=== PATIENT | female | born 1940 | race Caucasian/White ===

== ENCOUNTER 2016-11-08 11:21 | Observation (INO) | payer MEDICARE, BC ==
[2016-11-08] MEDS ORDERED: ONDANSETRON 4 MG/2 ML VIAL IVP STA (11:54)
[2016-11-08] MEDS ORDERED: ASPIRIN 81 MG CHEW PO STA (11:54)
[2016-11-08] MEDS ORDERED: NITROGLYCERIN SL TABS 0.4 MG TAB SUBLINGUAL STA (11:54)
[2016-11-08] MEDS ORDERED: SODIUM CHLORIDE 0.9% 1,000 ML IV STA (11:54)
--- NOTE | 2016-11-08 12:35 | XR ---
EXAMINATION TYPE: XR chest 2V DATE OF EXAM: 11/08/2016 12:31 PM COMPARISON: Prior chest x-ray April 27, 2015. HISTORY: History of atrial fibrillation with chest pain TECHNIQUE: Frontal and lateral views of the chest are obtained. FINDINGS: There is no focal air space opacity, pleural effusion, or pneumothorax seen. The cardiac silhouette size is limits of normal with atherosclerotic thoracic aorta. The osseous structures are intact. IMPRESSION: No acute cardiopulmonary process. No significant change from prior.
[2016-11-08 12:40] LABS: Aty Lym Flag Slight; CHCM 33.2; HCT 38.9 % (34.0-46.0); HDW 2.46; HGB 13.4 gm/dL (11.4-16.0); MCH 30.2 pg (25.0-35.0); MCHC 34.4 g/dL (31.0-37.0); MCV 87.8 fL (80.0-100.0); RBC 4.44 m/uL (3.80-5.40); WBC 5.3 k/uL (3.8-10.6); WBC (Perox) 5.32
[2016-11-08 12:48] LABS: INR 1.2 (<1.1); Partial Thromboplastin Time 30.1 sec (22.0-30.0); Prothrombin Time 11.5 sec (9.0-12.0)
[2016-11-08 12:51] LABS: ALT 30 U/L (9-52); AST 24 U/L (14-36); Alkaline Phosphatase 75 U/L (38-126); Amylase 36 U/L (30-110); Anion Gap 11 mmol/L; Blood Urea Nitrogen 10 mg/dL (7-17); Carbon Dioxide 24 mmol/L (22-30); Chloride 102 mmol/L (98-107); Glucose 201 mg/dL (74-99); Magnesium 1.8 mg/dL (1.6-2.3); Non-African American GFR(MDRD) >60 (>60 ml/min/1.73 sqM); Potassium 3.7 mmol/L (3.5-5.1); Sodium 137 mmol/L (137-145); Total Bilirubin 1.6 mg/dL (0.2-1.3); Total Protein 6.8 g/dL (6.3-8.2)
[2016-11-08 12:58] LABS: Creatine Kinase 55 U/L (30-135)
[2016-11-08 13:11] LABS: Creatine Kinase MB 0.3 ng/mL (0.0-2.4); Troponin I <0.012 ng/mL (0.000-0.034)
[2016-11-08 13:17] LABS: Add Differential Manual Differential
[2016-11-08 13:22] LABS: Nucleated Red Blood Cells 0 /100 WBC (0-0)
[2016-11-08 13:23] LABS: Manual Review Performed; Metamyelocytes % 0.5 %; Total Cells Counted 200
[2016-11-08 13:24] LABS: Large Platelets Present
--- NOTE | 2016-11-08 14:42 | ED ---
Chest Pain HPI - General Chief Complaint: Chest Pain Stated Complaint: chest pain Time Seen by Provider: 11/08/16 11:32 Source: patient Mode of arrival: ambulatory Limitations: no limitations - History of Present Illness Initial Comments: Arms the chest pain today, that to his back or jaw lasted for about a about 40 minutes and she had a similar episode for the last 3 days but this is the longest time it ever lasted is she is also complaining about the shortness of breath but it is no pleuritic chest pain at all right ear pain has resolved totally she denies any headaches no neck stiffness no chest pain or shortness of breath no abdominal pain no frequency urgency dysuria no sinus symptoms of TIA or CVA - Related Data Home Medications Medication Instructions Recorded Confirmed ALPRAZolam [Xanax] 0.25 mg PO TID PRN 04/26/15 11/08/16 Aspirin 81 mg PO DAILY 04/26/15 11/08/16 Atorvastatin [Lipitor] 10 mg PO HS 04/26/15 11/08/16 Citalopram Hydrobromide 40 mg PO HS 04/26/15 11/08/16 [Citalopram HBr] Irbesartan/Hydrochlorothiazide 1 tab PO DAILY 04/26/15 11/08/16 [Irbesartan-Hctz 300-12.5 mg Tb] Levothyroxine Sodium [Levoxyl] 125 mcg PO DAILY 04/26/15 11/08/16 metFORMIN HCL [Glucophage] 500 mg PO HS 04/26/15 11/08/16 Rivaroxaban [Xarelto] 20 mg PO W/SUPPER 11/08/16 11/08/16 Previous Rx's Medication Instructions Recorded Nitroglycerin Sl Tabs [Nitrostat] 0.4 mg SUBLINGUAL Q5M PRN #25 tab 11/30/14 Atenolol [Tenormin] 12.5 mg PO HS #0 05/01/15 Allergies Allergy/AdvReac Type Severity Reaction Status Date / Time codeine Allergy Severe Unknown Verified 11/08/16 13:08 Review of Systems ROS Statement: Those systems with pertinent positive or pertinent negative responses have been documented in the HPI. ROS Other: All systems not noted in ROS Statement are negative. EKG Findings - EKG Comments: EKG Findings:: EKG is a sinus rhythm with a first-degree AV block ventricular rate is 68 MT interval is 224 QRS duration is 88 QT/QTc is 620 01/06/1950 and we have this EKG does not reveal any ST elevation or ST depression Past Medical History Past Medical History: Atrial Fibrillation, Diabetes Mellitus, GERD/Reflux, Hyperlipidemia, Hypertension, Osteoarthritis (OA), Pneumonia, Thyroid Disorder Additional Past Medical History / Comment(s): DDD, SPINAL STENOSIS HIATAL HERNIA , DIVERTICULITS, "diseased" HEART VALVES X2 History of Any Multi-Drug Resistant Organisms: MRSA Date of last positivie culture/infection: 04/30/2015 MDRO Source:: back Past Surgical History: Appendectomy, Cholecystectomy, Heart Catheterization, Hysterectomy Additional Past Surgical History / Comment(s): bladder suspension, PT STATED LT BREAST HAS VASCULAR LOOP, EPIDURAL INJECTIONS/BACK, COLONOSCOPY-POLYPECTOMY( BENIGN) Past Anesthesia/Blood Transfusion Reactions: Previous Problems w/ Anesthesia, Motion Sickness Additional Past Anesthesia/Blood Transfusion Reaction / Comment(s): HARD TIME WAKING UP AFTER AA. Past Psychological History: Anxiety, Depression Additional Psychological History / Comment(s): PT LOST HER DECEMBER 2014 HAS HAD SOME DEPRESSION SINCE BUT NOT SUICIDAL.PTS DAUGHTER,SON KAIT AND SON LIVE WITH PT. PT RECENTLY BOUGHT A LITTLE PUPPY.PT GETS UP AND AMBULATES ON HER OWN.APPETITE OFF AND ON. Is noted new animal in the home which is a puppy. Is doing modestly well since she became a . Was a tobacco smoker stopping 29 years ago. Has been somewhat inconsistent with medical care since the of her . Smoking Status: Former smoker Past Alcohol Use History: None Reported Past Drug Use History: None Reported - Past Family History Father Family Medical History: Renal Disease Additional Family Medical History / Comment(s): HEART PROBLEMS Mother Family Medical History: Cancer General Exam - General Exam Comments Initial Comments: General: The patient is awake and alert, in no distress, and does not appear acutely ill. Skin: Skin is warm and dry and no rashes or lesions are noted. Eye: Pupils are equal, round and reactive to light, extra-ocular movements are intact; there is normal conjunctiva bilaterally. Ears, nose, mouth and throat: There are moist mucous membranes and no oral lesions. Neck: The neck is supple, there is no tenderness or JVD. Cardiovascular: There is a regular rate and rhythm. No murmur, rub or gallop is appreciated. Respiratory: To auscultation bilateral, family is consistent with a COPD Gastrointestinal: Soft, non-distended, non-tender abdomen without masses or organomegaly noted. There is no rebound or guarding present. Bowel sounds are unremarkable. Back: There is no tenderness to palpation in the midline. There is no obvious deformity. Musculoskeletal: Normal ROM, no tenderness, There is no pedal edema. There is no calf tenderness or swelling. No cords were appreciated. Neurological: CN II-XII intact, Cranial nerves III through XII are intact. There are no obvious motor or sensory deficits. Coordination appears grossly intact. Speech is normal. Psychiatric: Cooperative, appropriate mood & affect, normal judgment. Limitations: no limitations Course Vital Signs 11/08/16 11/08/16 11/08/16 11:25 11:43 11:45 Temperature 99.1 F 98.0 F Pulse Rate 73 68 68 Respiratory 18 16 16 Rate Blood Pressure 179/81 149/70 149/70 O2 Sat by Pulse 97 97 97 Oximetry 11/08/16 11/08/16 11/08/16 12:15 13:33 14:22 Temperature 98.2 F Pulse Rate 64 66 70 Respiratory 16 18 18 Rate Blood Pressure 155/72 125/58 138/65 O2 Sat by Pulse 96 97 96 Oximetry Disposition Clinical Impression: Chest pain Disposition: ADMITTED IP TO THIS HOSP Condition: Fair Referrals: Napoleon Arellano MD [Primary Care Provider] - 1-2 days
[2016-11-08] MEDS ORDERED: NITROGLYCERIN SL TABS 0.4 MG TAB SUBLINGUAL PRN ×2 (14:57→15:00)
[2016-11-08] MEDS ORDERED: ALPRAZolam 0.25 MG TAB PO PRN (15:00)
[2016-11-08 16:53] VITALS: RESP 16
[2016-11-08 16:58] LABS: Glucose,Whole Blood 151 mg/dL (75-99)
[2016-11-08] MEDS ORDERED: RIVAROXABAN 10 MG TAB PO SCH (17:30)
[2016-11-08 18:46] LABS: Creatine Kinase 42 U/L (30-135)
[2016-11-08 18:59] LABS: Creatine Kinase MB 0.2 ng/mL (0.0-2.4); Troponin I <0.012 ng/mL (0.000-0.034)
[2016-11-08 20:43] LABS: Glucose,Whole Blood 133 mg/dL (75-99)
--- NOTE | 2016-11-08 20:57 | HP ---
DATE OF ADMISSION: Patient is a 76-year-old female who came in with complaints of pain in the neck area radiating to the jaw. Patient has history of atrial fibrillation. Patient had a recent stress test in the month of July. Patient also had a Holter monitor ( ). Patient denied any palpitation. Patient denied any shortness of breath. Patient denied any light-headedness. Patient denied any diaphoresis. Her chest pain is about 5/10 in severity, pressure-like sensation, not related to food, non-pleuritic in nature. Denied any cough or runny nose. Patient denied any weakness anywhere in the body. Patient is being admitted to rule out ( ) syndromes. Patient follows with Dr. Das as an outpatient for her coronary ( ). Patient is on rivaroxaban for the atrial fibrillation. Patient denied any palpitation-like symptoms. Denied any shortness of breath or orthopnea or PND. ROS: All other systems were reviewed and were negative. Home medications include 1. ( ) 2. Aspirin. 3. Citalopram. 4. Irbesartan hydrochlorothiazide. 5. Levothyroxine. 6. Metformin. 7. Rivaroxaban. 8. Nitroglycerin. 9. Atenolol. ALLERGIES: CODEINE. Past medical history is significant for: 1. Atrial fibrillation. 2. Diabetes mellitus. 3. Gastroesophageal reflux disease. 4. Hyperlipidemia. 5. Hypertension. 6. Osteoarthritis. 7. Hypothyroidism. 8. MRSA in the past. 9. Appendectomy. 10. Cholecystectomy. 11. Cardiac catheterization. 12. Hysterectomy. SOCIAL HISTORY: Former smoker. Denied any alcohol abuse or any drug abuse. FAMILY HISTORY: Father had heart problems. Mother had cancer. PHYSICAL EXAMINATION: VITAL SIGNS: Temperature 99.1, pulse of 68, respiratory rate of 16. Blood pressure is 149/70. GENERAL: The patient is alert and oriented x3, not in any acute distress. Well developed, well nourished. HEENT: Pupils are round and equally reacting to light. EOMI. No scleral icterus. No conjunctival pallor. Normocephalic, atraumatic. No pharyngeal erythema. No thyromegaly. CARDIOVASCULAR: S1 and S2 present. No murmurs, rubs, or gallops. PULMONARY: Chest is clear to auscultation, no wheezing or crackles. ABDOMEN: Soft, nontender, nondistended, normoactive bowel sounds. No palpable organomegaly. MUSCULOSKELETAL: No joint swelling or deformity. EXTREMITIES: No cyanosis, clubbing, or pedal edema. NEUROLOGICAL: Gross neurological examination did not reveal any focal deficits. SKIN: No rashes. LABORATORY DATA: CBC, CMP were reviewed. No significant abnormality was appreciated. ASSESSMENT AND PLAN: 1. Chest pain. Rule out acute coronary syndrome and unstable angina. Patient had a recent stress test. May not need a repeat stress test. Cardiology will evaluate the patient. After that, patient probably can be discharged with followup with Dr. Das as an outpatient. 2. History of atrial fibrillation, presently rate-controlled. Patient is on Xarelto, which will be continued. 3. Type 2 diabetes mellitus, on metformin, which can be continued as well. 4. Gastroesophageal reflux disease. 5. Hypertension. 6. Osteoarthritis. 7. Hyperlipidemia. For above-mentioned chronic medical problems, I will go ahead and continue with home medications. Will monitor patient overnight. Patient will be evaluated by Cardiology. After that, patient may be discharged, most probably tomorrow morning, to follow up with Dr. Das as an outpatient. I will leave evaluation of echocardiogram to Cardiology. JOSTIN
[2016-11-08] MEDS ORDERED: ATORVASTATIN 10 MG TAB PO SCH (21:00)
[2016-11-08] MEDS: PREGABALIN 100 MG CAP PO SCH (21:00)
[2016-11-08] MEDS ORDERED: ATORVASTATIN 40 MG TAB PO SCH (21:00)
[2016-11-08] MEDS ORDERED: ATENOLOL 12.5 MG TAB PO SCH (21:00)
[2016-11-08] MEDS ORDERED: metFORMIN 500 MG TAB PO SCH (21:00)
[2016-11-08] MEDS ORDERED: CITALOPRAM HYDROBROMIDE 20 MG TAB PO SCH (21:00)
[2016-11-08] MEDS: ACETAMINOPHEN TAB 325 MG TAB PO PRN (23:30)
[2016-11-09 00:39] LABS: Creatine Kinase 44 U/L (30-135)
[2016-11-09 00:52] LABS: Creatine Kinase MB 0.3 ng/mL (0.0-2.4); Troponin I <0.012 ng/mL (0.000-0.034)
[2016-11-09 02:53] LABS: Cholesterol 130 mg/dL (<200); HDL Cholesterol 52 mg/dL (40-60); Triglycerides 213 mg/dL (<150)
[2016-11-09] MEDS: LEVOTHYROXINE 125 MCG TAB PO SCH ×2 (04:57→05:36)
[2016-11-09 06:42] LABS: Glucose,Whole Blood 129 mg/dL (75-99)
[2016-11-09] MEDS ORDERED: LOSARTAN 50 MG TAB PO SCH (09:00)
[2016-11-09] MEDS ORDERED: HYDROCHLOROTHIAZIDE 12.5 MG CAP PO SCH (09:00)
[2016-11-09] MEDS ORDERED: ASPIRIN 325 MG TAB PO SCH (09:00)
[2016-11-09] MEDS: ACETAMINOPHEN TAB 325 MG TAB PO PRN (09:37)
[2016-11-09] MEDS: PREGABALIN 100 MG CAP PO SCH (09:41)
[2016-11-09 11:19] LABS: Hemoglobin A1C 6.8 % (4.2-6.1)
--- NOTE | 2016-11-09 11:20 | CONS ---
DATE OF CONSULTATION: This is a 76-year-old lady with a known history of hypertension, hypercholesterolemia, type 2 diabetes mellitus, and paroxysmal atrial fibrillation. She recently had a stress test performed in the office because of episodes of chest tightness and pressure and the stress test will be reviewed but presumably it was normal and this was a Lexiscan stress test. She comes into the hospital because after she showered yesterday she felt some pressure in her jaw and the pressure seemed to persist, went to the back of her head and then to the upper back and she came into the hospital concerned that this may be angina. She has not had any recurrence of pain. Her troponins are normal. EKGs are unremarkable. She is maintaining sinus rhythm. She is on Xarelto 20 mg daily. She has no symptoms at the time of my evaluation. She is known to have a normal LV systolic function. PAST MEDICAL HISTORY: 1. Paroxysmal atrial fibrillation on Xarelto, maintaining sinus rhythm. 2. Type 2 diabetes. 3. Hypertension. 4. Hyperlipidemia. 5. History of recent stress test that was presumably normal, but this will be verified. Medications at home include: irbesartan hydrochlorothiazide 300/12.5; atorvastatin 10 mg daily; Tenormin 12.5 mg daily; aspirin 81 mg daily; Xarelto 20 mg daily; Levoxyl 125 mcg daily; metformin 500 mg daily. ALLERGIES: CODEINE. REVIEW OF SYSTEMS: Unremarkable other than above-mentioned facts. On examination, blood pressure is 130/60, pulse rate 70 per minute, regular. HEENT: Unremarkable. Fundus was not examined by me. Neck is supple. There is no JVD. I do not hear a carotid bruit. There is no thyromegaly. Heart exam reveals S1 and S2. There is a short systolic murmur along the left upper sternal border. Lungs are clear. Abdomen is soft, nontender. Lower extremities reveal normal pulses. No edema. Central nervous system is normal. EKG revealed sinus mechanism. No acute changes. Laboratory data revealed unremarkable troponins. IMPRESSION: 1. Atypical chest pain. 2. Hypertension. 3. Hyperlipidemia. 4. Type 2 diabetes mellitus. 5. Paroxysmal atrial fibrillation on Xarelto. RECOMMENDATIONS: I will recheck the results of the stress test, but it appears that her recent Lexiscan stress test from November 04 was unremarkable. I will review this and if this is normal, she will be discharged and she will follow up with Dr. Das in about 2 to 3 weeks. I discussed my thoughts in detail with the patient and family. Thank you very much for the consult.
[2016-11-09 11:42] VITALS: BP 141/65; PULSE 71; TEMP 98.2
[2016-11-09 11:58] LABS: Glucose,Whole Blood 169 mg/dL (75-99)
--- NOTE | 2016-11-10 13:43 | DS ---
DATE OF ADMISSION: 11/08/2016 DATE OF DISCHARGE: 11/09/2016 HOSPITAL COURSE: Ms. Rueda is a 76-year-old female with a past medical history of hypertension, hyperlipidemia, type 2 diabetes mellitus, paroxysmal atrial fibrillation, admitted to the hospital with a chief complaint of chest pain. The patient had some chest discomfort and also felt like pressure in her jaw that persisted and so came to the hospital for further evaluation. The patient had serial troponins and EKGs and that were within normal limits. Cardiology has been consulted. The patient did have a recent stress test done on November 04 that has been within normal limits. As the patient's troponins and EKGs have been within normal limits, she was cleared by cardiology to be discharged home today. The patient is being discharged home in stable condition. DISCHARGE DIAGNOSES: 1. Atypical chest pain. 2. Hypertension. 3. Hyperlipidemia. 4. Type 2 diabetes mellitus. 5. Paroxysmal atrial fibrillation. 6. Gastroesophageal reflux disease. 7. Osteoarthritis. Patient's discharge medications: 1. Nitroglycerin sublingual 0.4 mg q.5 minutes p.r.n. for chest pain. 2. Xanax 0.25 mg p.o. 3 times a day p.r.n. for anxiety. 3. Aspirin 81 mg p.o. daily. 4. Atorvastatin 10 mg p.o. q.h.s. 5. Citalopram 40 mg p.o. q.h.s. 6. Irbesartan hydrochlorothiazide 300/12.5 mg 1 tablet p.o. daily. 7. Levothyroxine 125 mcg p.o. daily. 8. Metformin 500 mg p.o. q.h.s. 9. Atenolol 12.5 mg p.o. q.h.s. 10. Xarelto 20 mg p.o. with supper. 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 Thiago Coleman in 2 weeks and with her primary care physician, Dr. Napoleon Arellano within 1 to 2 days. JOSTIN
== END 2016-11-09 15:16 | disposition home or self-care (01) ==
LOC: EC 11:21 → 3OBS 14:57
PROVIDERS: ADMIT Hospitalist; ATTEND Hospitalist
DX: R07.89 Other chest pain (principal); I10 Essential (primary) hypertension; E78.5 Hyperlipidemia, unspecified; E11.9 Type 2 diabetes mellitus without complications; I48.0 Paroxysmal atrial fibrillation; K21.9 Gastro-esophageal reflux disease without esophagitis; M19.90 Unspecified osteoarthritis, unspecified site; E78.00 Pure hypercholesterolemia, unspecified; F41.9 Anxiety disorder, unspecified; Z79.01 Long term (current) use of anticoagulants; Z79.82 Long term (current) use of aspirin; Z79.84 Long term (current) use of oral hypoglycemic drugs; Z79.899 Other long term (current) drug therapy; Z87.891 Personal history of nicotine dependence; R06.02 Shortness of breath; H92.01 Otalgia, right ear; Z88.5 Allergy status to narcotic agent; I44.0 Atrioventricular block, first degree; E07.9 Disorder of thyroid, unspecified; M54.2 Cervicalgia
CPT/HCPCS: 99285 ×2; 36415; 93005; 83880; 80061; 80053; 82150; 83036; 82550; 82553; 83690; 83735; 84484; 85025; 85610; 85730; 71020; G0378 ×2; 96361

== ENCOUNTER 2016-12-25 10:52 | Day surgery (SDC) | payer MEDICARE, BC ==
[2016-12-20 16:03] VITALS: BMI 36.6
[~2016-12-25 10:52] MED LIST: ALPRAZolam 0.25 MG TAB PO PRN; ALPRAZolam 0.5 MG TAB PO PRN; ASPIRIN 325 MG TAB PO STA; ATORVASTATIN 80 MG TAB PO STA; NITROGLYCERIN SL TABS 0.4 MG TAB SUBLINGUAL PRN; SODIUM CHLORIDE 0.9% 1,000 ML in EMPTY BAG 1 BAG IV ONE
[2016-12-25 11:31] LABS: Aty Lym Flag Moderate; CH 29.8; CHCM 33.8; HDW 2.46; HGB 13.1 gm/dL (11.4-16.0); MCH 29.7 pg (25.0-35.0); MCHC 33.5 g/dL (31.0-37.0); MCV 88.4 fL (80.0-100.0); Mean Platelet Volume 9.3; RDW 14.1 % (11.5-15.5); WBC (Perox) 6.35
[2016-12-25 11:33] VITALS: TEMP 98
[2016-12-25 11:33] LABS: Glucose,Whole Blood 121 mg/dL (75-99)
[2016-12-25 11:46] LABS: Anion Gap 9 mmol/L; Blood Urea Nitrogen 11 mg/dL (7-17); Calcium 9.2 mg/dL (8.4-10.2); Carbon Dioxide 25 mmol/L (22-30); Chloride 105 mmol/L (98-107); Glucose 122 mg/dL (74-99); Non-African American GFR(MDRD) >60 (>60 ml/min/1.73 sqM); Potassium 3.8 mmol/L (3.5-5.1); Sodium 139 mmol/L (137-145)
[2016-12-25 12:09] LABS: Add Differential Manual Differential
[2016-12-25 12:11] LABS: Nucleated Red Blood Cells 0 /100 WBC (0-0); Total Cells Counted 100
[2016-12-25 12:12] LABS: RBC Morphology Normal
[2016-12-25] MEDS ORDERED: VERAPAMIL 2.5 MG/ML 2 ML AMP ONE (12:13)
[2016-12-25] MEDS ORDERED: LIDOCAINE 2% INJ 20 MG/ML (20 ML MDV) ONE (12:13)
[2016-12-25] MEDS ORDERED: fentaNYL (PF) 50 MCG/ML 2 ML AMP ONE (12:30)
[2016-12-25] MEDS ORDERED: HEPARIN SODIUM 1,000 UNIT/ML VIAL ONE (12:30)
[2016-12-25] MEDS ORDERED: fentaNYL (PF) 50 MCG/ML 2 ML AMP IV ONE (12:34)
[2016-12-25] MEDS ORDERED: LIDOCAINE 2% INJ 20 MG/ML SQ ONE (12:38)
[2016-12-25] MEDS ORDERED: HEPARIN SODIUM 1,000 UNIT/ML VIAL IV ONE (12:41)
[2016-12-25] MEDS ORDERED: VERAPAMIL SYRINGE (5 MG/10 ML) INTRAARTER ONE (12:41)
[2016-12-25] MEDS ORDERED: IOHEXOL 350 MG/ML 125ML BOTTLE INJ ONE (12:54)
[2016-12-25] MEDS ORDERED: RX INFO: IV CONTRAST WAS GIVEN 1 EACH MISC MISCELLANE PRN (13:10)
[2016-12-25] MEDS ORDERED: ALPRAZolam 0.25 MG TAB PO PRN (13:11)
[2016-12-25] MEDS ORDERED: NITROGLYCERIN SL TABS 0.4 MG TAB SUBLINGUAL PRN (13:11)
[2016-12-25 13:15] VITALS: RESP 16
[2016-12-25] MEDS ORDERED: SODIUM CHLORIDE 0.9% 1,000 ML IV SCH (13:15)
--- NOTE | 2016-12-25 14:16 | CC ---
DATE OF SERVICE: Ms. Rueda is a 76-year-old female with known history of hypertension, hyperlipidemia, and diabetes mellitus, who has been complaining of episode of chest discomfort and dyspnea. In view of that, underwent a stress test that showed evidence of stress induced ischemia involving the intra-apical wall. In view of that, recommendation was made regarding cardiac catheterization. The procedure as well as the risks and complications were discussed with the patient who is in full understanding and agreement. PROCEDURE: Patient was brought to the [facility] in fasting semi-sedated state after receiving fentanyl and Benadryl and after achieving moderate conscious sedation state, using Xylocaine anesthesia and Seldinger technique, a 6 Wolof sheath was introduced in the right radial artery. Selective right and left coronary angiography was performed using 5 Wolof 3-1/2 Bend, right Ovi catheters. Multiple views of the coronary artery including hemiaxial views were obtained. Following that, a 5 Wolof tight pigtail catheter was introduced into the left ventricle and a 30 degree GUILLERMO view of the left ventricle obtained. Following that, catheter and sheaths were removed. Hemostasis was obtained with deployment of a TR band. There were no immediate complications. Patient is returned to her room in stable condition. Of note, the patient received 4500 units of intravenous heparin as well as intra-arterial verapamil. FINDINGS: FLUOROSCOPY: There is mild calcification involving the right coronary artery in the left anterior descending artery. LEFT MAIN: This is a mild size vessel bifurcating into left circumflex and left anterior descending artery. The left main coronary artery has no evidence of high-grade stenosis. LEFT ANTERIOR DESCENDING ARTERY: This is a large-size vessel reaching toward the apex and giving rise to 2 small diagonal branches. The left anterior descending artery, as well as its branches has no evidence of high-grade stenosis. LEFT CIRCUMFLEX: This is a nondominant vessel, giving rise to an obtuse marginal branch of large caliber. The left circumflex proximally has 20% to 30% plaque at the ostium. The rest of the vessel has no high-grade stenosis. RIGHT CORONARY ARTERY: This is a large dominant vessel, bifurcating into PDA and posterolateral segment and branches. The mid right coronary artery has a 20% to 30% plaque. The rest of the vessel has no high-grade stenosis. LEFT VENTRICULOGRAM: Left ventriculogram was performed in 30 degree GUILLERMO view and revealed normal left ventricular size and systolic function. Ejection fraction is 60%. HEMODYNAMICS: There was no gradient across the aortic valve. The left ventricular end-diastolic pressure was 14 to 16 mmHg. CONCLUSION: 1. Mildly calcified coronary arteries. 2. Mild disease in the mid-right coronary artery and ostial left circumflex. 3. Normal left ventricular size and systolic function. RECOMMENDATION: In view of finding anatomy, I would recommend resume with medical therapy with aggressive risk modification. Those findings and recommendations were discussed with the patient and family who are in full understanding and agreement. T DURATION OF THE PROCEDURE: 20 minutes.
--- NOTE | 2016-12-25 14:24 | LTR ---
December 25, 2016 RE: Nita Rueda Dear Dr. Arellano; I had the pleasure to perform cardiac catheterization on Ms. Rueda at [facility] at December 25, 2016 and a full copy of the procedure note will be forwarded to you. In brief, she was found to have mildly calcified coronary artery with mild disease involving the mid-right coronary artery and the ostium of the left circumflex with a preserved ventricular size and systolic function and based on those findings, I would recommend continued medical therapy with the aggressive risk modification that has been initiated and thank you again for allowing me to participate in this patient's care. Please feel free to call for any questions. Sincerely, LINDA PENALOZA MD
[2016-12-25 15:36] VITALS: BP 137/60; PULSE 66
[2016-12-25] MEDS ORDERED: PREGABALIN 100 MG CAP PO SCH (21:00)
[2016-12-25] MEDS ORDERED: ATORVASTATIN 10 MG TAB PO SCH (21:00)
[2016-12-25] MEDS ORDERED: NON-FORMULARY DRUG (Citalopram Hydrobromide [Citalopram Hbr] 40 MG) PO SCH (21:00)
[2016-12-25] MEDS ORDERED: ATENOLOL 25 MG TAB PO SCH (21:00)
[2016-12-26] MEDS ORDERED: [UNRECOGNIZED DRUG - OTHER] PO SCH (09:00)
[2016-12-26] MEDS ORDERED: HYDROCHLOROTHIAZIDE PO SCH (09:00)
[2016-12-26] MEDS ORDERED: ASPIRIN 81 MG CHEW PO SCH (09:00)
[2016-12-26] MEDS ORDERED: LEVOTHYROXINE 125 MCG TAB PO SCH (09:00)
[2016-12-26] MEDS ORDERED: IRBESARTAN PO SCH (09:00)
== END 2016-12-25 17:59 | disposition home or self-care (01) ==
LOC: CATHCVL 10:52
PROVIDERS: ATTEND Internal Medicine Interventional Cardiology
DX: I25.10 Atherosclerotic heart disease of native coronary artery without angina pectoris (principal); I25.84 Coronary atherosclerosis due to calcified coronary lesion; I10 Essential (primary) hypertension; I48.0 Paroxysmal atrial fibrillation; Z79.01 Long term (current) use of anticoagulants; E78.2 Mixed hyperlipidemia; E11.9 Type 2 diabetes mellitus without complications; Z79.84 Long term (current) use of oral hypoglycemic drugs; G47.30 Sleep apnea, unspecified; Z99.89 Dependence on other enabling machines and devices; Z79.82 Long term (current) use of aspirin; Z79.899 Other long term (current) drug therapy; Z88.5 Allergy status to narcotic agent; Z91.09 Other allergy status, other than to drugs and biological substances
CPT/HCPCS: 93458; 80048; 85025; C1894; C1769 ×2; J2001; J3010; J1644; Q9967

== ENCOUNTER 2018-07-15 14:38 | Emergency (ER) | payer BC, MEDICARE ==
[2018-07-15 15:18] VITALS: TEMP 98.2
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
--- NOTE | 2018-07-15 15:56 | XR ---
Abdomen HISTORY: Hematuria Frontal view of the abdomen on 2 images Surgical clips present right upper quadrant. Degenerative disc changes in the visualized spine. No ev ident bowel infection or pneumoperitoneum. Lung bases are clear. IMPRESSION: No acute abnormalities evident.
[2018-07-15 16:14] LABS: Appearance,Urine Clear (Clear); Bacteria,Urine Many /hpf; Bilirubin,Urine Negative (Negative); Blood,Urine Large (Negative); Color,Urine Yellow; Glucose,Urine (UA) Negative (Negative); Ketones,Urine Negative (Negative); Leukocyte Esterase,Urine Negative (Negative); Nitrite,Urine Negative (Negative); PH, Urine 6.5 (5.0-8.0); Protein,Urine Trace (Negative); RBC,Urine 65 /hpf (0-5); Specific Gravity,Urine 1.003 (1.001-1.035); Squamous Epithelial Cell,Urine <1 /hpf (0-4); Urobilinogen,Urine <2.0 mg/dL (<2.0); WBC,Urine 2 /hpf (0-5)
[2018-07-15] MEDS ORDERED: SODIUM CHLORIDE 0.9% 1,000 ML IV STA (16:53)
[2018-07-15 17:19] LABS: ALT 24 U/L (9-52); AST 25 U/L (14-36); Albumin 4.2 g/dL (3.5-5.0); Alkaline Phosphatase 75 U/L (38-126); Amylase 57 U/L (30-110); Anion Gap 10 mmol/L; Blood Urea Nitrogen 11 mg/dL (7-17); Carbon Dioxide 26 mmol/L (22-30); Chloride 103 mmol/L (98-107); Glucose 171 mg/dL (74-99); Lipase 50 U/L (23-300); Sodium 139 mmol/L (137-145); Total Bilirubin 1.3 mg/dL (0.2-1.3); Total Protein 7.3 g/dL (6.3-8.2)
[2018-07-15 17:28] LABS: HCT 40.1 % (34.0-46.0); HGB 13.3 gm/dL (11.4-16.0); MCH 28.4 pg (25.0-35.0); MCHC 33.2 g/dL (31.0-37.0); MCV 85.5 fL (80.0-100.0); Mean Platelet Volume 9.9; Platelet Count 139 k/uL (150-450); RBC 4.69 m/uL (3.80-5.40); RDW 14.4 % (11.5-15.5); WBC 8.7 k/uL (3.8-10.6)
[2018-07-15 17:58] LABS: Lymphocytes # (M) 3.22 k/uL (1.0-4.8); Metamyelocytes # (M) 0.09 k/uL (0); Metamyelocytes % 1 %; Monocytes # (M) 1.39 k/uL (0-1.0); Neutrophils % (M) 46 %; Nucleated Red Blood Cells 0 /100 WBC (0-0); Total Cells Counted 100
--- NOTE | 2018-07-15 18:14 | CT ---
EXAMINATION TYPE: CT abdomen pelvis w con DATE OF EXAM: 07/15/2018 COMPARISON: None HISTORY: gross hematuria CT DLP: 1550.7 mGycm Automated exposure control for dose reduction was used. TECHNIQUE: Helical acquisition of images was performed from the lung bases through the pelvis. CONTRAST: Performed without Oral Contrast and with IV Contrast, patient injected with 100 mL of Isovue 300. FINDINGS: There is patchy interstitial infiltrates and atelectasis at the lung bases. There is no pleural effus ion. Heart appears enlarged. There is no pericardial effusion. There is low-attenuation throughout the liver consistent with fatty infiltration. There are clips fro m cholecystectomy. Bile ducts are not dilated. There is no focal liver defect. Spleen appears normal. Stomach appears normal. There is no pancreatic mass. There is no adrenal mass. Kidneys show satisfactory contrast opacification. There is satisfactory exc retion on the delayed images. There is no hydronephrosis. There is right renal parapelvic cyst. Urete rs are not dilated. Abdominal aorta is atheromatous. There is no retroperitoneal adenopathy. There is broad-based umbilical hernia that contains fat. Bladder distends smoothly. There is no inguinal hernia. There is no free fluid in the pelvis. There a re sigmoid multiple diverticula. There is no evidence of diverticulitis. Appendix is not seen. There is no sign of appendicitis. Abdominal aorta is atheromatous. There is no sign of free air. There is no evidence of a bowel obstruction. I see no intestinal wall thickening. B kirsten structures appear intact. There is L5-S1 spondylosis. There is no compression fracture. IMPRESSION: THERE ARE A FEW SIGMOID DIVERTICULA WITHOUT EVIDENCE OF DIVERTICULITIS. ATHEROSCLEROTIC VASCULAR DISE ASE. FATTY INFILTRATION OF THE LIVER. FIBROTIC CHANGES AT THE LUNG BASES. I do not see a cause for hematuria.
[2018-07-15 19:29] VITALS: BP 139/59; PULSE 72; RESP 18
== END 2018-07-15 19:45 | disposition home or self-care (01) ==
LOC: EC 14:38
DX: R31.9 Hematuria, unspecified (principal); R19.8 Other specified symptoms and signs involving the digestive system and abdomen; I48.91 Unspecified atrial fibrillation; E11.9 Type 2 diabetes mellitus without complications; K21.9 Gastro-esophageal reflux disease without esophagitis; E78.5 Hyperlipidemia, unspecified; I10 Essential (primary) hypertension; M19.90 Unspecified osteoarthritis, unspecified site; E07.9 Disorder of thyroid, unspecified; F32.9 Major depressive disorder, single episode, unspecified; F41.9 Anxiety disorder, unspecified; Z86.14 Personal history of Methicillin resistant Staphylococcus aureus infection; Z87.891 Personal history of nicotine dependence; Z79.01 Long term (current) use of anticoagulants; Z79.84 Long term (current) use of oral hypoglycemic drugs; Z79.899 Other long term (current) drug therapy; Z88.5 Allergy status to narcotic agent; Z91.048 Other nonmedicinal substance allergy status; Z95.818 Presence of other cardiac implants and grafts; Z90.49 Acquired absence of other specified parts of digestive tract
CPT/HCPCS: 36415; 80053; 82150; 83690; 85025; 81001; 87086; 74018; 74177; 99284; 96360; 96361; Q9967

== ENCOUNTER 2018-10-28 09:24 | Day surgery (SDC) | payer MEDICARE ==
[2018-10-22 10:18] VITALS: BMI 36.6
[~2018-10-28 09:24] MED LIST changes: -ALPRAZolam 0.25 MG TAB PO PRN; -ALPRAZolam 0.5 MG TAB PO PRN; -ASPIRIN 325 MG TAB PO STA; -ATORVASTATIN 80 MG TAB PO STA; +LACTATED RINGERS 1,000 ML IV SCH; +LIDOCAINE 1% 20 ML VIAL (10MG/ML) FOR IV START INTRADERMA PRN; +MOXIFLOXACIN HCL 0.5% DROPS 3 ML BTL OP ONE; -NITROGLYCERIN SL TABS 0.4 MG TAB SUBLINGUAL PRN; +ONDANSETRON 4 MG/2 ML VIAL IVP ONE; -SODIUM CHLORIDE 0.9% 1,000 ML in EMPTY BAG 1 BAG IV ONE; +TETRACAINE 0.5% OPHTH (PF) DROPS 4 ML BTL OP ONE; +TIMOLOL 0.5% OPHTH DROPS 5 ML BTL OP ONE
[2018-10-28] MEDS: PHENYLEPHRINE 2.5% OPHTH DRP 2ML OP NR ×3 (09:58→10:11)
[2018-10-28] MEDS: CYCLOPENTOLATE 1% OPHTH SOLN 2 ML BTL OP ONE ×3 (10:02→10:14)
[2018-10-28 10:22] LABS: Glucose,Whole Blood 178 mg/dL (75-99)
[2018-10-28 10:23] VITALS: TEMP 97.1
[2018-10-28] MEDS ORDERED: fentaNYL (PF) 50 MCG/ML 2 ML AMP ONE (11:54)
[2018-10-28] MEDS ORDERED: MIDAZOLAM 2 MG/2 ML VIAL ONE (11:54)
[2018-10-28] MEDS ORDERED: LIDOCAINE 1% (PF) 10MG/ML VIAL SQ ONE (11:57)
[2018-10-28] MEDS ORDERED: BALANCED SALT IRRIG SOLN COMB2 15 ML IRRIG.SOLN IRRIGATION ONE (11:57)
[2018-10-28] MEDS ORDERED: HYALURONATE SODIUM INTRAOCULAR 1 EACH SYRINGE (12MG/ML) INTRAOCULA ONE (11:57)
[2018-10-28] MEDS ORDERED: EPINEPHrine (PF) 0.3 ML in BALANCED SALT IRRIG SOLN COMB2 500 ML IRRIGATION ONE (12:13)
--- NOTE | 2018-10-28 12:32 | P.OP ---
Date of Procedure: 10/28/18 Preoperative Diagnosis: NS & PSC B& CS Postoperative Diagnosis: same Procedure(s) Performed: PIOL, OD Implants: PCB00 26.50 Anesthesia: MAC Surgeon: Clay Aly Pathology: none sent Condition: stable Disposition: same day Indications for Procedure: blurry vision Operative Findings: No complications
[2018-10-28 12:56] VITALS: RESP 18
[2018-10-28 12:57] VITALS: BP 139/74; PULSE 74
--- NOTE | 2018-10-29 07:11 | OP ---
OPERATIVE REPORT DATE OF SURGERY: 10/28/2018 SURGEON: Dr. Clay Aly PREOPERATIVE DIAGNOSES: Nuclear sclerosis, cortical sclerosis, posterior subcapsular cataract. POSTOPERATIVE DIAGNOSES: Nuclear sclerosis, cortical sclerosis, posterior subcapsular cataract. OPERATION: Phacoemulsification of cataract and intraocular lens implant of the right eye. ESTIMATED BLOOD LOSS: Zero. SPECIMEN TAKEN: None. NARRATIVE: After obtaining the appropriate consent, the patient was brought to the Operating Room where the patient was placed under cardiac monitoring and prepped and draped in the usual sterile manner. At the 11 o'clock position a 15 degree super sharp blade was used to create a paracentesis followed by instillation of 1% Xylocaine MPF 50:50 mix with BSS into the anterior chamber. This was followed by Amvisc to stabilize the anterior chamber. At the 9 o'clock position a self-sealing corneal flap incision was created using 2.8 mm kya keratome. A cystotome was used to initiate a continuous tear capsulorrhexis which was completed with the Utrata forceps. A Binkhorst cannula was used to hydrodissect the lens nucleus followed by hydrodelineation. Phacoemulsification of the lens was performed utilizing phaco chop in 17.93 seconds at 14% power. The remaining cortical material was removed using the irrigation aspiration mode followed by additional 1% Xylocaine MPF into the anterior chamber followed by viscoelastic to stabilize the capsular bag. An ALBERTINA PCB00 26.5 diopter posterior chamber lens was placed into the capsular bag without difficulty. The remaining viscoelastic material was removed from the anterior chamber with the irrigation/aspiration. Balanced salt solution was used to normalize the intraocular pressure. The incision was checked for watertight integrity. The patient then received two drops of 0.5% timolol followed by two drops Vigamox, was lightly patched and shielded in the usual manner. There were no complications from the procedure. The patient tolerated the procedure well and was returned to recovery in good condition. MMODL / IJN: [id number] /
== END 2018-10-28 13:00 | disposition home or self-care (01) ==
LOC: OR 09:24
PROVIDERS: ATTEND Ophthalmology
DX: E11.36 Type 2 diabetes mellitus with diabetic cataract (principal); H00.023 Hordeolum internum right eye, unspecified eyelid; H00.026 Hordeolum internum left eye, unspecified eyelid; E03.9 Hypothyroidism, unspecified; I10 Essential (primary) hypertension; E78.5 Hyperlipidemia, unspecified; F41.9 Anxiety disorder, unspecified; F32.9 Major depressive disorder, single episode, unspecified; E66.9 Obesity, unspecified; I48.91 Unspecified atrial fibrillation; G47.33 Obstructive sleep apnea (adult) (pediatric); Z96.1 Presence of intraocular lens; Z98.42 Cataract extraction status, left eye; Z88.5 Allergy status to narcotic agent; Z79.82 Long term (current) use of aspirin; Z79.899 Other long term (current) drug therapy; Z79.01 Long term (current) use of anticoagulants; Z79.84 Long term (current) use of oral hypoglycemic drugs; Z79.890 Hormone replacement therapy; Z91.040 Latex allergy status; Z68.36 Body mass index [BMI] 36.0-36.9, adult
CPT/HCPCS: 66984; C1780; J2250; J0171; J3010; J2001

== ENCOUNTER 2019-04-22 07:40 | Day surgery (SDC) | payer MEDICARE ==
[2019-04-20 16:26] VITALS: BMI 37.8
[~2019-04-22 07:40] MED LIST changes: +ALPRAZolam 0.25 MG TAB PO PRN; +ALPRAZolam 0.5 MG TAB PO PRN; +ASPIRIN 325 MG TAB PO STA; +ATORVASTATIN 80 MG TAB PO STA; -LACTATED RINGERS 1,000 ML IV SCH; -LIDOCAINE 1% 20 ML VIAL (10MG/ML) FOR IV START INTRADERMA PRN; -MOXIFLOXACIN HCL 0.5% DROPS 3 ML BTL OP ONE; +NITROGLYCERIN SL TABS 0.4 MG TAB SUBLINGUAL PRN; -ONDANSETRON 4 MG/2 ML VIAL IVP ONE; +SODIUM CHLORIDE 0.9% 1,000 ML in EMPTY BAG 1 BAG IV ONE; -TETRACAINE 0.5% OPHTH (PF) DROPS 4 ML BTL OP ONE; -TIMOLOL 0.5% OPHTH DROPS 5 ML BTL OP ONE
[2019-04-22] MEDS ORDERED: SODIUM CHLORIDE 0.9% 1,000 ML IV ONE (08:27)
[2019-04-22 08:34] VITALS: RESP 16; TEMP 97
[2019-04-22 08:46] LABS: Glucose,Whole Blood 211 mg/dL (75-99)
[2019-04-22] MEDS ORDERED: fentaNYL (PF) 50 MCG/ML 2 ML AMP ONE (09:06)
[2019-04-22] MEDS ORDERED: LIDOCAINE 1% INJ 10MG/ML (20 ML MDV) ONE (09:06)
[2019-04-22] MEDS ORDERED: VERAPAMIL 2.5 MG/ML 2 ML AMP ONE (09:06)
[2019-04-22] MEDS ORDERED: fentaNYL (PF) 50 MCG/ML 2 ML AMP IVP ONE (09:33)
[2019-04-22] MEDS ORDERED: LIDOCAINE 1% INJ 10MG/ML (20 ML MDV) SQ ONE (09:42)
[2019-04-22] MEDS ORDERED: VERAPAMIL SYRINGE (5 MG/10 ML) INTRAARTER ONE (09:44)
[2019-04-22] MEDS ORDERED: HEPARIN SODIUM 1,000 UN/ML (10ML VL) ONE (09:49)
[2019-04-22] MEDS ORDERED: HEPARIN SODIUM 1,000 UN/ML (10ML VL) IV ONE (09:51)
[2019-04-22] MEDS ORDERED: IOPAMIDOL-370 125ML BTL INJ ONE (09:55)
[2019-04-22] MEDS ORDERED: RX INFO: IV CONTRAST WAS GIVEN 1 EACH MISC MISCELLANE PRN (10:06)
[2019-04-22] MEDS ORDERED: ALPRAZolam 0.25 MG TAB PO PRN (10:07)
[2019-04-22] MEDS ORDERED: SODIUM CHLORIDE 0.9% 1,000 ML IV SCH (10:15)
--- NOTE | 2019-04-22 11:08 | CC ---
CARDIAC CATHETERIZATION REPORT Mrs. Rueda is a 78-year-old female with known history of hypertension, hyperlipidemia, diabetes mellitus, and history of coronary artery disease who presented with symptoms of chest discomfort, had an abnormal myocardial perfusion imaging. In view of that, recommendation was made regarding cardiac catheterization. The procedure as well as the risks and the complications were discussed with the patient who is in full understanding and agreement. PROCEDURE: Patient was brought to cathode maker in a fasting semi-sedated state after receiving fentanyl and Benadryl and achieving moderate conscious sedated state. Using Xylocaine anesthesia in the Seldinger technique, a 6-Vietnamese sheath was introduced in the right radial artery. Selective right and left coronary angiography performed using 5-Vietnamese 3.5 bend right and left Ovi catheters. Multiple views of the coronary artery including the hemiaxial views were obtained. Following that, 5-Vietnamese tight pigtail catheter was introduced in the left ventricle and a 30 degree GUILLERMO view of the left ventricle was obtained. Following that, catheter and sheaths were removed. Hemostasis was obtained with deployment of a TR band. There was no immediate complication. Patient was returned to her room in stable condition. Of note, the patient received 4500 units of intravenous heparin as well as intra-arterial verapamil. FINDINGS: LEFT MAIN: This is a short size vessel bifurcating left circumflex, left anterior descending artery. Left main coronary artery has no evidence of high-grade stenosis. LEFT ANTERIOR DESCENDING ARTERY: This is a mildly calcified vessel proximally giving rise to 2 diagonal branches of small caliber. The left anterior descending artery proximally has mild plaque of 10% to 20% without any evidence of high-grade stenosis. LEFT CIRCUMFLEX: This is a nondominant vessel giving rise to one obtuse marginal branch. The left circumflex proximally at the takeoff has a 30% plaque. The rest of the vessel has no high-grade stenosis. RIGHT CORONARY ARTERY: This is a large dominant vessel bifurcating distally PDA and posterolateral segment and branches. The right coronary artery in the mid segment has a 20% to 30% plaque in a tubular fashion. There was no evidence of high-grade stenosis. LEFT VENTRICULOGRAM: The left ventriculogram was performed in 30-degree GUILLERMO view and revealed normal left ventricular size and systolic function. Ejection fraction is 60%. There was no significant mitral regurgitation. HEMODYNAMICS: There was no gradient across the aortic valve. The left ventricular end- diastolic pressure was 14 to 18 mmHg. CONCLUSION: 1. Mild triple-vessel coronary artery disease. 2. Normal left ventricular size and systolic function. RECOMMENDATION: In view of finding anatomy, I recommend to continue medical therapy with aggressive coronary risk modifications that have been initiated. Those findings and recommendations were discussed with the patient and her family and are in full understanding and agreement. Duration of procedure is 20 minutes. KRISTIE / SHUNN: [id number] /
--- NOTE | 2019-04-22 11:14 | LTR ---
April 22, 2019 Re: Nita Allenhn Dear Dr. Arellano: I had the opportunity to perform cardiac catheterization on Mrs. Rueda at [facility] on the 22 of April and a full copy of the procedure note will be forwarded to you. In brief, she was found to have mild mild triple-vessel coronary artery disease with a preserved left ventricular size and systolic function with no significant progression compared with the images obtained in 2017 and based on those findings, I recommend to continue medical therapy with aggressive coronary risk modifications that have been initiated. Thank you again for allowing me the opportunity to participate in her care. Please feel free to call for any questions. Sincerely yours, MD KRISTIE Whatley / SHUNN: [id number] /
[2019-04-22 13:30] VITALS: PULSE 67
[2019-04-22 14:40] VITALS: BP 156/80
[2019-04-22] MEDS ORDERED: CITALOPRAM HYDROBROMIDE 40 MG PO SCH (21:00)
[2019-04-22] MEDS ORDERED: ATENOLOL 50 MG TAB PO SCH (21:00)
[2019-04-22] MEDS ORDERED: ATORVASTATIN 10 MG TAB PO SCH (21:00)
[2019-04-22] MEDS ORDERED: PREGABALIN 100 MG CAP PO SCH (21:00)
[2019-04-23] MEDS ORDERED: LEVOTHYROXINE 125 MCG TAB PO SCH (09:00)
[2019-04-23] MEDS ORDERED: IRBESARTAN PO SCH (09:00)
[2019-04-23] MEDS ORDERED: ASPIRIN 81 MG PO SCH (09:00)
[2019-04-23] MEDS ORDERED: HYDROCHLOROTHIAZIDE PO SCH (09:00)
[2019-04-23] MEDS ORDERED: [UNRECOGNIZED DRUG - OTHER] PO SCH (09:00)
== END 2019-04-22 14:54 | disposition home or self-care (01) ==
LOC: CATHCVL 07:40
PROVIDERS: ATTEND Internal Medicine Interventional Cardiology
DX: I25.10 Atherosclerotic heart disease of native coronary artery without angina pectoris (principal); I48.0 Paroxysmal atrial fibrillation; I10 Essential (primary) hypertension; E78.2 Mixed hyperlipidemia; E11.9 Type 2 diabetes mellitus without complications; F17.210 Nicotine dependence, cigarettes, uncomplicated; Z79.82 Long term (current) use of aspirin; Z79.01 Long term (current) use of anticoagulants; Z79.890 Hormone replacement therapy; Z79.84 Long term (current) use of oral hypoglycemic drugs; Z79.899 Other long term (current) drug therapy; Z88.5 Allergy status to narcotic agent; Z91.040 Latex allergy status; Z91.041 Radiographic dye allergy status
CPT/HCPCS: 93458; J2001; J3010; J1644; Q9967

== ENCOUNTER 2021-11-11 08:44 | Emergency (ER) | payer MEDICARE ==
[2021-11-11 08:55] VITALS: TEMP 98.2
[2021-11-11] MEDS ORDERED: SODIUM CHLORIDE 0.9% 1,000 ML IV STA (09:37)
[2021-11-11] MEDS ORDERED: ONDANSETRON 4 MG/2 ML VIAL IVP STA (09:37)
--- NOTE | 2021-11-11 09:59 | ED ---
General Adult HPI - General Chief complaint: ENT Stated complaint: Eye pain Time Seen by Provider: 11/11/21 09:03 Source: patient, EMS, RN notes reviewed Mode of arrival: EMS Limitations: no limitations - History of Present Illness Initial comments: This is a 81-year-old female who presents to the emergency department for left eye pain. Three days ago she had surgery with Dr. Sullivan, esthetician/spa coordinator, at [facility]. 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 Since the surgery, the pain has progressed and she has associated nausea and vomiting. Overall she feels very weak. Denies fevers, chills, chest pain, shortness of breath, abdominal pain, diarrhea, or constipation. Onset/Timin -: days(s) Location: eyes (left) Radiation: non-radiation Associated Symptoms: nausea/vomiting Treatments Prior to Arrival: none - Related Data Home Medications Medication Instructions Recorded Confirmed ALPRAZolam [Xanax] 0.25 mg PO DAILY PRN 04/26/15 04/22/19 Aspirin 81 mg PO DAILY 04/26/15 04/22/19 Atorvastatin [Lipitor] 10 mg PO HS 04/26/15 04/22/19 Citalopram Hydrobromide 40 mg PO HS 04/26/15 04/22/19 [Citalopram HBr] Irbesartan/Hydrochlorothiazide 1 tab PO DAILY 04/26/15 04/22/19 [Irbesartan-Hctz 300-12.5 mg Tb] Levothyroxine Sodium [Levoxyl] 125 mcg PO DAILY 04/26/15 04/22/19 metFORMIN HCL [Glucophage] 500 mg PO HS 04/26/15 04/20/19 Rivaroxaban [Xarelto] 20 mg PO HS 11/08/16 04/20/19 Pregabalin [Lyrica] 100 mg PO BID 12/20/16 04/22/19 Cannabidiol (Cbd) [Epidiolex] 1 dose PO DIRECTED PRN 04/20/19 04/22/19 atenoloL [Tenormin] 50 mg PO HS 04/20/19 04/22/19 Previous Rx's Medication Instructions Recorded Nitroglycerin Sl Tabs [Nitrostat] 0.4 mg SUBLINGUAL Q5M PRN #25 tab 11/30/14 Ondansetron Odt [Zofran Odt] 4 mg PO Q8HR PRN #20 tab 11/11/21 Allergies Allergy/AdvReac Type Severity Reaction Status Date / Time codeine Allergy Severe Anaphylaxis Verified 11/11/21 08:55 adhesive tape Allergy Rash/Hives Verified 11/11/21 08:55 Latex, Natural Rubber Allergy Rash/Hives Verified 11/11/21 08:55 Review of Systems ROS Statement: Those systems with pertinent positive or pertinent negative responses have been documented in the HPI. ROS Other: All systems not noted in ROS Statement are negative. Constitutional: Denies: fever, chills Eyes: Reports: eye pain ENT: Denies: ear pain, throat pain, congestion Respiratory: Denies: cough, dyspnea Cardiovascular: Denies: chest pain, palpitations Endocrine: Reports: fatigue Gastrointestinal: Reports: nausea, vomiting. Denies: abdominal pain, diarrhea Genitourinary: Denies: urgency, dysuria Musculoskeletal: Denies: back pain Skin: Denies: rash Neurological: Denies: headache Past Medical History Past Medical History: Atrial Fibrillation, Chest Pain / Angina, COPD, Diabetes Mellitus, GERD/Reflux, Hyperlipidemia, Hypertension, Osteoarthritis (OA), Pneumonia, Sleep Apnea/CPAP/BIPAP, Thyroid Disorder Additional Past Medical History / Comment(s): Pt coded with codeine, NIDDM type II, DDD, SPINAL STENOSIS, HIATAL HERNIA, DIVERTICULITS, HAS C PAP MACHINE BUT DOESN'T USE, VARICOSE VEINS, FREQUENT DIARRHEA, BACK PAIN, ARTHRITIS IN KNEES, STATES INJECTION LEFT KNEE 04/20/19., SEE CARDIOLOGY H & P. History of Any Multi-Drug Resistant Organisms: MRSA Date of last positivie culture/infection: 04/30/2015 MDRO Source:: back ( ? spider bite) Past Surgical History: Appendectomy, Bladder Surgery, Cholecystectomy, Heart Catheterization, Hysterectomy Additional Past Surgical History / Comment(s): Bladder suspension, EPIDURAL INJECTION/BACK, COLONOSCOPY, catarats, eye sugery Past Anesthesia/Blood Transfusion Reactions: Previous Problems w/ Anesthesia, Motion Sickness Additional Past Anesthesia/Blood Transfusion Reaction / Comment(s): HARD TIME WAKING UP AFTER Anesthesia. Past Psychological History: Anxiety, Depression Smoking Status: Former smoker Past Alcohol Use History: None Reported Past Drug Use History: Marijuana - Past Family History Father Family Medical History: Cancer Additional Family Medical History / Comment(s): HEART PROBLEMS Mother Family Medical History: Renal Disease General Exam Limitations: no limitations General appearance: alert, in no apparent distress Eye exam: Present: PERRL (right, left pupil is fixed and dilated.), EOMI Expanded Eyelids: Erythema: Left (and ecchymosis), Swelling: Left Sclera/Conjunctival: Normal Inspection: Right, Injection: Left, Hemorrhage: Left IOP (R) in mmH IOP (L) in mmH Respiratory exam: Present: normal lung sounds bilaterally. Absent: respiratory distress, wheezes, rales, rhonchi, stridor Cardiovascular Exam: Present: regular rate, normal rhythm, normal heart sounds. Absent: systolic murmur, diastolic murmur, rubs, gallop, clicks Neurological exam: Present: alert, oriented X3, CN II-XII intact Psychiatric exam: Present: normal affect, normal mood Skin exam: Present: warm, dry, intact, normal color. Absent: rash Course Vital Signs 11/11/21 11/11/21 11/11/21 08:51 09:55 12:21 Temperature 98.2 F Pulse Rate 63 65 68 Respiratory 16 16 18 Rate Blood Pressure 138/68 133/62 148/78 O2 Sat by Pulse 95 95 Oximetry 11/11/21 15:00 Temperature Pulse Rate 61 Respiratory 16 Rate Blood Pressure 140/98 O2 Sat by Pulse 98 Oximetry Medical Decision Making - Medical Decision Making This is a 81-year-old female who presents to the emergency department for left eye pain after surgery. Lab work was obtained and a CTA of the head was obtained as well. The CTA revealed no acute abnormalities. She is also noted to have an elevated WBC without a clear cause. I spoke with Dr. Dias, ophthalmology, and he advised that her pain is likely related to increased pressure in the eye. He advised that she increase her dose of Diamox. She was advised to take 500 mg in the emergency department followed by 250 mg around 5 PM and another 250 mg before going to bed. Afterwards, she will continue at 250 mg 3 times daily. She had previously been taking 250 mg twice daily. The [facility] was instructed to contact Dr. Dias's office tomorrow for an appointment. After the conversation with Dr. Dias, we were able to check her IOP, and found her right eye to have an IOP of 14 and the affected eye had an IOP of 55. Rx for Zofran provided as well to control nausea. Return precautions reviewed in depth, the patient is instructed to return to the emergency department with any new, worsening, or concerning symptoms. Patient and her son verbalized understanding. This case was discussed in detail with the attending ED physician. Presentation, findings, and treatment plan discussed in detail as well. - Lab Data Result diagrams: 11/11/21 10:33 11/11/21 10:33 Lab Results 11/11/21 11/11/21 Range/Units 10:33 10:33 WBC 16.9 H (3.8-10.6) k/uL RBC 4.83 (3.80-5.40) m/uL Hgb 14.6 (11.4-16.0) gm/dL Hct 41.4 (34.0-46.0) % MCV 85.8 (80.0-100.0) fL MCH 30.3 (25.0-35.0) pg MCHC 35.3 (31.0-37.0) g/dL RDW 13.7 (11.5-15.5) % Plt Count 177 (150-450) k/uL MPV 10.8 Neutrophils % (Manual) 78 % Band Neuts % (Manual) 1 % Lymphocytes % (Manual) 11 % Monocytes % (Manual) 7 % Metamyelocytes % 2 % Myelocytes % 3 % Neutrophils # (Manual) 13.30 H (1.3-7.7) k/uL Lymphocytes # (Manual) 1.86 (1.0-4.8) k/uL Monocytes # (Manual) 1.18 H (0-1.0) k/uL Metamyelocytes # (Man) 0.34 H (0) k/uL Myelocytes # (Manual) 0.51 H (0) k/uL Nucleated RBCs 0 (0-0) /100 WBC Manual Slide Review Performed Toxic Granulation Present Anisocytosis (manual) Present Sodium 125 L (137-145) mmol/L Potassium 3.6 (3.5-5.1) mmol/L Chloride 90 L (98-107) mmol/L Carbon Dioxide 24 (22-30) mmol/L Anion Gap 11 mmol/L BUN 10 (7-17) mg/dL Creatinine 0.89 (0.52-1.04) mg/dL Est GFR (CKD-EPI)AfAm 71 (>60 ml/min/1.73 sqM) Est GFR (CKD-EPI)NonAf 62 (>60 ml/min/1.73 sqM) Glucose 193 H (74-99) mg/dL Calcium 9.6 (8.4-10.2) mg/dL Total Bilirubin 2.9 H (0.2-1.3) mg/dL AST 25 (14-36) U/L ALT 24 (4-34) U/L Alkaline Phosphatase 80 (38-126) U/L Total Protein 7.5 (6.3-8.2) g/dL Albumin 4.5 (3.5-5.0) g/dL - Radiology Data Radiology results: report reviewed, image reviewed Disposition Clinical Impression: Increased pressure in the eye Disposition: HOME SELF-CARE Instructions (If sedation given, give patient instructions): Glaucoma (ED) Additional Instructions: Return to the emergency department with any new, worsening, or concerning symptoms. Take the Diamox (acetazolamide) as instructed, 250 mg at 5 PM, 250 mg before she goes to bed, and 250 mg 3 times a day afterwards. Contact Dr. Dias's office tomorrow morning for an appointment. Follow up with your primary care provider in 1-2 days. Prescriptions: Ondansetron Odt [Zofran Odt] 4 mg PO Q8HR PRN #20 tab PRN Reason: Nausea And Vomiting Is patient prescribed a controlled substance at d/c from ED?: No Referrals: Napoleon Arellano MD [Primary Care Provider] - 1-2 days
[2021-11-11 10:46] LABS: HCT 41.4 % (34.0-46.0); HGB 14.6 gm/dL (11.4-16.0); MCH 30.3 pg (25.0-35.0); MCHC 35.3 g/dL (31.0-37.0); MCV 85.8 fL (80.0-100.0); Mean Platelet Volume 10.8; Platelet Count 177 k/uL (150-450); RBC 4.83 m/uL (3.80-5.40); RDW 13.7 % (11.5-15.5); WBC 16.9 k/uL (3.8-10.6)
[2021-11-11 11:01] LABS: Albumin 4.5 g/dL (3.5-5.0); Calcium 9.6 mg/dL (8.4-10.2); Potassium 3.6 mmol/L (3.5-5.1); Total Bilirubin 2.9 mg/dL (0.2-1.3); Total Protein 7.5 g/dL (6.3-8.2)
[2021-11-11] MEDS ORDERED: KETOROLAC 15 MG/ML 1 ML VIAL IVP STA (11:10)
[2021-11-11] MEDS ORDERED: methylPREDNISolone SOD SUCCI 40 MG/ML 1 ML VIAL IV STA (11:15)
[2021-11-11] MEDS ORDERED: ACETAMINOPHEN TAB 325 MG TAB PO STA (11:35)
[2021-11-11] MEDS ORDERED: FAMOTIDINE 20 MG/2 ML VIAL IV STA (11:36)
[2021-11-11] MEDS ORDERED: diphenhydrAMINE 50 MG/ML 1 ML VIAL IVP STA (11:36)
[2021-11-11 11:47] LABS: Band Neutrophils % 1 %; Lymphocytes # (M) 1.86 k/uL (1.0-4.8); Metamyelocytes # (M) 0.34 k/uL (0); Metamyelocytes % 2 %; Monocytes # (M) 1.18 k/uL (0-1.0); Myelocytes # (M) 0.51 k/uL (0); Myelocytes % 3 %; Neutrophils % (M) 78 %; Nucleated Red Blood Cells 0 /100 WBC (0-0); Total Cells Counted 200
[2021-11-11 11:49] LABS: Anisocytosis (M) Present; Toxic Granulation Present
--- NOTE | 2021-11-11 12:58 | CT ---
EXAMINATION TYPE: CT angio head DATE OF EXAM: 11/11/2021 12:28 PM COMPARISON: None. HISTORY: Left eye pain after failed aneurysm repair CT DLP: 241.7 mGycm Automated exposure control for dose reduction was used. TECHNIQUE: Performed without and with IV Contrast, patient injected with 100 mL of Isovue 370. 3D reconstructed images are created on an independent workstation and reviewed.. FINDINGS: Noncontrast images show no acute intracranial hemorrhage or midline shift. There is moderate low-atte nuation in the deep and periventricular white matter. Paranasal sinuses are clear. Left globe is hype rdense with 5 mm dependent calcification and nondependent air. There are codominant vertebral arteries. Vertebral arteries are patent to basilar junction. There is no significant focal stenosis or aneurysm in the posterior circulation. Nonvisualized or hypoplastic bilateral posterior communicating arteries. Anterior circulation shows patent anterior communicating artery. There is no significant focal stenosis or aneurysm identified. Patent left-sided anterior sup erior ophthalmic artery is seen. IMPRESSION: No aneurysm at the level of the [place]. Posttraumatic or surgical change to the left globe. Correlate clinically.
[2021-11-11 16:04] VITALS: BP 144/60; PULSE 62; RESP 18
== END 2021-11-11 16:04 | disposition home or self-care (01) ==
LOC: EC 08:44
DX: S00.12XA Contusion of left eyelid and periocular area, initial encounter (principal); E11.9 Type 2 diabetes mellitus without complications; I10 Essential (primary) hypertension; J44.9 Chronic obstructive pulmonary disease, unspecified; I48.91 Unspecified atrial fibrillation; E78.5 Hyperlipidemia, unspecified; K21.9 Gastro-esophageal reflux disease without esophagitis; M19.90 Unspecified osteoarthritis, unspecified site; F32.A Depression, unspecified; F41.9 Anxiety disorder, unspecified; F12.90 Cannabis use, unspecified, uncomplicated; Z87.891 Personal history of nicotine dependence; Z79.82 Long term (current) use of aspirin; Z79.01 Long term (current) use of anticoagulants; Z79.890 Hormone replacement therapy; Z79.899 Other long term (current) drug therapy; X58.XXXA Exposure to other specified factors, initial encounter
CPT/HCPCS: 36415; 80053; 85025; 70496; 99284; 96374; 96361; J2405; Q9967

== ENCOUNTER 2021-11-13 15:43 | Inpatient (IN) | payer MEDICARE ==
--- NOTE | 2021-11-13 16:17 | ED ---
General Adult HPI - General Chief complaint: Weakness Stated complaint: Weakness Time Seen by Provider: 11/13/21 15:59 Source: patient, RN notes reviewed Mode of arrival: EMS Limitations: no limitations - History of Present Illness Initial comments: Patient is a pleasant 81-year-old female presenting to the emergency department general weakness. Onset of symptoms was the past day or so. Patient did have surgery 1 week ago of her left eye secondary to what she believes was a hemorrhage. Patient states she no longer sees out of that eye. Patient states weakness just started yesterday. Patient states it is mostly her legs. He should states she can stand up with assistance and maybe take one to 2 steps however that is it. No fall or injury. No upper extremity involvement. Legs are equally week. No fever. No dysuria. No chest or abdominal pain. No back pain. Patient is on blood thinners secondary to history of atrial fibrillation and still taking blood thinners. - Related Data Home Medications Medication Instructions Recorded Confirmed ALPRAZolam [Xanax] 0.25 mg PO DAILY PRN 04/26/15 04/22/19 Aspirin 81 mg PO DAILY 04/26/15 04/22/19 Atorvastatin [Lipitor] 10 mg PO HS 04/26/15 04/22/19 Citalopram Hydrobromide 40 mg PO HS 04/26/15 04/22/19 [Citalopram HBr] Irbesartan/Hydrochlorothiazide 1 tab PO DAILY 04/26/15 04/22/19 [Irbesartan-Hctz 300-12.5 mg Tb] Levothyroxine Sodium [Levoxyl] 125 mcg PO DAILY 04/26/15 04/22/19 metFORMIN HCL [Glucophage] 500 mg PO HS 04/26/15 04/20/19 Rivaroxaban [Xarelto] 20 mg PO HS 11/08/16 04/20/19 Pregabalin [Lyrica] 100 mg PO BID 12/20/16 04/22/19 Cannabidiol (Cbd) [Epidiolex] 1 dose PO DIRECTED PRN 04/20/19 04/22/19 atenoloL [Tenormin] 50 mg PO HS 04/20/19 04/22/19 Previous Rx's Medication Instructions Recorded Nitroglycerin Sl Tabs [Nitrostat] 0.4 mg SUBLINGUAL Q5M PRN #25 tab 11/30/14 Ondansetron Odt [Zofran Odt] 4 mg PO Q8HR PRN #20 tab 11/11/21 Allergies Allergy/AdvReac Type Severity Reaction Status Date / Time codeine Allergy Severe Anaphylaxis Verified 11/13/21 17:36 adhesive tape Allergy Rash/Hives Verified 11/13/21 17:36 Latex, Natural Rubber Allergy Rash/Hives Verified 11/13/21 17:36 Review of Systems ROS Statement: Those systems with pertinent positive or pertinent negative responses have been documented in the HPI. ROS Other: All systems not noted in ROS Statement are negative. Constitutional: Denies: fever, chills Eyes: Reports: as per HPI, vision change. Denies: eye pain ENT: Denies: ear pain Respiratory: Denies: cough, dyspnea Cardiovascular: Denies: chest pain Endocrine: Denies: fatigue Gastrointestinal: Denies: abdominal pain Genitourinary: Denies: dysuria Musculoskeletal: Denies: back pain Skin: Denies: rash Neurological: Reports: as per HPI, weakness. Denies: headache, numbness, paresthesias, confusion Past Medical History Past Medical History: Atrial Fibrillation, Chest Pain / Angina, COPD, Diabetes Mellitus, GERD/Reflux, Hyperlipidemia, Hypertension, Osteoarthritis (OA), Pneumonia, Sleep Apnea/CPAP/BIPAP, Thyroid Disorder Additional Past Medical History / Comment(s): Pt coded with codeine, NIDDM type II, DDD, SPINAL STENOSIS, HIATAL HERNIA, DIVERTICULITS, HAS C PAP MACHINE BUT DOESN'T USE, VARICOSE VEINS, FREQUENT DIARRHEA, BACK PAIN, ARTHRITIS IN KNEES, STATES INJECTION LEFT KNEE 04/20/19., SEE CARDIOLOGY H & P. History of Any Multi-Drug Resistant Organisms: MRSA Date of last positivie culture/infection: 04/30/2015 MDRO Source:: back ( ? spider bite) Past Surgical History: Appendectomy, Bladder Surgery, Cholecystectomy, Heart Catheterization, Hysterectomy Additional Past Surgical History / Comment(s): Bladder suspension, EPIDURAL INJECTION/BACK, COLONOSCOPY, catarats, eye sugery Past Anesthesia/Blood Transfusion Reactions: Previous Problems w/ Anesthesia, Motion Sickness Additional Past Anesthesia/Blood Transfusion Reaction / Comment(s): HARD TIME WAKING UP AFTER Anesthesia. Past Psychological History: Anxiety, Depression Smoking Status: Former smoker Past Alcohol Use History: None Reported Past Drug Use History: Marijuana - Past Family History Father Family Medical History: Cancer Additional Family Medical History / Comment(s): HEART PROBLEMS Mother Family Medical History: Renal Disease General Exam Limitations: no limitations General appearance: alert, in no apparent distress Head exam: Present: atraumatic Eye exam: Present: EOMI, other (Difficult to visualize pupil on the left. No red reflex.) ENT exam: Present: normal oropharynx Neck exam: Present: normal inspection. Absent: tenderness Respiratory exam: Present: normal lung sounds bilaterally. Absent: chest wall tenderness Cardiovascular Exam: Present: regular rate, normal rhythm GI/Abdominal exam: Present: soft. Absent: tenderness Extremities exam: Present: normal inspection, full ROM. Absent: tenderness Neurological exam: Present: alert, oriented X3, CN II-XII intact (Except pupil is nonreactive) Expanded Sensory exam: Upper Extremity Light Touch: Normal, Lower Extremity Light Touch: Normal Motor strength exam: RUE: 5, LUE: 5, RLE: 4, LLE: 4 Eye Response: (4) open spontaneously Motor Response: (6) obeys commands Verbal Response: (5) oriented Psychiatric exam: Present: normal affect, normal mood Skin exam: Present: normal color Course Vital Signs 11/13/21 15:57 Temperature 97.3 F L Pulse Rate 74 Respiratory 16 Rate Blood Pressure 112/37 O2 Sat by Pulse 97 Oximetry EKG Findings - EKG Comments: EKG Findings:: Sinus rhythm with a rate of 71. For screening AV block OH 234. QRS 105. QT 437. QTC 460. Normal axis. Right ventricular conduction delay. ST depression in lead 1 as well as V4 through V6. Medical Decision Making - Medical Decision Making Case discussed with Dr. Caldwell, who will admit for Dr. Magaña. Patient reevaluated and updated. - Lab Data Result diagrams: 11/13/21 16:28 11/13/21 16:28 Lab Results 11/13/21 11/13/21 11/13/21 Range/Units 16:28 16:28 16:28 WBC 22.1 H (3.8-10.6) k/uL RBC 4.78 (3.80-5.40) m/uL Hgb 14.2 (11.4-16.0) gm/dL Hct 41.7 (34.0-46.0) % MCV 87.2 (80.0-100.0) fL MCH 29.8 (25.0-35.0) pg MCHC 34.1 (31.0-37.0) g/dL RDW 14.4 (11.5-15.5) % Plt Count 158 (150-450) k/uL MPV 11.9 PT 10.5 (9.0-12.0) sec INR 1.0 (<1.2) APTT 26.1 (22.0-30.0) sec Sodium 127 L (137-145) mmol/L Potassium 3.1 L (3.5-5.1) mmol/L Chloride 93 L (98-107) mmol/L Carbon Dioxide 23 (22-30) mmol/L Anion Gap 11 mmol/L BUN 28 H (7-17) mg/dL Creatinine 1.51 H (0.52-1.04) mg/dL Est GFR (CKD-EPI)AfAm 38 (>60 ml/min/1.73 sqM) Est GFR (CKD-EPI)NonAf 33 (>60 ml/min/1.73 sqM) Glucose 154 H (74-99) mg/dL Plasma Lactic Acid Bhavik (0.7-2.0) mmol/L Calcium 9.0 (8.4-10.2) mg/dL Magnesium 2.0 (1.6-2.3) mg/dL Total Bilirubin 1.8 H (0.2-1.3) mg/dL AST 19 (14-36) U/L ALT 20 (4-34) U/L Alkaline Phosphatase 70 (38-126) U/L Troponin I (0.000-0.034) ng/mL Total Protein 6.6 (6.3-8.2) g/dL Albumin 4.0 (3.5-5.0) g/dL TSH 1.210 (0.465-4.680) mIU/L Free T4 1.35 (0.78-2.19) ng/dL Free T3 pg/mL 1.6 L (2.8-5.3) pg/ml 11/13/21 11/13/21 Range/Units 16:28 16:30 WBC (3.8-10.6) k/uL RBC (3.80-5.40) m/uL Hgb (11.4-16.0) gm/dL Hct (34.0-46.0) % MCV (80.0-100.0) fL MCH (25.0-35.0) pg MCHC (31.0-37.0) g/dL RDW (11.5-15.5) % Plt Count (150-450) k/uL MPV PT (9.0-12.0) sec INR (<1.2) APTT (22.0-30.0) sec Sodium (137-145) mmol/L Potassium (3.5-5.1) mmol/L Chloride (98-107) mmol/L Carbon Dioxide (22-30) mmol/L Anion Gap mmol/L BUN (7-17) mg/dL Creatinine (0.52-1.04) mg/dL Est GFR (CKD-EPI)AfAm (>60 ml/min/1.73 sqM) Est GFR (CKD-EPI)NonAf (>60 ml/min/1.73 sqM) Glucose (74-99) mg/dL Plasma Lactic Acid Bhavik 1.9 (0.7-2.0) mmol/L Calcium (8.4-10.2) mg/dL Magnesium (1.6-2.3) mg/dL Total Bilirubin (0.2-1.3) mg/dL AST (14-36) U/L ALT (4-34) U/L Alkaline Phosphatase (38-126) U/L Troponin I 0.019 (0.000-0.034) ng/mL Total Protein (6.3-8.2) g/dL Albumin (3.5-5.0) g/dL TSH (0.465-4.680) mIU/L Free T4 (0.78-2.19) ng/dL Free T3 pg/mL (2.8-5.3) pg/ml - Radiology Data Radiology results: report reviewed (CT brain reveals no acute abnormality), image reviewed (Chest x-ray questionable right lower lobe infiltrate) Disposition Clinical Impression: Pneumonia, EKG, abnormal, Dehydration Disposition: ADMITTED IP TO THIS [facility] Condition: Serious Is patient prescribed a controlled substance at d/c from ED?: No Referrals: Napoleon Arellano MD [Primary Care Provider] - 1-2 days Time of Disposition: 17:34
[2021-11-13 16:48] LABS: HCT 41.7 % (34.0-46.0); HGB 14.2 gm/dL (11.4-16.0); MCH 29.8 pg (25.0-35.0); MCHC 34.1 g/dL (31.0-37.0); MCV 87.2 fL (80.0-100.0); Mean Platelet Volume 11.9; Platelet Count 158 k/uL (150-450); RBC 4.78 m/uL (3.80-5.40); RDW 14.4 % (11.5-15.5); WBC 22.1 k/uL (3.8-10.6)
--- NOTE | 2021-11-13 16:51 | XR ---
EXAMINATION TYPE: XR chest 2V DATE OF EXAM: 11/13/2021 COMPARISON: 11/08/2016 HISTORY: Weakness TECHNIQUE: 2 views FINDINGS: On the lateral view there is increased density behind the heart which is wedge-shaped and s uggestive of an pneumonia. This could be in the right paraspinal right lower lobe. Heart is normal. N o heart failure seen. IMPRESSION: Possible new pneumonia in the right lower lobe right paraspinal region compared to old ex am.
[2021-11-13 16:57] LABS: Potassium 3.1 mmol/L (3.5-5.1); Total Bilirubin 1.8 mg/dL (0.2-1.3); Total Protein 6.6 g/dL (6.3-8.2)
[2021-11-13 17:00] LABS: Partial Thromboplastin Time 26.1 sec (22.0-30.0); Prothrombin Time 10.5 sec (9.0-12.0)
--- NOTE | 2021-11-13 17:01 | CT ---
EXAMINATION TYPE: CT brain wo con DATE OF EXAM: 11/13/2021 COMPARISON: None HISTORY: Weakness. CT DLP: 1102.4 mGycm Automated exposure control for dose reduction was used. There is some cerebral cortical atrophy. There is no mass effect or midline shift. There is no sign o f intracranial hemorrhage. There is mild patchy hypodensity in the periventricular white matter. Antony um is intact. Skull base is intact. IMPRESSION: Mild cerebral atrophy. Chronic small vessel ischemia. No acute intracranial abnormality.
[2021-11-13 17:13] LABS: T4, Free (Free Thyroxine) 1.35 ng/dL (0.78-2.19)
[2021-11-13] MEDS ORDERED: AZITHROMYCIN 500 MG in SODIUM CHLORIDE 0.9% 250 ML IVPB STA (17:34)
[2021-11-13] MEDS ORDERED: PNEUMONIA PROTOCOL UTILIZED 1 EACH MISC PO PRN (17:34)
[2021-11-13] MEDS ORDERED: POTASSIUM CHLORIDE 10 MEQ in WATER FOR INJECTION 1 100ML.BAG IVPB STA (17:37)
[2021-11-13 18:00] LABS: Lymphocytes # (M) 3.76 k/uL (1.0-4.8); Monocytes # (M) 3.76 k/uL (0-1.0); Myelocytes # (M) 0.22 k/uL (0); Myelocytes % 1 %; Neutrophils # (M) 14.81 k/uL (1.3-7.7); Neutrophils % (M) 67 %; Nucleated Red Blood Cells 0 /100 WBC (0-0); Total Cells Counted 200
[2021-11-13 18:01] LABS: Large Platelets Present
[2021-11-13 18:09] LABS: RBC Morphology Normal
[2021-11-13] MEDS ORDERED: NITROGLYCERIN SL TABS 0.4 MG TAB SUBLINGUAL PRN (18:21)
[2021-11-13] MEDS ORDERED: LACTULOSE 20 GM/30 ML CUP PO PRN (18:24)
[2021-11-13] MEDS ORDERED: CALCIUM CARBONATE 500 MG CHEWABLE PO PRN (18:24)
[2021-11-13] MEDS ORDERED: NALOXONE 0.4 MG/ML 1 ML VIAL IV PRN (18:24)
--- NOTE | 2021-11-13 18:47 | P.HPIM ---
History of Present Illness H&P Date: 11/13/21 Chief Complaint: Not feeling well This is a 81-year-old patient, follows with Dr. Napoleon Arellano. Chronic stable medical conditions include atrial fibrillation for which she is on xarelto, COPD, diabetes, GERD, hypertension, hyperlipidemia, osteoarthritis, hypothyroid, obstructive sleep apnea does not use CPAP, hiatal hernia, spinal stenosis. Last week on that is about a week ago, because of left eye pain patient had to go down to [facility] for eye surgery. As per the son at the bedside dose possibly an aneurysm the back of diet that was repaired. Is also retinal detachment with significant hemorrhage. Eyedrops were given. Patient was told that the patient will not return. Following that she did call back for a follow-up. Subsequently that she started having increasing nausea vomiting. Increasing headache. She is prescribed Diamox. Started having chills. She presented to our ER on November 11. Doxazosin patient had surgery with , tinner automatic at [facility]. She does ruptured aneurysm that they attempted repair. She she was blind in his left eye prior to surgery. She also had a urine infection prior to surgery. No complete the course of antibiotic. She had a CT of the head that did not show any abnormality. Had an elevated white count. They consulted Dr. Dias and he recommended increasing the dose Diamox. Right eye pressure was 14 and left eye pressure was 55. Patient was discharged home. Subsequently the son says patient became intermittently confused. Not really eating drinking. Denied any obvious respiratory symptoms. No urinary symptoms. Tired rundown. 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 Smoked for 30 years stopped in 1987. Smoked 3-4 packs a day. Stopped drinking in 1986. Occasional CBD ordered. Family history: Heart trouble and cancer Physical examination: VITAL SIGNS: 97.3, 74, 16, 112/37, 97% room air GENERAL: BMI 36.6, laying in bed, awake, tired. EYES: Pupils equal. Conjunctiva slight redness to the left conjunctival. HEENT: External appearance of nose and ears normal, oral cavity grossly normal. NECK: JVD not raised; masses not palpable. HEART: First and second heart sounds are normal; no edema. LUNGS: Respiratory rate normal; decreased breath sounds. ABDOMEN: Soft, nontender, liver spleen not palpable, no masses palpable. PSYCH: [Alert and oriented x3; mood and affect anxious. MUSCULOSKELETAL:No Clubbing/cyanosis;muscles-grossly intact. Evidence of OA NEUROLOGICAL: Cranial nerves grossly intact; no facial asymmetry, power and sensation grossly intact. No vision and left eye LYMPHATICS: No lymph nodes palpable in the axilla and neck INVESTIGATIONS, reviewed in the clinical context: White count 22.1 hemoglobin 14.2 platelets 158 increased neutrophils sodium 127 potassium 3.1 BUN 28 creatinine 1.51 glucose 154 TSH 1.2 lactic acid 1.9 EKG tracing personally reviewed by me-sinus rhythm. ST segment depression Chest x-ray film personally reviewed by me-basilar infiltrate Previous labs on 11/11/2021: White count 16.9 hemoglobin 14.6 sodium 125 potassium 3.[address] a on November 11: Postsurgical changes to the left globe. -Assessment and plan: -This patient had surgery to the left eye for a ruptured aneurysm unsuccessfully repaired about a week ago. Since then patient been having increasing chills. Increasing headache. Nausea vomiting. Elevated white count. Infection at the operative site probable. We'll start the patient IV daptomycin in view of renal function and IV ceftriaxone. Blood cultures. ID consult. -Acute delirium from infection with episodes of confusion at home. Treat underlying infection -Pneumonia on chest x-ray film as evidenced by infiltrate IV ceftriaxone -Paroxysmal atrial fibrillation currently in sinus rhythm Continue xarelto -Blind in the left eye, with repair of aneurysm or rupture 1 week ago -COPD in a previous smoker -Diabetes mellitus type 2, on oral hypoglycemic Hold metformin. Follow Accu-Cheks -GERD Pepcid when necessary -Hyperlipidemia Lipitor 10 mg daily at bedtime -Essential hypertension Keep a close eye on patient's blood pressure. Resume Tenormin. -Primary osteoarthritis multiple joints Tylenol as needed -Obstructive sleep apnea does not use CPAP -Hypothyroid Levoxyl 125 g a -Chronic spinal stenosis -Diabetic peripheral neuropathy Lyrica 50 mg twice a day -Acute kidney injury possibly ATN and prerenal. Increasing decreased oral intake and sepsis IV fluids. Follow renal function -Hyponatremia, hypovolemic from patient and vomiting and unable to eat Saline drip IV daptomycin. IV ceftriaxone. Follow Accu-Cheks. Resume home medications. Continue with eyedrops. Cutback dose of Lyrica given renal function. Consult ID. Care was discussed with the patient's son at the bedside. Given the complexity and severity of patient's condition expect the patient to be in the hospital at least for 2 overnights Past Medical History Past Medical History: Atrial Fibrillation, Chest Pain / Angina, COPD, Diabetes Mellitus, GERD/Reflux, Hyperlipidemia, Hypertension, Osteoarthritis (OA), Pneumonia, Sleep Apnea/CPAP/BIPAP, Thyroid Disorder Additional Past Medical History / Comment(s): Pt coded with codeine, NIDDM type II, DDD, SPINAL STENOSIS, HIATAL HERNIA, DIVERTICULITS, HAS C PAP MACHINE BUT DOESN'T USE, VARICOSE VEINS, FREQUENT DIARRHEA, BACK PAIN, ARTHRITIS IN KNEES, STATES INJECTION LEFT KNEE 04/20/19., SEE CARDIOLOGY H & P. History of Any Multi-Drug Resistant Organisms: MRSA Date of last positivie culture/infection: 04/30/2015 MDRO Source:: back ( ? spider bite) Past Surgical History: Appendectomy, Bladder Surgery, Cholecystectomy, Heart Catheterization, Hysterectomy Additional Past Surgical History / Comment(s): Bladder suspension, EPIDURAL INJECTION/BACK, COLONOSCOPY, catarats, eye sugery Past Anesthesia/Blood Transfusion Reactions: Previous Problems w/ Anesthesia, Motion Sickness Additional Past Anesthesia/Blood Transfusion Reaction / Comment(s): HARD TIME WAKING UP AFTER Anesthesia. Past Psychological History: Anxiety, Depression Smoking Status: Former smoker Past Alcohol Use History: None Reported Past Drug Use History: Marijuana - Past Family History Father Family Medical History: Cancer Additional Family Medical History / Comment(s): HEART PROBLEMS Mother Family Medical History: Renal Disease Medications and Allergies Home Medications Medication Instructions Recorded Confirmed Type Nitroglycerin Sl Tabs [Nitrostat] 0.4 mg SUBLINGUAL Q5M PRN #25 tab 11/30/14 04/20/19 Rx ALPRAZolam [Xanax] 0.25 mg PO DAILY PRN 04/26/15 04/22/19 History Aspirin 81 mg PO DAILY 04/26/15 04/22/19 History Atorvastatin [Lipitor] 10 mg PO HS 04/26/15 04/22/19 History Citalopram Hydrobromide 40 mg PO HS 04/26/15 04/22/19 History [Citalopram HBr] Irbesartan/Hydrochlorothiazide 1 tab PO DAILY 04/26/15 04/22/19 History [Irbesartan-Hctz 300-12.5 mg Tb] Levothyroxine Sodium [Levoxyl] 125 mcg PO DAILY 04/26/15 04/22/19 History metFORMIN HCL [Glucophage] 500 mg PO HS 04/26/15 04/20/19 History Rivaroxaban [Xarelto] 20 mg PO HS 11/08/16 04/20/19 History Pregabalin [Lyrica] 100 mg PO BID 12/20/16 04/22/19 History Cannabidiol (Cbd) [Epidiolex] 1 dose PO DIRECTED PRN 04/20/19 04/22/19 History atenoloL [Tenormin] 50 mg PO HS 04/20/19 04/22/19 History Ondansetron Odt [Zofran Odt] 4 mg PO Q8HR PRN #20 tab 11/11/21 Rx Allergies Allergy/AdvReac Type Severity Reaction Status Date / Time codeine Allergy Severe Anaphylaxis Verified 11/13/21 17:36 adhesive tape Allergy Rash/Hives Verified 11/13/21 17:36 Latex, Natural Rubber Allergy Rash/Hives Verified 11/13/21 17:36 Physical Exam Vitals: Vital Signs Temp Pulse Resp BP Pulse Ox 11/13/21 15:57 97.3 F L 74 16 112/37 97 Intake and Output 11/13/21 11/13/21 11/13/21 06:59 14:59 22:59 Other: Weight 90.718 kg Results CBC & Chem 7: 11/13/21 16:28 11/13/21 16:28 Labs: Abnormal Lab Results - Last 24 Hours (Table) 11/13/21 11/13/21 Range/Units 16:28 16:28 WBC 22.1 H (3.8-10.6) k/uL Neutrophils # (Manual) 14.81 H (1.3-7.7) k/uL Monocytes # (Manual) 3.76 H (0-1.0) k/uL Myelocytes # (Manual) 0.22 H (0) k/uL Sodium 127 L (137-145) mmol/L Potassium 3.1 L (3.5-5.1) mmol/L Chloride 93 L (98-107) mmol/L BUN 28 H (7-17) mg/dL Creatinine 1.51 H (0.52-1.04) mg/dL Glucose 154 H (74-99) mg/dL Total Bilirubin 1.8 H (0.2-1.3) mg/dL Free T3 pg/mL 1.6 L (2.8-5.3) pg/ml
[2021-11-13] MEDS: SODIUM CHLORIDE 0.9% 1,000 ML IV SCH ×2 (18:48→20:03)
[2021-11-13 20:58] LABS: Appearance,Urine Cloudy (Clear); Bacteria,Urine Many /hpf; Bilirubin,Urine Negative (Negative); Blood,Urine Small (Negative); Color,Urine Yellow; Glucose,Urine (UA) Negative (Negative); Hyaline Casts,Urine 10 /lpf (0-2); Ketones,Urine Negative (Negative); Leukocyte Esterase,Urine Large (Negative); Mucus,Urine Rare /hpf; Nitrite,Urine Negative (Negative); PH, Urine 5.5 (5.0-8.0); Protein,Urine Negative (Negative); RBC,Urine 4 /hpf (0-5); Specific Gravity,Urine 1.012 (1.001-1.035); Squamous Epithelial Cell,Urine 7 /hpf (0-4); Urobilinogen,Urine <2.0 mg/dL (<2.0); WBC,Urine 42 /hpf (0-5)
[2021-11-13] MEDS: ATORVASTATIN 10 MG TAB PO SCH (21:42)
[2021-11-13] MEDS: CITALOPRAM HYDROBROMIDE 20 MG TAB PO SCH (21:42)
[2021-11-13] MEDS: atenoloL 50 MG TAB PO SCH (21:42)
[2021-11-13] MEDS: RIVAROXABAN 20 MG TAB PO SCH (21:43)
[2021-11-13] MEDS: OFLOXACIN 0.3% OPHTH DROPS 5 ML BOTTLE LEFT EYE SCH (22:18)
[2021-11-13] MEDS: prednisoLONE ACETATE 1% OPHTH DROPS 5 ML BTL LEFT EYE SCH (22:23)
[2021-11-13] MEDS: DORZOLAMIDE-TIMOLOL 2.23%/0.68 10ML BTL LEFT EYE SCH (22:29)
[2021-11-13] MEDS: BRIMONIDINE TARTRATE 0.2% DROPS 5 ML BTL LEFT EYE SCH (22:32)
[2021-11-13] MEDS: ATROPINE OPHTH SOLN 1% 5ML BTL LEFT EYE SCH (22:37)
[2021-11-13] MEDS: LATANOPROST 0.005% OPHTH DROPS 2.5 ML BTL LEFT EYE SCH (22:42)
[2021-11-14] MEDS: INSULIN ASPART (NovoLOG) 100 UNIT/ML VIAL SQ SCH ×5 (04:12→22:20)
[2021-11-14] MEDS: ACETAMINOPHEN TAB 325 MG TAB PO PRN ×3 (06:20→22:49)
--- NOTE | 2021-11-14 08:27 | XR ---
EXAMINATION TYPE: XR chest 1V DATE OF EXAM: 11/14/2021 COMPARISON: 11/13/2021 HISTORY: Shortness of breath TECHNIQUE: Single frontal view of the chest is obtained. FINDINGS: Subsegmental changes at the lung bases with cardiomegaly and coarsened interstitium. Hyper inflation suggests COPD. Atherosclerotic change aorta. Arthropathy of the shoulders. IMPRESSION: Cardiomegaly with coarsened interstitium correlate for chronic interstitial lung disease otherwise consider interstitial pneumonitis
[2021-11-14 08:56] LABS: ALT 17 U/L (4-34); AST 17 U/L (14-36); African American GFR (CKD) 71 (>60 ml/min/1.73 sqM); Albumin 3.3 g/dL (3.5-5.0); Albumin/Globulin Ratio 1.3; Alkaline Phosphatase 66 U/L (38-126); Anion Gap 9 mmol/L; Blood Urea Nitrogen 16 mg/dL (7-17); Carbon Dioxide 21 mmol/L (22-30); Chloride 104 mmol/L (98-107); Globulin 2.6 g/dL; Glucose 133 mg/dL (74-99); Non-African American GFR(CKD) 62 (>60 ml/min/1.73 sqM); Potassium 3.3 mmol/L (3.5-5.1); Sodium 134 mmol/L (137-145); Total Bilirubin 1.5 mg/dL (0.2-1.3); Total Protein 5.9 g/dL (6.3-8.2)
[2021-11-14 08:57] LABS: Basophils % (A) 0 %; Eosinophils % (A) 0 %; HCT 36.2 % (34.0-46.0); HGB 12.3 gm/dL (11.4-16.0); Lymphocytes # (A) 1.4 k/uL (1.0-4.8); Lymphocytes % (A) 12 %; MCH 30.5 pg (25.0-35.0); MCV 89.7 fL (80.0-100.0); Mean Platelet Volume 12.6; Monocytes # (A) 1.8 k/uL (0-1.0); Monocytes % (A) 15 %; Neutrophils # (A) 8.1 k/uL (1.3-7.7); Neutrophils % (A) 69 %; Platelet Count 129 k/uL (150-450); RBC 4.03 m/uL (3.80-5.40); RDW 14.5 % (11.5-15.5); WBC 11.8 k/uL (3.8-10.6)
[2021-11-14] MEDS: LEVOTHYROXINE 125 MCG TAB PO SCH (09:37)
[2021-11-14] MEDS: ASPIRIN 81 MG PO SCH (09:37)
[2021-11-14] MEDS: OXYBUTYNIN XL 5 MG TAB.ER.24 PO SCH (09:37)
[2021-11-14] MEDS: SODIUM CHLORIDE 0.9% 1,000 ML IV SCH ×2 (09:38→16:23)
[2021-11-14] MEDS: OFLOXACIN 0.3% OPHTH DROPS 5 ML BOTTLE LEFT EYE SCH ×4 (10:20→22:28)
[2021-11-14] MEDS: ATROPINE OPHTH SOLN 1% 5ML BTL LEFT EYE SCH ×2 (10:21→22:23)
[2021-11-14] MEDS: BRIMONIDINE TARTRATE 0.2% DROPS 5 ML BTL LEFT EYE SCH ×3 (10:22→22:22)
[2021-11-14] MEDS: prednisoLONE ACETATE 1% OPHTH DROPS 5 ML BTL LEFT EYE SCH ×4 (10:23→22:29)
[2021-11-14] MEDS: DORZOLAMIDE-TIMOLOL 2.23%/0.68 10ML BTL LEFT EYE SCH ×2 (10:24→22:29)
[2021-11-14 11:28] LABS: Glucose,Whole Blood 133 mg/dL (75-99)
--- NOTE | 2021-11-14 11:37 | CDI ---
Documentation Clarification Form Date: 11/14/2021 10:53:31 AM From: Jane Banks RN CCDS Admit Date: 11/13/2021 05:34:00 PM Patient Name: Nita Rueda Visit Number: [id number] Discharge Date: ATTENTION: The Clinical Documentation Specialists (CDI) and [facility] Coding Staff appreciate your assistance in clarifying documentation. Please respond to the clarification below the line at the bottom and electronically sign. The CDI & [facility] Coding staff will review the response and follow-up if needed. Please note: Queries are made part of the Legal Health Record. If you have any questions, please contact the author of this message via ITS. Dr. Tommy Caldwell Your patient has the documented symptom of Confusion 11/13, H&P. Additional clarification regarding the etiology/cause of this symptom is requested. History/Risk Factors: 81-year-old female presents to the ED for increasing nausea, vomiting and increasing headache after eye surgery. Medical History: COPD, DM, HTN and retinal detachment with hemorrhage. 11/13, H&P. Clinical Indicators: Admitting Diagnosis: Sepsis, Pneumonia, BETH VSS: 11/13 B/P 112/37; HR 74; Temp 97.3 F; RR 16; SpO2 97% ra Labs: 11/13 Wbc 22.1; Neutrophils 14.81 CXR: 11/13 Increased density behind the heart which is wedge shaped and suggestive of pneumonia. CT Brain: 11/13 Mild cerebral atrophy. Chronic small vessel ischemia. Treatment: 11/13: Azithromycin 500 mg IVPB x 1; 11/14 2 Zithromax 500mg PO Doses ordered Daily; 11/13 Ceftriaxone 2gm IVPB x 1; 11/14 to current Ceftriaxone 1gm IVPB Q12HR JONATHAN; 12/13 current Daptomycin 400mg IVPB Q24HR. Please clarify the etiology of the symptom of Confusion: [ ] Metabolic Encephalopathy due to Sepsis. [ ] Other condition (please specify) [ ] Unable to determine (Template Last Revised: September 2020) Acute delirium/metabolic encephalopathy due to sepsis, POA MTDD
--- NOTE | 2021-11-14 15:38 | P.PN ---
Progress Note - Text Progress Note Date: 11/14/21 Chief Complaint: Not feeling well This is a 81-year-old patient, follows with Dr. Napoleon Arellano. Chronic stable medical conditions include atrial fibrillation for which she is on xarelto, COPD, diabetes, GERD, hypertension, hyperlipidemia, osteoarthritis, hypothyroid, obstructive sleep apnea does not use CPAP, hiatal hernia, spinal stenosis. Last week on that is about a week ago, because of left eye pain patient had to go down to [facility] for eye surgery. As per the son at the bedside dose possibly an aneurysm the back of diet that was repaired. Is also retinal detachment with significant hemorrhage. Eyedrops were given. Patient was told that the patient will not return. Following that she did call back for a follow-up. Subsequently that she started having increasing nausea vomiting. Increasing headache. She is prescribed Diamox. Started having chills. She presented to our ER on November 11. Doxazosin patient had surgery with , energy efficiency engineer at [facility]. She does ruptured aneurysm that they attempted repair. She she was blind in his left eye prior to surgery. She also had a urine infection prior to surgery. No complete the course of antibiotic. She had a CT of the head that did not show any abnormality. Had an elevated white count. They consulted Dr. Dias and he recommended increasing the dose Diamox. Right eye pressure was 14 and left eye pressure was 55. Patient was discharged home. Subsequently the son says patient became intermittently confused. Not really eating drinking. Denied any obvious respiratory symptoms. No urinary symptoms. Tired rundown. Patient admitted with acute kidney injury. Pneumonia. Hypotension. Possible infection around the globe. Started on IV fluids. IV daptomycin IV ceftriaxone. November 14: Laying in bed. Feels slightly better. Blood pressure started to,. On IV antibiotics. Eating some. Active Medications Acetaminophen (Acetaminophen Tab 325 Mg Tab) 650 mg PO Q6HR PRN PRN Reason: Mild Pain or Fever > 100.5 Last Admin: 11/14/21 06:20 Dose: 650 mg Documented by: Aspirin (Aspirin 81 Mg) 81 mg PO DAILY [facility] Last Admin: 11/14/21 09:37 Dose: 81 mg Documented by: Atenolol (Atenolol 50 Mg Tab) 50 mg PO HS [facility] Last Admin: 11/13/21 21:42 Dose: 50 mg Documented by: Atorvastatin Calcium (Atorvastatin 10 Mg Tab) 10 mg PO [facility] Last Admin: 11/13/21 21:42 Dose: 10 mg Documented by: Atropine Sulfate (Atropine Ophth Soln 1% 5ml Btl) 1 drops LEFT EYE BID@0830,2200 [facility] Last Admin: 11/14/21 10:21 Dose: 1 drops Documented by: Azithromycin (Azithromycin 500 Mg Tab) 500 mg PO DAILY@1800 JONATHAN; Protocol Stop: 11/15/21 18:01 Brimonidine Tartrate (Brimonidine Tartrate 0.2% Drops 5 Ml Btl) 1 drops LEFT EYE TID@0830,1530,2200 [facility] Last Admin: 11/14/21 10:22 Dose: 1 drops Documented by: Calcium Carbonate/Glycine (Calcium Carbonate 500 Mg Chewable) 1,000 mg PO Q4HR PRN PRN Reason: Dyspepsia Citalopram Hydrobromide (Citalopram Hydrobromide 20 Mg Tab) 40 mg PO [facility] Last Admin: 11/13/21 21:42 Dose: 40 mg Documented by: Dorzolamide/Timolol (Dorzolamide-Timolol 2.23%/0.68 10ml Btl) 1 drops LEFT EYE BID@0830,2200 [facility] Last Admin: 11/14/21 10:24 Dose: 1 drops Documented by: Sodium Chloride (Saline 0.9%) 1,000 mls @ 130 mls/hr IV .Q7H42M [facility] Last Admin: 11/14/21 09:38 Dose: 130 mls/hr Documented by: Daptomycin 400 mg/ Sodium (Chloride) 50 mls @ 100 mls/hr IVPB Q24H [facility]; Protocol Last Admin: 11/13/21 21:39 Dose: 100 mls/hr Documented by: Ceftriaxone Sodium 1 gm/ (Sodium Chloride) 50 mls @ 100 mls/hr IVPB Q12HR [facility]; Protocol Last Admin: 11/14/21 09:38 Dose: 100 mls/hr Documented by: Insulin Aspart (Insulin Aspart (Novolog) 100 Unit/Ml Vial) 0 unit SQ ACHS [facility]; Protocol Last Admin: 11/14/21 13:11 Dose: Not Given Documented by: Lactulose (Lactulose 20 Gm/30 Ml Cup) 20 gm PO DAILY PRN PRN Reason: Constipation Latanoprost (Latanoprost 0.005% Ophth Drops 2.5 Ml Btl) 1 drops LEFT EYE HS@2200 [facility] Last Admin: 11/13/21 22:42 Dose: 1 drops Documented by: Levothyroxine Sodium (Levothyroxine 125 Mcg Tab) 125 mcg PO DAILY@0630 [facility] Last Admin: 11/14/21 09:37 Dose: 125 mcg Documented by: Lorazepam (Lorazepam 0.5 Mg Tab) 0.5 mg PO Q6HR PRN PRN Reason: Anxiety Melatonin (Melatonin 3 Mg Tablet) 3 mg PO HS PRN PRN Reason: Insomnia Miscellaneous Information (Pneumonia Protocol Utilized 1 Each Misc) 1 each PO ONCE PRN PRN Reason: Per Protocol Naloxone HCl (Naloxone 0.4 Mg/Ml 1 Ml Vial) 0.2 mg IV Q2M PRN PRN Reason: Opioid Reversal Nitroglycerin (Nitroglycerin Sl Tabs 0.4 Mg Tab) 0.4 mg SUBLINGUAL Q5M PRN PRN Reason: Chest Pain Ofloxacin (Ofloxacin 0.3% Ophth Drops 5 Ml Bottle) 1 drops LEFT EYE QID@0830,1330,18,22 [facility] Last Admin: 11/14/21 13:32 Dose: 1 drops Documented by: Oxybutynin Chloride (Oxybutynin Xl 5 Mg Tab.Er.24) 5 mg PO DAILY [facility] Last Admin: 11/14/21 09:37 Dose: 5 mg Documented by: Prednisolone Acetate (Prednisolone Acetate 1% Ophth Drops 5 Ml Btl) 1 drops LEFT EYE QID@0830,1330,18,22 [facility] Last Admin: 11/14/21 13:33 Dose: 1 drops Documented by: Pregabalin (Pregabalin 50 Mg Cap) 50 mg PO BID [facility] Prochlorperazine Maleate (Prochlorperazine 5 Mg Tab) 5 mg PO Q8HR PRN PRN Reason: Nausea And Vomiting Rivaroxaban (Rivaroxaban 20 Mg Tab) 20 mg PO HS [facility]; Protocol Last Admin: 11/13/21 21:43 Dose: 20 mg Documented by: Past medical history to include: Atrial fibrillation, COPD, diabetes, GERD, hypertension, hyperlipidemia, osteoarthritis, TO sleep apnea does not use CPAP, hypothyroid, spell stenosis, mitral hernia, diverticulitis, varicose veins, anxiety depression, 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 Smoked for 30 years stopped in 1987. Smoked 3-4 packs a day. Stopped drinking in 1986. Occasional CBD ordered. Family history: Heart trouble and cancer Physical examination: VITAL SIGNS: 98.3, 67, 18, 132/63, 97% room air GENERAL: laying in bed, awake, tired. EYES: Pupils equal. Conjunctiva slight redness to the left conjunctival. HEENT: External appearance of nose and ears normal, oral cavity grossly normal. NECK: JVD not raised; masses not palpable. HEART: First and second heart sounds are normal; no edema. LUNGS: Respiratory rate normal; decreased breath sounds. ABDOMEN: Soft, nontender, liver spleen not palpable, no masses palpable. PSYCH: [Alert and oriented x3; mood and affect anxious. MUSCULOSKELETAL:No Clubbing/cyanosis;muscles-grossly intact. Evidence of OA Neurological: No vision of left eye INVESTIGATIONS, reviewed in the clinical context: UA: Positive November 14: White count 11.8 hemoglobin 12.3 platelets 129 potassium 3.3 creatinine 0.89 pro-calcitonin 0.18 White count 22.1 hemoglobin 14.2 platelets 158 increased neutrophils sodium 127 potassium 3.1 BUN 28 creatinine 1.51 glucose 154 TSH 1.2 lactic acid 1.9 EKG tracing personally reviewed by me-sinus rhythm. ST segment depression Chest x-ray film personally reviewed by me-basilar infiltrate Previous labs on 11/11/2021: White count 16.9 hemoglobin 14.6 sodium 125 potassium 3.[address] a on November 11: Postsurgical changes to the left globe. -Assessment and plan: -This patient had surgery to the left eye for a ruptured aneurysm unsuccessfully repaired about a week ago. Since then patient been having increasing chills. Increasing headache. Nausea vomiting. Elevated white count. Infection at the operative site probable. IV daptomycin IV ceftriaxone. Blood cultures. ID consult. -Acute delirium from infection with episodes of confusion at home.: Better Treat underlying infection -Pneumonia on chest x-ray film as evidenced by infiltrate IV ceftriaxone -Acute UTI with cystitis IV ceftriaxone -Paroxysmal atrial fibrillation currently in sinus rhythm Continue xarelto -Blind in the left eye, with repair of aneurysm or rupture 1 week ago -COPD in a previous smoker -Diabetes mellitus type 2, on oral hypoglycemic Hold metformin. Follow Accu-Cheks -GERD Pepcid when necessary -Hyperlipidemia Lipitor 10 mg daily at bedtime -Essential hypertension Keep a close eye on patient's blood pressure. Resume Tenormin. -Primary osteoarthritis multiple joints Tylenol as needed -Obstructive sleep apnea does not use CPAP -Hypothyroid Levoxyl 125 g a -Chronic spinal stenosis -Diabetic peripheral neuropathy Lyrica 50 mg twice a day -Acute kidney injury possibly ATN and prerenal. From decreased oral intake and sepsis: Better IV fluids. Follow renal function -Hyponatremia, hypovolemic from patient and vomiting and unable to eat Saline drip IV daptomycin. IV ceftriaxone. Decrease IV fluids to 50 mL an hour. Follow with consultants. Discussed with patient.
[2021-11-14 16:38] LABS: Glucose,Whole Blood 150 mg/dL (75-99)
[2021-11-14] MEDS: AZITHROMYCIN 500 MG TAB PO SCH (17:46)
[2021-11-14 21:22] LABS: Glucose,Whole Blood 157 mg/dL (75-99)
[2021-11-14] MEDS: CITALOPRAM HYDROBROMIDE 20 MG TAB PO SCH (22:19)
[2021-11-14] MEDS: atenoloL 50 MG TAB PO SCH (22:19)
[2021-11-14] MEDS: RIVAROXABAN 20 MG TAB PO SCH (22:19)
[2021-11-14] MEDS: ATORVASTATIN 10 MG TAB PO SCH (22:19)
[2021-11-14] MEDS: PREGABALIN 50 MG CAP PO SCH (22:19)
[2021-11-14] MEDS: LATANOPROST 0.005% OPHTH DROPS 2.5 ML BTL LEFT EYE SCH (22:28)
--- NOTE | 2021-11-14 22:44 | CONS ---
CONSULTATION OPHTHALMOLOGY CONSULTATION: DATE OF SERVICE: 11/14/2021 CHIEF COMPLAINT: Poor vision, left eye. HISTORY OF PRESENT ILLNESS: The patient is a 81-year-old female with several medical conditions who has been admitted for several medical chronic complaints. 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 The patient's surgery was last week and the patient has noted some weakness, difficulty ambulating and eye pain with poor vision in the operative eye. The left eye pain has improved over the last few days but has been consistent. The poor vision has been constant over the last several months and has not improved. There are no alleviating factors. There are no associated flashes or floaters. The patient had been seen in our office previously and called prior to her ER admission. I discussed over the phone prior to her presenting to the ER that her symptoms of feeling tired may be secondary to the oral Diamox that was started by her retinal surgeon. I did recommend to her son to stop the Diamox prior to her admission to the hospital. I also recommended that he take her to the ER if her symptoms persisted. Therefore, after the patient presented to the ER and was admitted, I offered to evaluate the patient further in the hospital. REVIEW OF SYSTEMS: The patient reports chills, poor vision in the left eye, headaches, decreased appetite and joint pains. PAST MEDICAL HISTORY: Atrial fibrillation, COPD, diabetes, gastroesophageal reflux disease, hypertension, hyperlipidemia, arthritis, sleep apnea, hypothyroidism, mitral hernia, diverticulosis, anxiety, depression, and retinal hemorrhage and retinal detachment in the left eye. SOCIAL HISTORY: Thirty-year smoker. Occasional alcohol. FAMILY HISTORY: Heart disease. OPHTHALMIC EXAMINATION: Visual acuity is 20/50 in the right eye at near and hand motion, in the left eye at near with correction. Pupils show reactive pupil on the right and dilated pharmacologic pupil on the left. Extraocular movements are intact. Intraocular pressure is 18 in the right and 38 in the left. Remainder of ophthalmic exam reveals subconjunctival hemorrhage in the left eye, 30% hyphema in the left anterior chamber with posterior chamber intraocular lens in the left eye. There is a vitreous hemorrhage with retained gas bubble with no view to the posterior pole. IMPRESSION AND PLAN: 1. Hemorrhagic retinal detachment, left eye, status post vitrectomy with external drainage on 11/08/2021 with outside piping supervisor. Unfortunately the massive subretinal hemorrhage was only partially drained due to complicating factors of a long-standing vitreous and subretinal hemorrhage. The patient was evaluated by the outside piping supervisor and found to have recurrent hemorrhage with increased pressure at the follow-up postoperative visit. Therefore the patient was placed on glaucoma medications. I recommend that the patient continue her eye drops, which should include brimonidine 3 times daily, Cosopt 2 times daily, latanoprost every evening, ofloxacin 4 times daily, prednisolone acetate 4 times daily, atropine twice daily. The patient should not take oral Diamox due to the systemic concerns, and we are avoiding carbonic anhydrase inhibitor eyedrops for the same reason. The visual potential in the left eye is very poor and she will require outpatient evaluation for further measures to simply improve her comfort in the left eye long- term. After discharge, I recommend the patient see me in the office within one week. I will also arrange for the patient to follow up with her retinal surgeon after discharge. 2. Type 2 diabetes with no ocular complications. Thank you for allowing me to participate in this patient's care. MMODL / IJN: [id number] /
[2021-11-14] MEDS: MELATONIN 3 MG TABLET PO PRN (22:49)
--- NOTE | 2021-11-14 23:24 | P.CONS ---
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 ER yesterday afternoon for evaluation of generalized weakness that have been going on for a day or 2 before presentation the hospital and the patient been complaining of vision loss to the left eye, denies any worsening pain to the left eye or any drainage symptom has been mostly weakness no energy no headache or URI symptoms no nausea no vomiting no abdominal pain no diarrhea did have some suprapubic discomfort and urinary pressure on arrival to the ER the patient was afebrile patient did have a white count 22.1 with a left shift repeat blood cultures 1 is 11.8 patient did have elevated BUN and creatinine this morning did have improvement levels and were normal patient did have a positive UA Covid testing was negative but urine culture is currently pending patient did have a chest x- ray possible pneumonia right lower lobe paraspinal region compatible exam patient was started on Rocephin and Zithromax has been admitted to hospital infectious disease was consulted for further management of antibiotic therapy. Review of Systems Positive point has been mentioned in the HPI rest of the systems are negative Past Medical History Past Medical History: Atrial Fibrillation, Chest Pain / Angina, COPD, Diabetes Mellitus, GERD/Reflux, Hyperlipidemia, Hypertension, Osteoarthritis (OA), Pneumonia, Sleep Apnea/CPAP/BIPAP, Thyroid Disorder Additional Past Medical History / Comment(s): NIDDM type II, DDD, SPINAL STENOSIS, HIATAL HERNIA, DIVERTICULITS, HAS C PAP MACHINE BUT DOESN'T USE, VARICOSE VEINS, FREQUENT DIARRHEA, BACK PAIN, ARTHRITIS IN KNEES, STATES INJECTION LEFT KNEE 04/20/19., Aneurism behind left eye 11/07/21-emergency surgery at a [facility]-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 spider bite) Past Surgical History: Appendectomy, Bladder Surgery, Cholecystectomy, Heart Catheterization, Hysterectomy Additional Past Surgical History / Comment(s): Bladder suspension, EPIDURAL INJECTION/BACK, COLONOSCOPY, catarats, 11/07/21 emergency eye surgery on left eye Past Anesthesia/Blood Transfusion Reactions: Previous Problems w/ Anesthesia, Motion Sickness Additional Past Anesthesia/Blood Transfusion Reaction / Comm: HARD TIME WAKING UP AFTER Anesthesia. Past Psychological History: Anxiety, Depression Additional Psychological History / Comment(s): patient lives at home, states son lives in house with her Smoking Status: Former smoker Past Alcohol Use History: None Reported Additional Past Alcohol Use History / Comment(s): Pt started smoking in 1957 and quit in 1987. SMOKED 3-4 PPD.,She quit drinking in 1986. Past Drug Use History: None Reported - Past Family History Father Family Medical History: Cancer Additional Family Medical History / Comment(s): HEART PROBLEMS Mother Family Medical History: Renal Disease Medications and Allergies Home Medications Medication Instructions Recorded Confirmed Type Nitroglycerin Sl Tabs [Nitrostat] 0.4 mg SUBLINGUAL Q5M PRN #25 tab 11/30/14 11/13/21 Rx ALPRAZolam [Xanax] 0.25 mg PO DAILY PRN 04/26/15 11/13/21 History Atorvastatin [Lipitor] 10 mg PO HS 04/26/15 11/13/21 History Citalopram Hydrobromide 40 mg PO HS 04/26/15 11/13/21 History [Citalopram HBr] Irbesartan/Hydrochlorothiazide 1 tab PO DAILY 04/26/15 11/13/21 History [Irbesartan-Hctz 300-12.5 mg Tb] Levothyroxine Sodium [Levoxyl] 125 mcg PO DAILY 04/26/15 11/13/21 History metFORMIN HCL [Glucophage] 500 mg PO BID-W/MEALS 04/26/15 11/13/21 History Rivaroxaban [Xarelto] 20 mg PO HS 11/08/16 11/13/21 History Pregabalin [Lyrica] 100 mg PO BID 12/20/16 11/13/21 History atenoloL [Tenormin] 50 mg PO HS 04/20/19 11/13/21 History Ondansetron Odt [Zofran Odt] 4 mg PO Q8HR PRN #20 tab 11/11/21 11/13/21 Rx Acetaminophen Tab [Tylenol Tab] 500 mg PO Q6HR PRN 11/13/21 11/13/21 History Aspirin EC [Ecotrin Low Dose] 81 mg PO DAILY 11/13/21 11/13/21 History Atropine Ophth Soln 1% 5Ml [Isopto 1 drop LEFT EYE BID@0830,2200 11/13/21 11/13/21 History Atropine 1% 5Ml] Brimonidine Tartrate [Alphagan P 1 drops LEFT EYE TID@0830,1530,2200 11/13/21 11/13/21 History 0.2% Ophth Soln] Dorzolamide/Timolol/Pf 1 drop LEFT EYE BID@0830,2200 11/13/21 11/13/21 History [Dorzolamide 2%-Timolol 0.5%] Latanoprost/Pf [Latanoprost 0.005% 1 drop LEFT EYE HS@2200 11/13/21 11/13/21 History Eye Drop] Ofloxacin 0.3% Ophth Soln [Ocuflox 1 drops LEFT EYE 11/13/21 11/13/21 History Ophth Soln] QID@0830,1330,18,22 Oxybutynin Xl [Ditropan XL] 5 mg PO DAILY 11/13/21 11/13/21 History Prednisolone Acetate/Pf 1 drop LEFT EYE QID@0830,1330,18,22 11/13/21 11/13/21 History [Prednisolone Acet 1% Eye Drop] Allergies Allergy/AdvReac Type Severity Reaction Status Date / Time codeine Allergy Severe Anaphylaxis Verified 11/13/21 17:36 adhesive tape Allergy Rash/Hives Verified 11/13/21 17:36 Latex, Natural Rubber Allergy Rash/Hives Verified 11/13/21 17:36 Physical Exam Vitals: Vital Signs Temp Pulse Pulse Resp BP BP Pulse Ox 11/14/21 14:00 98.9 F 68 18 170/72 98 11/14/21 08:00 98.3 F 67 18 132/63 97 11/14/21 06:22 67 18 151/64 96 11/14/21 04:00 60 18 129/56 95 11/14/21 03:52 59 L 18 133/64 95 11/14/21 01:00 64 18 143/79 95 11/14/21 00:00 70 18 124/49 97 11/13/21 19:06 75 16 125/66 98 Intake and Output 11/14/21 11/14/21 11/14/21 06:59 14:59 22:59 Output Total 1800 Balance -1800 Output: Urine 1800 Other: Voiding Method External Catheter Weight 90.718 kg GENERAL DESCRIPTION: Elderly female lying in bed, no distress. No tachypnea or accessory muscle of respiration use. HEENT: Shows Pallor , left eye swollen and congested. Oral mucous membrane is dry. No pharyngeal erythema or thrush NECK: Trachea central, no thyromegaly. LUNGS: Unlabored breathing. Clear to auscultation anteriorly. No wheeze or crackle. HEART: S1, S2, regular rate and rhythm. No loud murmur ABDOMEN: Soft, no tenderness , guarding or rigidity, no organomegaly EXTREMITIES: No edema of feet. SKIN: No rash, no masses palpable. NEUROLOGICAL: The patient is awake, alert, oriented x3, mood and affect normal. Results CBC & Chem 7: 11/14/21 07:43 11/14/21 07:43 Labs: Abnormal Lab Results - Last 24 Hours (Table) 11/13/21 11/13/21 11/14/21 Range/Units 16:28 20:35 07:43 WBC (3.8-10.6) k/uL Plt Count (150-450) k/uL Neutrophils # (1.3-7.7) k/uL Neutrophils # (Manual) 14.81 H (1.3-7.7) k/uL Monocytes # (0-1.0) k/uL Monocytes # (Manual) 3.76 H (0-1.0) k/uL Myelocytes # (Manual) 0.22 H (0) k/uL Sodium (137-145) mmol/L Potassium (3.5-5.1) mmol/L Carbon Dioxide (22-30) mmol/L Glucose (74-99) mg/dL POC Glucose (mg/dL) (75-99) mg/dL Calcium (8.4-10.2) mg/dL Total Bilirubin (0.2-1.3) mg/dL Total Protein (6.3-8.2) g/dL Albumin (3.5-5.0) g/dL Procalcitonin 0.18 H (0.02-0.09) ng/mL Urine Appearance Cloudy H (Clear) Urine Blood Small H (Negative) Ur Leukocyte Esterase Large H (Negative) Urine WBC 42 H (0-5) /hpf Ur Squamous Epith Cells 7 H (0-4) /hpf Urine Bacteria Many H (None) /hpf Hyaline Casts 10 H (0-2) /lpf Urine Mucus Rare H (None) /hpf 11/14/21 11/14/21 11/14/21 Range/Units 07:43 07:43 11:26 WBC 11.8 H (3.8-10.6) k/uL Plt Count 129 L (150-450) k/uL Neutrophils # 8.1 H (1.3-7.7) k/uL Neutrophils # (Manual) (1.3-7.7) k/uL Monocytes # 1.8 H (0-1.0) k/uL Monocytes # (Manual) (0-1.0) k/uL Myelocytes # (Manual) (0) k/uL Sodium 134 L (137-145) mmol/L Potassium 3.3 L (3.5-5.1) mmol/L Carbon Dioxide 21 L (22-30) mmol/L Glucose 133 H (74-99) mg/dL POC Glucose (mg/dL) 133 H (75-99) mg/dL Calcium 8.0 L (8.4-10.2) mg/dL Total Bilirubin 1.5 H (0.2-1.3) mg/dL Total Protein 5.9 L (6.3-8.2) g/dL Albumin 3.3 L (3.5-5.0) g/dL Procalcitonin (0.02-0.09) ng/mL Urine Appearance (Clear) Urine Blood (Negative) Ur Leukocyte Esterase (Negative) Urine WBC (0-5) /hpf Ur Squamous Epith Cells (0-4) /hpf Urine Bacteria (None) /hpf Hyaline Casts (0-2) /lpf Urine Mucus (None) /hpf 11/14/21 Range/Units 16:37 WBC (3.8-10.6) k/uL Plt Count (150-450) k/uL Neutrophils # (1.3-7.7) k/uL Neutrophils # (Manual) (1.3-7.7) k/uL Monocytes # (0-1.0) k/uL Monocytes # (Manual) (0-1.0) k/uL Myelocytes # (Manual) (0) k/uL Sodium (137-145) mmol/L Potassium (3.5-5.1) mmol/L Carbon Dioxide (22-30) mmol/L Glucose (74-99) mg/dL POC Glucose (mg/dL) 150 H (75-99) mg/dL Calcium (8.4-10.2) mg/dL Total Bilirubin (0.2-1.3) mg/dL Total Protein (6.3-8.2) g/dL Albumin (3.5-5.0) g/dL Procalcitonin (0.02-0.09) ng/mL Urine Appearance (Clear) Urine Blood (Negative) Ur Leukocyte Esterase (Negative) Urine WBC (0-5) /hpf Ur Squamous Epith Cells (0-4) /hpf Urine Bacteria (None) /hpf Hyaline Casts (0-2) /lpf Urine Mucus (None) /hpf Microbiology - Last 24 Hours (Table) 11/13/21 20:35 Urine Culture - Preliminary Urine,Voided Assessment and Plan (1) SIRS (systemic inflammatory response syndrome) Current Visit: No Status: Acute Code(s): R65.10 - SIRS OF NON-INFECTIOUS ORIGIN W/O ACUTE ORGAN DYSFUNCTION SNOMED Code(s): 634301595 Plan: 1patient presented to hospital with generalized weakness no energy in this patient noticed to have elevated BUN/creatinine more likely related to dehydration and possible related to ophthalmologic medication that have been started after the patient did have surgery for hemorrhagic detachment of the retina patient did not have any fever did have elevated white count however no significant respiratory symptoms to be suspicious for pneumonia did have mild urinary symptom possible component of enteric gram-negative pneumonia not entirely excluded, patient did have some congestion to the left eyeball but no surrounding redness or any purulent drainage clinic suspicious for infection to the left eye on the low side. 2we will check inflammatory markers. 3continue with Rocephin to which the patient seem to have clinically spotting along with IV fluid. We will follow on clinical condition and cultures to further adjust medication if needed Thank you for this consultation will follow this patient along with you Time with Patient: Greater than 30
[2021-11-15] MEDS: LEVOTHYROXINE 125 MCG TAB PO SCH (06:24)
[2021-11-15] MEDS: ACETAMINOPHEN TAB 325 MG TAB PO PRN ×2 (06:24→20:21)
[2021-11-15 06:36] LABS: Basophils % (A) 0 %; Eosinophils % (A) 0 %; HCT 35.9 % (34.0-46.0); HGB 11.7 gm/dL (11.4-16.0); Lymphocytes # (A) 1.2 k/uL (1.0-4.8); Lymphocytes % (A) 13 %; MCHC 32.8 g/dL (31.0-37.0); MCV 88.5 fL (80.0-100.0); Mean Platelet Volume 12.6; Monocytes # (A) 1.6 k/uL (0-1.0); Monocytes % (A) 17 %; Neutrophils # (A) 6.1 k/uL (1.3-7.7); Neutrophils % (A) 66 %; Platelet Count 133 k/uL (150-450); RBC 4.05 m/uL (3.80-5.40); RDW 13.9 % (11.5-15.5); WBC 9.3 k/uL (3.8-10.6)
[2021-11-15 06:57] LABS: Glucose,Whole Blood 211 mg/dL (75-99)
[2021-11-15 07:11] LABS: ALT 22 U/L (4-34); AST 22 U/L (14-36); African American GFR (CKD) >90 (>60 ml/min/1.73 sqM); Albumin 3.6 g/dL (3.5-5.0); Albumin/Globulin Ratio 1.4; Alkaline Phosphatase 72 U/L (38-126); Anion Gap 5 mmol/L; Blood Urea Nitrogen 7 mg/dL (7-17); Calcium 8.3 mg/dL (8.4-10.2); Carbon Dioxide 26 mmol/L (22-30); Chloride 102 mmol/L (98-107); Globulin 2.5 g/dL; Glucose 140 mg/dL (74-99); Non-African American GFR(CKD) 85 (>60 ml/min/1.73 sqM); Potassium 3.1 mmol/L (3.5-5.1); Sodium 133 mmol/L (137-145); Total Bilirubin 1.3 mg/dL (0.2-1.3); Total Protein 6.1 g/dL (6.3-8.2)
[2021-11-15 07:29] LABS: C Reactive Protein 7.7 mg/dL (<1.0)
[2021-11-15] MEDS: OXYBUTYNIN XL 5 MG TAB.ER.24 PO SCH (07:54)
[2021-11-15] MEDS: ASPIRIN 81 MG PO SCH (07:54)
[2021-11-15] MEDS: PREGABALIN 50 MG CAP PO SCH ×2 (07:54→20:21)
[2021-11-15] MEDS: INSULIN ASPART (NovoLOG) 100 UNIT/ML VIAL SQ SCH ×4 (07:54→21:08)
[2021-11-15] MEDS: DORZOLAMIDE-TIMOLOL 2.23%/0.68 10ML BTL LEFT EYE SCH ×2 (07:55→23:20)
[2021-11-15] MEDS: prednisoLONE ACETATE 1% OPHTH DROPS 5 ML BTL LEFT EYE SCH ×4 (07:55→23:19)
[2021-11-15] MEDS: OFLOXACIN 0.3% OPHTH DROPS 5 ML BOTTLE LEFT EYE SCH ×4 (07:56→23:24)
[2021-11-15] MEDS: ATROPINE OPHTH SOLN 1% 5ML BTL LEFT EYE SCH ×2 (07:56→23:16)
[2021-11-15] MEDS: BRIMONIDINE TARTRATE 0.2% DROPS 5 ML BTL LEFT EYE SCH ×3 (07:57→23:22)
[2021-11-15 10:40] LABS: Glucose,Whole Blood 164 mg/dL (75-99)
[2021-11-15] MEDS ORDERED: POTASSIUM CHLORIDE ER 20 MEQ TAB.ER PO STA (11:04)
[2021-11-15] MEDS: PROCHLORPERAZINE 5 MG TAB PO PRN (11:29)
[2021-11-15] MEDS: SODIUM CHLORIDE 0.9% 1,000 ML IV SCH (11:33)
[2021-11-15 11:35] LABS: Glucose,Whole Blood 178 mg/dL (75-99)
--- NOTE | 2021-11-15 16:19 | P.PN ---
Progress Note - Text Progress Note Date: 11/15/21 Chief Complaint: Not feeling well This is a 81-year-old patient, follows with Dr. Napoleon Arellano. Chronic stable medical conditions include atrial fibrillation for which she is on xarelto, COPD, diabetes, GERD, hypertension, hyperlipidemia, osteoarthritis, hypothyroid, obstructive sleep apnea does not use CPAP, hiatal hernia, spinal stenosis. Last week on that is about a week ago, because of left eye pain patient had to go down to [facility] for eye surgery. As per the son at the bedside dose possibly an aneurysm the back of diet that was repaired. Is also retinal detachment with significant hemorrhage. Eyedrops were given. Patient was told that the patient will not return. Following that she did call back for a follow-up. Subsequently that she started having increasing nausea vomiting. Increasing headache. She is prescribed Diamox. Started having chills. She presented to our ER on November 11. 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 She does ruptured aneurysm that they attempted repair. She she was blind in his left eye prior to surgery. She also had a urine infection prior to surgery. No complete the course of antibiotic. She had a CT of the head that did not show any abnormality. Had an elevated white count. They consulted Dr. Dias and he recommended increasing the dose Diamox. Right eye pressure was 14 and left eye pressure was 55. Patient was discharged home. Subsequently the son says patient became intermittently confused. Not really eating drinking. Denied any obvious respiratory symptoms. No urinary symptoms. Tired rundown. Patient admitted with acute kidney injury. Pneumonia. Hypotension. Possible infection around the globe. Started on IV fluids. IV daptomycin IV ceftriaxone. November 14: Laying in bed. Feels slightly better. Blood pressure started to,. On IV antibiotics. Eating some. November 15: Oral intake improving. Does sit up in a chair. No fever. Discussed with Dr. Polo from ID. Stop daptomycin. We'll continue ceftriaxone for UTI/possible pneumonia. Seen by Dr. Bunn from ophthalmology. Continue eyedrops. Active Medications Acetaminophen (Acetaminophen Tab 325 Mg Tab) 650 mg PO Q6HR PRN PRN Reason: Mild Pain or Fever > 100.5 Last Admin: 11/15/21 06:24 Dose: 650 mg Documented by: Aspirin (Aspirin 81 Mg) 81 mg PO DAILY [facility] Last Admin: 11/15/21 07:54 Dose: 81 mg Documented by: Atenolol (Atenolol 50 Mg Tab) 50 mg PO [facility] Last Admin: 11/14/21 22:19 Dose: 50 mg Documented by: Atorvastatin Calcium (Atorvastatin 10 Mg Tab) 10 mg PO [facility] Last Admin: 11/14/21 22:19 Dose: 10 mg Documented by: Atropine Sulfate (Atropine Ophth Soln 1% 5ml Btl) 1 drops LEFT EYE BID@0830,2200 [facility] Last Admin: 11/15/21 07:56 Dose: 1 drops Documented by: Azithromycin (Azithromycin 500 Mg Tab) 500 mg PO DAILY@1800 [facility]; Protocol Stop: 11/15/21 18:01 Last Admin: 11/14/21 17:46 Dose: 500 mg Documented by: Brimonidine Tartrate (Brimonidine Tartrate 0.2% Drops 5 Ml Btl) 1 drops LEFT EYE TID@0830,1530,2200 [facility] Last Admin: 11/15/21 15:08 Dose: 1 drops Documented by: Calcium Carbonate/Glycine (Calcium Carbonate 500 Mg Chewable) 1,000 mg PO Q4HR PRN PRN Reason: Dyspepsia Citalopram Hydrobromide (Citalopram Hydrobromide 20 Mg Tab) 40 mg PO [facility] Last Admin: 11/14/21 22:19 Dose: 40 mg Documented by: Dorzolamide/Timolol (Dorzolamide-Timolol 2.23%/0.68 10ml Btl) 1 drops LEFT EYE BID@0830,2200 [facility] Last Admin: 11/15/21 07:55 Dose: 1 drops Documented by: Daptomycin 400 mg/ Sodium (Chloride) 50 mls @ 100 mls/hr IVPB Q24H [facility]; Protocol Last Admin: 11/14/21 20:27 Dose: 100 mls/hr Documented by: Ceftriaxone Sodium 1 gm/ (Sodium Chloride) 50 mls @ 100 mls/hr IVPB Q12HR [facility]; Protocol Last Admin: 11/15/21 07:57 Dose: 100 mls/hr Documented by: Sodium Chloride (Saline 0.9%) 1,000 mls @ 50 mls/hr IV .Q20H [facility] Last Admin: 11/15/21 11:33 Dose: Not Given Documented by: Insulin Aspart (Insulin Aspart (Novolog) 100 Unit/Ml Vial) 0 unit SQ ACHS [facility]; Protocol Last Admin: 11/15/21 13:01 Dose: 2 unit Documented by: Lactulose (Lactulose 20 Gm/30 Ml Cup) 20 gm PO DAILY PRN PRN Reason: Constipation Latanoprost (Latanoprost 0.005% Ophth Drops 2.5 Ml Btl) 1 drops LEFT EYE HS@2200 [facility] Last Admin: 11/14/21 22:28 Dose: 1 drops Documented by: Levothyroxine Sodium (Levothyroxine 125 Mcg Tab) 125 mcg PO DAILY@0630 [facility] Last Admin: 11/15/21 06:24 Dose: 125 mcg Documented by: Lorazepam (Lorazepam 0.5 Mg Tab) 0.5 mg PO Q6HR PRN PRN Reason: Anxiety Melatonin (Melatonin 3 Mg Tablet) 3 mg PO HS PRN PRN Reason: Insomnia Last Admin: 11/14/21 22:49 Dose: 3 mg Documented by: Miscellaneous Information (Pneumonia Protocol Utilized 1 Each [facility]) 1 each PO ONCE PRN PRN Reason: Per Protocol Naloxone HCl (Naloxone 0.4 Mg/Ml 1 Ml Vial) 0.2 mg IV Q2M PRN PRN Reason: Opioid Reversal Nitroglycerin (Nitroglycerin Sl Tabs 0.4 Mg Tab) 0.4 mg SUBLINGUAL Q5M PRN PRN Reason: Chest Pain Ofloxacin (Ofloxacin 0.3% Ophth Drops 5 Ml Bottle) 1 drops LEFT EYE QID@0830,1330,,22 [facility] Last Admin: 11/15/21 13:02 Dose: 1 drops Documented by: Oxybutynin Chloride (Oxybutynin Xl 5 Mg Tab.Er.24) 5 mg PO DAILY [facility] Last Admin: 11/15/21 07:54 Dose: 5 mg Documented by: Prednisolone Acetate (Prednisolone Acetate 1% Ophth Drops 5 Ml Btl) 1 drops LEFT EYE QID@0830,1330,18,22 [facility] Last Admin: 11/15/21 13:02 Dose: 1 drops Documented by: Pregabalin (Pregabalin 50 Mg Cap) 50 mg PO BID [facility] Last Admin: 11/15/21 07:54 Dose: 50 mg Documented by: Prochlorperazine Maleate (Prochlorperazine 5 Mg Tab) 5 mg PO Q8HR PRN PRN Reason: Nausea And Vomiting Last Admin: 11/15/21 11:29 Dose: 5 mg Documented by: Rivaroxaban (Rivaroxaban 20 Mg Tab) 20 mg PO HS JONATHAN; Protocol Last Admin: 11/14/21 22:19 Dose: 20 mg Documented by: Past medical history to include: Atrial fibrillation, COPD, diabetes, GERD, hypertension, hyperlipidemia, osteoarthritis, TO sleep apnea does not use CPAP, hypothyroid, spell stenosis, mitral hernia, diverticulitis, varicose veins, anxiety depression, 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 Smoked for 30 years stopped in 1987. Sm oked 3-4 packs a day. Stopped drinking in 1986. Occasional CBD ordered. Family history: Heart trouble and cancer Physical examination: VITAL SIGNS: 97.5, 67, 18, 134/74, 98% room air GENERAL: laying in bed, awake, tired. EYES: Pupils equal. Conjunctiva minimal redness to the left conjunctival. HEENT: External appearance of nose and ears normal, oral cavity grossly normal. NECK: JVD not raised; masses not palpable. HEART: First and second heart sounds are normal; no edema. LUNGS: Respiratory rate normal; decreased breath sounds. ABDOMEN: Soft, nontender, liver spleen not palpable, no masses palpable. PSYCH: [Alert and oriented x3; mood and affect anxious. MUSCULOSKELETAL:No Clubbing/cyanosis;muscles-grossly intact. Evidence of OA Neurological: No vision of left eye INVESTIGATIONS, reviewed in the clinical context: November 15: White count 9.3 hemoglobin 11.7 platelets 133 sodium 133 potassium 3.1 creatinine 0.65 procalcitonin 0.13 UA: Positive November 14: White count 11.8 hemoglobin 12.3 platelets 129 potassium 3.3 creatinine 0.89 pro-calcitonin 0.18 White count 22.1 hemoglobin 14.2 platelets 158 increased neutrophils sodium 127 potassium 3.1 BUN 28 creatinine 1.51 glucose 154 TSH 1.2 lactic acid 1.9 EKG tracing personally reviewed by me-sinus rhythm. ST segment depression Chest x-ray film personally reviewed by me-basilar infiltrate Previous labs on 11/11/2021: White count 16.9 hemoglobin 14.6 sodium 125 potassium 3.[address] a on November 11: Postsurgical changes to the left globe. -Assessment and plan: -This patient had surgery to the left eye for a ruptured aneurysm unsuccessfully repaired about a week ago. Discussed with ID. Local infection felt to be unlikely. Stop daptomycin -Acute delirium from infection with episodes of confusion at home.: Better Treat underlying infection -Pneumonia on chest x-ray film as evidenced by infiltrate IV ceftriaxone -Acute UTI with cystitis IV ceftriaxone -Paroxysmal atrial fibrillation currently in sinus rhythm Continue xarelto -Blind in the left eye, with repair of aneurysm or rupture 1 week ago -COPD in a previous smoker -Diabetes mellitus type 2, on oral hypoglycemic Resume metformin. Follow Accu-Cheks -GERD Pepcid when necessary -Hyperlipidemia Lipitor 10 mg daily at bedtime -Essential hypertension Resume irbesartan/hydrochlorothiazide. Tenormin. -Primary osteoarthritis multiple joints Tylenol as needed -Obstructive sleep apnea does not use CPAP -Hypothyroid Levoxyl 125 g daily -Chronic spinal stenosis -Diabetic peripheral neuropathy Lyrica 50 mg twice a day -Acute kidney injury possibly ATN and prerenal. From decreased oral intake and sepsis: Better IV fluids. -Hyponatremia, hypovolemic from patient and vomiting and unable to eat: Improving Saline drip -Hypokalemia Replace Discontinue daptomycin. IV ceftriaxone. IV fluids to 50 mL an hour. Other medications to continue. Replace potassium. Up in chair. Increase activity.
[2021-11-15] MEDS ORDERED: NON FORMULARY DRUG (Irbesartan/Hydrochlorothiazide [Irbesartan-Hctz 300-12.5 Mg Tb] 1 EACH PO SCH (16:30)
[2021-11-15 16:36] LABS: Glucose,Whole Blood 115 mg/dL (75-99)
[2021-11-15] MEDS: LOSARTAN 50 MG TAB PO SCH (17:21)
[2021-11-15] MEDS: metFORMIN 500 MG TAB PO SCH (17:22)
[2021-11-15] MEDS: hydroCHLOROthiazide 12.5 MG CAP PO SCH (17:22)
[2021-11-15] MEDS: RIVAROXABAN 20 MG TAB PO SCH (20:21)
[2021-11-15] MEDS: ATORVASTATIN 10 MG TAB PO SCH (20:21)
[2021-11-15] MEDS: CITALOPRAM HYDROBROMIDE 20 MG TAB PO SCH (20:21)
[2021-11-15] MEDS: atenoloL 50 MG TAB PO SCH (20:21)
[2021-11-15 20:24] LABS: Glucose,Whole Blood 161 mg/dL (75-99)
[2021-11-15] MEDS: AZITHROMYCIN 500 MG TAB PO SCH (21:08)
--- NOTE | 2021-11-15 21:13 | P.PN ---
Subjective Progress Note Date: 11/15/21 Principal diagnosis: Urinary tract infection Patient is 81-year-old female with multiple comorbidities and recent surgery for hemorrhagic retinal detachment resulting hospital with weakness and worsening left eye vision lost, patient did have an elevated white count pos itivity and concern for dehydration as well as UTI. On today's evaluation that is 11/15/2021, the patient denies having any fever or any chills she is feeling slightly better breathing comfortably no chest pain shortness of breath or cough no abdominal pain and no diarrhea Objective - Vital Signs Vital signs: Vital Signs Temp 97.7 F 11/15/21 07:29 Pulse 60 11/15/21 07:29 Resp 18 11/15/21 07:29 BP 151/81 11/15/21 07:29 Pulse Ox 97 11/15/21 07:29 Intake & Output 11/14/21 11/15/21 11/15/21 18:59 06:59 18:59 Output Total 1800 Balance -1800 Weight 90.718 kg Output: Urine 1800 Other: Voiding Method External Catheter Bedside Commode # Voids 4 1 # Bowel Movements 1 - Exam GENERAL DESCRIPTION: An elderly female lying in bed in no distress RESPIRATORY SYSTEM: Unlabored breathing , decreased breath sounds at bases HEART: S1 S2 regular rate and rhythm , ABDOMEN: Soft , no tenderness EXTREMITIES: No edema feet - Labs CBC & Chem 7: 11/15/21 05:43 11/15/21 05:43 Labs: Abnormal Lab Results - Last 24 Hours (Table) 11/14/21 11/14/21 11/14/21 Range/Units 07:43 16:37 21:21 Plt Count (150-450) k/uL Monocytes # (0-1.0) k/uL Sodium (137-145) mmol/L Potassium (3.5-5.1) mmol/L Glucose (74-99) mg/dL POC Glucose (mg/dL) 150 H 157 H (75-99) mg/dL Calcium (8.4-10.2) mg/dL C-Reactive Protein (<1.0) mg/dL Total Protein (6.3-8.2) g/dL Procalcitonin 0.18 H (0.02-0.09) ng/mL 11/15/21 11/15/21 11/15/21 Range/Units 05:43 05:43 05:43 Plt Count 133 L (150-450) k/uL Monocytes # 1.6 H (0-1.0) k/uL Sodium 133 L (137-145) mmol/L Potassium 3.1 L (3.5-5.1) mmol/L Glucose 140 H (74-99) mg/dL POC Glucose (mg/dL) (75-99) mg/dL Calcium 8.3 L (8.4-10.2) mg/dL C-Reactive Protein 7.7 H (<1.0) mg/dL Total Protein 6.1 L (6.3-8.2) g/dL Procalcitonin 0.13 H (0.02-0.09) ng/mL 11/15/21 11/15/21 11/15/21 Range/Units 06:56 10:38 11:33 Plt Count (150-450) k/uL Monocytes # (0-1.0) k/uL Sodium (137-145) mmol/L Potassium (3.5-5.1) mmol/L Glucose (74-99) mg/dL POC Glucose (mg/dL) 211 H 164 H 178 H (75-99) mg/dL Calcium (8.4-10.2) mg/dL C-Reactive Protein (<1.0) mg/dL Total Protein (6.3-8.2) g/dL Procalcitonin (0.02-0.09) ng/mL Microbiology - Last 24 Hours (Table) 11/13/21 18:20 Blood Culture - Preliminary Blood No Growth after 24 hours 11/13/21 18:03 Blood Culture - Preliminary Blood No Growth after 24 hours Assessment and Plan (1) SIRS (systemic inflammatory response syndrome) Current Visit: No Status: Acute Code(s): R65.10 - SIRS OF NON-INFECTIOUS ORIGIN W/O ACUTE ORGAN DYSFUNCTION SNOMED Code(s): 918332994 Plan: 1patient presented to hospital with generalized weakness no energy in this patient noticed to have elevated BUN/creatinine more likely related to dehydration and possible related to ophthalmologic medication that have been started after the patient did have surgery for hemorrhagic detachment of the retina patient did not have any fever did have elevated white count however no significant respiratory symptoms to be suspicious for pneumonia did have mild urinary symptom possible component of enteric gram-negative pneumonia not entirely excluded, patient did have some congestion to the left eyeball but no surrounding redness or any purulent drainage clinic suspicious for infection to the left eye on the low side. 2 urine culture showing enterococcus we will switch her antibiotic therapy to Unasyn and possibly finish therapy with oral antibiotic Time with Patient: Less than 30
[2021-11-15] MEDS: MELATONIN 3 MG TABLET PO PRN (23:15)
[2021-11-15] MEDS: AMPICILLIN-SULBACTAM 3 GM in SODIUM CHLORIDE 0.9% 100 ML IVPB SCH (23:15)
[2021-11-15] MEDS: LATANOPROST 0.005% OPHTH DROPS 2.5 ML BTL LEFT EYE SCH (23:24)
[2021-11-16 04:34] LABS: Glucose,Whole Blood 180 mg/dL (75-99)
[2021-11-16] MEDS ORDERED: atenoloL 25 MG TAB PO STA (05:16)
[2021-11-16] MEDS: ACETAMINOPHEN TAB 325 MG TAB PO PRN ×3 (05:29→18:06)
[2021-11-16] MEDS: LEVOTHYROXINE 125 MCG TAB PO SCH (05:29)
[2021-11-16] MEDS: AMPICILLIN-SULBACTAM 3 GM in SODIUM CHLORIDE 0.9% 100 ML IVPB SCH ×4 (05:30→22:57)
[2021-11-16 06:19] LABS: African American GFR (CKD) >90 (>60 ml/min/1.73 sqM); Anion Gap 10 mmol/L; Blood Urea Nitrogen 4 mg/dL (7-17); Calcium 8.8 mg/dL (8.4-10.2); Carbon Dioxide 22 mmol/L (22-30); Chloride 102 mmol/L (98-107); Glucose 152 mg/dL (74-99); Non-African American GFR(CKD) >90 (>60 ml/min/1.73 sqM); Potassium 3.7 mmol/L (3.5-5.1); Sodium 134 mmol/L (137-145)
[2021-11-16 06:53] LABS: Glucose,Whole Blood 162 mg/dL (75-99)
[2021-11-16] MEDS: INSULIN ASPART (NovoLOG) 100 UNIT/ML VIAL SQ SCH ×4 (08:18→19:45)
[2021-11-16] MEDS: OXYBUTYNIN XL 5 MG TAB.ER.24 PO SCH (08:19)
[2021-11-16] MEDS: metFORMIN 500 MG TAB PO SCH ×2 (08:19→17:18)
[2021-11-16] MEDS: PREGABALIN 50 MG CAP PO SCH ×2 (08:19→19:40)
[2021-11-16] MEDS: LOSARTAN 50 MG TAB PO SCH (08:19)
[2021-11-16] MEDS: hydroCHLOROthiazide 12.5 MG CAP PO SCH (08:19)
[2021-11-16] MEDS: atenoloL 50 MG TAB PO SCH (08:19)
[2021-11-16] MEDS: ASPIRIN 81 MG PO SCH (08:19)
[2021-11-16] MEDS: SODIUM CHLORIDE 0.9% 1,000 ML IV SCH (08:20)
[2021-11-16] MEDS: BRIMONIDINE TARTRATE 0.2% DROPS 5 ML BTL LEFT EYE SCH ×3 (08:27→19:41)
[2021-11-16] MEDS: prednisoLONE ACETATE 1% OPHTH DROPS 5 ML BTL LEFT EYE SCH ×4 (08:27→19:46)
[2021-11-16] MEDS: OFLOXACIN 0.3% OPHTH DROPS 5 ML BOTTLE LEFT EYE SCH ×4 (08:27→19:44)
[2021-11-16] MEDS: DORZOLAMIDE-TIMOLOL 2.23%/0.68 10ML BTL LEFT EYE SCH ×2 (08:28→19:41)
[2021-11-16] MEDS: ATROPINE OPHTH SOLN 1% 5ML BTL LEFT EYE SCH ×2 (08:29→19:41)
--- NOTE | 2021-11-16 10:22 | P.CRDCN ---
History of Present Illness Consult date: 11/16/21 Requesting physician: Tommy Caldwell Reason for Consult (text): AF w/RVR Chief complaint: weakness History of present illness: This is a pleasant 81-year-old female patient who follows with Dr. Das in the office. Has a history of diabetes mellitus, hypertension, hyperlipidemia and paroxysmal atrial fibrillation. 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 Presented to the emergency department here due to complaints of generalized weakness that's been going on for a couple days. She's had vision loss in her left eye. There is question of infection. Covid Zhu was negative. Urinalysis shows evidence of possible UTI and culture is pending. Chest x-ray showed possible pneumonia. Infectious disease is consulted. We were asked to see the patient in consultation for atrial fibrillation with rapid ventricular response. She has not been seen in our office recently. According to her she's not had any episodes of A. fib at home. She is quite symptomatic with these. Atenolol has been increased and that was given this morning. TSH and free T4 were normal. She's been afebrile. Blood cell count on admission was 22,000 and is down to 9000. Labs this morning show potassium 3.7, BUN 4 and creatinine 0.54. Pro Calcitrol and levels have been elevated at 0.18, 0.13 and 0.11. On examination patient is sitting up in a chair. She is overall feeling okay other than some nausea and palpitations. She's had no chest discomfort, dizziness or lightheadedness. She continues to feel somewhat weak but this has improved. Her breathing is stable. She has no edema. 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 spider bite) Past Surgical History: Appendectomy, Bladder Surgery, Cholecystectomy, Heart Catheterization, Hysterectomy Additional Past Surgical History / Comment(s): Bladder suspension, EPIDURAL INJECTION/BACK, COLONOSCOPY, catarats, 11/07/21 emergency eye surgery on left eye Past Anesthesia/Blood Transfusion Reactions: Previous Problems w/ Anesthesia, Motion Sickness Additional Past Anesthesia/Blood Transfusion Reaction / Comment(s): HARD TIME WAKING UP AFTER Anesthesia. Past Psychological History: Anxiety, Depression Additional Psychological History / Comment(s): patient lives at home, states son lives in house with her Smoking Status: Former smoker Past Alcohol Use History: None Reported Additional Past Alcohol Use History / Comment(s): Pt started smoking in 1957 and quit in 1987. SMOKED 3-4 PPD.,She quit drinking in 1986. Past Drug Use History: None Reported - Past Family History Father Family Medical History: Cancer Additional Family Medical History / Comment(s): HEART PROBLEMS Mother Family Medical History: Renal Disease Medications and Allergies Home Medications Medication Instructions Recorded Confirmed Type Nitroglycerin Sl Tabs [Nitrostat] 0.4 mg SUBLINGUAL Q5M PRN #25 tab 11/30/14 11/13/21 Rx ALPRAZolam [Xanax] 0.25 mg PO DAILY PRN 04/26/15 11/13/21 History Atorvastatin [Lipitor] 10 mg PO HS 04/26/15 11/13/21 History Citalopram Hydrobromide 40 mg PO HS 04/26/15 11/13/21 History [Citalopram HBr] Irbesartan/Hydrochlorothiazide 1 tab PO DAILY 04/26/15 11/13/21 History [Irbesartan-Hctz 300-12.5 mg Tb] Levothyroxine Sodium [Levoxyl] 125 mcg PO DAILY 04/26/15 11/13/21 History metFORMIN HCL [Glucophage] 500 mg PO BID-W/MEALS 04/26/15 11/13/21 History Rivaroxaban [Xarelto] 20 mg PO HS 11/08/16 11/13/21 History Pregabalin [Lyrica] 100 mg PO BID 12/20/16 11/13/21 History atenoloL [Tenormin] 50 mg PO HS 04/20/19 11/13/21 History Ondansetron Odt [Zofran Odt] 4 mg PO Q8HR PRN #20 tab 11/11/21 11/13/21 Rx Acetaminophen Tab [Tylenol Tab] 500 mg PO Q6HR PRN 11/13/21 11/13/21 History Aspirin EC [Ecotrin Low Dose] 81 mg PO DAILY 11/13/21 11/13/21 History Atropine Ophth Soln 1% 5Ml [Isopto 1 drop LEFT EYE BID@0830,2200 11/13/21 11/13/21 History Atropine 1% 5Ml] Brimonidine Tartrate [Alphagan P 1 drops LEFT EYE TID@0830,1530,2200 11/13/21 11/13/21 History 0.2% Ophth Soln] Dorzolamide/Timolol/Pf 1 drop LEFT EYE BID@0830,2200 11/13/21 11/13/21 History [Dorzolamide 2%-Timolol 0.5%] Latanoprost/Pf [Latanoprost 0.005% 1 drop LEFT EYE HS@2200 11/13/21 11/13/21 History Eye Drop] Ofloxacin 0.3% Ophth Soln [Ocuflox 1 drops LEFT EYE 11/13/21 11/13/21 History Ophth Soln] QID@0830,1330,18,22 Oxybutynin Xl [Ditropan XL] 5 mg PO DAILY 11/13/21 11/13/21 History Prednisolone Acetate/Pf 1 drop LEFT EYE QID@0830,1330,18,22 11/13/21 11/13/21 History [Prednisolone Acet 1% Eye Drop] Allergies Allergy/AdvReac Type Severity Reaction Status Date / Time codeine Allergy Severe Anaphylaxis Verified 11/13/21 17:36 adhesive tape Allergy Rash/Hives Verified 11/13/21 17:36 Latex, Natural Rubber Allergy Rash/Hives Verified 11/13/21 17:36 Physical Exam Vitals: Vital Signs Temp Pulse Resp BP BP Pulse Ox 11/16/21 07:39 97.4 F L 96 17 160/90 97 11/16/21 05:43 128 H 11/16/21 05:42 107 H 155/96 11/16/21 05:26 124 H 148/84 11/16/21 05:21 131 H 11/16/21 05:14 124 H 11/16/21 04:53 178/78 11/16/21 04:39 97 187/87 11/16/21 01:03 97.7 F 66 18 144/67 96 11/15/21 19:20 16 11/15/21 19:15 98.6 F 70 16 173/64 97 11/15/21 14:00 97.5 F L 67 18 134/74 99 Intake and Output 11/15/21 11/16/21 11/16/21 22:59 06:59 14:59 Intake Total 600 Balance 600 Intake: Intake, IV Titration 600 Amount Sodium Chloride 0.9% 1, 600 000 ml @ 50 mls/hr IV . Q20H [facility] Rx#:[id number] Other: Voiding Method Toilet # Voids 3 PHYSICAL EXAMINATION: This is a 81-year-old female in no apparent distress at the time of my examination. VITAL SIGNS: Blood pressure 160/90, heart rate 96, respirations 17, temp 97.4F. Patient is 97 % on room air. HEENT: Head is atraumatic, normocephalic. Pupils are equal, round. Sclerae anicteric. Conjunctivae are clear. Mucous membranes of the mouth are moist. Neck is supple. There is no elevated jugular venous pressure. No carotid bruit is heard. CHEST EXAMINATION: Clear to auscultation bilaterally. No wheezes rales or rhonchi. Respirations even and nonlabored. HEART EXAMINATION: Heart irregular rate and rhythm, positive S1 and S2. No S3. No S4. No clicks, rubs or murmurs. ABDOMEN: Soft, nontender. Bowel sounds are heard. No organomegaly noted. EXTREMITIES: 2+ peripheral pulses with no evidence of peripheral edema and no calf tenderness noted. NEUROLOGIC EXAMINATION: Patient is awake, alert and oriented x3. Results 11/15/21 05:43 11/16/21 05:19 Comprehensive Metabolic Panel 11/16/21 Range/Units 05:19 Sodium 134 L (137-145) mmol/L Potassium 3.7 (3.5-5.1) mmol/L Chloride 102 (98-107) mmol/L Carbon Dioxide 22 (22-30) mmol/L BUN 4 L (7-17) mg/dL Creatinine 0.54 (0.52-1.04) mg/dL Glucose 152 H (74-99) mg/dL Calcium 8.8 (8.4-10.2) mg/dL Current Medications Generic Name Dose Route Start Last Admin Trade Name Freq PRN Reason Stop Dose Admin Acetaminophen 650 mg 11/13/21 18:24 11/16/21 05:29 Acetaminophen Tab 325 Mg Tab PO 650 mg Q6HR PRN Administration Mild Pain or Fever > 100.5 Aspirin 81 mg 11/14/21 09:00 11/16/21 08:19 Aspirin 81 Mg PO 81 mg DAILY JONATHAN Administration Atenolol 50 mg 11/16/21 09:00 11/16/21 08:19 Atenolol 50 Mg Tab PO 50 mg DAILY JONATHAN Administration Atorvastatin Calcium 10 mg 11/13/21 21:00 11/15/21 20:21 Atorvastatin 10 Mg Tab PO 10 mg HS JONATHAN Administration Atropine Sulfate 1 drops 11/13/21 22:00 11/16/21 08:29 Atropine Ophth Soln 1% 5ml Btl LEFT EYE 1 drops BID@0830,2200 JONATHAN Administration Brimonidine Tartrate 1 drops 11/13/21 22:00 11/16/21 08:27 Brimonidine Tartrate 0.2% Drops 5 Ml Btl LEFT EYE 1 drops TID@0830,1530,2200 JONATHAN Administration Calcium Carbonate/Glycine 1,000 mg 11/13/21 18:24 Calcium Carbonate 500 Mg Chewable PO Q4HR PRN Dyspepsia Citalopram Hydrobromide 40 mg 11/13/21 21:00 11/15/21 20:21 Citalopram Hydrobromide 20 Mg Tab PO 40 mg HS JONATHAN Administration Dorzolamide/Timolol 1 drops 11/13/21 22:00 11/16/21 08:28 Dorzolamide-Timolol 2.23%/0.68 10ml Btl LEFT EYE 1 drops BID@0830,2200 JONATHAN Administration Hydrochlorothiazide 12.5 mg 11/15/21 16:30 11/16/21 08:19 Hydrochlorothiazide 12.5 Mg Cap PO 12.5 mg DAILY JONATHAN Administration Sodium Chloride 1,000 mls @ 50 mls/hr 11/14/21 15:45 11/16/21 08:20 Saline 0.9% IV 50 mls/hr .Q20H JONATHAN Administration Ampicillin Sodium/Sulbactam 100 mls @ 200 mls/hr 11/16/21 00:00 11/16/21 05:30 Sodium 3 gm/ Sodium Chloride IVPB 200 mls/hr Q6HR JONATHAN Administration Protocol Insulin Aspart 0 unit 11/13/21 21:00 11/16/21 08:18 Insulin Aspart (Novolog) 100 Unit/Ml Vial SQ 1 unit ACHS JONATHAN Administration Protocol Lactulose 20 gm 11/13/21 18:24 Lactulose 20 Gm/30 Ml Cup PO DAILY PRN Constipation Latanoprost 1 drops 11/13/21 22:00 11/15/21 23:24 Latanoprost 0.005% Ophth Drops 2.5 Ml Btl LEFT EYE 1 drops HS@2200 JONATHAN Administration Levothyroxine Sodium 125 mcg 11/14/21 06:30 11/16/21 05:29 Levothyroxine 125 Mcg Tab PO 125 mcg DAILY@0630 JONATHAN Administration Lorazepam 0.5 mg 11/13/21 18:24 Lorazepam 0.5 Mg Tab PO Q6HR PRN Anxiety Losartan Potassium 100 mg 11/15/21 16:30 11/16/21 08:19 Losartan 50 Mg Tab PO 100 mg DAILY JONATHAN Administration Melatonin 3 mg 11/13/21 18:24 11/15/21 23:15 Melatonin 3 Mg Tablet PO 3 mg HS PRN Administration Insomnia Metformin HCl 500 mg 11/15/21 17:30 11/16/21 08:19 Metformin 500 Mg Tab PO 500 mg BID-W/MEALS JONATHAN Administration Miscellaneous Information 1 each 11/13/21 17:34 Pneumonia Protocol Utilized 1 Each Misc PO ONCE PRN Per Protocol Naloxone HCl 0.2 mg 11/13/21 18:24 Naloxone 0.4 Mg/Ml 1 Ml Vial IV Q2M PRN Opioid Reversal Nitroglycerin 0.4 mg 11/13/21 18:21 Nitroglycerin Sl Tabs 0.4 Mg Tab SUBLINGUAL Q5M PRN Chest Pain Ofloxacin 1 drops 11/13/21 22:00 11/16/21 08:27 Ofloxacin 0.3% Ophth Drops 5 Ml Bottle LEFT EYE 1 drops QID@0830,1330,18,22 JONATHAN Administration Oxybutynin Chloride 5 mg 11/14/21 09:00 11/16/21 08:19 Oxybutynin Xl 5 Mg Tab.Er.24 PO 5 mg DAILY JONATHAN Administration Prednisolone Acetate 1 drops 11/13/21 22:00 11/16/21 08:27 Prednisolone Acetate 1% Ophth Drops 5 Ml Btl LEFT EYE 1 drops QID@0830,1330,18,22 JONATHAN Administration Pregabalin 50 mg 11/14/21 21:00 11/16/21 08:19 Pregabalin 50 Mg Cap PO 50 mg BID JONATHAN Administration Prochlorperazine Maleate 5 mg 11/13/21 18:24 11/15/21 11:29 Prochlorperazine 5 Mg Tab PO 5 mg Q8HR PRN Administration Nausea And Vomiting Rivaroxaban 20 mg 11/13/21 21:00 11/15/21 20:21 Rivaroxaban 20 Mg Tab PO 20 mg HS JONATHAN Administration Protocol Intake and Output 11/15/21 11/16/21 11/16/21 22:59 06:59 14:59 Intake Total 600 Balance 600 Intake: Intake, IV Titration 600 Amount Sodium Chloride 0.9% 1, 600 000 ml @ 50 mls/hr IV . 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 A. fib likely exacerbated due to underlying infection and dehydration. We'll obtain a 2-D echo with Doppler study. If patient remains in atrial fibrillation further recommendations will be made. RN BIRTHING note has been reviewed, I agree with a documented findings and plan of care. Patient was seen and examined.
[2021-11-16 11:27] LABS: Glucose,Whole Blood 157 mg/dL (75-99)
--- NOTE | 2021-11-16 11:54 | ECHOF ---
Referral Reason:AF MEASUREMENTS -------- HEIGHT: 157.5 cm WEIGHT: 90.7 kg BP: 160/90 RVIDd: 3.1 cm (< 3.3) IVSd: 1.3 cm (0.6 - 1.1) LVIDd: 3.1 cm (3.9 - 5.3) LVPWd: 1.3 cm (0.6 - 1.1) IVSs: 1.8 cm LVIDs: 2.5 cm LVPWs: 1.6 cm LA Diam: 3.8 cm (2.7 - 3.8) LAESV Index (A-L): 17.79 ml/m Ao Diam: 2.7 cm (2.0 - 3.7) AV Cusp: 1.8 cm (1.5 - 2.6) MV EXCURSION: 11.800 mm (> 18.000) MV EF SLOPE: 318 mm/s (70 - 150) EPSS: 0.4 cm RAP: 5.00 mmHg RVSP: 42.43 mmHg FINDINGS -------- Atrial fibrillation. This was a technically adequate study. The left ventricular size is normal. There is mild concentric left ventricular hypertrophy. Overa ll left ventricular systolic function is low-normal with, an EF between 50 - 55 %. The right ventricle is normal in size. Normal LA size by volume 22+/-6 ml/m2. The right atrial size is normal. Interatrial and interventricular septum intact. There is mild aortic valve sclerosis. Mild mitral annular calcification present. Moderate mitral regurgitation is present. Onud-hx-xsbftjma tricuspid regurgitation present. There is mild pulmonary hypertension. The right ventricular systolic pressure, as measured by Doppler, is 42.43mmHg. Trace/mild (physiologic) pulmonic regurgitation. The aortic root size is normal. Normal inferior vena cava with normal inspiratory collapse consistent with estimated right atrial pre ssure of 5 mmHg. There is no pericardial effusion. CONCLUSIONS -------- 1. There is mild concentric left ventricular hypertrophy. 2. Overall left ventricular systolic function is low-normal with, an EF between 50 - 55 %. 3. Interatrial and interventricular septum intact. 4. There is mild aortic valve sclerosis. 5. Mild mitral annular calcification present. 6. Moderate mitral regurgitation is present. 7. Osze-bv-cavpcsff tricuspid regurgitation present. 8. There is mild pulmonary hypertension. 9. Trace/mild (physiologic) pulmonic regurgitation. 10. There is no pericardial effusion. ROVING TELLER: Yanna Jackson RDCS
--- NOTE | 2021-11-16 16:11 | P.PN ---
Subjective Progress Note Date: 11/16/21 Principal diagnosis: Urinary tract infection Patient is 81-year-old female with multiple comorbidities and recent surgery for hemorrhagic retinal detachment resulting hospital with weakness and worsening left eye vision lost, patient did have an elevated white count pos itivity and concern for dehydration as well as UTI. On today's evaluation that is 11/16/2021, the patient remains to be febrile, patient is breathing comfortably on room air, patient denies chest pain shortness of breath or cough no abdominal pain and no diarrhea Objective - Vital Signs Vital signs: Vital Signs Temp 97.8 F 11/16/21 14:00 Pulse 92 11/16/21 14:00 Resp 18 11/16/21 14:00 BP 138/98 11/16/21 14:00 Pulse Ox 97 11/16/21 14:00 Intake & Output 11/15/21 11/16/21 11/16/21 18:59 06:59 18:59 Intake Total 600 Balance 600 Intake: Intake, IV Titration 600 Amount Sodium Chloride 0.9% 1, 600 000 ml @ 50 mls/hr IV . Q20H [facility] Rx#:[id number] Other: Voiding Method Toilet Toilet # Voids 3 # Bowel Movements 1 - Exam GENERAL DESCRIPTION: An elderly female lying in bed in no distress RESPIRATORY SYSTEM: Unlabored breathing , decreased breath sounds at bases HEART: S1 S2 regular rate and rhythm , ABDOMEN: Soft , no tenderness EXTREMITIES: No edema feet - Labs CBC & Chem 7: 11/15/21 05:43 11/16/21 05:19 Labs: Abnormal Lab Results - Last 24 Hours (Table) 11/15/21 11/15/21 11/16/21 Range/Units 16:34 20:23 04:32 Sodium (137-145) mmol/L BUN (7-17) mg/dL Glucose (74-99) mg/dL POC Glucose (mg/dL) 115 H 161 H 180 H (75-99) mg/dL Procalcitonin (0.02-0.09) ng/mL 11/16/21 11/16/21 11/16/21 Range/Units 05:19 05:19 06:51 Sodium 134 L (137-145) mmol/L BUN 4 L (7-17) mg/dL Glucose 152 H (74-99) mg/dL POC Glucose (mg/dL) 162 H (75-99) mg/dL Procalcitonin 0.11 H (0.02-0.09) ng/mL 11/16/21 Range/Units 11:26 Sodium (137-145) mmol/L BUN (7-17) mg/dL Glucose (74-99) mg/dL POC Glucose (mg/dL) 157 H (75-99) mg/dL Procalcitonin (0.02-0.09) ng/mL Microbiology - Last 24 Hours (Table) 11/13/21 18:20 Blood Culture - Preliminary Blood No Growth after 48 hours 11/13/21 18:03 Blood Culture - Preliminary Blood No Growth after 48 hours 11/13/21 20:35 Urine Culture - Preliminary Urine,Voided Group D Enterococcus Assessment and Plan (1) SIRS (systemic inflammatory response syndrome) Current Visit: No Status: Acute Code(s): R65.10 - SIRS OF NON-INFECTIOUS ORIGIN W/O ACUTE ORGAN DYSFUNCTION SNOMED Code(s): 413770388 Plan: 1patient presented to hospital with generalized weakness no energy in this patient noticed to have elevated BUN/creatinine more likely related to dehydration and possible related to ophthalmologic medication that have been started after the patient did have surgery for hemorrhagic detachment of the retina patient did not have any fever did have elevated white count however no significant respiratory symptoms to be suspicious for pneumonia did have mild urinary symptom possible component of enteric gram-negative pneumonia not entirely excluded, patient did have some congestion to the left eyeball but no surrounding redness or any purulent drainage clinic suspicious for infection to the left eye on the low side. 2 urine culture showing enterococcus that is sensitive to penicillin and continue with the Unasyn finishing therapy with oral Augmentin and continue supportive care Time with Patient: Less than 30
[2021-11-16 16:41] LABS: Glucose,Whole Blood 229 mg/dL (75-99)
--- NOTE | 2021-11-16 17:08 | P.PN ---
Progress Note - Text Progress Note Date: 11/16/21 Chief Complaint: Not feeling well This is a 81-year-old patient, follows with Dr. Napoleon Arellano. Chronic stable medical conditions include atrial fibrillation for which she is on xarelto, COPD, diabetes, GERD, hypertension, hyperlipidemia, osteoarthritis, hypothyroid, obstructive sleep apnea does not use CPAP, hiatal hernia, spinal stenosis. Last week on that is about a week ago, because of left eye pain [facility] As per the son at the bedside dose possibly an aneurysm the back of diet that was repaired. Is also retinal detachment with significant hemorrhage. Eyedrops were given. Patient was told that the patient will not return. Following that she did call back for a follow-up. Subsequently that she started having increasing nausea vomiting. Increasing headache. She is prescribed Diamox. Started having chills. She presented to our ER on November 11. Doxazosin patient had surgery with , order planner at [facility]. She does ruptured aneurysm that they attempted repair. She she was blind in his left eye prior to surgery. She also had a urine infection prior to surgery. No complete the course of antibiotic. She had a CT of the head that did not show any abnormality. Had an elevated white count. They consulted Dr. Dias and he recommended increasing the dose Diamox. Right eye pressure was 14 and left eye pressure was 55. Patient was discharged home. Subsequently the son says patient became intermittently confused. Not really eating drinking. Denied any obvious respiratory symptoms. No urinary symptoms. Tired rundown. Patient admitted with acute kidney injury. Pneumonia. Hypotension. Possible infection around the globe. Started on IV fluids. IV daptomycin IV ceftriaxone. November 14: Laying in bed. Feels slightly better. Blood pressure started to,. On IV antibiotics. Eating some. November 15: Oral intake improving. Does sit up in a chair. No fever. Discussed with Dr. Polo from ID. Stop daptomycin. We'll continue ceftriaxone for UTI/possible pneumonia. Seen by Dr. Bunn from ophthalmology. Continue eyedrops. November 16: Eating about 50%. No fever. Patient went into A. fib with rapid ventricular rate. Cardiology consulted. Atenolol increased. Other medications to continue. Urine culture growing Enterococcus faecalis. Antibiotic changed to IV Unasyn Active Medications Acetaminophen (Acetaminophen Tab 325 Mg Tab) 650 mg PO Q6HR PRN PRN Reason: Mild Pain or Fever > 100.5 Last Admin: 11/16/21 12:07 Dose: 650 mg Documented by: Aspirin (Aspirin 81 Mg) 81 mg PO DAILY [facility] Last Admin: 11/16/21 08:19 Dose: 81 mg Documented by: Atenolol (Atenolol 50 Mg Tab) 50 mg PO DAILY [facility] Last Admin: 11/16/21 08:19 Dose: 50 mg Documented by: Atorvastatin Calcium (Atorvastatin 10 Mg Tab) 10 mg PO HS [facility] Last Admin: 11/15/21 20:21 Dose: 10 mg Documented by: Atropine Sulfate (Atropine Ophth Soln 1% 5ml Btl) 1 drops LEFT EYE BID@0830,2200 [facility] Last Admin: 11/16/21 08:29 Dose: 1 drops Documented by: Brimonidine Tartrate (Brimonidine Tartrate 0.2% Drops 5 Ml Btl) 1 drops LEFT EYE TID@0830,1530,2200 [facility] Last Admin: 11/16/21 13:53 Dose: 1 drops Documented by: Calcium Carbonate/Glycine (Calcium Carbonate 500 Mg Chewable) 1,000 mg PO Q4HR PRN PRN Reason: Dyspepsia Citalopram Hydrobromide (Citalopram Hydrobromide 20 Mg Tab) 40 mg PO HS [facility] Last Admin: 11/15/21 20:21 Dose: 40 mg Documented by: Dorzolamide/Timolol (Dorzolamide-Timolol 2.23%/0.68 10ml Btl) 1 drops LEFT EYE BID@0830,2200 [facility] Last Admin: 11/16/21 08:28 Dose: 1 drops Documented by: Hydrochlorothiazide (Hydrochlorothiazide 12.5 Mg Cap) 12.5 mg PO DAILY [facility] Last Admin: 11/16/21 08:19 Dose: 12.5 mg Documented by: Sodium Chloride (Saline 0.9%) 1,000 mls @ 50 mls/hr IV .Q20H [facility] Last Admin: 11/16/21 08:20 Dose: 50 mls/hr Documented by: Ampicillin Sodium/Sulbactam (Sodium 3 gm/ Sodium Chloride) 100 mls @ 200 mls/hr IVPB Q6HR [facility]; Protocol Last Admin: 11/16/21 11:59 Dose: 200 mls/hr Documented by: Insulin Aspart (Insulin Aspart (Novolog) 100 Unit/Ml Vial) 0 unit SQ ACHS [facility]; Protocol Last Admin: 11/16/21 11:58 Dose: 1 unit Documented by: Lactulose (Lactulose 20 Gm/30 Ml Cup) 20 gm PO DAILY PRN PRN Reason: Constipation Latanoprost (Latanoprost 0.005% Ophth Drops 2.5 Ml Btl) 1 drops LEFT EYE HS@2200 [facility] Last Admin: 11/15/21 23:24 Dose: 1 drops Documented by: Levothyroxine Sodium (Levothyroxine 125 Mcg Tab) 125 mcg PO DAILY@0630 [facility] Last Admin: 11/16/21 05:29 Dose: 125 mcg Documented by: Lorazepam (Lorazepam 0.5 Mg Tab) 0.5 mg PO Q6HR PRN PRN Reason: Anxiety Losartan Potassium (Losartan 50 Mg Tab) 100 mg PO DAILY [facility] Last Admin: 11/16/21 08:19 Dose: 100 mg Documented by: Melatonin (Melatonin 3 Mg Tablet) 3 mg PO HS PRN PRN Reason: Insomnia Last Admin: 11/15/21 23:15 Dose: 3 mg Documented by: Metformin HCl (Metformin 500 Mg Tab) 500 mg PO BID-W/MEALS [facility] Last Admin: 11/16/21 08:19 Dose: 500 mg Documented by: Miscellaneous Information (Pneumonia Protocol [facility]) 1 each PO ONCE PRN PRN Reason: Per Protocol Naloxone HCl (Naloxone 0.4 Mg/Ml 1 Ml Vial) 0.2 mg IV Q2M PRN PRN Reason: Opioid Reversal Nitroglycerin (Nitroglycerin Sl Tabs 0.4 Mg Tab) 0.4 mg SUBLINGUAL Q5M PRN PRN Reason: Chest Pain Ofloxacin (Ofloxacin 0.3% Ophth Drops 5 Ml Bottle) 1 drops LEFT EYE QID@0830,1330,18,22 [facility] Last Admin: 11/16/21 13:53 Dose: 1 drops Documented by: Oxybutynin Chloride (Oxybutynin Xl 5 Mg Tab.Er.24) 5 mg PO DAILY [facility] Last Admin: 11/16/21 08:19 Dose: 5 mg Documented by: Prednisolone Acetate (Prednisolone Acetate 1% Ophth Drops 5 Ml Btl) 1 drops LEFT EYE QID@0830,1330,, [facility] Last Admin: 11/16/21 13:52 Dose: 1 drops Documented by: Pregabalin (Pregabalin 50 Mg Cap) 50 mg PO BID [facility] Last Admin: 11/16/21 08:19 Dose: 50 mg Documented by: Prochlorperazine Maleate (Prochlorperazine 5 Mg Tab) 5 mg PO Q8HR PRN PRN Reason: Nausea And Vomiting Last Admin: 11/15/21 11:29 Dose: 5 mg Documented by: Rivaroxaban (Rivaroxaban 20 Mg Tab) 20 mg PO HS [facility]; Protocol Last Admin: 11/15/21 20:21 Dose: 20 mg Documented by: Past medical history to include: Atrial fibrillation, COPD, diabetes, GERD, hypertension, hyperlipidemia, osteoarthritis, TO sleep apnea does not use CPAP, hypothyroid, spell stenosis, mitral hernia, diverticulitis, varicose veins, anxiety depression, 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 Smoked for 30 years stopped in 1987. Smoked 3-4 packs a day. Stopped drinking in 1986. Occasional CBD ordered. Family history: Heart trouble and cancer Physical examination: VITAL SIGNS: 97.4, 120, 17, 160/90, 97% room air GENERAL: laying in bed, , tired. EYES: Pupils equal. Conjunctiva minimal redness to the left conjunctival. HEENT: External appearance of nose and ears normal, oral cavity grossly normal. NECK: JVD not raised; masses not palpable. HEART: Irregular heart sounds; no edema. LUNGS: Respiratory rate normal; decreased breath sounds. ABDOMEN: Soft, nontender, liver spleen not palpable, no masses palpable. PSYCH: [Alert and oriented x3; mood and affect normal MUSCULOSKELETAL:No Clubbing/cyanosis;muscles-grossly intact. Evidence of OA Neurological: No vision of left eye INVESTIGATIONS, reviewed in the clinical context: November 16: Sodium 134 potassium 3.7 creatinine 0.5 for. Pro-calcitonin 0.11 November 15: White count 9.3 hemoglobin 11.7 platelets 133 sodium 133 potassium 3.1 creatinine 0.65 procalcitonin 0.13 UA: Positive November 14: White count 11.8 hemoglobin 12.3 platelets 129 potassium 3.3 creatinine 0.89 pro-calcitonin 0.18 White count 22.1 hemoglobin 14.2 platelets 158 increased neutrophils sodium 127 potassium 3.1 BUN 28 creatinine 1.51 glucose 154 TSH 1.2 lactic acid 1.9 EKG tracing personally reviewed by me-sinus rhythm. ST segment depression Chest x-ray film personally reviewed by me-basilar infiltrate Previous labs on 11/11/2021: White count 16.9 hemoglobin 14.6 sodium 125 potassium 3.[address] a on November 11: Postsurgical changes to the left globe. -Assessment and plan: -This patient had surgery to the left eye for a ruptured aneurysm unsuccessfully repaired about a week ago. Discussed with ID. Local infection felt to be unlikely. Stop daptomycin -Acute delirium from infection with episodes of confusion at home.: Better Treat underlying infection -Pneumonia on chest x-ray film as evidenced by infiltrate IV Unasyn -Acute UTI with cystitis, from Enterococcus faecalis IV Unasyn -Paroxysmal atrial fibrillation with rapid ventricular rate today xarelto. Tenormin 50 mg a day. -Blind in the left eye, with repair of aneurysm or rupture 1 week ago -COPD in a previous smoker -Diabetes mellitus type 2, on oral hypoglycemic Increase metformin to thousand milligrams twice a day. Follow Accu-Cheks -GERD Pepcid when necessary -Hyperlipidemia Lipitor 10 mg daily at bedtime -Essential hypertension irbesartan/hydrochlorothiazide. Tenormin. -Primary osteoarthritis multiple joints Tylenol as needed -Obstructive sleep apnea does not use CPAP -Hypothyroid Levoxyl 125 g daily -Chronic spinal stenosis -Diabetic peripheral neuropathy Lyrica 50 mg twice a day -Acute kidney injury possibly ATN and prerenal. From decreased oral intake and sepsis: Better IV fluids.-Discontinue -Hyponatremia, hypovolemic from patient and vomiting and unable to eat: Improving Saline drip -Hypokalemia: Corrected Replace IV Unasyn and DC IV fluids Increase activity. Beta paty for A. fib. Increase activity. Increase metformin 2000 mg twice a day.
[2021-11-16 19:40] LABS: Glucose,Whole Blood 123 mg/dL (75-99)
[2021-11-16] MEDS: RIVAROXABAN 20 MG TAB PO SCH (19:40)
[2021-11-16] MEDS: ATORVASTATIN 10 MG TAB PO SCH (19:40)
[2021-11-16] MEDS: CITALOPRAM HYDROBROMIDE 20 MG TAB PO SCH (19:40)
[2021-11-16] MEDS: LATANOPROST 0.005% OPHTH DROPS 2.5 ML BTL LEFT EYE SCH (19:42)
[2021-11-17] MEDS: ACETAMINOPHEN TAB 325 MG TAB PO PRN ×4 (02:04→22:45)
[2021-11-17] MEDS: LORazepam 0.5 MG TAB PO PRN ×2 (03:37→22:48)
[2021-11-17] MEDS: SODIUM CHLORIDE 0.9% 1,000 ML IV SCH ×2 (04:56→20:51)
[2021-11-17] MEDS: LEVOTHYROXINE 125 MCG TAB PO SCH (05:34)
[2021-11-17] MEDS: AMPICILLIN-SULBACTAM 3 GM in SODIUM CHLORIDE 0.9% 100 ML IVPB SCH ×4 (05:34→23:16)
[2021-11-17 06:54] LABS: Glucose,Whole Blood 157 mg/dL (75-99)
[2021-11-17] MEDS: ASPIRIN 81 MG PO SCH (07:53)
[2021-11-17] MEDS: INSULIN ASPART (NovoLOG) 100 UNIT/ML VIAL SQ SCH ×4 (07:53→20:51)
[2021-11-17] MEDS: OXYBUTYNIN XL 5 MG TAB.ER.24 PO SCH (07:53)
[2021-11-17] MEDS: hydroCHLOROthiazide 12.5 MG CAP PO SCH (07:53)
[2021-11-17] MEDS: metFORMIN 500 MG TAB PO SCH ×2 (07:53→16:38)
[2021-11-17] MEDS: atenoloL 50 MG TAB PO SCH (07:54)
[2021-11-17] MEDS: PREGABALIN 50 MG CAP PO SCH ×2 (07:54→20:51)
[2021-11-17] MEDS: LOSARTAN 50 MG TAB PO SCH (07:54)
[2021-11-17] MEDS: BRIMONIDINE TARTRATE 0.2% DROPS 5 ML BTL LEFT EYE SCH ×3 (07:56→20:52)
[2021-11-17] MEDS: OFLOXACIN 0.3% OPHTH DROPS 5 ML BOTTLE LEFT EYE SCH ×4 (07:56→20:52)
[2021-11-17] MEDS: prednisoLONE ACETATE 1% OPHTH DROPS 5 ML BTL LEFT EYE SCH ×4 (07:57→20:52)
[2021-11-17] MEDS: ATROPINE OPHTH SOLN 1% 5ML BTL LEFT EYE SCH ×2 (07:57→20:53)
[2021-11-17] MEDS: DORZOLAMIDE-TIMOLOL 2.23%/0.68 10ML BTL LEFT EYE SCH ×2 (07:58→20:53)
[2021-11-17 09:24] LABS: African American GFR (CKD) >90 (>60 ml/min/1.73 sqM); Anion Gap 9 mmol/L; Blood Urea Nitrogen 5 mg/dL (7-17); Calcium 8.3 mg/dL (8.4-10.2); Carbon Dioxide 25 mmol/L (22-30); Chloride 103 mmol/L (98-107); Glucose 161 mg/dL (74-99); Non-African American GFR(CKD) 90 (>60 ml/min/1.73 sqM); Potassium 3.1 mmol/L (3.5-5.1); Sodium 137 mmol/L (137-145)
[2021-11-17] MEDS ORDERED: Potassium Replacement Protocol 1 EACH MISC MISCELLANE PRN (09:50)
[2021-11-17] MEDS ORDERED: atenoloL 25 MG TAB PO STA (09:51)
[2021-11-17] MEDS: POTASSIUM CHLORIDE ER 20 MEQ TAB.ER PO SCH ×4 (10:35→17:25)
[2021-11-17 11:23] LABS: Glucose,Whole Blood 213 mg/dL (75-99)
--- NOTE | 2021-11-17 11:51 | P.PN ---
Subjective This is a pleasant 81-year-old female patient who follows with Dr. Das in the office. Has a history of diabetes mellitus, hypertension, hyperlipidemia and paroxysmal atrial fibrillation. 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 Presented to the emergency department here due to complaints of generalized weakness that's been going on for a couple days. She's had vision loss in her left eye. There is question of infection. Covid Zhu was negative. Urinalysis shows evidence of possible UTI and culture is pending. Chest x-ray showed possible pneumonia. Infectious disease is consulted. We were asked to see the patient in consultation for atrial fibrillation with rapid ventricular response. She has not been seen in our office recently. According to her she's not had any episodes of A. fib at home. She is quite symptomatic with these. Atenolol has been increased and that was given this morning. TSH and free T4 were normal. She's been afebrile. Blood cell count on admission was 22,000 and is down to 9000. Labs this morning show potassium 3.7, BUN 4 and creatinine 0.54. Pro Calcitrol and levels have been elevated at 0.18, 0.13 and 0.11. On examination patient is sitting up in a chair. She is overall feeling okay other than some nausea and palpitations. She's had no chest discomfort, dizziness or lightheadedness. She continues to feel somewhat weak but this has improved. Her breathing is stable. She has no edema. 11/17/2021 Pt seen and examined sitting up in the chair eating breakfast in no acute distress. Her breathing is stable with no worsening since admission. She continues to be in afib with variable ventricular rates. Currently 116 blood pressure 156/71. Maintained on atenolol 50 mg daily that was increased yesterday. Also on aspirin 81 mg daily, atorvastatin 10 mg daily, losartan 100 mg daily and xarelto 20 mg daily. Echo revealed EF 50-55%, mod MR, mild-mod TR and mild PH with RVSP 42 mmHg. Laboratory data reviewed, sodium 137, potassium 3.1, creatinine 0.55. PHYSICAL EXAMINATION: This is a 81-year-old female in no apparent distress at the time of my examination. HEENT: Head is atraumatic, normocephalic. Pupils are equal, round. Sclerae anicteric. Conjunctivae are clear. Mucous membranes of the mouth are moist. Neck is supple. There is no elevated jugular venous pressure. No carotid bruit is heard. CHEST EXAMINATION: Clear to auscultation bilaterally. No wheezes rales or rhonchi. Respirations even and nonlabored. HEART EXAMINATION: Heart irregular rate and rhythm, positive S1 and S2. No S3. No S4. No clicks, rubs or murmurs. EXTREMITIES: 2+ peripheral pulses with no evidence of peripheral edema and no calf tenderness noted. Assessment: #1 paroxysmal atrial fibrillation with rapid ventricular response, likely exacerbated by underlying infection #2 pneumonia #3 acute UTI #4 acute delirium secondary to infection, improved #5 chronic left retinal detachment with ruptured aneurysm unsuccessfully repaired about a week ago ophthalmology in consultation 6 COPD #7 hypertension #8 hyperlipidemia #9 diabetes mellitus type 2 Plan: Replace potassium per protocol. Give additional dose of atenolol now and increase daily dose to 75 mg daily. Further recommendations to follow based on clinical course. DIRECTOR OF PERSONNEL note has been reviewed, I agree with a documented findings and plan of care. Patient was seen and examined. Objective - Vital Signs Vital signs: Vital Signs Temp 97.4 F L 11/17/21 07:00 Pulse 64 11/17/21 07:00 Resp 16 11/17/21 07:00 BP 156/71 11/17/21 07:00 Pulse Ox 96 11/17/21 07:00 Intake & Output 11/16/21 11/17/21 11/17/21 18:59 06:59 18:59 Other: # Voids 3 3 # Bowel Movements 1 0 - Labs CBC & Chem 7: 11/15/21 05:43 11/17/21 06:42 Labs: Abnormal Lab Results - Last 24 Hours (Table) 11/16/21 11/16/21 11/16/21 Range/Units 11:26 16:39 19:38 Potassium (3.5-5.1) mmol/L BUN (7-17) mg/dL Glucose (74-99) mg/dL POC Glucose (mg/dL) 157 H 229 H 123 H (75-99) mg/dL Calcium (8.4-10.2) mg/dL 11/17/21 11/17/21 Range/Units 06:42 06:52 Potassium 3.1 L (3.5-5.1) mmol/L BUN 5 L (7-17) mg/dL Glucose 161 H (74-99) mg/dL POC Glucose (mg/dL) 157 H (75-99) mg/dL Calcium 8.3 L (8.4-10.2) mg/dL Microbiology - Last 24 Hours (Table) 11/13/21 18:20 Blood Culture - Preliminary Blood No Growth after 72 hours 11/13/21 18:03 Blood Culture - Preliminary Blood No Growth after 72 hours 11/13/21 20:35 Urine Culture - Final Urine,Voided Enterococcus faecalis
[2021-11-17 16:35] LABS: Glucose,Whole Blood 163 mg/dL (75-99)
--- NOTE | 2021-11-17 17:37 | P.PN ---
Progress Note - Text Progress Note Date: 11/17/21 Chief Complaint: Not feeling well This is a 81-year-old patient, follows with Dr. Napoleon Arellano. Chronic stable medical conditions include atrial fibrillation for which she is on xarelto, COPD, diabetes, GERD, hypertension, hyperlipidemia, osteoarthritis, hypothyroid, obstructive sleep apnea does not use CPAP, hiatal hernia, spinal stenosis. Last week on that is about a week ago, because of left eye pain patient had to go down to [facility] for eye surgery. As per the son at the bedside dose possibly an aneurysm the back of diet that was repaired. Is also retinal detachment with significant hemorrhage. Eyedrops were given. Patient was told that the patient will not return. Following that she did call back for a follow-up. Subsequently that she started having increasing nausea vomiting. Increasing headache. She is prescribed Diamox. Started having chills. She presented to our ER on November 11. Doxazosin patient had surgery with , general duty nurse at [facility]. She does ruptured aneurysm that they attempted repair. She she was blind in his left eye prior to surgery. She also had a urine infection prior to surgery. No complete the course of antibiotic. She had a CT of the head that did not show any abnormality. Had an elevated white count. They consulted Dr. Dias and he recommended increasing the dose Diamox. Right eye pressure was 14 and left eye pressure was 55. Patient was discharged home. Subsequently the son says patient became intermittently confused. Not really eating drinking. Denied any obvious respiratory symptoms. No urinary symptoms. Tired rundown. Patient admitted with acute kidney injury. Pneumonia. Hypotension. Possible infection around the globe. Started on IV fluids. IV daptomycin IV ceftriaxone. November 14: Laying in bed. Feels slightly better. Blood pressure started to,. On IV antibiotics. Eating some. November 15: Oral intake improving. Does sit up in a chair. No fever. Discussed with Dr. Polo from ID. Stop daptomycin. We'll continue ceftriaxone for UTI/possible pneumonia. Seen by Dr. Bunn from ophthalmology. Continue eyedrops. November 16: Eating about 50%. No fever. Patient went into A. fib with rapid ventricular rate. Cardiology consulted. Atenolol increased. Other medications to continue. Urine culture growing Enterococcus faecalis. Antibiotic changed to IV Unasyn November 17: Remains in atrial fibrillation. Heart rate above 100. Tenormin increased to 75 mg. Decreased appetite. No fever no chills. On IV Unasyn. Active Medications Acetaminophen (Acetaminophen Tab 325 Mg Tab) 650 mg PO Q6HR PRN PRN Reason: Mild Pain or Fever > 100.5 Last Admin: 11/17/21 17:25 Dose: 650 mg Documented by: Aspirin (Aspirin 81 Mg) 81 mg PO DAILY [facility] Last Admin: 11/17/21 07:53 Dose: 81 mg Documented by: Atenolol (Atenolol 25 Mg Tab) 75 mg PO DAILY [facility] Atorvastatin Calcium (Atorvastatin 10 Mg Tab) 10 mg PO [facility] Last Admin: 11/16/21 19:40 Dose: 10 mg Documented by: Atropine Sulfate (Atropine Ophth Soln 1% 5ml Btl) 1 drops LEFT EYE BID@0830,2200 [facility] Last Admin: 11/17/21 07:57 Dose: 1 drops Documented by: Brimonidine Tartrate (Brimonidine Tartrate 0.2% Drops 5 Ml Btl) 1 drops LEFT EYE TID@0830,1530,2200 [facility] Last Admin: 11/17/21 14:36 Dose: 1 drops Documented by: Calcium Carbonate/Glycine (Calcium Carbonate 500 Mg Chewable) 1,000 mg PO Q4HR PRN PRN Reason: Dyspepsia Citalopram Hydrobromide (Citalopram Hydrobromide 20 Mg Tab) 40 mg PO [facility] Last Admin: 11/16/21 19:40 Dose: 40 mg Documented by: Dorzolamide/Timolol (Dorzolamide-Timolol 2.23%/0.68 10ml Btl) 1 drops LEFT EYE BID@0830,2200 [facility] Last Admin: 11/17/21 07:58 Dose: 1 drops Documented by: Hydrochlorothiazide (Hydrochlorothiazide 12.5 Mg Cap) 12.5 mg PO DAILY [facility] Last Admin: 11/17/21 07:53 Dose: 12.5 mg Documented by: Sodium Chloride (Saline 0.9%) 1,000 mls @ 50 mls/hr IV .Q20H [facility] Last Admin: 11/17/21 04:56 Dose: Not Given Documented by: Ampicillin Sodium/Sulbactam (Sodium 3 gm/ Sodium Chloride) 100 mls @ 200 mls/hr IVPB Q6HR [facility]; Protocol Last Admin: 11/17/21 17:25 Dose: 200 mls/hr Documented by: Insulin Aspart (Insulin Aspart (Novolog) 100 Unit/Ml Vial) 0 unit SQ ACHS [facility]; Protocol Last Admin: 11/17/21 16:38 Dose: 1 unit Documented by: Lactulose (Lactulose 20 Gm/30 Ml Cup) 20 gm PO DAILY PRN PRN Reason: Constipation Latanoprost (Latanoprost 0.005% Ophth Drops 2.5 Ml Btl) 1 drops LEFT EYE HS@2200 [facility] Last Admin: 11/16/21 19:42 Dose: 1 drops Documented by: Levothyroxine Sodium (Levothyroxine 125 Mcg Tab) 125 mcg PO DAILY@0630 [facility] Last Admin: 11/17/21 05:34 Dose: 125 mcg Documented by: Lorazepam (Lorazepam 0.5 Mg Tab) 0.5 mg PO Q6HR PRN PRN Reason: Anxiety Last Admin: 11/17/21 03:37 Dose: 0.5 mg Documented by: Losartan Potassium (Losartan 50 Mg Tab) 100 mg PO DAILY [facility] Last Admin: 11/17/21 07:54 Dose: 100 mg Documented by: Melatonin (Melatonin 3 Mg Tablet) 3 mg PO HS PRN PRN Reason: Insomnia Last Admin: 11/15/21 23:15 Dose: 3 mg Documented by: Metformin HCl (Metformin 500 Mg Tab) 1,000 mg PO BID-W/MEALS [facility] Last Admin: 11/17/21 16:38 Dose: 1,000 mg Documented by: Miscellaneous Information (Pneumonia Protocol Utilized 1 Each Mis) 1 each PO ONCE PRN PRN Reason: Per Protocol Miscellaneous Information (Potassium Replacement Protocol 1 Each Misc) 1 each MISCELLANE DAILY PRN; Protocol PRN Reason: Per Protocol Naloxone HCl (Naloxone 0.4 Mg/Ml 1 Ml Vial) 0.2 mg IV Q2M PRN PRN Reason: Opioid Reversal Nitroglycerin (Nitroglycerin Sl Tabs 0.4 Mg Tab) 0.4 mg SUBLINGUAL Q5M PRN PRN Reason: Chest Pain Ofloxacin (Ofloxacin 0.3% Ophth Drops 5 Ml Bottle) 1 drops LEFT EYE QID@0830,1330,18,22 [facility] Last Admin: 11/17/21 17:26 Dose: 1 drops Documented by: Oxybutynin Chloride (Oxybutynin Xl 5 Mg Tab.Er.24) 5 mg PO DAILY [facility] Last Admin: 11/17/21 07:53 Dose: 5 mg Documented by: Potassium Chloride (Potassium Chloride Er 20 Meq Tab.Er) 20 meq PO Q1HR [facility] Stop: 11/17/21 18:01 Last Admin: 11/17/21 17:25 Dose: 20 meq Documented by: Prednisolone Acetate (Prednisolone Acetate 1% Ophth Drops 5 Ml Btl) 1 drops LEFT EYE QID@0830,1330,, [facility] Last Admin: 11/17/21 17:26 Dose: 1 drops Documented by: Pregabalin (Pregabalin 50 Mg Cap) 50 mg PO BID [facility] Last Admin: 11/17/21 07:54 Dose: 50 mg Documented by: Prochlorperazine Maleate (Prochlorperazine 5 Mg Tab) 5 mg PO Q8HR PRN PRN Reason: Nausea And Vomiting Last Admin: 11/15/21 11:29 Dose: 5 mg Documented by: Rivaroxaban (Rivaroxaban 20 Mg Tab) 20 mg PO HS [facility]; Protocol Last Admin: 11/16/21 19:40 Dose: 20 mg Documented by: Past medical history to include: Atrial fibrillation, COPD, diabetes, GERD, hypertension, hyperlipidemia, osteoarthritis, TO sleep apnea does not use CPAP, hypothyroid, spell stenosis, mitral hernia, diverticulitis, varicose veins, anxiety depression, 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 Smoked for 30 years stopped in 1987. Smoked 3-4 packs a day. Stopped drinking in 1986. Occasional CBD ordered. Family history: Heart trouble and cancer Physical examination: VITAL SIGNS: 97.4, 110, 16, 157-71, 96% room air GENERAL: laying in bed, , tired. EYES: Pupils equal. Conjunctiva minimal redness to the left conjunctival. HEENT: External appearance of nose and ears normal, oral cavity grossly normal. NECK: JVD not raised; masses not palpable. HEART: Irregular heart sounds; no edema. LUNGS: Respiratory rate normal; decreased breath sounds. ABDOMEN: Soft, nontender, liver spleen not palpable, no masses palpable. PSYCH: [Alert and oriented x3; mood and affect normal MUSCULOSKELETAL:No Clubbing/cyanosis;muscles-grossly intact. Evidence of OA Neurological: No vision of left eye INVESTIGATIONS, reviewed in the clinical context: November 17: Potassium 3.3 November 16: Sodium 134 potassium 3.7 creatinine 0.5 for. Pro-calcitonin 0.11 November 15: White count 9.3 hemoglobin 11.7 platelets 133 sodium 133 potassium 3.1 creatinine 0.65 procalcitonin 0.13 UA: Positive November 14: White count 11.8 hemoglobin 12.3 platelets 129 potassium 3.3 creatinine 0.89 pro-calcitonin 0.18 White count 22.1 hemoglobin 14.2 platelets 158 increased neutrophils sodium 127 potassium 3.1 BUN 28 creatinine 1.51 glucose 154 TSH 1.2 lactic acid 1.9 EKG tracing personally reviewed by me-sinus rhythm. ST segment depression Chest x-ray film personally reviewed by me-basilar infiltrate Previous labs on 11/11/2021: White count 16.9 hemoglobin 14.6 sodium 125 potassium 3.[address] a on November 11: Postsurgical changes to the left globe. -Assessment and plan: -This patient had surgery to the left eye for a ruptured aneurysm unsuccessfully repaired about a week ago. Discussed with ID. Local infection felt to be unlikely. Stop daptomycin -Acute delirium from infection with episodes of confusion at home.: Better Treat underlying infection -Pneumonia on chest x-ray film as evidenced by infiltrate IV Unasyn -Acute UTI with cystitis, from Enterococcus faecalis IV Unasyn -Paroxysmal atrial fibrillation with rapid ventricular rate today xarelto. Tenormin 50 mg a day. -Blind in the left eye, with repair of aneurysm or rupture 1 week ago -COPD in a previous smoker -Diabetes mellitus type 2, on oral hypoglycemic Metformin thousand milligrams by mouth twice a day. Follow Accu-Cheks -GERD Pepcid when necessary -Hyperlipidemia Lipitor 10 mg daily at bedtime -Essential hypertension irbesartan/hydrochlorothiazide. Tenormin. -Primary osteoarthritis multiple joints Tylenol as needed -Obstructive sleep apnea does not use CPAP -Hypothyroid Levoxyl 125 g daily -Chronic spinal stenosis -Diabetic peripheral neuropathy Lyrica 50 mg twice a day -Acute kidney injury possibly ATN and prerenal. From decreased oral intake and sepsis: Better IV fluids.-Discontinue -Hyponatremia, hypovolemic from patient and vomiting and unable to eat: Improving Saline drip -Hypokalemia: Replace Replace IV Unasyn replace potassium and atenolol increased to 75 mg daily. Continue telemetry.
--- NOTE | 2021-11-17 17:45 | P.PN ---
Subjective Progress Note Date: 11/17/21 Principal diagnosis: Urinary tract infection Patient is 81-year-old female with multiple comorbidities and recent surgery for hemorrhagic retinal detachment resulting hospital with weakness and worsening left eye vision lost, patient did have an elevated white count pos itivity and concern for dehydration as well as UTI. On today's evaluation that is 11/17/2021, the patient denies any fever or any chills, patient is breathing comfortably on room air, patient denies chest pain shortness of breath or cough no abdominal pain and no diarrhea, feeling slightly better Objective - Vital Signs Vital signs: Vital Signs Temp 98.2 F 11/17/21 14:00 Pulse 63 11/17/21 14:00 Resp 19 11/17/21 14:00 BP 152/82 11/17/21 14:00 Pulse Ox 97 11/17/21 14:00 Intake & Output 11/16/21 11/17/21 11/17/21 18:59 06:59 18:59 Intake Total 480 Balance 480 Intake: Oral 480 Other: # Voids 3 3 2 # Bowel Movements 1 0 1 - Exam GENERAL DESCRIPTION: An elderly female lying in bed in no distress RESPIRATORY SYSTEM: Unlabored breathing , decreased breath sounds at bases HEART: S1 S2 regular rate and rhythm , ABDOMEN: Soft , no tenderness EXTREMITIES: No edema feet - Labs CBC & Chem 7: 11/15/21 05:43 11/17/21 13:03 Labs: Abnormal Lab Results - Last 24 Hours (Table) 11/16/21 11/16/21 11/17/21 Range/Units 16:39 19:38 06:42 Potassium 3.1 L (3.5-5.1) mmol/L BUN 5 L (7-17) mg/dL Glucose 161 H (74-99) mg/dL POC Glucose (mg/dL) 229 H 123 H (75-99) mg/dL Calcium 8.3 L (8.4-10.2) mg/dL 11/17/21 11/17/21 11/17/21 Range/Units 06:52 11:22 13:03 Potassium 3.3 L (3.5-5.1) mmol/L BUN (7-17) mg/dL Glucose (74-99) mg/dL POC Glucose (mg/dL) 157 H 213 H (75-99) mg/dL Calcium (8.4-10.2) mg/dL Microbiology - Last 24 Hours (Table) 11/13/21 18:20 Blood Culture - Preliminary Blood No Growth after 72 hours 11/13/21 18:03 Blood Culture - Preliminary Blood No Growth after 72 hours 11/13/21 20:35 Urine Culture - Final Urine,Voided Enterococcus faecalis Assessment and Plan (1) SIRS (systemic inflammatory response syndrome) Current Visit: No Status: Acute Code(s): R65.10 - SIRS OF NON-INFECTIOUS ORIGIN W/O ACUTE ORGAN DYSFUNCTION SNOMED Code(s): 126954600 Plan: 1patient presented to hospital with generalized weakness no energy in this patient noticed to have elevated BUN/creatinine more likely related to dehydration and possible related to ophthalmologic medication that have been started after the patient did have surgery for hemorrhagic detachment of the retina patient did not have any fever did have elevated white count however no significant respiratory symptoms to be suspicious for pneumonia did have mild urinary symptom possible component of enteric gram-negative pneumonia not entirely excluded, patient did have some congestion to the left eyeball but no surrounding redness or any purulent drainage clinic suspicious for infection to the left eye on the low side. 2 the patient urine culture has been finalized enterococcus that is sensitive to penicillin patient is currently being treated with the Unasyn to continue while inpatient to finish therapy with oral Augmentin Time with Patient: Less than 30
[2021-11-17 20:36] LABS: Glucose,Whole Blood 143 mg/dL (75-99)
[2021-11-17] MEDS: RIVAROXABAN 20 MG TAB PO SCH (20:52)
[2021-11-17] MEDS: ATORVASTATIN 10 MG TAB PO SCH (20:52)
[2021-11-17] MEDS: CITALOPRAM HYDROBROMIDE 20 MG TAB PO SCH (20:52)
[2021-11-17] MEDS: LATANOPROST 0.005% OPHTH DROPS 2.5 ML BTL LEFT EYE SCH (20:53)
[2021-11-18] MEDS: IPRATROPIUM-ALBUTEROL 3 ML NEB INHALATION PRN (03:05)
--- NOTE | 2021-11-18 03:13 | XR ---
EXAMINATION TYPE: XR chest 1V portable DATE OF EXAM: 11/18/2021 COMPARISON: 11/14/2021 HISTORY: Wheezing TECHNIQUE: Single view FINDINGS: There is some coarsening of the interstitial markings. Heart size is fairly normal. No pulm onary consolidation. No pleural fluid. IMPRESSION: There is some mild pulmonary congestion but no obvious heart failure. No cardiomegaly or pleural fluid seen to suggest heart failure. Pulmonary vascularity increased slightly compared to rec ent exam
[2021-11-18] MEDS: PROCHLORPERAZINE 5 MG TAB PO PRN ×2 (04:42→21:53)
[2021-11-18] MEDS: ACETAMINOPHEN TAB 325 MG TAB PO PRN ×3 (05:55→21:54)
[2021-11-18] MEDS: AMPICILLIN-SULBACTAM 3 GM in SODIUM CHLORIDE 0.9% 100 ML IVPB SCH ×2 (05:55→12:28)
[2021-11-18] MEDS: LORazepam 0.5 MG TAB PO PRN (05:56)
[2021-11-18] MEDS: LEVOTHYROXINE 125 MCG TAB PO SCH (05:56)
[2021-11-18 06:05] LABS: African American GFR (CKD) >90 (>60 ml/min/1.73 sqM); Anion Gap 11 mmol/L; Blood Urea Nitrogen 4 mg/dL (7-17); Calcium 8.7 mg/dL (8.4-10.2); Carbon Dioxide 22 mmol/L (22-30); Chloride 104 mmol/L (98-107); Glucose 147 mg/dL (74-99); Non-African American GFR(CKD) 88 (>60 ml/min/1.73 sqM); Sodium 137 mmol/L (137-145)
[2021-11-18 06:57] LABS: Glucose,Whole Blood 152 mg/dL (75-99)
[2021-11-18] MEDS: LOSARTAN 50 MG TAB PO SCH (07:04)
[2021-11-18] MEDS: OXYBUTYNIN XL 5 MG TAB.ER.24 PO SCH (07:04)
[2021-11-18] MEDS: atenoloL 25 MG TAB PO SCH (07:04)
[2021-11-18] MEDS: hydroCHLOROthiazide 12.5 MG CAP PO SCH (07:04)
[2021-11-18] MEDS: PREGABALIN 50 MG CAP PO SCH ×2 (07:04→21:54)
[2021-11-18] MEDS: INSULIN ASPART (NovoLOG) 100 UNIT/ML VIAL SQ SCH ×4 (07:05→21:54)
[2021-11-18] MEDS: prednisoLONE ACETATE 1% OPHTH DROPS 5 ML BTL LEFT EYE SCH ×4 (07:05→22:31)
[2021-11-18] MEDS: metFORMIN 500 MG TAB PO SCH ×2 (07:05→16:49)
[2021-11-18] MEDS: ASPIRIN 81 MG PO SCH (07:05)
[2021-11-18] MEDS: BRIMONIDINE TARTRATE 0.2% DROPS 5 ML BTL LEFT EYE SCH ×3 (07:06→22:31)
[2021-11-18] MEDS: DORZOLAMIDE-TIMOLOL 2.23%/0.68 10ML BTL LEFT EYE SCH ×2 (07:06→22:31)
[2021-11-18] MEDS: OFLOXACIN 0.3% OPHTH DROPS 5 ML BOTTLE LEFT EYE SCH ×4 (07:06→22:32)
[2021-11-18] MEDS: ATROPINE OPHTH SOLN 1% 5ML BTL LEFT EYE SCH ×2 (07:07→22:32)
[2021-11-18] MEDS ORDERED: FUROSEMIDE 10 MG/ML 2 ML VIAL IV STA (09:50)
[2021-11-18] MEDS ORDERED: FUROSEMIDE 10 MG/ML 4 ML VIAL IV STA (09:50)
[2021-11-18] MEDS: amLODIPine 5 MG TAB PO SCH (10:15)
--- NOTE | 2021-11-18 10:32 | P.PN ---
Subjective This is a pleasant 81-year-old female patient who follows with Dr. Das in the office. Has a history of diabetes mellitus, hypertension, hyperlipidemia and paroxysmal atrial fibrillation. 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 Presented to the emergency department here due to complaints of generalized weakness that's been going on for a couple days. She's had vision loss in her left eye. There is question of infection. Covid Zhu was negative. Urinalysis shows evidence of possible UTI and culture is pending. Chest x-ray showed possible pneumonia. Infectious disease is consulted. We were asked to see the patient in consultation for atrial fibrillation with rapid ventricular response. She has not been seen in our office recently. According to her she's not had any episodes of A. fib at home. She is quite symptomatic with these. Atenolol has been increased and that was given this morning. TSH and free T4 were normal. She's been afebrile. Blood cell count on admission was 22,000 and is down to 9000. Labs this morning show potassium 3.7, BUN 4 and creatinine 0.54. Pro Calcitrol and levels have been elevated at 0.18, 0.13 and 0.11. On examination patient is sitting up in a chair. She is overall feeling okay other than some nausea and palpitations. She's had no chest discomfort, dizziness or lightheadedness. She continues to feel somewhat weak but this has improved. Her breathing is stable. She has no edema. 11/18/2021 Patient seen and examined up ambulating around the room to use the bathroom. She continues to feel bad with no specific symptom just that she doesn't feel like she is getting any better. Blood pressure 168/105 this morning with heart rates in the 90s. Laboratory data reviewed, sodium 137, potassium 4, creatinine 0.58. Chest ray this AM revealed pulmonary congestion with no heart failure or pleural fluid. She continues to be in afib with controlled rates in the 80-90 range. PHYSICAL EXAMINATION: This is a 81-year-old female in no apparent distress at the time of my examination. HEENT: Head is atraumatic, normocephalic. Pupils are equal, round. Sclerae ani cteric. Conjunctivae are clear. Mucous membranes of the mouth are moist. Neck is supple. There is no elevated jugular venous pressure. No carotid bruit is heard. CHEST EXAMINATION: Clear to auscultation bilaterally. No wheezes rales or rhonchi. Respirations even and nonlabored. HEART EXAMINATION: Heart irregular rate and rhythm, positive S1 and S2. No S3. No S4. No clicks, rubs or murmurs. EXTREMITIES: 2+ peripheral pulses with no evidence of peripheral edema and no calf tenderness noted. Assessment: #1 paroxysmal atrial fibrillation with rapid ventricular response, likely exacerbated by underlying infection. Currently in afib with controlled rates. #2 pneumonia #3 acute UTI #4 acute delirium secondary to infection, improved #5 chronic left retinal detachment with ruptured aneurysm unsuccessfully repaired about a week ago ophthalmology in consultation 6 COPD #7 hypertension #8 hyperlipidemia #9 diabetes mellitus type 2 Plan: Add amlodipine 5 mg to her daily regimen for optimal blood pressure control. Give one dose of IV lasix 20 mg now. CHIEF OF ANESTHESIOLOGY note has been reviewed, I agree with a documented findings and plan of care. Patient was seen and examined. Objective - Vital Signs Vital signs: Vital Signs Temp 97.6 F 11/18/21 02:00 Pulse 90 11/18/21 03:15 Resp 18 11/18/21 02:00 BP 168/105 11/18/21 02:00 Pulse Ox 95 11/18/21 02:00 Intake & Output 11/17/21 11/18/21 11/18/21 18:59 06:59 18:59 Intake Total 960 Balance 960 Intake: Oral 960 Other: Voiding Method Toilet Bedside Commode # Voids 2 # Bowel Movements 1 - Labs CBC & Chem 7: 11/15/21 05:43 11/18/21 04:17 Labs: Abnormal Lab Results - Last 24 Hours (Table) 11/17/21 11/17/21 11/17/21 Range/Units 11:22 13:03 16:33 Potassium 3.3 L (3.5-5.1) mmol/L BUN (7-17) mg/dL Glucose (74-99) mg/dL POC Glucose (mg/dL) 213 H 163 H (75-99) mg/dL 11/17/21 11/18/21 11/18/21 Range/Units 20:35 04: 06:56 Potassium (3.5-5.1) mmol/L BUN 4 L (7-17) mg/dL Glucose 147 H (74-99) mg/dL POC Glucose (mg/dL) 143 H 152 H (75-99) mg/dL Microbiology - Last 24 Hours (Table) 11/13/21 18:20 Blood Culture - Preliminary Blood No Growth after 96 hours 11/13/21 18:03 Blood Culture - Preliminary Blood No Growth after 96 hours
--- NOTE | 2021-11-18 11:09 | P.PN ---
Progress Note - Text Progress Note Date: 11/18/21 Chief Complaint: Not feeling well This is a 81-year-old patient, follows with Dr. Napoleon Arellano. Chronic stable medical conditions include atrial fibrillation for which she is on xarelto, COPD, diabetes, GERD, hypertension, hyperlipidemia, osteoarthritis, hypothyroid, obstructive sleep apnea does not use CPAP, hiatal hernia, spinal stenosis. Last week on that is about a week ago, because of left eye pain patient had to go down to [facility] for eye surgery. As per the son at the bedside dose possibly an aneurysm the back of diet that was repaired. Is also retinal detachment with significant hemorrhage. Eyedrops were given. Patient was told that the patient will not return. Following that she did call back for a follow-up. Subsequently that she started having increasing nausea vomiting. Increasing headache. She is prescribed Diamox. Started having chills. She presented to our ER on November 11. Doxazosin patient had surgery with , senior principal at [facility]. She does ruptured aneurysm that they attempted repair. She she was blind in his left eye prior to surgery. She also had a urine infection prior to surgery. No complete the course of antibiotic. She had a CT of the head that did not show any abnormality. Had an elevated white count. They consulted Dr. Dias and he recommended increasing the dose Diamox. Right eye pressure was 14 and left eye pressure was 55. Patient was discharged home. Subsequently the son says patient became intermittently confused. Not really eating drinking. Denied any obvious respiratory symptoms. No urinary symptoms. Tired rundown. Patient admitted with acute kidney injury. Pneumonia. Hypotension. Possible infection around the globe. Started on IV fluids. IV daptomycin IV ceftriaxone. November 14: Laying in bed. Feels slightly better. Blood pressure started to,. On IV antibiotics. Eating some. November 15: Oral intake improving. Does sit up in a chair. No fever. Discussed with Dr. Polo from ID. Stop daptomycin. We'll continue ceftriaxone for UTI/possible pneumonia. Seen by Dr. Bunn from ophthalmology. Continue eyedrops. November 16: Eating about 50%. No fever. Patient went into A. fib with rapid ventricular rate. Cardiology consulted. Atenolol increased. Other medications to continue. Urine culture growing Enterococcus faecalis. Antibiotic changed to IV Unasyn November 17: Remains in atrial fibrillation. Heart rate above 100. Tenormin increased to 75 mg. Decreased appetite. No fever no chills. On IV Unasyn. November 18: Atrial fibrillation rate controlled. Blood pressure on the higher side. Cardiology added amlodipine 5 mg. Patient not feeling well. Sitting up in chair. Short of breath. Received 1 dose of Lasix. Tired Active Medications Acetaminophen (Acetaminophen Tab 325 Mg Tab) 650 mg PO Q6HR PRN PRN Reason: Mild Pain or Fever > 100.5 Last Admin: 11/18/21 05:55 Dose: 650 mg Documented by: Albuterol/Ipratropium (Ipratropium-Albuterol 3 Ml Neb) 3 ml INHALATION RT-Q4H PRN PRN Reason: Wheezing Last Admin: 11/18/21 03:05 Dose: 3 ml Documented by: Amlodipine Besylate (Amlodipine 5 Mg Tab) 5 mg PO DAILY [facility] Last Admin: 11/18/21 10:15 Dose: 5 mg Documented by: Aspirin (Aspirin 81 Mg) 81 mg PO DAILY [facility] Last Admin: 11/18/21 07:05 Dose: 81 mg Documented by: Atenolol (Atenolol 25 Mg Tab) 75 mg PO DAILY [facility] Last Admin: 11/18/21 07:04 Dose: 75 mg Documented by: Atorvastatin Calcium (Atorvastatin 10 Mg Tab) 10 mg PO [facility] Last Admin: 11/17/21 20:52 Dose: 10 mg Documented by: Atropine Sulfate (Atropine Ophth Soln 1% 5ml Btl) 1 drops LEFT EYE BID @0830,2200 [facility] Last Admin: 11/18/21 07:07 Dose: 1 drops Documented by: Brimonidine Tartrate (Brimonidine Tartrate 0.2% Drops 5 Ml Btl) 1 drops LEFT EYE TID@0830,1530,2200 [facility] Last Admin: 11/18/21 07:06 Dose: 1 drops Documented by: Calcium Carbonate/Glycine (Calcium Carbonate 500 Mg Chewable) 1,000 mg PO Q4HR PRN PRN Reason: Dyspepsia Citalopram Hydrobromide (Citalopram Hydrobromide 20 Mg Tab) 40 mg PO [facility] Last Admin: 11/17/21 20:52 Dose: 40 mg Documented by: Dorzolamide/Timolol (Dorzolamide-Timolol 2.23%/0.68 10ml Btl) 1 drops LEFT EYE BID@0830,2200 [facility] Last Admin: 11/18/21 07:06 Dose: 1 drops Documented by: Hydrochlorothiazide (Hydrochlorothiazide 12.5 Mg Cap) 12.5 mg PO DAILY [facility] Last Admin: 11/18/21 07:04 Dose: 12.5 mg Documented by: Sodium Chloride (Saline 0.9%) 1,000 mls @ 50 mls/hr IV .Q20H [facility] Last Admin: 11/17/21 20:51 Dose: 50 mls/hr Documented by: Ampicillin Sodium/Sulbactam (Sodium 3 gm/ Sodium Chloride) 100 mls @ 200 mls/hr IVPB Q6HR [facility]; Protocol Last Admin: 11/18/21 05:55 Dose: 200 mls/hr Documented by: Insulin Aspart (Insulin Aspart (Novolog) 100 Unit/Ml Vial) 0 unit SQ ACHS [facility]; Protocol Last Admin: 11/18/21 07:05 Dose: 1 unit Documented by: Lactulose (Lactulose 20 Gm/30 Ml Cup) 20 gm PO DAILY PRN PRN Reason: Constipation Latanoprost (Latanoprost 0.005% Ophth Drops 2.5 Ml Btl) 1 drops LEFT EYE HS@2200 [facility] Last Admin: 11/17/21 20:53 Dose: 1 drops Documented by: Levothyroxine Sodium (Levothyroxine 125 Mcg Tab) 125 mcg PO DAILY@0630 [facility] Last Admin: 11/18/21 05:56 Dose: 125 mcg Documented by: Lorazepam (Lorazepam 0.5 Mg Tab) 0.5 mg PO Q6HR PRN PRN Reason: Anxiety Last Admin: 11/18/21 05:56 Dose: 0.5 mg Documented by: Losartan Potassium (Losartan 50 Mg Tab) 100 mg PO DAILY [facility] Last Admin: 11/18/21 07:04 Dose: 100 mg Documented by: Melatonin (Melatonin 3 Mg Tablet) 3 mg PO HS PRN PRN Reason: Insomnia Last Admin: 11/15/21 23:15 Dose: 3 mg Documented by: Metformin HCl (Metformin 500 Mg Tab) 1,000 mg PO BID-W/MEALS [facility] Last Admin: 11/18/21 07:05 Dose: 1,000 mg Documented by: Miscellaneous Information (Pneumonia Protocol Utilized 1 Each Mis) 1 each PO ONCE PRN PRN Reason: Per Protocol Miscellaneous Information (Potassium Replacement Protocol 1 Each [facility]) 1 each MISCELLANE DAILY PRN; Protocol PRN Reason: Per Protocol Naloxone HCl (Naloxone 0.4 Mg/Ml 1 Ml Vial) 0.2 mg IV Q2M PRN PRN Reason: Opioid Reversal Nitroglycerin (Nitroglycerin Sl Tabs 0.4 Mg Tab) 0.4 mg SUBLINGUAL Q5M PRN PRN Reason: Chest Pain Ofloxacin (Ofloxacin 0.3% Ophth Drops 5 Ml Bottle) 1 drops LEFT EYE QID@0830,1330,18,22 [facility] Last Admin: 11/18/21 07:06 Dose: 1 drops Documented by: Oxybutynin Chloride (Oxybutynin Xl 5 Mg Tab.Er.24) 5 mg PO DAILY [facility] Last Admin: 11/18/21 07:04 Dose: 5 mg Documented by: Prednisolone Acetate (Prednisolone Acetate 1% Ophth Drops 5 Ml Btl) 1 drops LEFT EYE QID@0830,1330,18,22 [facility] Last Admin: 11/18/21 07:05 Dose: 1 drops Documented by: Pregabalin (Pregabalin 50 Mg Cap) 50 mg PO BID [facility] Last Admin: 11/18/21 07:04 Dose: 50 mg Documented by: Prochlorperazine Maleate (Prochlorperazine 5 Mg Tab) 5 mg PO Q8HR PRN PRN Reason: Nausea And Vomiting Last Admin: 11/18/21 04:42 Dose: 5 mg Documented by: Rivaroxaban (Rivaroxaban 20 Mg Tab) 20 mg PO HS [facility]; Protocol Last Admin: 11/17/21 20:52 Dose: 20 mg Documented by: Past medical history to include: Atrial fibrillation, COPD, diabetes, GERD, hypertension, hyperlipidemia, osteoarthritis, TO sleep apnea does not use CPAP, hypothyroid, spell stenosis, mitral hernia, diverticulitis, varicose veins, anxiety depression, 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 Smoked for 30 years stopped in 1987. Smoked 3-4 packs a day. Stopped drinking in 1986. Occasional CBD ordered. Family history: Heart trouble and cancer Physical examination: VITAL SIGNS: 97.9, 61, 18, 1 67 x 1 04, 93% room air GENERAL: Sitting up in chair, awake, tired EYES: Pupils equal. Conjunctiva minimal redness to the left conjunctival. HEENT: External appearance of nose and ears normal, oral cavity grossly normal. NECK: JVD not raised; masses not palpable. HEART: Irregular heart sounds; edema present LUNGS: Respiratory rate increased basal crackles ABDOMEN: Soft, nontender, liver spleen not palpable, no masses palpable. PSYCH: [Alert and oriented x3; mood and affect anxious MUSCULOSKELETAL:No Clubbing/cyanosis;muscles-grossly intact. Evidence of OA Neurological: No vision of left eye INVESTIGATIONS, reviewed in the clinical context: November 18: Potassium 4 creatinine 0.58. Chest x-ray film: Some congestion November 17: Potassium 3.3 November 16: Sodium 134 potassium 3.7 creatinine 0.5 for. Pro-calcitonin 0.11 November 15: White count 9.3 hemoglobin 11.7 platelets 133 sodium 133 potassium 3.1 creatinine 0.65 procalcitonin 0.13 UA: Positive November 14: White count 11.8 hemoglobin 12.3 platelets 129 potassium 3.3 c reatinine 0.89 pro-calcitonin 0.18 White count 22.1 hemoglobin 14.2 platelets 158 increased neutrophils sodium 127 potassium 3.1 BUN 28 creatinine 1.51 glucose 154 TSH 1.2 lactic acid 1.9 EKG tracing personally reviewed by me-sinus rhythm. ST segment depression Chest x-ray film personally reviewed by me-basilar infiltrate Previous labs on 11/11/2021: White count 16.9 hemoglobin 14.6 sodium 125 potassium 3.[address] a on November 11: Postsurgical changes to the left globe. -Assessment and plan: -This patient had surgery to the left eye for a ruptured aneurysm unsuccessfully repaired about a week ago. Discussed with ID. Local infection felt to be unlikely. Stop daptomycin -Acute delirium from infection with episodes of confusion at home.: Improved Treat underlying infection -Pneumonia on chest x-ray film as evidenced by infiltrate IV Unasyn: Completed -Acute UTI with cystitis, from Enterococcus faecalis IV Unasyn. Changed to amoxicillin -Paroxysmal atrial fibrillation with rapid ventricular rate today xarelto. Tenormin 50 mg a day. -Blind in the left eye, with repair of aneurysm or rupture 1 week ago -COPD in a previous smoker -Diabetes mellitus type 2, on oral hypoglycemic Metformin thousand milligrams by mouth twice a day. Follow Accu-Cheks -GERD Pepcid when necessary -Hyperlipidemia Lipitor 10 mg daily at bedtime -Essential hypertension: Uncontrolled irbesartan/hydrochlorothiazide. Tenormin. Amlodipine 5 mg daily added -Primary osteoarthritis multiple joints Tylenol as needed -Obstructive sleep apnea does not use CPAP -Hypothyroid Levoxyl 125 g daily -Chronic spinal stenosis -Diabetic peripheral neuropathy Lyrica 50 mg twice a day -Acute kidney injury possibly ATN and prerenal. From decreased oral intake and sepsis: Better IV fluids.-Discontinue -Hyponatremia, hypovolemic from patient and vomiting and unable to eat: Improving Saline drip -Hypokalemia: Replace Replace Change IV Unasyn to amoxicillin. Received IV Lasix. Amlodipine added for uncontrolled blood pressure., Discussed with patient.
[2021-11-18 11:20] LABS: Glucose,Whole Blood 164 mg/dL (75-99)
[2021-11-18 16:06] LABS: Glucose,Whole Blood 143 mg/dL (75-99)
--- NOTE | 2021-11-18 17:42 | P.PN ---
Subjective Progress Note Date: 11/18/21 Principal diagnosis: Urinary tract infection Patient is 81-year-old female with multiple comorbidities and recent surgery for hemorrhagic retinal detachment resulting hospital with weakness and worsening left eye vision lost, patient did have an elevated white count pos itivity and concern for dehydration as well as UTI. On today's evaluation that is 11/18/2021, the patient remains to be afebrile, patient is breathing comfortably on room air, patient is complaining of some shortness of breath and a cough however currently on room air, the patient denies abdominal pain and no diarrhea, Objective - Vital Signs Vital signs: Vital Signs Temp 97.6 F 11/18/21 14:00 Pulse 93 11/18/21 14:00 Resp 18 11/18/21 14:00 BP 143/109 11/18/21 14:00 Pulse Ox 93 L 11/18/21 14:00 Intake & Output 11/17/21 11/18/21 11/18/21 18:59 06:59 18:59 Intake Total 960 Balance 960 Intake: Oral 960 Other: Voiding Method Toilet Bedside Commode # Voids 2 2 # Bowel Movements 1 1 - Exam GENERAL DESCRIPTION: An elderly female lying in bed in no distress RESPIRATORY SYSTEM: Unlabored breathing , decreased breath sounds at bases HEART: S1 S2 regular rate and rhythm , ABDOMEN: Soft , no tenderness EXTREMITIES: No edema feet - Labs CBC & Chem 7: 11/15/21 05:43 11/18/21 04:17 Labs: Abnormal Lab Results - Last 24 Hours (Table) 11/17/21 11/17/21 11/18/21 Range/Units 16:33 20:35 04:17 BUN 4 L (7-17) mg/dL Glucose 147 H (74-99) mg/dL POC Glucose (mg/dL) 163 H 143 H (75-99) mg/dL 11/18/21 11/18/21 11/18/21 Range/Units 06:56 11:19 16:05 BUN (7-17) mg/dL Glucose (74-99) mg/dL POC Glucose (mg/dL) 152 H 164 H 143 H (75-99) mg/dL Microbiology - Last 24 Hours (Table) 11/13/21 18:20 Blood Culture - Preliminary Blood No Growth after 96 hours 11/13/21 18:03 Blood Culture - Preliminary Blood No Growth after 96 hours Assessment and Plan (1) SIRS (systemic inflammatory response syndrome) Current Visit: No Status: Acute Code(s): R65.10 - SIRS OF NON-INFECTIOUS ORIGIN W/O ACUTE ORGAN DYSFUNCTION SNOMED Code(s): 258647403 Plan: 1patient presented to hospital with generalized weakness no energy in this patient noticed to have elevated BUN/creatinine more likely related to d ehydration and possible related to ophthalmologic medication that have been started after the patient did have surgery for hemorrhagic detachment of the retina patient did not have any fever did have elevated white count however no significant respiratory symptoms to be suspicious for pneumonia did have mild urinary symptom possible component of enteric gram-negative pneumonia not entirely excluded, patient did have some congestion to the left eyeball but no surrounding redness or any purulent drainage clinic suspicious for infection to the left eye on the low side. 2 the patient urine culture has been finalized enterococcus that is sensitive to penicillin patient to continue with Unasyn and will be able to finish therapy with a short course of oral Augmentin on discharge Time with Patient: Less than 30
[2021-11-18 20:42] LABS: Glucose,Whole Blood 176 mg/dL (75-99)
[2021-11-18] MEDS: SODIUM CHLORIDE 0.9% 1,000 ML IV SCH (20:58)
[2021-11-18] MEDS: CITALOPRAM HYDROBROMIDE 20 MG TAB PO SCH (21:53)
[2021-11-18] MEDS: MELATONIN 3 MG TABLET PO PRN (21:54)
[2021-11-18] MEDS: ATORVASTATIN 10 MG TAB PO SCH (21:54)
[2021-11-18] MEDS: RIVAROXABAN 20 MG TAB PO SCH (21:55)
[2021-11-18] MEDS: AMOXICILLIN 875 MG TAB PO SCH (21:55)
[2021-11-18] MEDS: LATANOPROST 0.005% OPHTH DROPS 2.5 ML BTL LEFT EYE SCH (22:31)
[2021-11-19 04:17] LABS: Glucose,Whole Blood 147 mg/dL (75-99)
[2021-11-19] MEDS: ACETAMINOPHEN TAB 325 MG TAB PO PRN ×2 (05:03→14:13)
[2021-11-19] MEDS: LEVOTHYROXINE 125 MCG TAB PO SCH (05:03)
[2021-11-19] MEDS ORDERED: METOCLOPRAMIDE 5 MG/ML 2 ML VIAL IVP STA (05:12)
[2021-11-19 07:02] LABS: Glucose,Whole Blood 170 mg/dL (75-99)
[2021-11-19] MEDS: IPRATROPIUM-ALBUTEROL 3 ML NEB INHALATION PRN (07:03)
[2021-11-19] MEDS: atenoloL 25 MG TAB PO SCH (08:14)
[2021-11-19] MEDS: metFORMIN 500 MG TAB PO SCH ×2 (08:14→16:56)
[2021-11-19] MEDS: OXYBUTYNIN XL 5 MG TAB.ER.24 PO SCH (08:14)
[2021-11-19] MEDS: ASPIRIN 81 MG PO SCH (08:14)
[2021-11-19] MEDS: hydroCHLOROthiazide 12.5 MG CAP PO SCH (08:14)
[2021-11-19] MEDS: amLODIPine 5 MG TAB PO SCH (08:14)
[2021-11-19] MEDS: PREGABALIN 50 MG CAP PO SCH ×2 (08:14→20:12)
[2021-11-19] MEDS: LOSARTAN 50 MG TAB PO SCH (08:14)
[2021-11-19] MEDS: AMOXICILLIN 875 MG TAB PO SCH ×2 (08:15→20:12)
[2021-11-19] MEDS: INSULIN ASPART (NovoLOG) 100 UNIT/ML VIAL SQ SCH ×4 (08:15→20:12)
[2021-11-19] MEDS: BRIMONIDINE TARTRATE 0.2% DROPS 5 ML BTL LEFT EYE SCH ×3 (08:22→21:49)
[2021-11-19] MEDS: prednisoLONE ACETATE 1% OPHTH DROPS 5 ML BTL LEFT EYE SCH ×4 (08:47→20:12)
[2021-11-19] MEDS: DORZOLAMIDE-TIMOLOL 2.23%/0.68 10ML BTL LEFT EYE SCH ×2 (08:48→20:01)
[2021-11-19] MEDS ORDERED: atenoloL 50 MG TAB PO SCH (09:00)
[2021-11-19] MEDS ORDERED: atenoloL 25 MG TAB PO SCH (09:00)
[2021-11-19] MEDS ORDERED: atenoloL 25 MG TAB PO ONE (09:00)
--- NOTE | 2021-11-19 09:27 | P.PN ---
Subjective This is a pleasant 81-year-old female patient who follows with Dr. Das in the office. Has a history of diabetes mellitus, hypertension, hyperlipidemia and paroxysmal atrial fibrillation (on Xarelto). 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 Presented to the emergency department here due to complaints of generalized weakness that's been going on for a couple days. She's had vision loss in her left eye. There is question of infection. Chest x-ray showed possible pneumonia. We were asked to see the patient in consultation for atrial fibrillation with rapid ventricular response. Echocardiogram revealed an EF of 5055%, moderate mitral regurgitation, mild tricuspid regurgitation, mild pulmonary hypertension 11/19/2021 Patient seen and examined up ambulating around the room to use the bathroom. She continues to "not feel good" She having some nausea, no emesis, and diarrhea. No other specific symptoms. Blood pressure 168/86 this morning with heart rates in the 80s-115. Amlodipine was added yesterday and patient was given IV Lasix 20mg x1. Laboratory data is pending She is currently maintained on amlodipine 5 mg daily, aspirin 81 mg daily, atenolol 25 mg daily, hydrochlorothiazide 12.5 mg daily, losartan 100 mg daily, Xarelto 20 mg nightly PHYSICAL EXAMINATION: This is a 81-year-old female in no apparent distress at the time of my examination. HEENT: Head is atraumatic, normocephalic. Mucous membranes of the mouth are moist. Neck is supple. There is no elevated jugular venous pressure. CHEST EXAMINATION: Clear to auscultation bilaterally. No wheezes rales or rhonchi. Respirations even and nonlabored. HEART EXAMINATION: Heart irregular rate and rhythm, positive S1 and S2. No S3. No S4. Systolic ejection murmur at apex. EXTREMITIES: 2+ peripheral pulses with no evidence of peripheral edema and no calf tenderness noted. ASSESSMENT: Paroxysmal atrial fibrillation with rapid ventricular response, likely exacerbated by underlying infection. Currently in afib with controlled rates. 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 Further recommendations based on clinical course BRIQUETTE MAKER note has been reviewed, I agree with a documented findings and plan of care. Patient was seen and examined. Objective - Vital Signs Vital signs: Vital Signs Temp 97.4 F L 11/19/21 07:40 Pulse 80 11/19/21 07:40 Resp 18 11/19/21 07:40 BP 168/86 11/19/21 07:40 Pulse Ox 92 L 11/19/21 07:40 Intake & Output 11/18/21 11/19/21 11/19/21 18:59 06:59 18:59 Other: Voiding Method Toilet Bedside Commode # Voids 2 5 # Bowel Movements 1 - Labs CBC & Chem 7: 11/15/21 05:43 11/18/21 04:17 Labs: Abnormal Lab Results - Last 24 Hours (Table) 11/18/21 11/18/21 11/18/21 Range/Units 11:19 16:05 20:41 POC Glucose (mg/dL) 164 H 143 H 176 H (75-99) mg/dL 11/19/21 11/19/21 Range/Units 04:15 07:01 POC Glucose (mg/dL) 147 H 170 H (75-99) mg/dL Microbiology - Last 24 Hours (Table) 11/13/21 18:20 Blood Culture - Preliminary Blood No Growth after 120 hours 11/13/21 18:03 Blood Culture - Preliminary Blood No Growth after 120 hours
[2021-11-19] MEDS: ATROPINE OPHTH SOLN 1% 5ML BTL LEFT EYE SCH ×2 (09:32→20:45)
[2021-11-19] MEDS: OFLOXACIN 0.3% OPHTH DROPS 5 ML BOTTLE LEFT EYE SCH ×4 (09:33→21:23)
[2021-11-19 11:02] LABS: Glucose,Whole Blood 174 mg/dL (75-99)
[2021-11-19 11:40] LABS: African American GFR (CKD) >90 (>60 ml/min/1.73 sqM); Anion Gap 10 mmol/L; Blood Urea Nitrogen 7 mg/dL (7-17); Calcium 8.8 mg/dL (8.4-10.2); Carbon Dioxide 27 mmol/L (22-30); Chloride 94 mmol/L (98-107); Glucose 168 mg/dL (74-99); Non-African American GFR(CKD) 84 (>60 ml/min/1.73 sqM); Potassium 3.4 mmol/L (3.5-5.1); Sodium 131 mmol/L (137-145)
[2021-11-19] MEDS: PROCHLORPERAZINE 5 MG TAB PO PRN (12:31)
[2021-11-19 16:17] LABS: Glucose,Whole Blood 163 mg/dL (75-99)
[2021-11-19] MEDS ORDERED: NAPROXEN 250 MG TAB PO STA (18:45)
[2021-11-19 20:07] LABS: Glucose,Whole Blood 172 mg/dL (75-99)
[2021-11-19] MEDS: RIVAROXABAN 20 MG TAB PO SCH (20:12)
[2021-11-19] MEDS: CITALOPRAM HYDROBROMIDE 20 MG TAB PO SCH (20:12)
[2021-11-19] MEDS: ATORVASTATIN 10 MG TAB PO SCH (20:12)
[2021-11-19] MEDS ORDERED: POTASSIUM CHLORIDE ER 20 MEQ TAB.ER PO STA (20:36)
--- NOTE | 2021-11-19 20:38 | P.PN ---
Progress Note - Text Progress Note Date: 11/19/21 Chief Complaint: Not feeling well This is a 81-year-old patient, follows with Dr. Napoleon Arellano. Chronic stable medical conditions include atrial fibrillation for which she is on xarelto, COPD, diabetes, GERD, hypertension, hyperlipidemia, osteoarthritis, hypothyroid, obstructive sleep apnea does not use CPAP, hiatal hernia, spinal stenosis. Last week on that is about a week ago, because of left eye pain patient had to go down to [facility] for eye surgery. As per the son at the bedside dose possibly an aneurysm the back of diet that was repaired. Is also retinal detachment with significant hemorrhage. Eyedrops were given. Patient was told that the patient will not return. Following that she did call back for a follow-up. Subsequently that she started having increasing nausea vomiting. Increasing headache. She is prescribed Diamox. Started having chills. She presented to our ER on November 11. 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 She does ruptured aneurysm that they attempted repair. She she was blind in his left eye prior to surgery. She also had a urine infection prior to surgery. No complete the course of antibiotic. She had a CT of the head that did not show any abnormality. Had an elevated white count. They consulted Dr. Dias and he recommended increasing the dose Diamox. Right eye pressure was 14 and left eye pressure was 55. Patient was discharged home. Subsequently the son says patient became intermittently confused. Not really eating drinking. Denied any obvious respiratory symptoms. No urinary symptoms. Tired rundown. Patient admitted with acute kidney injury. Pneumonia. Hypotension. Possible infection around the globe. Started on IV fluids. IV daptomycin IV ceftriaxone. November 14: Laying in bed. Feels slightly better. Blood pressure started to,. On IV antibiotics. Eating some. November 15: Oral intake improving. Does sit up in a chair. No fever. Discussed with Dr. Polo from ID. Stop daptomycin. We'll continue ceftriaxone for UTI/possible pneumonia. Seen by Dr. Bunn from ophthalmology. Continue eyedrops. November 16: Eating about 50%. No fever. Patient went into A. fib with rapid ventricular rate. Cardiology consulted. Atenolol increased. Other medications to continue. Urine culture growing Enterococcus faecalis. Antibiotic changed to IV Unasyn November 17: Remains in atrial fibrillation. Heart rate above 100. Tenormin increased to 75 mg. Decreased appetite. No fever no chills. On IV Unasyn. November 18: Atrial fibrillation rate controlled. Blood pressure on the higher side. Cardiology added amlodipine 5 mg. Patient not feeling well. Sitting up in chair. Short of breath. Received 1 dose of Lasix. Tired November 19: Atrial fibrillation -rate controlled. Blood pressure controlled. Dose of Tenormin increased. Decreased appetite. Tired Active Medications Acetaminophen (Acetaminophen Tab 325 Mg Tab) 650 mg PO Q6HR PRN PRN Reason: Mild Pain or Fever > 100.5 Last Admin: 11/19/21 14:13 Dose: 650 mg Documented by: Albuterol/Ipratropium (Ipratropium-Albuterol 3 Ml Neb) 3 ml INHALATION RT-Q4H PRN PRN Reason: Wheezing Last Admin: 11/19/21 07:03 Dose: 3 ml Documented by: Amlodipine Besylate (Amlodipine 5 Mg Tab) 5 mg PO DAILY [facility] Last Admin: 11/19/21 08:14 Dose: 5 mg Documented by: Amoxicillin (Amoxicillin 875 Mg Tab) 875 mg PO Q12HR [facility]; Protocol Last Admin: 11/19/21 20:12 Dose: 875 mg Documented by: Aspirin (Aspirin 81 Mg) 81 mg PO DAILY [facility] Last Admin: 11/19/21 08:14 Dose: 81 mg Documented by: Atenolol (Atenolol 50 Mg Tab) 100 mg PO DAILY [facility] Atorvastatin Calcium (Atorvastatin 10 Mg Tab) 10 mg PO [facility] Last Admin: 11/19/21 20:12 Dose: 10 mg Documented by: Atropine Sulfate (Atropine Ophth Soln 1% 5ml Btl) 1 drops LEFT EYE BID@0830,2200 [facility] Last Admin: 11/19/21 09:32 Dose: 1 drops Documented by: Brimonidine Tartrate (Brimonidine Tartrate 0.2% Drops 5 Ml Btl) 1 drops LEFT EYE TID@0830,1530,2200 [facility] Last Admin: 11/19/21 16:58 Dose: 1 drops Documented by: Calcium Carbonate/Glycine (Calcium Carbonate 500 Mg Chewable) 1,000 mg PO Q4HR PRN PRN Reason: Dyspepsia Last Admin: 11/19/21 01:21 Dose: 1,000 mg Documented by: Citalopram Hydrobromide (Citalopram Hydrobromide 20 Mg Tab) 40 mg PO HS [facility] Last Admin: 11/19/21 20:12 Dose: 40 mg Documented by: Dorzolamide/Timolol (Dorzolamide-Timolol 2.23%/0.68 10ml Btl) 1 drops LEFT EYE BID@0830,2200 [facility] Last Admin: 11/19/21 20:01 Dose: 1 drops Documented by: Hydrochlorothiazide (Hydrochlorothiazide 12.5 Mg Cap) 12.5 mg PO DAILY [facility] Last Admin: 11/19/21 08:14 Dose: 12.5 mg Documented by: Sodium Chloride (Saline 0.9%) 1,000 mls @ 50 mls/hr IV .Q20H [facility] Last Admin: 11/18/21 20:58 Dose: Not Given Documented by: Insulin Aspart (Insulin Aspart (Novolog) 100 Unit/Ml Vial) 0 unit SQ ACHS [facility]; Protocol Last Admin: 11/19/21 20:12 Dose: 2 unit Documented by: Lactulose (Lactulose 20 Gm/30 Ml Cup) 20 gm PO DAILY PRN PRN Reason: Constipation Latanoprost (Latanoprost 0.005% Ophth Drops 2.5 Ml Btl) 1 drops LEFT EYE HS@2200 [facility] Last Admin: 11/18/21 22:31 Dose: 1 drops Documented by: Levothyroxine Sodium (Levothyroxine 125 Mcg Tab) 125 mcg PO DAILY@0630 [facility] Last Admin: 11/19/21 05:03 Dose: 125 mcg Documented by: Lorazepam (Lorazepam 0.5 Mg Tab) 0.5 mg PO Q6HR PRN PRN Reason: Anxiety Last Admin: 11/18/21 05:56 Dose: 0.5 mg Documented by: Losartan Potassium (Losartan 50 Mg Tab) 100 mg PO DAILY [facility] Last Admin: 11/19/21 08:14 Dose: 100 mg Documented by: Melatonin (Melatonin 3 Mg Tablet) 3 mg PO HS PRN PRN Reason: Insomnia Last Admin: 11/18/21 21:54 Dose: 3 mg Documented by: Metformin HCl (Metformin 500 Mg Tab) 1,000 mg PO BID-W/MEALS [facility] Last Admin: 11/19/21 16:56 Dose: 1,000 mg Documented by: Miscellaneous Information (Pneumonia Protocol Utilized 1 Each [facility] [place]) 1 each PO ONCE PRN PRN Reason: Per Protocol Miscellaneous Information (Potassium Replacement Protocol 1 Each [facility] [place]) 1 each MISCELLANE DAILY PRN; Protocol PRN Reason: Per Protocol Naloxone HCl (Naloxone 0.4 Mg/Ml 1 Ml Vial) 0.2 mg IV Q2M PRN PRN Reason: Opioid Reversal Nitroglycerin (Nitroglycerin Sl Tabs 0.4 Mg Tab) 0.4 mg SUBLINGUAL Q5M PRN PRN Reason: Chest Pain Ofloxacin (Ofloxacin 0.3% Ophth Drops 5 Ml Bottle) 1 drops LEFT EYE QID@0830,1330,18,22 [facility] Last Admin: 11/19/21 16:57 Dose: 1 drops Documented by: Oxybutynin Chloride (Oxybutynin Xl 5 Mg Tab.Er.24) 5 mg PO DAILY [facility] Last Admin: 11/19/21 08:14 Dose: 5 mg Documented by: Prednisolone Acetate (Prednisolone Acetate 1% Ophth Drops 5 Ml Btl) 1 drops LEFT EYE QID@0830,1330,, [facility] Last Admin: 11/19/21 20:12 Dose: 1 drops Documented by: Pregabalin (Pregabalin 50 Mg Cap) 50 mg PO BID [facility] Last Admin: 11/19/21 20:12 Dose: 50 mg Documented by: Prochlorperazine Maleate (Prochlorperazine 5 Mg Tab) 5 mg PO Q8HR PRN PRN Reason: Nausea And Vomiting Last Admin: 11/19/21 12:31 Dose: 5 mg Documented by: Rivaroxaban (Rivaroxaban 20 Mg Tab) 20 mg PO HS [facility]; Protocol Last Admin: 11/19/21 20:12 Dose: 20 mg Documented by: Past medical history to include: Atrial fibrillation, COPD, diabetes, GERD, hypertension, hyperlipidemia, osteoarthritis, TO sleep apnea does not use CPAP, hypothyroid, spell stenosis, mitral hernia, diverticulitis, varicose veins, anxiety depression, 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 Smoked for 30 years stopped in 1987. Smoked 3-4 packs a day. Stopped drinking in 1986. Occasional CBD ordered. Family history: Heart trouble and cancer Physical examination: VITAL SIGNS: 98.7, 68, 19, 160/86, 92% room air GENERAL: Reclining in bed awake, tired EYES: Pupils equal. Conjunctiva minimal redness to the left conjunctival. HEENT: External appearance of nose and ears normal, oral cavity grossly normal. NECK: JVD not raised; masses not palpable. HEART: Irregular heart sounds; edema present LUNGS: Respiratory rate increased basal crackles ABDOMEN: Soft, nontender, liver spleen not palpable, no masses palpable. PSYCH: [Alert and oriented x3; mood and affect anxious MUSCULOSKELETAL:No Clubbing/cyanosis;muscles-grossly intact. Evidence of OA Neurological: No vision of left eye INVESTIGATIONS, reviewed in the clinical context: November 19: Potassium 3.4 creatinine 0.67 November 18: Potassium 4 creatinine 0.58. Chest x-ray film: Some congestion November 17: Potassium 3.3 November 16: Sodium 134 potassium 3.7 creatinine 0.5 for. Pro-calcitonin 0.11 November 15: White count 9.3 hemoglobin 11.7 platelets 133 sodium 133 potassium 3.1 creatinine 0.65 procalcitonin 0.13 UA: Positive November 14: White count 11.8 hemoglobin 12.3 platelets 129 potassium 3.3 creatinine 0.89 pro-calcitonin 0.18 White count 22.1 hemoglobin 14.2 platelets 158 increased neutrophils sodium 127 potassium 3.1 BUN 28 creatinine 1.51 glucose 154 TSH 1.2 lactic acid 1.9 EKG tracing personally reviewed by me-sinus rhythm. ST segment depression Chest x-ray film personally reviewed by me-basilar infiltrate Previous labs on 11/11/2021: White count 16.9 hemoglobin 14.6 sodium 125 potassium 3.[address] a on November 11: Postsurgical changes to the left globe. -Assessment and plan: -This patient had surgery to the left eye for a ruptured aneurysm unsuccessfully repaired about a week ago. Discussed with ID. Local infection felt to be unlikely. Stop daptomycin -Acute delirium from infection with episodes of confusion at home.: Improved Treat underlying infection -Pneumonia on chest x-ray film as evidenced by infiltrate IV Unasyn: Completed -Acute UTI with cystitis, from Enterococcus faecalis IV Unasyn. Changed to amoxicillin -Paroxysmal atrial fibrillation with rate controlled xarelto. Tenormin 100 mg a day. -Blind in the left eye, with repair of aneurysm or rupture 1 week ago -COPD in a previous smoker -Diabetes mellitus type 2, on oral hypoglycemic Metformin thousand milligrams by mouth twice a day. Follow Accu-Cheks -GERD Pepcid when necessary -Hyperlipidemia Lipitor 10 mg daily at bedtime -Essential hypertension: Uncontrolled irbesartan/hydrochlorothiazide. Tenormin 100 mg a. Amlodipine 5 mg daily added -Primary osteoarthritis multiple joints Tylenol as needed -Obstructive sleep apnea does not use CPAP -Hypothyroid Levoxyl 125 g daily -Chronic spinal stenosis -Diabetic peripheral neuropathy Lyrica 50 mg twice a day -Acute kidney injury possibly ATN and prerenal. From decreased oral intake and sepsis: Better IV fluids.-Discontinue -Hyponatremia, hypovolemic from patient and vomiting and unable to eat: Improving -Hypokalemia: Replace Replace amoxicillin. Amlodipine . Tenormin increased to 100 mg a day for uncontrolled blood pressure. Other medications to continue.
--- NOTE | 2021-11-19 21:06 | P.PN ---
Subjective Progress Note Date: 11/19/21 Principal diagnosis: Urinary tract infection Patient is 81-year-old female with multiple comorbidities and recent surgery for hemorrhagic retinal detachment resulting hospital with weakness and worsening left eye vision lost, patient did have an elevated white count pos itivity and concern for dehydration as well as UTI. On today's evaluation that is 11/19/2021, the patient denies any fever or chills, patient is breathing comfortably on room air, patient is complaining of sinus pressure With no postnasal drip no nausea no vomiting and abdominal pain no diarrhea Objective - Vital Signs Vital signs: Vital Signs Temp 97.4 F L 11/19/21 07:40 Pulse 80 11/19/21 07:40 Resp 18 11/19/21 07:40 BP 168/86 11/19/21 07:40 Pulse Ox 92 L 11/19/21 07:40 Intake & Output 11/18/21 11/19/21 11/19/21 18:59 06:59 18:59 Other: Voiding Method Toilet Bedside Commode # Voids 2 5 2 # Bowel Movements 1 - Exam GENERAL DESCRIPTION: An elderly female lying in bed in no distress RESPIRATORY SYSTEM: Unlabored breathing , decreased breath sounds at bases HEART: S1 S2 regular rate and rhythm , ABDOMEN: Soft , no tenderness EXTREMITIES: No edema feet - Labs CBC & Chem 7: 11/15/21 05:43 11/19/21 10:48 Labs: Abnormal Lab Results - Last 24 Hours (Table) 11/18/21 11/18/21 11/19/21 Range/Units 16:05 20:41 04:15 Sodium (137-145) mmol/L Potassium (3.5-5.1) mmol/L Chloride (98-107) mmol/L Glucose (74-99) mg/dL POC Glucose (mg/dL) 143 H 176 H 147 H (75-99) mg/dL 11/19/21 11/19/21 11/19/21 Range/Units 07:01 10:48 11:01 Sodium 131 L (137-145) mmol/L Potassium 3.4 L (3.5-5.1) mmol/L Chloride 94 L (98-107) mmol/L Glucose 168 H (74-99) mg/dL POC Glucose (mg/dL) 170 H 174 H (75-99) mg/dL Microbiology - Last 24 Hours (Table) 11/13/21 18:20 Blood Culture - Preliminary Blood No Growth after 120 hours 11/13/21 18:03 Blood Culture - Preliminary Blood No Growth after 120 hours Assessment and Plan (1) SIRS (systemic inflammatory response syndrome) Current Visit: No Status: Acute Code(s): R65.10 - SIRS OF NON-INFECTIOUS O RIGIN W/O ACUTE ORGAN DYSFUNCTION SNOMED Code(s): 770798130 Plan: 1patient presented to hospital with generalized weakness no energy in this p atient noticed to have elevated BUN/creatinine more likely related to dehydration and possible related to ophthalmologic medication that have been started after the patient did have surgery for hemorrhagic detachment of the retina patient did not have any fever did have elevated white count however no significant respiratory symptoms to be suspicious for pneumonia did have mild urinary symptom possible component of enteric gram-negative pneumonia not entirely excluded, patient did have some congestion to the left eyeball but no surrounding redness or any purulent drainage clinic suspicious for infection to the left eye on the low side. 2 the patient urine culture has been finalized enterococcus that is sensitive to penicillin patient is currently being treated with Unasyn can be transitioned to oral Augmentin to finish a course of therapy and continue supportive care Time with Patient: Less than 30
[2021-11-19] MEDS: LATANOPROST 0.005% OPHTH DROPS 2.5 ML BTL LEFT EYE SCH (22:15)
[2021-11-19] MEDS: SODIUM CHLORIDE 0.9% 1,000 ML IV SCH (22:24)
[2021-11-20 04:31] LABS: Glucose,Whole Blood 143 mg/dL (75-99)
[2021-11-20] MEDS: LEVOTHYROXINE 125 MCG TAB PO SCH (04:56)
[2021-11-20] MEDS: PROCHLORPERAZINE 5 MG TAB PO PRN (04:56)
[2021-11-20 05:02] LABS: African American GFR (CKD) >90 (>60 ml/min/1.73 sqM); Anion Gap 8 mmol/L; Blood Urea Nitrogen 7 mg/dL (7-17); Calcium 8.9 mg/dL (8.4-10.2); Carbon Dioxide 27 mmol/L (22-30); Chloride 94 mmol/L (98-107); Glucose 135 mg/dL (74-99); Non-African American GFR(CKD) 84 (>60 ml/min/1.73 sqM); Potassium 3.8 mmol/L (3.5-5.1); Sodium 129 mmol/L (137-145)
[2021-11-20 06:39] LABS: Glucose,Whole Blood 145 mg/dL (75-99)
[2021-11-20] MEDS: metFORMIN 500 MG TAB PO SCH ×2 (07:21→17:21)
[2021-11-20] MEDS: INSULIN ASPART (NovoLOG) 100 UNIT/ML VIAL SQ SCH ×4 (07:22→21:03)
[2021-11-20] MEDS: BRIMONIDINE TARTRATE 0.2% DROPS 5 ML BTL LEFT EYE SCH ×3 (07:45→21:02)
[2021-11-20] MEDS: OFLOXACIN 0.3% OPHTH DROPS 5 ML BOTTLE LEFT EYE SCH ×4 (07:46→21:40)
[2021-11-20] MEDS: ATROPINE OPHTH SOLN 1% 5ML BTL LEFT EYE SCH ×2 (07:46→21:03)
[2021-11-20] MEDS: prednisoLONE ACETATE 1% OPHTH DROPS 5 ML BTL LEFT EYE SCH ×4 (07:47→21:40)
[2021-11-20] MEDS: DORZOLAMIDE-TIMOLOL 2.23%/0.68 10ML BTL LEFT EYE SCH ×2 (07:47→21:02)
[2021-11-20] MEDS: AMOXICILLIN 875 MG TAB PO SCH (08:46)
[2021-11-20] MEDS: atenoloL 50 MG TAB PO SCH (08:47)
[2021-11-20] MEDS: LOSARTAN 50 MG TAB PO SCH ×2 (08:47→21:01)
[2021-11-20] MEDS: PREGABALIN 50 MG CAP PO SCH ×2 (08:47→21:01)
[2021-11-20] MEDS: amLODIPine 5 MG TAB PO SCH (08:47)
[2021-11-20] MEDS: OXYBUTYNIN XL 5 MG TAB.ER.24 PO SCH (08:47)
[2021-11-20] MEDS: hydroCHLOROthiazide 12.5 MG CAP PO SCH (08:47)
[2021-11-20] MEDS: ASPIRIN 81 MG PO SCH (08:47)
[2021-11-20] MEDS ORDERED: NAPROXEN 250 MG TAB PO STA (09:31)
[2021-11-20 11:16] LABS: Glucose,Whole Blood 144 mg/dL (75-99)
[2021-11-20] MEDS: PSYLLIUM HUSK 100% 6 GM PACKET PO SCH (11:49)
[2021-11-20] MEDS: CHLORTHALIDONE 25 MG TAB PO SCH (11:49)
[2021-11-20] MEDS: cloNIDine HCL 0.1 MG TAB PO SCH (12:09)
--- NOTE | 2021-11-20 12:11 | P.PN ---
Subjective This is a pleasant 81-year-old female patient who follows with Dr. Das in the office. Has a history of diabetes mellitus, hypertension, hyperlipidemia and paroxysmal atrial fibrillation (on Xarelto). 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 Presented to the emergency department here due to complaints of generalized weakness that's been going on for a couple days. She's had vision loss in her left eye. There is question of infection. Chest x-ray showed possible pneumonia. We were asked to see the patient in consultation for atrial fibrillation with rapid ventricular response. Echocardiogram revealed an EF of 5055%, moderate mitral regurgitation, mild tricuspid regurgitation, mild pulmonary hypertension 11/20/2021 Patient seen and examined at bedside. She is alert and oriented x 3. Left eye pain present. No chest pain or shortness of breath. Blood pressure remains elevated BP 194/79. Atenolol 100mg was increased yesterday. Telemetry reviewed, she appears to be in sinus mechanism HR 60s-70s, episode of 12 beat run of NSVT yesterday. She is currently maintained on amlodipine 5 mg daily, aspirin 81 mg daily, atenolol 100 mg daily, Chlorothalidone 25mg daily, losartan 100 mg daily, Xarelto 20 mg nightly PHYSICAL EXAMINATION: This is a 81-year-old female in no apparent distress at the time of my examination. HEENT: Head is atraumatic, normocephalic. Mucous membranes of the mouth are moist. Neck is supple. There is no elevated jugular venous pressure. CHEST EXAMINATION: Clear to auscultation bilaterally. No wheezes rales or rhonchi. Respirations even and nonlabored. HEART EXAMINATION: Heart Regular rate and rhythm, positive S1 and S2. No S3. No S4. Systolic ejection murmur at apex. EXTREMITIES: 2+ peripheral pulses with no evidence of peripheral edema and no ca lf tenderness noted. ASSESSMENT: Paroxysmal atrial fibrillation with rapid ventricular response, likely exacerbated by underlying infection. Currently in afib with controlled rates. 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 Further recommendations based on clinical course [employer] note has been reviewed, I agree with a documented findings and plan of care. Patient was seen and examined. Objective - Vital Signs Vital signs: Vital Signs Temp 97.4 F L 11/20/21 07:49 Pulse 75 11/20/21 07:49 Resp 19 11/20/21 07:49 BP 194/79 11/20/21 07:49 Pulse Ox 94 L 11/20/21 07:49 Intake & Output 11/19/21 11/20/21 11/20/21 18:59 06:59 18:59 Intake Total 1080 Balance 1080 Intake: Oral 1080 Other: # Voids 2 3 2 # Bowel Movements 2 2 - Labs CBC & Chem 7: 11/15/21 05:43 11/20/21 04:28 Labs: Abnormal Lab Results - Last 24 Hours (Table) 11/19/21 11/19/21 11/19/21 Range/Units 10:48 16:16 20:05 Sodium 131 L (137-145) mmol/L Potassium 3.4 L (3.5-5.1) mmol/L Chloride 94 L (98-107) mmol/L Glucose 168 H (74-99) mg/dL POC Glucose (mg/dL) 163 H 172 H (75-99) mg/dL 11/20/21 11/20/21 11/20/21 Range/Units 04:28 04:28 06:38 Sodium 129 L (137-145) mmol/L Potassium (3.5-5.1) mmol/L Chloride 94 L (98-107) mmol/L Glucose 135 H (74-99) mg/dL POC Glucose (mg/dL) 143 H 145 H (75-99) mg/dL Microbiology - Last 24 Hours (Table) 11/13/21 18:20 Blood Culture - Final Blood No Growth after 144 hours 11/13/21 18:03 Blood Culture - Final Blood No Growth after 144 hours
--- NOTE | 2021-11-20 13:36 | P.PN ---
Progress Note - Text Progress Note Date: 11/20/21 Chief Complaint: Not feeling well This is a 81-year-old patient, follows with Dr. Napoleon Arellano. Chronic stable medical conditions include atrial fibrillation for which she is on xarelto, COPD, diabetes, GERD, hypertension, hyperlipidemia, osteoarthritis, hypothyroid, obstructive sleep apnea does not use CPAP, hiatal hernia, spinal stenosis. Last week on that is about a week ago, because of left eye pain patient had to go down to [facility] for eye surgery. As per the son at the bedside dose possibly an aneurysm the back of diet that was repaired. Is also retinal detachment with significant hemorrhage. Eyedrops were given. Patient was told that the patient will not return. Following that she did call back for a follow-up. Subsequently that she started having increasing nausea vomiting. Increasing headache. She is prescribed Diamox. Started having chills. She presented to our ER on November 11. Doxazosin patient had surgery with , line assembler at [facility]. She does ruptured aneurysm that they attempted repair. She she was blind in his left eye prior to surgery. She also had a urine infection prior to surgery. No complete the course of antibiotic. She had a CT of the head that did not show any abnormality. Had an elevated white count. They consulted Dr. Dias and he recommended increasing the dose Diamox. Right eye pressure was 14 and left eye pressure was 55. Patient was discharged home. Subsequently the son says patient became intermittently confused. Not really eating drinking. Denied any obvious respiratory symptoms. No urinary symptoms. Tired rundown. Patient admitted with acute kidney injury. Pneumonia. Hypotension. Possible infection around the globe. Started on IV fluids. IV daptomycin IV ceftriaxone. November 14: Laying in bed. Feels slightly better. Blood pressure started to,. On IV antibiotics. Eating some. November 15: Oral intake improving. Does sit up in a chair. No fever. Discussed with Dr. Polo from ID. Stop daptomycin. We'll continue ceftriaxone for UTI/possible pneumonia. Seen by Dr. Bunn from ophthalmology. Continue eyedrops. November 16: Eating about 50%. No fever. Patient went into A. fib with rapid ventricular rate. Cardiology consulted. Atenolol increased. Other medications to continue. Urine culture growing Enterococcus faecalis. Antibiotic changed to IV Unasyn November 17: Remains in atrial fibrillation. Heart rate above 100. Tenormin increased to 75 mg. Decreased appetite. No fever no chills. On IV Unasyn. November 18: Atrial fibrillation rate controlled. Blood pressure on the higher side. Cardiology added amlodipine 5 mg. Patient not feeling well. Sitting up in chair. Short of breath. Received 1 dose of Lasix. Tired November 19: Atrial fibrillation -rate controlled. Blood pressure controlled. Dose of Tenormin increased. Decreased appetite. Tired November 20: Patient is sinus rhythm. It is noted that patient's morning blood pressure is high in the daytime as better controlled. I will move her Cozaar and amlodipine tonight and continue Tenormin in the morning. Patient is complaining of small BMs every time she coughs or eats. Given that she's been antibiotics rule out C. diff. Active Medications Acetaminophen (Acetaminophen Tab 325 Mg Tab) 650 mg PO Q6HR PRN PRN Reason: Mild Pain or Fever > 100.5 Last Admin: 11/19/21 14:13 Dose: 650 mg Documented by: Albuterol/Ipratropium (Ipratropium-Albuterol 3 Ml Neb) 3 ml INHALATION RT-Q4H PRN PRN Reason: Wheezing Last Admin: 11/19/21 07:03 Dose: 3 ml Documented by: Amlodipine Besylate (Amlodipine 5 Mg Tab) 5 mg PO [facility] Amoxicillin (Amoxicillin 875 Mg Tab) 875 mg PO Q12HR [facility]; Protocol Last Admin: 11/20/21 08:46 Dose: 875 mg Documented by: Aspirin (Aspirin 81 Mg) 81 mg PO DAILY [facility] Last Admin: 11/20/21 08:47 Dose: 81 mg Documented by: Atenolol (Atenolol 50 Mg Tab) 100 mg PO DAILY [facility] Last Admin: 11/20/21 08:47 Dose: 100 mg Documented by: Atorvastatin Calcium (Atorvastatin 10 Mg Tab) 10 mg PO [facility] Last Admin: 11/19/21 20:12 Dose: 10 mg Documented by: Atropine Sulfate (Atropine Ophth Soln 1% 5ml Btl) 1 drops LEFT EYE BID@0830,2200 [facility] Last Admin: 11/20/21 07:46 Dose: 1 drops Documented by: Brimonidine Tartrate (Brimonidine Tartrate 0.2% Drops 5 Ml Btl) 1 drops LEFT EYE TID@0830,1530,2200 [facility] Last Admin: 11/20/21 07:45 Dose: 1 drops Documented by: Calcium Carbonate/Glycine (Calcium Carbonate 500 Mg Chewable) 1,000 mg PO Q4HR PRN PRN Reason: Dyspepsia Last Admin: 11/19/21 01:21 Dose: 1,000 mg Documented by: Chlorthalidone (Chlorthalidone 25 Mg Tab) 25 mg PO DAILY [facility] Last Admin: 11/20/21 11:49 Dose: 25 mg Documented by: Citalopram Hydrobromide (Citalopram Hydrobromide 20 Mg Tab) 40 mg PO HS [facility] Last Admin: 11/19/21 20:12 Dose: 40 mg Documented by: Clonidine (Clonidine Hcl 0.1 Mg Tab) 0.1 mg PO DAILY [facility] Last Admin: 11/20/21 12:09 Dose: 0.1 mg Documented by: Dorzolamide/Timolol (Dorzolamide-Timolol 2.23%/0.68 10ml Btl) 1 drops LEFT EYE BID@0830,2200 [facility] Last Admin: 11/20/21 07:47 Dose: 1 drops Documented by: Insulin Aspart (Insulin Aspart (Novolog) 100 Unit/Ml Vial) 0 unit SQ [facility]; Protocol Last Admin: 11/20/21 12:09 Dose: 1 unit Documented by: Lactulose (Lactulose 20 Gm/30 Ml Cup) 20 gm PO DAILY PRN PRN Reason: Constipation Latanoprost (Latanoprost 0.005% Ophth Drops 2.5 Ml Btl) 1 drops LEFT EYE HS@2200 [facility] Last Admin: 11/19/21 22:15 Dose: 1 drops Documented by: Levothyroxine Sodium (Levothyroxine 125 Mcg Tab) 125 mcg PO DAILY@0630 [facility] Last Admin: 11/20/21 04:56 Dose: 125 mcg Documented by: Lorazepam (Lorazepam 0.5 Mg Tab) 0.5 mg PO Q6HR PRN PRN Reason: Anxiety Last Admin: 11/18/21 05:56 Dose: 0.5 mg Documented by: Losartan Potassium (Losartan 50 Mg Tab) 100 mg PO HS [facility] Melatonin (Melatonin 3 Mg Tablet) 3 mg PO HS PRN PRN Reason: Insomnia Last Admin: 11/18/21 21:54 Dose: 3 mg Documented by: Metformin HCl (Metformin 500 Mg Tab) 1,000 mg PO BID-W/MEALS [facility] Last Admin: 11/20/21 07:21 Dose: 1,000 mg Documented by: Miscellaneous Information (Pneumonia Protocol Utilized 1 Each [facility] [place] 1 each PO ONCE PRN PRN Reason: Per Protocol Miscellaneous Information (Potassium Replacement Protocol 1 Each [facility] [place] 1 each MISCELLANE DAILY PRN; Protocol PRN Reason: Per Protocol Naloxone HCl (Naloxone 0.4 Mg/Ml 1 Ml Vial) 0.2 mg IV Q2M PRN PRN Reason: Opioid Reversal Nitroglycerin (Nitroglycerin Sl Tabs 0.4 Mg Tab) 0.4 mg SUBLINGUAL Q5M PRN PRN Reason: Chest Pain Ofloxacin (Ofloxacin 0.3% Ophth Drops 5 Ml Bottle) 1 drops LEFT EYE QID@0830,1330,, [facility] Last Admin: 11/20/21 07:46 Dose: 1 drops Documented by: Oxybutynin Chloride (Oxybutynin Xl 5 Mg Tab.Er.24) 5 mg PO DAILY [facility] Last Admin: 11/20/21 08:47 Dose: 5 mg Documented by: Prednisolone Acetate (Prednisolone Acetate 1% Ophth Drops 5 Ml Btl) 1 drops LEFT EYE QID@0830,1330,, [facility] Last Admin: 11/20/21 07:47 Dose: 1 drops Documented by: Pregabalin (Pregabalin 50 Mg Cap) 50 mg PO BID [facility] Last Admin: 11/20/21 08:47 Dose: 50 mg Documented by: Prochlorperazine Maleate (Prochlorperazine 5 Mg Tab) 5 mg PO Q8HR PRN PRN Reason: Nausea And Vomiting Last Admin: 11/20/21 04:56 Dose: 5 mg Documented by: Psyllium Hydrophilic Mucilloid (Psyllium Husk 100% 6 Gm Packet) 6 gm PO DAILY [facility] Last Admin: 11/20/21 11:49 Dose: 6 gm Documented by: Rivaroxaban (Rivaroxaban 20 Mg Tab) 20 mg PO HS [facility]; Protocol Last Admin: 11/19/21 20:12 Dose: 20 mg Documented by: Past medical history to include: Atrial fibrillation, COPD, diabetes, GERD, hypertension, hyperlipidemia, osteoarthritis, TO sleep apnea does not use CPAP, hypothyroid, spell stenosis, mitral hernia, diverticulitis, varicose veins, anxiety depression, 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 Smoked for 30 years stopped in 1987. Smoked 3-4 packs a day. Stopped drinking in 1986. Occasional CBD ordered. Family history: Heart trouble and cancer Physical examination: VITAL SIGNS: 97.4, 75, 19, 194/79, 94% room air GENERAL: Sitting up in bed awake, tired EYES: Pupils equal. Conjunctiva minimal redness to the left conjunctival. HEENT: External appearance of nose and ears normal, oral cavity grossly normal. NECK: JVD not raised; masses not palpable. HEART: Irregular heart sounds; edema present LUNGS: Respiratory rate increased basal crackles ABDOMEN: Soft, nontender, liver spleen not palpable, no masses palpable. PSYCH: [Alert and oriented x3; mood and affect anxious MUSCULOSKELETAL:No Clubbing/cyanosis;muscles-grossly intact. Evidence of OA Neurological: No vision of left eye INVESTIGATIONS, reviewed in the clinical context: November 20: Sodium 129 potassium 3.8 creatinine 0.66 November 19: Potassium 3.4 creatinine 0.67 November 18: Potassium 4 creatinine 0.58. Chest x-ray film: Some congestion November 17: Potassium 3.3 November 16: Sodium 134 potassium 3.7 creatinine 0.5 for. Pro-calcitonin 0.11 November 15: White count 9.3 hemoglobin 11.7 platelets 133 sodium 133 potassium 3.1 creatinine 0.65 procalcitonin 0.13 UA: Positive November 14: White count 11.8 hemoglobin 12.3 platelets 129 potassium 3.3 creatinine 0.89 pro-calcitonin 0.18 White count 22.1 hemoglobin 14.2 platelets 158 increased neutrophils sodium 127 potassium 3.1 BUN 28 creatinine 1.51 glucose 154 TSH 1.2 lactic acid 1.9 EKG tracing personally reviewed by me-sinus rhythm. ST segment depression Chest x-ray film personally reviewed by me-basilar infiltrate Previous labs on 11/11/2021: White count 16.9 hemoglobin 14.6 sodium 125 potassium 3.[address] a on November 11: Postsurgical changes to the left globe. -Assessment and plan: -This patient had surgery to the left eye for a ruptured aneurysm unsuccessfully repaired about a week ago. Discussed with ID. Local infection felt to be unlikely. Stop daptomycin -Acute delirium from infection with episodes of confusion at home.: Improved Treat underlying infection -Pneumonia on chest x-ray film as evidenced by infiltrate IV Unasyn: Completed -Acute UTI with cystitis, from Enterococcus faecalis IV Unasyn. Changed to amoxicillin -Paroxysmal atrial fibrillation with rate controlled xarelto. Tenormin 100 mg a day. -Blind in the left eye, with repair of aneurysm or rupture 1 week ago -COPD in a previous smoker -Diabetes mellitus type 2, on oral hypoglycemic Metformin thousand milligrams by mouth twice a day. Follow Accu-Cheks -GERD Pepcid when necessary -Hyperlipidemia Lipitor 10 mg daily at bedtime -Essential hypertension: Uncontrolled Cozaar moved to p.m. dose. Tenormin 100 mg keep in the morning. Amlodipine 5 mg moved to p.m. dose -Primary osteoarthritis multiple joints Tylenol as needed -Obstructive sleep apnea does not use CPAP -Hypothyroid Levoxyl 125 g daily -Chronic spinal stenosis -Diabetic peripheral neuropathy Lyrica 50 mg twice a day -Acute kidney injury possibly ATN and prerenal. From decreased oral intake and sepsis: Better IV fluids.-Discontinue -Hyponatremia, hypovolemic from patient and vomiting and unable to eat: Improving -Hypokalemia: Replace Replace -Likely antibiotic associated diarrhea. Rule out C. diff Will change patient's timing off antihypertensive moving the Cozaar and amlodipine to evening dose. Keep Tenormin in the morning. Rule out C. diff. Encourage oral intake.
[2021-11-20 16:58] LABS: Glucose,Whole Blood 136 mg/dL (75-99)
[2021-11-20] MEDS: CHOLESTYRAMINE (WITH SUGAR) 4 GM PACKET PO SCH (17:21)
[2021-11-20 19:49] LABS: Glucose,Whole Blood 108 mg/dL (75-99)
--- NOTE | 2021-11-20 20:58 | P.PN ---
Subjective Progress Note Date: 11/20/21 Principal diagnosis: Urinary tract infection Patient is 81-year-old female with multiple comorbidities and recent surgery for hemorrhagic retinal detachment resulting hospital with weakness and worsening left eye vision lost, patient did have an elevated white count pos itivity and concern for dehydration as well as UTI. On today's evaluation that is 11/20/2021, the patient remains to be afebrile, patient is breathing comfortably on room air, patient is complaining of diarrhea with multiple loose stools today no blood or mucus in the stools no abdominal pain and no urinary symptoms Objective - Vital Signs Vital signs: Vital Signs Temp 97.4 F L 11/20/21 07:49 Pulse 75 11/20/21 07:49 Resp 19 11/20/21 07:49 BP 194/79 11/20/21 07:49 Pulse Ox 94 L 11/20/21 07:49 Intake & Output 11/19/21 11/20/21 11/20/21 18:59 06:59 18:59 Intake Total 1080 Balance 1080 Weight 90.718 kg Intake: Oral 1080 Other: # Voids 2 3 2 # Bowel Movements 2 2 - Exam GENERAL DESCRIPTION: An elderly female lying in bed in no distress RESPIRATORY SYSTEM: Unlabored breathing , decreased breath sounds at bases HEART: S1 S2 regular rate and rhythm , ABDOMEN: Soft , no tenderness EXTREMITIES: No edema feet - Labs CBC & Chem 7: 11/15/21 05:43 11/20/21 04:28 Labs: Abnormal Lab Results - Last 24 Hours (Table) 11/19/21 11/19/21 11/20/21 Range/Units 16:16 20:05 04:28 Sodium 129 L (137-145) mmol/L Chloride 94 L (98-107) mmol/L Glucose 135 H (74-99) mg/dL POC Glucose (mg/dL) 163 H 172 H (75-99) mg/dL 11/20/21 11/20/21 11/20/21 Range/Units 04:28 06:38 11:15 Sodium (137-145) mmol/L Chloride (98-107) mmol/L Glucose (74-99) mg/dL POC Glucose (mg/dL) 143 H 145 H 144 H (75-99) mg/dL Microbiology - Last 24 Hours (Table) 11/13/21 18:20 Blood Culture - Final Blood No Growth after 144 hours 11/13/21 18:03 Blood Culture - Final Blood No Growth after 144 hours Assessment and Plan (1) SIRS (systemic inflammatory response syndrome) Current Visit: No Status: Acute Code(s): R65.10 - SIRS OF NON-INFECTIOUS ORIGIN W/O ACUTE ORGAN DYSFUNCTION SNOMED Code(s): 296317226 Plan: 1patient presented to hospital with generalized weakness no energy in this patient noticed to have elevated BUN/creatinine more likely related to dehydration and possible related to ophthalmologic medication that have been started after the patient did have surgery for hemorrhagic detachment of the retina patient did not have any fever did have elevated white count however no significant respiratory symptoms to be suspicious for pneumonia did have mild urinary symptom possible component of enteric gram-negative pneumonia not entirely excluded, patient did have some congestion to the left eyeball but no surrounding redness or any purulent drainage clinic suspicious for infection to the left eye on the low side. 2 the patient urine culture has been finalized enterococcus that is sensitive to penicillin for the patient received adequate antibiotic therapy 3-patient now with diarrhea more likely antibiotic associated to discontinue amoxicillin will add Questran for symptomatic relief Time with Patient: Less than 30
[2021-11-20] MEDS: RIVAROXABAN 20 MG TAB PO SCH (21:00)
[2021-11-20] MEDS ORDERED: amLODIPine 5 MG TAB PO SCH (21:00)
[2021-11-20] MEDS: CITALOPRAM HYDROBROMIDE 20 MG TAB PO SCH (21:01)
[2021-11-20] MEDS: ATORVASTATIN 10 MG TAB PO SCH (21:01)
[2021-11-20] MEDS: NAPROXEN 250 MG TAB PO PRN (21:38)
[2021-11-20] MEDS: LATANOPROST 0.005% OPHTH DROPS 2.5 ML BTL LEFT EYE SCH (21:40)
[2021-11-20] MEDS: MELATONIN 3 MG TABLET PO PRN (21:40)
[2021-11-21] MEDS: ACETAMINOPHEN TAB 325 MG TAB PO PRN ×4 (00:19→22:28)
[2021-11-21] MEDS: LORazepam 0.5 MG TAB PO PRN ×2 (05:08→23:37)
[2021-11-21] MEDS: LEVOTHYROXINE 125 MCG TAB PO SCH (05:58)
[2021-11-21 06:56] LABS: Glucose,Whole Blood 146 mg/dL (75-99)
[2021-11-21] MEDS: ASPIRIN 81 MG PO SCH (08:17)
[2021-11-21] MEDS: atenoloL 50 MG TAB PO SCH (08:17)
[2021-11-21] MEDS: PREGABALIN 50 MG CAP PO SCH ×2 (08:17→21:28)
[2021-11-21] MEDS: OXYBUTYNIN XL 5 MG TAB.ER.24 PO SCH (08:17)
[2021-11-21] MEDS: metFORMIN 500 MG TAB PO SCH ×2 (08:17→16:53)
[2021-11-21] MEDS: INSULIN ASPART (NovoLOG) 100 UNIT/ML VIAL SQ SCH ×4 (08:17→21:20)
[2021-11-21] MEDS: cloNIDine HCL 0.1 MG TAB PO SCH ×2 (08:17→21:29)
[2021-11-21] MEDS: PSYLLIUM HUSK 100% 6 GM PACKET PO SCH (08:18)
[2021-11-21] MEDS: CHLORTHALIDONE 25 MG TAB PO SCH (08:18)
[2021-11-21] MEDS: DORZOLAMIDE-TIMOLOL 2.23%/0.68 10ML BTL LEFT EYE SCH ×2 (08:19→21:31)
[2021-11-21] MEDS: ATROPINE OPHTH SOLN 1% 5ML BTL LEFT EYE SCH ×2 (08:19→21:30)
[2021-11-21] MEDS: BRIMONIDINE TARTRATE 0.2% DROPS 5 ML BTL LEFT EYE SCH ×3 (08:21→21:30)
[2021-11-21] MEDS: prednisoLONE ACETATE 1% OPHTH DROPS 5 ML BTL LEFT EYE SCH ×4 (08:21→21:30)
[2021-11-21] MEDS: OFLOXACIN 0.3% OPHTH DROPS 5 ML BOTTLE LEFT EYE SCH ×4 (08:22→21:30)
[2021-11-21 09:35] LABS: African American GFR (CKD) 100.5 (60.0-200.0); BUN/Creat Ratio 9.33 Ratio (12.00-20.00); Blood Urea Nitrogen 5.6 mg/dL (9.0-27.0); Non-African American GFR(CKD) 86.7 (60.0-200.0); Potassium 3.4 mmol/L (3.5-5.5)
--- NOTE | 2021-11-21 09:49 | P.PN ---
Subjective This is a 81-year-old patient, follows with Dr. Napoleon Arellano. Chronic stable medical conditions include atrial fibrillation for which she is on xarelto, COPD, diabetes, GERD, hypertension, hyperlipidemia, osteoarthritis, hypothyroid, obstructive sleep apnea does not use CPAP, hiatal hernia, spinal stenosis. Last week on that is about a week ago, because of left eye pain patient had to go down to [facility] for eye surgery. As per the son at the bedside dose possibly an aneurysm the back of diet that was repaired. Is also retinal detachment with significant hemorrhage. Eyedrops were given. Patient was told that the patient will not return. Following that she did call back for a follow-up. Subsequently that she started having increasing nausea vomiting. Increasing headache. She is prescribed Diamox. Started having chills. She presented to our ER on November 11. Doxazosin patient had surgery with , occupational therapy assistant at [facility]. She does ruptured aneurysm that they attempted repair. She she was blind in his left eye prior to surgery. She also had a urine infection prior to surgery. No complete the course of antibiotic. She had a CT of the head that did not show any abnormality. Had an elevated white count. They consulted Dr. Dias and he recommended increasing the dose Diamox. Right eye pressure was 14 and left eye pressure was 55. Patient was discharged home. Subsequently the son says patient became intermittently confused. Not really eating drinking. Denied any obvious respiratory symptoms. No urinary symptoms. Tired rundown. Patient admitted with acute kidney injury. Pneumonia. Hypotension. Possible infection around the globe. Started on IV fluids. IV daptomycin IV ceftriaxone. November 14: Laying in bed. Feels slightly better. Blood pressure started to,. On IV antibiotics. Eating some. November 15: Oral intake improving. Does sit up in a chair. No fever. Discussed with Dr. Polo from ID. Stop daptomycin. We'll continue ceftriaxone for UTI/po ssible pneumonia. Seen by Dr. Bunn from ophthalmology. Continue eyedrops. November 16: Eating about 50%. No fever. Patient went into A. fib with rapid ventricular rate. Cardiology consulted. Atenolol increased. Other medications to continue. Urine culture growing Enterococcus faecalis. Antibiotic changed to IV Unasyn November 17: Remains in atrial fibrillation. Heart rate above 100. Tenormin increased to 75 mg. Decreased appetite. No fever no chills. On IV Unasyn. November 18: Atrial fibrillation rate controlled. Blood pressure on the higher side. Cardiology added amlodipine 5 mg. Patient not feeling well. Sitting up in chair. Short of breath. Received 1 dose of Lasix. Tired November 19: Atrial fibrillation -rate controlled. Blood pressure controlled. Dose of Tenormin increased. Decreased appetite. Tired November 20: Patient is sinus rhythm. It is noted that patient's morning blood pressure is high in the daytime as better controlled. I will move her Cozaar and amlodipine tonight and continue Tenormin in the morning. Patient is complaining of small BMs every time she coughs or eats. Given that she's been antibiotics rule out C. diff. Subjective: Resuming the care of the patient today 11/21/2021 This is a pleasant 81 years old female who presents with UTI and possible pneumonia that she has finished her antibiotic therapy with ID team following her closely. Currently she developed diarrhea so antibiotics were held and cholestyramine was started. She was also on lactulose which is not given and Metamucil which received 2 doses yesterday and today. Both laxatives were discontinued today. 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 While remote sensing advisor seeing the patient for her history of A. fib with RVR and currently rate controlled on clonidine and atenolol. Also she is on Xarelto 20 mg at home dose. Today patient is still complaining from pain on her left eye 6/10, with Tylenol To bring it down from 9/10. She does not feel well generally today. She is eating little about start picking up today as she states . Sodium was 129, repeat sodium is pending. Blood pressure 172/76 and clonidine was increased to twice daily today. Physical therapy recommended home health care, ordered Objective - Vital Signs Vital signs: Vital Signs Temp 98.3 F 11/21/21 08:00 Pulse 75 11/21/21 08:00 Resp 18 11/21/21 08:00 BP 172/76 11/21/21 08:00 Pulse Ox 92 L 11/21/21 08:00 Intake & Output 11/20/21 11/21/21 11/21/21 18:59 06:59 18:59 Weight 90.718 kg Other: # Voids 4 4 1 # Bowel Movements 4 3 - Exam GENERAL: The patient is alert and oriented x3, not in any acute distress. Well developed, well nourished. HEENT: Pupils are round and equally reacting to light. EOMI. No scleral icterus. No conjunctival pallor. Normocephalic, atraumatic. No pharyngeal erythema. No thyromegaly. CARDIOVASCULAR: S1 and S2 present. No murmurs, rubs, or gallops. PULMONARY: Chest is clear to auscultation, no wheezing or crackles. ABDOMEN: Soft, nontender, nondistended, normoactive bowel sounds. No palpable organomegaly. MUSCULOSKELETAL: No joint swelling or deformity. EXTREMITIES: No cyanosis, clubbing, or pedal edema. NEUROLOGICAL: Gross neurological examination did not reveal any focal deficits. SKIN: No rashes. no petechiae. - Labs CBC & Chem 7: 11/15/21 05:43 11/21/21 03:55 Labs: Abnormal Lab Results - Last 24 Hours (Table) 11/20/21 11/20/21 11/20/21 Range/Units 11:15 16:56 19:48 Sodium (135-145) mmol/L Potassium (3.5-5.5) mmol/L Chloride (96-109) mmol/L BUN (9.0-27.0) mg/dL BUN/Creatinine Ratio (12.00-20.00) Ratio POC Glucose (mg/dL) 144 H 136 H 108 H (75-99) mg/dL 11/21/21 11/21/21 Range/Units 03:55 06:54 Sodium 125 L (135-145) mmol/L Potassium 3.4 L (3.5-5.5) mmol/L Chloride 87 L (96-109) mmol/L BUN 5.6 L (9.0-27.0) mg/dL BUN/Creatinine Ratio 9.33 L (12.00-20.00) Ratio POC Glucose (mg/dL) 146 H (75-99) mg/dL Assessment and Plan Assessment: -Diarrhea, most likely secondary to laxative which are held. Continue with cholestyramine. No need to check for C. diff as stool is getting more formed. - Hyponatremia Check for urine sodium and osmolality, and serum osmolality Consult nephrology service - Acute urinary tract infection with possible pneumonia on admission, both efficiently treated with antibiotic. Continue monitoring while off antibiotics -Paroxysmal atrial fibrillation with rate controlled xarelto. Tenormin 100 mg a day. Clonidine 0.1 twice a day -Blind in the left eye, with repair of aneurysm or rupture 1 week ago This patient had surgery to the left eye for a ruptured aneurysm unsuccessfully repaired about a week ago. Discussed with ID. Local infection felt to be unlikely. Social Science Research Assistant on the case -Acute delirium from infection with episodes of confusion at home.: Improved -Acute UTI with cystitis, from Enterococcus faecalis, Adequately treated, currently patient is asymptomatic Patient finished antibiotic -COPD in a previous smoker -Diabetes mellitus type 2, on oral hypoglycemic Metformin thousand milligrams by mouth twice a day. Follow Accu-Cheks -GERD Pepcid when necessary -Hyperlipidemia Lipitor 10 mg daily at bedtime -Essential hypertension: Uncontrolled Cozaar moved to p.m. dose. Tenormin 100 mg keep in the morning. Amlodipine 5 mg moved to p.m. dose -Primary osteoarthritis multiple joints Tylenol as needed -Obstructive sleep apnea does not use CPAP -Hypothyroid Levoxyl 125 g daily -Chronic spinal stenosis -Diabetic peripheral neuropathy Lyrica 50 mg twice a day -Acute kidney injury possibly ATN and prerenal. From decreased oral intake and sepsis: Better IV fluids.-Discontinue -Hyponatremia, hypovolemic from patient and vomiting and unable to eat: Improving -Hypokalemia: Replace Replace GI prophylaxis: Pepcid DVT prophylaxis: Xarelto
[2021-11-21] MEDS: CHOLESTYRAMINE (WITH SUGAR) 4 GM PACKET PO SCH ×2 (10:22→17:20)
--- NOTE | 2021-11-21 10:45 | P.PN ---
Subjective This is a pleasant 81-year-old female patient who follows with Dr. Das in the office. Has a history of diabetes mellitus, hypertension, hyperlipidemia and paroxysmal atrial fibrillation (on Xarelto). 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 Presented to the emergency department here due to complaints of generalized weakness that's been going on for a couple days. She's had vision loss in her left eye. There is question of infection. Chest x-ray showed possible pneumonia. We were asked to see the patient in consultation for atrial fibrillation with rapid ventricular response. Echocardiogram revealed an EF of 5055%, moderate mitral regurgitation, mild tricuspid regurgitation, mild pulmonary hypertension 11/21/2021 Patient seen and examined at bedside. She is alert and oriented x 3. Left eye pain present. No chest pain or shortness of breath. Her BP has improved, but continues to be elevated. Antihypertensives have been adjusted. Clonidine has been added yesterday. Amlodipine was added this admission and moved to nightly on 11/20. Atenolol was increased to 100mg daily on 11/19, Her home HCTZ was discontinued and she is on chlorathalidone 25mg daily. Telemetry reviewed, she appears to be in sinus mechanism HR 60s-70s, no further episodes of NSVT She is currently maintained on amlodipine 5 mg daily, aspirin 81 mg daily, atenolol 100 mg daily, Chlorothalidone 25mg daily, losartan 100 mg daily, Xarelto 20 mg nightly, clonidine 0.1mg daily PHYSICAL EXAMINATION: This is a 81-year-old female in no apparent distress at the time of my examination. HEENT: Head is atraumatic, normocephalic. Mucous membranes of the mouth are moist. Neck is supple. There is no elevated jugular venous pressure. CHEST EXAMINATION: Clear to auscultation bilaterally. No wheezes rales or rhonchi. Respirations even and nonlabored. HEART EXAMINATION: Heart Regular rate and rhythm, positive S1 and S2. No S3. No S4. Systolic ejection murmur at apex. EXTREMITIES: 2+ peripheral pulses with no evidence of peripheral edema and no calf tenderness noted. ASSESSMENT: Paroxysmal atrial fibrillation with rapid ventricular response, likely exacerbated by underlying infection. 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 Further recommendations based on clinical course SIGNAL TOWER OPERATOR note has been reviewed, I agree with a documented findings and plan of care. Patient was seen and examined. Objective - Vital Signs Vital signs: Vital Signs Temp 98.3 F 11/21/21 08:00 Pulse 75 11/21/21 08:00 Resp 18 11/21/21 08:00 BP 172/76 11/21/21 08:00 Pulse Ox 92 L 11/21/21 08:00 Intake & Output 11/20/21 11/21/21 11/21/21 18:59 06:59 18:59 Weight 90.718 kg Other: # Voids 4 4 1 # Bowel Movements 4 3 - Labs CBC & Chem 7: 11/15/21 05:43 11/21/21 03:55 Labs: Abnormal Lab Results - Last 24 Hours (Table) 11/20/21 11/20/21 11/20/21 Range/Units 11:15 16:56 19:48 Sodium (135-145) mmol/L Potassium (3.5-5.5) mmol/L Chloride (96-109) mmol/L BUN (9.0-27.0) mg/dL BUN/Creatinine Ratio (12.00-20.00) Ratio POC Glucose (mg/dL) 144 H 136 H 108 H (75-99) mg/dL 11/21/21 11/21/21 Range/Units 03:55 06:54 Sodium 125 L (135-145) mmol/L Potassium 3.4 L (3.5-5.5) mmol/L Chloride 87 L (96-109) mmol/L BUN 5.6 L (9.0-27.0) mg/dL BUN/Creatinine Ratio 9.33 L (12.00-20.00) Ratio POC Glucose (mg/dL) 146 H (75-99) mg/dL
[2021-11-21 10:49] LABS: HGB 11.9 gm/dL (11.4-16.0); MCH 30.5 pg (25.0-35.0); MCV 89.5 fL (80.0-100.0); Mean Platelet Volume 12.4; Platelet Count 196 k/uL (150-450); RDW 14.5 % (11.5-15.5); WBC 13.5 k/uL (3.8-10.6)
--- NOTE | 2021-11-21 11:29 | P.NPCON ---
History of Present Illness - Reason for Consult hyponatremia - History of Present Illness Patient is a 81-year-old female with past medical history of chronic A. fib, COPD, type 2 diabetes, hypertension, hyperlipidemia. Patient is admitted to the hospital with complaints of nausea and vomiting as well as headache Patient has had issues with her eyesight. She has had an aneurysm with retinal detachment and significant bleeding and has been closely followed by ophthalmology. Patient is maintained on Diamox. Patient states that she has not been eating or drinking much. No diarrhea noted. Next Sodium was 127 on initial admission. Patient received IV fluids initially. Sodium improved to 135 and then it appears that patient was diuresed after that. Sodium has been progressively decreasing over the last 3 days and it is down to 125 today. Blood pressure is not low in fact it is on the high side No vomiting currently Maintained on chlorthalidone. Chest x-ray on 11/18 showed mild pulmonary vascular congestion. Patient denies any significant shortness of breath. She is not maintained on any oxygen. 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 spider bite) Past Surgical History: Appendectomy, Bladder Surgery, Cholecystectomy, Heart Catheterization, Hysterectomy Additional Past Surgical History / Comment(s): Bladder suspension, EPIDURAL INJECTION/BACK, COLONOSCOPY, catarats, 11/07/21 emergency eye surgery on left eye Past Anesthesia/Blood Transfusion Reactions: Previous Problems w/ Anesthesia, Motion Sickness Additional Past Anesthesia/Blood Transfusion Reaction / Comment(s): HARD TIME WAKING UP AFTER Anesthesia. Past Psychological History: Anxiety, Depression Additional Psychological History / Comment(s): patient lives at home, states son lives in house with her Smoking Status: Former smoker Past Alcohol Use History: None Reported Additional Past Alcohol Use History / Comment(s): Pt started smoking in 1958 and quit in 1987. SMOKED 3-4 PPD.,She quit drinking in 1986. Past Drug Use History: None Reported - Past Family History Father Family Medical History: Cancer Additional Family Medical History / Comment(s): HEART PROBLEMS Mother Family Medical History: Renal Disease Medications and Allergies Home Medications Medication Instructions Recorded Confirmed Type Nitroglycerin Sl Tabs [Nitrostat] 0.4 mg SUBLINGUAL Q5M PRN #25 tab 11/30/14 11/13/21 Rx ALPRAZolam [Xanax] 0.25 mg PO DAILY PRN 04/26/15 11/13/21 History Atorvastatin [Lipitor] 10 mg PO HS 04/26/15 11/13/21 History Citalopram Hydrobromide 40 mg PO HS 04/26/15 11/13/21 History [Citalopram HBr] Irbesartan/Hydrochlorothiazide 1 tab PO DAILY 04/26/15 11/13/21 History [Irbesartan-Hctz 300-12.5 mg Tb] Levothyroxine Sodium [Levoxyl] 125 mcg PO DAILY 04/26/15 11/13/21 History metFORMIN HCL [Glucophage] 500 mg PO BID-W/MEALS 04/26/15 11/13/21 History Rivaroxaban [Xarelto] 20 mg PO HS 11/08/16 11/13/21 History Pregabalin [Lyrica] 100 mg PO BID 12/20/16 11/13/21 History atenoloL [Tenormin] 50 mg PO HS 04/20/19 11/13/21 History Ondansetron Odt [Zofran Odt] 4 mg PO Q8HR PRN #20 tab 11/11/21 11/13/21 Rx Acetaminophen Tab [Tylenol Tab] 500 mg PO Q6HR PRN 11/13/21 11/13/21 History Aspirin EC [Ecotrin Low Dose] 81 mg PO DAILY 11/13/21 11/13/21 History Atropine Ophth Soln 1% 5Ml [Isopto 1 drop LEFT EYE BID@0830,2200 11/13/21 11/13/21 History Atropine 1% 5Ml] Brimonidine Tartrate [Alphagan P 1 drops LEFT EYE TID@0830,1530,2200 11/13/21 11/13/21 History 0.2% Ophth Soln] Dorzolamide/Timolol/Pf 1 drop LEFT EYE BID@0830,2200 11/13/21 11/13/21 History [Dorzolamide 2%-Timolol 0.5%] Latanoprost/Pf [Latanoprost 0.005% 1 drop LEFT EYE HS@2200 11/13/21 11/13/21 History Eye Drop] Ofloxacin 0.3% Ophth Soln [Ocuflox 1 drops LEFT EYE 11/13/21 11/13/21 History Ophth Soln] QID@0830,1330,18,22 Oxybutynin Xl [Ditropan XL] 5 mg PO DAILY 11/13/21 11/13/21 History Prednisolone Acetate/Pf 1 drop LEFT EYE QID@0830,1330,18,22 11/13/21 11/13/21 History [Prednisolone Acet 1% Eye Drop] Allergies Allergy/AdvReac Type Severity Reaction Status Date / Time codeine Allergy Severe Anaphylaxis Verified 11/13/21 17:36 adhesive tape Allergy Rash/Hives Verified 11/13/21 17:36 Latex, Natural Rubber Allergy Rash/Hives Verified 11/13/21 17:36 Physical Exam Vitals: Vital Signs Temp Pulse Resp BP Pulse Ox 11/21/21 08:00 98.3 F 75 18 172/76 92 L 11/21/21 01:57 98.4 F 75 16 156/74 92 L 11/20/21 20:40 71 17 11/20/21 20:00 98.3 F 68 16 185/91 96 11/20/21 14:00 98.4 F 69 18 171/82 91 L Intake and Output 11/20/21 11/21/21 11/21/21 22:59 06:59 14:59 Other: # Voids 4 4 1 # Bowel Movements 4 3 Patient is awake, comfortable, not in any acute distress. She is sleepy but arousable. Examination of the heart S1 and S2 Exertion lungs bilateral breath sounds are heard no crackles or wheezing is heard Abdomen is soft obese nontender Exertion lower extremity shows no evidence of edema YARN INSPECTOR exam grossly intact Results - Lab Results Most recent lab results Calcium 9.0 mg/dL (8.7-10.3) 11/21/21 03:55 Magnesium 2.0 mg/dL (1.6-2.3) 11/13/21 16:28 11/21/21 03:55 11/21/21 03:55 Assessment and Plan Assessment: 1. Hyponatremia, possibly hypovolemic. I will DC chlorthalidone. Urine sodium and urine osmolality has been ordered. Maintain off of IV fluids for now and consider sodium chloride challenge based on the urine studies. 2. A. fib with RVR initially currently with controlled ventricular response 3. UTI with urine culture growing Enterococcus faecalis, status post antibiotics 4. Aneurysm left eye with rupture and hemorrhage with loss of vision. Plan: Check urine osmolality, urine sodium DC chlorthalidone Normal saline challenge based on the urine studies. Repeat sodium this evening Encourage increased oral intake particularly protein
[2021-11-21 11:32] LABS: Glucose,Whole Blood 121 mg/dL (75-99)
[2021-11-21] MEDS ORDERED: POTASSIUM CHLORIDE ER 20 MEQ TAB.ER PO STA (14:05)
[2021-11-21] MEDS ORDERED: amLODIPine 5 MG TAB PO STA (16:25)
[2021-11-21 16:40] LABS: Glucose,Whole Blood 135 mg/dL (75-99)
[2021-11-21] MEDS: NAPROXEN 250 MG TAB PO PRN (16:54)
[2021-11-21] MEDS: hydrALAZINE HCL 25 MG TAB PO SCH ×2 (18:27→22:28)
[2021-11-21] MEDS ORDERED: hydrALAZINE HCL 25 MG TAB PO PRN (18:36)
[2021-11-21 20:19] LABS: Glucose,Whole Blood 99 mg/dL (75-99)
[2021-11-21] MEDS ORDERED: amLODIPine 5 MG TAB PO SCH (21:00)
[2021-11-21] MEDS ORDERED: FAMOTIDINE 20 MG/2 ML VIAL IV SCH (21:00)
[2021-11-21] MEDS: CITALOPRAM HYDROBROMIDE 20 MG TAB PO SCH (21:28)
[2021-11-21] MEDS: ATORVASTATIN 10 MG TAB PO SCH (21:28)
[2021-11-21] MEDS: MELATONIN 3 MG TABLET PO PRN (21:29)
[2021-11-21] MEDS: FAMOTIDINE 20 MG TAB PO SCH (21:29)
[2021-11-21] MEDS: LOSARTAN 50 MG TAB PO SCH (21:29)
[2021-11-21] MEDS: LATANOPROST 0.005% OPHTH DROPS 2.5 ML BTL LEFT EYE SCH (21:30)
--- NOTE | 2021-11-21 21:31 | P.PN ---
Subjective Progress Note Date: 11/21/21 Principal diagnosis: Urinary tract infection Patient is 81-year-old female with multiple comorbidities and recent surgery for hemorrhagic retinal detachment resulting hospital with weakness and worsening left eye vision lost, patient did have an elevated white count pos itivity and concern for dehydration as well as UTI. On today's evaluation that is 11/21/2021, the patient continues to be afebrile, patient is breathing comfortably on room air, patient diarrhea has improved and denies any abdominal pain and no urinary symptoms Objective - Vital Signs Vital signs: Vital Signs Temp 98.3 F 11/21/21 08:00 Pulse 75 11/21/21 08:00 Resp 18 11/21/21 08:00 BP 172/76 11/21/21 08:00 Pulse Ox 92 L 11/21/21 08:00 Intake & Output 11/20/21 11/21/21 11/21/21 18:59 06:59 18:59 Weight 90.718 kg Other: # Voids 4 4 1 # Bowel Movements 4 3 - Exam GENERAL DESCRIPTION: An elderly female lying in bed in no distress RESPIRATORY SYSTEM: Unlabored breathing , decreased breath sounds at bases HEART: S1 S2 regular rate and rhythm , ABDOMEN: Soft , no tenderness EXTREMITIES: No edema feet - Labs CBC & Chem 7: 11/21/21 03:55 11/21/21 16:55 Labs: Abnormal Lab Results - Last 24 Hours (Table) 11/20/21 11/20/21 11/21/21 Range/Units 16:56 19:48 03:55 WBC (3.8-10.6) k/uL Sodium 125 L (135-145) mmol/L Potassium 3.4 L (3.5-5.5) mmol/L Chloride 87 L (96-109) mmol/L BUN 5.6 L (9.0-27.0) mg/dL BUN/Creatinine Ratio 9.33 L (12.00-20.00) Ratio POC Glucose (mg/dL) 136 H 108 H (75-99) mg/dL 11/21/21 11/21/21 11/21/21 Range/Units 03:55 06:54 11:30 WBC 13.5 H (3.8-10.6) k/uL Sodium (135-145) mmol/L Potassium (3.5-5.5) mmol/L Chloride (96-109) mmol/L BUN (9.0-27.0) mg/dL BUN/Creatinine Ratio (12.00-20.00) Ratio POC Glucose (mg/dL) 146 H 121 H (75-99) mg/dL Assessment and Plan (1) SIRS (systemic inflammatory response syndrome) Current Visit: No Status: Acute Code(s): R65.10 - SIRS OF NON-INFECTIOUS ORIGIN W/O ACUTE ORGAN DYSFUNCTION SNOMED Code(s): 588233100 Plan: 1patient presented to hospital with generalized weakness no energy in this patient noticed to have elevated BUN/creatinine more likely related to dehydration and possible related to ophthalmologic medication that have been started after the patient did have surgery for hemorrhagic detachment of the retina patient did not have any fever did have elevated white count however no significant respiratory symptoms to be suspicious for pneumonia did have mild urinary symptom possible component of enteric gram-negative pneumonia not entirely excluded, patient did have some congestion to the left eyeball but no surrounding redness or any purulent drainage clinic suspicious for infection to the left eye on the low side. 2 the patient urine culture has been finalized enterococcus that is sensitive to penicillin for the patient received adequate antibiotic therapy for underlying UTI 3-patient diarrhea more likely antibiotic associated symptoms have improved with discontinuation of amoxicillin and continue with Questran as needed for symptomatic relief Time with Patient: Less than 30
[2021-11-21] MEDS: PROCHLORPERAZINE 5 MG TAB PO PRN (22:21)
[2021-11-21] MEDS: RIVAROXABAN 20 MG TAB PO SCH (22:27)
[2021-11-22] MEDS: NAPROXEN 250 MG TAB PO PRN ×3 (02:32→20:55)
[2021-11-22] MEDS: LEVOTHYROXINE 125 MCG TAB PO SCH (06:08)
[2021-11-22] MEDS: LORazepam 0.5 MG TAB PO PRN (06:26)
[2021-11-22] MEDS: DILTIAZEM ORAL 60 MG TAB PO SCH ×3 (06:26→20:16)
[2021-11-22 06:39] LABS: Glucose,Whole Blood 136 mg/dL (75-99)
[2021-11-22] MEDS: ACETAMINOPHEN TAB 325 MG TAB PO PRN ×2 (07:14→20:36)
[2021-11-22] MEDS: INSULIN ASPART (NovoLOG) 100 UNIT/ML VIAL SQ SCH ×4 (07:14→20:42)
[2021-11-22] MEDS: ASPIRIN 81 MG PO SCH (07:15)
[2021-11-22] MEDS: metFORMIN 500 MG TAB PO SCH ×2 (07:15→17:39)
[2021-11-22] MEDS: FAMOTIDINE 20 MG TAB PO SCH ×2 (07:15→20:12)
[2021-11-22] MEDS: PREGABALIN 50 MG CAP PO SCH ×2 (07:15→20:12)
[2021-11-22] MEDS: BRIMONIDINE TARTRATE 0.2% DROPS 5 ML BTL LEFT EYE SCH ×3 (07:18→20:16)
[2021-11-22] MEDS: prednisoLONE ACETATE 1% OPHTH DROPS 5 ML BTL LEFT EYE SCH ×4 (07:18→20:17)
[2021-11-22] MEDS: OFLOXACIN 0.3% OPHTH DROPS 5 ML BOTTLE LEFT EYE SCH ×4 (07:18→20:16)
[2021-11-22] MEDS: DORZOLAMIDE-TIMOLOL 2.23%/0.68 10ML BTL LEFT EYE SCH ×2 (07:18→20:15)
[2021-11-22] MEDS: ATROPINE OPHTH SOLN 1% 5ML BTL LEFT EYE SCH ×2 (07:18→20:13)
[2021-11-22] MEDS: cloNIDine HCL 0.1 MG TAB PO SCH ×2 (07:56→20:12)
[2021-11-22] MEDS: hydrALAZINE HCL 25 MG TAB PO SCH ×2 (07:56→20:12)
[2021-11-22] MEDS: atenoloL 50 MG TAB PO SCH (07:56)
[2021-11-22] MEDS: OXYBUTYNIN XL 5 MG TAB.ER.24 PO SCH (07:56)
[2021-11-22] MEDS ORDERED: amLODIPine 10 MG TAB PO SCH (09:00)
[2021-11-22 09:51] LABS: African American GFR (CKD) 100.5 (60.0-200.0); Anion Gap 12.3 mmol/L (10.00-18.00); BUN/Creat Ratio 12.67 Ratio (12.00-20.00); Blood Urea Nitrogen 7.6 mg/dL (9.0-27.0); Calcium 8.8 mg/dL (8.7-10.3); Carbon Dioxide 24.7 mmol/L (20.0-27.5); Magnesium 1.3 mg/dL (1.5-2.4); Non-African American GFR(CKD) 86.7 (60.0-200.0); Potassium 3.5 mmol/L (3.5-5.5)
[2021-11-22] MEDS ORDERED: SODIUM CHLORIDE TAB 1 GM TAB PO STA (10:41)
[2021-11-22] MEDS: CHOLESTYRAMINE (WITH SUGAR) 4 GM PACKET PO SCH ×2 (10:52→17:40)
[2021-11-22] MEDS ORDERED: Magnesium Replacement Protocol 1 EACH MISC MISCELLANE PRN ×2 (10:57→11:21)
[2021-11-22] MEDS: MAGNESIUM SULFATE-D5W PMX 1 GM in DEXTROSE/WATER 1 100ML.BAG IVPB SCH ×3 (11:05→13:38)
[2021-11-22 11:20] LABS: Glucose,Whole Blood 153 mg/dL (75-99)
[2021-11-22] MEDS ORDERED: PROMETHAZINE 25 MG TAB PO PRN (11:31)
--- NOTE | 2021-11-22 11:34 | P.PN ---
Subjective This is a 81-year-old patient, follows with Dr. Napoleon Arellano. Chronic stable medical conditions include atrial fibrillation for which she is on xarelto, COPD, diabetes, GERD, hypertension, hyperlipidemia, osteoarthritis, hypothyroid, obstructive sleep apnea does not use CPAP, hiatal hernia, spinal stenosis. Last week on that is about a week ago, because of left eye pain patient had to go down to [facility] for eye surgery. As per the son at the bedside dose possibly an aneurysm the back of diet that was repaired. Is also retinal detachment with significant hemorrhage. Eyedrops were given. Patient was told that the patient will not return. Following that she did call back for a follow-up. Subsequently that she started having increasing nausea vomiting. Increasing headache. She is prescribed Diamox. Started having chills. She presented to our ER on November 11. Doxazosin patient had surgery with , mechanical planner at [facility]. She does ruptured aneurysm that they attempted repair. She she was blind in his left eye prior to surgery. She also had a urine infection prior to surgery. No complete the course of antibiotic. She had a CT of the head that did not show any abnormality. Had an elevated white count. They consulted Dr. Dias and he recommended increasing the dose Diamox. Right eye pressure was 14 and left eye pressure was 55. Patient was discharged home. Subsequently the son says patient became intermittently confused. Not really eating drinking. Denied any obvious respiratory symptoms. No urinary symptoms. Tired rundown. Patient admitted with acute kidney injury. Pneumonia. Hypotension. Possible infection around the globe. Started on IV fluids. IV daptomycin IV ceftriaxone. November 14: Laying in bed. Feels slightly better. Blood pressure started to,. On IV antibiotics. Eating some. November 15: Oral intake improving. Does sit up in a chair. No fever. Discussed with Dr. Polo from ID. Stop daptomycin. We'll continue ceftriaxone for UTI/po ssible pneumonia. Seen by Dr. Bunn from ophthalmology. Continue eyedrops. November 16: Eating about 50%. No fever. Patient went into A. fib with rapid ventricular rate. Cardiology consulted. Atenolol increased. Other medications to continue. Urine culture growing Enterococcus faecalis. Antibiotic changed to IV Unasyn November 17: Remains in atrial fibrillation. Heart rate above 100. Tenormin increased to 75 mg. Decreased appetite. No fever no chills. On IV Unasyn. November 18: Atrial fibrillation rate controlled. Blood pressure on the higher side. Cardiology added amlodipine 5 mg. Patient not feeling well. Sitting up in chair. Short of breath. Received 1 dose of Lasix. Tired November 19: Atrial fibrillation -rate controlled. Blood pressure controlled. Dose of Tenormin increased. Decreased appetite. Tired November 20: Patient is sinus rhythm. It is noted that patient's morning blood pressure is high in the daytime as better controlled. I will move her Cozaar and amlodipine tonight and continue Tenormin in the morning. Patient is complaining of small BMs every time she coughs or eats. Given that she's been antibiotics rule out C. diff. Subjective: Resuming the care of the patient today 11/21/2021 This is a pleasant 81 years old female who presents with UTI and possible pneumonia that she has finished her antibiotic therapy with ID team following her closely. Currently she developed diarrhea so antibiotics were held and cholestyramine was started. She was also on lactulose which is not given and Metamucil which received 2 doses yesterday and today. Both laxatives were discontinued today. 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 While chairperson anesthesiology seeing the patient for her history of A. fib with RVR and currently rate controlled on clonidine and atenolol. Also she is on Xarelto 20 mg at home dose. Today patient is still complaining from pain on her left eye 6/10, with Tylenol To bring it down from 9/10. She does not feel well generally today. She is eating little about start picking up today as she states . Sodium was 129, repeat sodium is pending. Blood pressure 172/76 and clonidine was increased to twice daily today. Physical therapy recommended home health care, ordered 11/23/2011 Patient awake and alert with no dizziness but she is feeling some headache which she thinks is related to her left eye pain. Hemodynamically she does not feel well this morning starts her headache she is complaining of some exertional dyspnea and she still have diarrhea about 7 times yesterday, she had 1 loose bowel movement since morning today. Yesterday she was hypertensive and Norvasc was added as well as her usual blood pressure medication of clonidine, losartan and atenolol. This morning Norvasc was discontinued and started on Cardizem 60 mg 3 times a day. Blood pressure is better controlled. Sodium is still low at 121 and 120. Most likely secondary to chlorthalidone which was stopped yesterday. Nephrology team on the case and patient status [facility] . We'll keep monitoring sodium closely. Lactulose and Metamucil were discontinued. Patient on Metamucil when necessary. All antibiotics were stopped bright femoral keep monitoring and patient is been afebrile. Patient also has been complaining of from nausea and controlled with Compazine. We are going to change it to Phenergan and Zofran x 1 which might help her with diarrhea Objective - Vital Signs Vital signs: Vital Signs Temp 98.3 F 11/22/21 08:00 Pulse 117 H 11/22/21 08:00 Resp 16 11/22/21 02:00 BP 139/87 11/22/21 08:00 Pulse Ox 96 11/22/21 08:00 Intake & Output 11/21/21 11/22/21 11/22/21 18:59 06:59 18:59 Intake Total 1080 Balance 1080 Intake: Oral 1080 Other: Voiding Method Bedside Commode # Voids 3 3 1 # Bowel Movements 1 - Exam GENERAL: The patient is alert and oriented x3, not in any acute distress. Well developed, well nourished. HEENT: Pupils are round and equally reacting to light. EOMI. No scleral icterus. No conjunctival pallor. Normocephalic, atraumatic. No pharyngeal erythema. No thyromegaly. CARDIOVASCULAR: S1 and S2 present. No murmurs, rubs, or gallops. PULMONARY: Chest is clear to auscultation, no wheezing or crackles. ABDOMEN: Soft, nontender, nondistended, normoactive bowel sounds. No palpable organomegaly. MUSCULOSKELETAL: No joint swelling or deformity. EXTREMITIES: No cyanosis, clubbing, or pedal edema. NEUROLOGICAL: Gross neurological examination did not reveal any focal deficits. SKIN: No rashes. no petechiae. - Labs CBC & Chem 7: 11/21/21 03:55 11/22/21 05:54 Labs: Abnormal Lab Results - Last 24 Hours (Table) 11/21/21 11/21/21 11/21/21 Range/Units 03:55 11:30 11:41 WBC 13.5 H (3.8-10.6) k/uL Sodium (137-145) mmol/L POC Glucose (mg/dL) 121 H (75-99) mg/dL Osmolality 256 L (280-301) mosm/kg 11/21/21 11/21/21 11/22/21 Range/Units 16:39 16:55 06:38 WBC (3.8-10.6) k/uL Sodium 121 L (137-145) mmol/L POC Glucose (mg/dL) 135 H 136 H (75-99) mg/dL Osmolality (280-301) mosm/kg Assessment and Plan Assessment: -Diarrhea, most likely secondary to laxative which are held. Continue with cholestyramine. Also gastroenteritis is a possibility No need to check for C. diff as stool is getting more formed. - Hyponatremia Keep on current sodium closely Consult nephrology service Patient status post samnja - Acute urinary tract infection with possible pneumonia on admission, both efficiently treated with antibiotic. Continue monitoring while off antibiotics -Paroxysmal atrial fibrillation with rate controlled xarelto. Tenormin 100 mg a day. Clonidine 0.1 twice a day -Blind in the left eye, with repair of aneurysm or rupture 1 week ago This patient had surgery to the left eye for a ruptured aneurysm unsuccessfully repaired about a week ago. Discussed with ID. Local infection felt to be unlikely. Material Handling Equipment Stevedore on the case -Acute delirium from infection with episodes of confusion at home.: Improved -Acute UTI with cystitis, from Enterococcus faecalis, Adequately treated, currently patient is asymptomatic Patient finished antibiotic -COPD in a previous smoker. No acute exacerbation -Diabetes mellitus type 2, on oral hypoglycemic Metformin thousand milligrams by mouth twice a day. Follow Accu-Cheks -GERD Pepcid when necessary -Hyperlipidemia Lipitor 10 mg daily at bedtime -Essential hypertension: Uncontrolled Cozaar moved to p.m. dose. Tenormin 100 mg keep in the morning. Amlodipine 5 mg moved to p.m. dose -Primary osteoarthritis multiple joints Tylenol as needed -Obstructive sleep apnea does not use CPAP -Hypothyroid Levoxyl 125 g daily -Chronic spinal stenosis -Diabetic peripheral neuropathy Lyrica 50 mg twice a day -Acute kidney injury possibly ATN and prerenal. From decreased oral intake and sepsis: Better IV fluids.-Discontinue -Hyponatremia, hypovolemic from patient and vomiting and unable to eat: Improving -Hypokalemia: Replace Replace GI prophylaxis: Pepcid DVT prophylaxis: Xarelto
[2021-11-22] MEDS ORDERED: TOLVAPTAN 15 MG 1/2 TABLET PO ONE (12:00)
--- NOTE | 2021-11-22 12:53 | P.PN ---
Subjective This is a pleasant 81-year-old female patient who follows with Dr. Das in the office. Has a history of diabetes mellitus, hypertension, hyperlipidemia and paroxysmal atrial fibrillation (on Xarelto). 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 Presented to the emergency department here due to complaints of generalized weakness that's been going on for a couple days. She's had vision loss in her left eye. There is question of infection. Chest x-ray showed possible pneumonia. We were asked to see the patient in consultation for atrial fibrillation with rapid ventricular response. Echocardiogram revealed an EF of 5055%, moderate mitral regurgitation, mild tricuspid regurgitation, mild pulmonary hypertension 11/21/2021 Patient seen and examined at bedside. She is alert and oriented x 3. Left eye pain present. No chest pain or shortness of breath. Her BP has improved, but continues to be elevated. Antihypertensives have been adjusted. Clonidine has been added 11/20. Amlodipine was added this admission and moved to nightly on 11/20. Atenolol was increased to 100mg daily on 11/19, Her home HCTZ was discontinued and she is on chlorathalidone 25mg daily started 11/20. 11/22/2021 Overnight patient went into atrial fibrillation with RVR HR 100-120. She was stared on Cardizem 60mg TID. She was hypertensive as well over night with SBP 190s. Her amlodipine was increased to 10mg BID per primary (held due to start of cardizem). Her sodium was low, Nephrology consulted. Recommended discontinue Chlorathalidone. Hydralazine 25mg BID was also added per primary. Clonidine was increased to 0.1mg BID on 11/21/21. Patient seen and examined at bedside, she continues to have nausea and a headache. Her heart rates have improved to 58-60s. BP 139/87. Telemetry reviewed, patient in atrial fibrillation with HR this morning in [id number], currently HR decreased to 58-60s. She is currently has ordered amlodipine 10mg BID, Cardizem 60mg TID, aspirin 81 mg daily, atenolol 100 mg daily, hydralazine 25mg BID, losartan 100 mg daily, Xarelto 20 mg nightly, clonidine 0.1mg BID PHYSICAL EXAMINATION: This is a 81-year-old female in no apparent distress at the time of my examination. HEENT: Neck is supple. There is no JVD CHEST EXAMINATION: Clear to auscultation bilaterally. No wheezes rales or rhonchi. Respirations even and nonlabored. HEART EXAMINATION: Heart Regular rate and rhythm, positive S1 and S2. No S3. No S4. Systolic ejection murmur at apex. EXTREMITIES: 2+ peripheral pulses with no evidence of peripheral edema and no calf tenderness noted. ASSESSMENT: Paroxysmal atrial fibrillation with rapid ventricular response, likely exacerbated by underlying infection. 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 Further recommendations based on clinical course DOT COMPLIANCE COORDINATOR note has been reviewed, I agree with a documented findings and plan of care. Patient was seen and examined. Objective - Vital Signs Vital signs: Vital Signs Temp 98.3 F 11/22/21 08:00 Pulse 117 H 11/22/21 08:00 Resp 16 11/22/21 02:00 BP 139/87 11/22/21 08:00 Pulse Ox 96 11/22/21 08:00 Intake & Output 11/21/21 11/22/21 11/22/21 18:59 06:59 18:59 Intake Total 1080 Balance 1080 Intake: Oral 1080 Other: Voiding Method Bedside Commode # Voids 3 3 1 # Bowel Movements 1 - Labs CBC & Chem 7: 11/21/21 03:55 11/22/21 05:54 Labs: Abnormal Lab Results - Last 24 Hours (Table) 11/21/21 11/21/21 11/21/21 Range/Units 03:55 11:30 11:41 WBC 13.5 H (3.8-10.6) k/uL Sodium (137-145) mmol/L Chloride (96-109) mmol/L BUN (9.0-27.0) mg/dL Glucose (70-110) mg/dL POC Glucose (mg/dL) 121 H (75-99) mg/dL Osmolality 256 L (280-301) mosm/kg Magnesium (1.5-2.4) mg/dL 11/21/21 11/21/21 11/22/21 Range/Units 16:39 16:55 05:54 WBC (3.8-10.6) k/uL Sodium 121 L 120 L (137-145) mmol/L Chloride 83 L (96-109) mmol/L BUN 7.6 L (9.0-27.0) mg/dL Glucose 126 H (70-110) mg/dL POC Glucose (mg/dL) 135 H (75-99) mg/dL Osmolality (280-301) mosm/kg Magnesium 1.3 L (1.5-2.4) mg/dL 11/22/21 Range/Units 06:38 WBC (3.8-10.6) k/uL Sodium (137-145) mmol/L Chloride (96-109) mmol/L BUN (9.0-27.0) mg/dL Glucose (70-110) mg/dL POC Glucose (mg/dL) 136 H (75-99) mg/dL Osmolality (280-301) mosm/kg Magnesium (1.5-2.4) mg/dL
--- NOTE | 2021-11-22 13:26 | P.PN ---
Subjective Patient is seen for follow-up for hyponatremia. This morning patient is sitting on a bedside chair. She is quite weak and lethargic today. No symptoms of numbness tingling nausea or vomiting. Sodium was 120 today. Blood pressure is not low. No complaints of shortness of breath. Patient has not been eating much Objective - Vital Signs Vital signs: Vital Signs Temp 98.3 F 11/22/21 08:00 Pulse 117 H 11/22/21 08:00 Resp 16 11/22/21 02:00 BP 139/87 11/22/21 08:00 Pulse Ox 96 11/22/21 08:00 Intake & Output 11/21/21 11/22/21 11/22/21 18:59 06:59 18:59 Intake Total 1080 Balance 1080 Weight 90.718 kg Intake: Oral 1080 Other: Voiding Method Bedside Commode # Voids 3 3 1 # Bowel Movements 1 - Exam Awake, comfortable, not in any acute distress Examination of the heart S1 and S2 Examination of the lungs bilateral breath sounds are heard. 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 Patient is lethargic - Labs CBC & Chem 7: 11/21/21 03:55 11/22/21 05:54 Labs: Abnormal Lab Results - Last 24 Hours (Table) 11/21/21 11/21/21 11/22/21 Range/Units 16:39 16:55 05:54 Sodium 121 L 120 L (137-145) mmol/L Chloride 83 L (96-109) mmol/L BUN 7.6 L (9.0-27.0) mg/dL Glucose 126 H (70-110) mg/dL POC Glucose (mg/dL) 135 H (75-99) mg/dL Magnesium 1.3 L (1.5-2.4) mg/dL 11/22/21 11/22/21 Range/Units 06:38 11:19 Sodium (137-145) mmol/L Chloride (96-109) mmol/L BUN (9.0-27.0) mg/dL Glucose (70-110) mg/dL POC Glucose (mg/dL) 136 H 153 H (75-99) mg/dL Magnesium (1.5-2.4) mg/dL Assessment and Plan Assessment: 1. Hyponatremia, euvolemic. I will DC chlorthalidone. Urine sodium of 91 and urine osmolality 271. Sodium chloride tab given today I will also give a dose of Samsca as urine osmolality is not low. 2. A. fib with RVR initially currently with controlled ventricular response 3. UTI with urine culture growing Enterococcus faecalis, status post antibiotics 4. Aneurysm left eye with rupture and hemorrhage with loss of vision. Plan: Sodium chloride tabs by mouth 1 Samsca 15 mg by mouth 1 Repeat sodium at 2 PM. Encourage increased oral intake particularly protein
[2021-11-22 16:05] LABS: Magnesium 2.3 mg/dL (1.6-2.3); Potassium 3.4 mmol/L (3.5-5.1)
[2021-11-22] MEDS ORDERED: POTASSIUM CHLORIDE ER 20 MEQ TAB.ER PO STA (16:19)
[2021-11-22] MEDS: SODIUM CHLORIDE 0.9% 1,000 ML IV SCH (16:33)
[2021-11-22 17:12] LABS: Glucose,Whole Blood 149 mg/dL (75-99)
[2021-11-22] MEDS: LOSARTAN 50 MG TAB PO SCH (20:12)
[2021-11-22] MEDS: ATORVASTATIN 10 MG TAB PO SCH (20:12)
[2021-11-22] MEDS: CITALOPRAM HYDROBROMIDE 20 MG TAB PO SCH (20:12)
[2021-11-22] MEDS: RIVAROXABAN 20 MG TAB PO SCH (20:13)
[2021-11-22] MEDS: LATANOPROST 0.005% OPHTH DROPS 2.5 ML BTL LEFT EYE SCH (20:15)
[2021-11-22 20:31] LABS: Glucose,Whole Blood 104 mg/dL (75-99)
--- NOTE | 2021-11-22 21:16 | P.PN ---
Subjective Progress Note Date: 11/22/21 Principal diagnosis: Urinary tract infection Patient is 81-year-old female with multiple comorbidities and recent surgery for hemorrhagic retinal detachment resulting hospital with weakness and worsening left eye vision lost, patient did have an elevated white count pos itivity and concern for dehydration as well as UTI. On today's evaluation that is 11/22/2021, the patient remains to be afebrile, patient is breathing comfortably on room air, patient diarrhea has has resolved no further loose stool today per the patient abdominal pain no chest pain shortness of breath or cough Objective - Vital Signs Vital signs: Vital Signs Temp 98.3 F 11/22/21 08:00 Pulse 117 H 11/22/21 08:00 Resp 16 11/22/21 02:00 BP 139/87 11/22/21 08:00 Pulse Ox 96 11/22/21 08:00 Intake & Output 11/21/21 11/22/21 11/22/21 18:59 06:59 18:59 Intake Total 1080 Balance 1080 Weight 90.718 kg Intake: Oral 1080 Other: Voiding Method Bedside Commode # Voids 3 3 1 # Bowel Movements 1 - Exam GENERAL DESCRIPTION: An elderly female lying in bed in no distress RESPIRATORY SYSTEM: Unlabored breathing , decreased breath sounds at bases HEART: S1 S2 regular rate and rhythm , ABDOMEN: Soft , no tenderness EXTREMITIES: No edema feet - Labs CBC & Chem 7: 11/21/21 03:55 11/22/21 20:15 Labs: Abnormal Lab Results - Last 24 Hours (Table) 11/21/21 11/21/21 11/22/21 Range/Units 16:39 16:55 05:54 Sodium 121 L 120 L (137-145) mmol/L Chloride 83 L (96-109) mmol/L BUN 7.6 L (9.0-27.0) mg/dL Glucose 126 H (70-110) mg/dL POC Glucose (mg/dL) 135 H (75-99) mg/dL Magnesium 1.3 L (1.5-2.4) mg/dL 11/22/21 11/22/21 Range/Units 06:38 11:19 Sodium (137-145) mmol/L Chloride (96-109) mmol/L BUN (9.0-27.0) mg/dL Glucose (70-110) mg/dL POC Glucose (mg/dL) 136 H 153 H (75-99) mg/dL Magnesium (1.5-2.4) mg/dL Assessment and Plan (1) SIRS (systemic inflammatory response syndrome) Current Visit: No Status: Acute Code(s): R65.10 - SIRS OF NON-INFECTIOUS ORIGIN W/O ACUTE ORGAN DYSFUNCTION SNOMED Code(s): 575810895 Plan: 1patient presented to hospital with generalized weakness no energy in this lucille ent noticed to have elevated BUN/creatinine more likely related to dehydration and possible related to ophthalmologic medication that have been started after the patient did have surgery for hemorrhagic detachment of the retina patient did not have any fever did have elevated white count however no significant respiratory symptoms to be suspicious for pneumonia did have mild urinary symptom possible component of enteric gram-negative pneumonia not entirely excluded, patient did have some congestion to the left eyeball but no surrounding redness or any purulent drainage clinic suspicious for infection to the left eye on the low side. 2 the patient urine culture has been finalized enterococcus that is sensitive to penicillin for the patient received adequate antibiotic therapy for underlyin g UTI 3-patient diarrhea more likely antibiotic associated symptoms have improved with discontinuation of amoxicillin and patient will continue with the Questran as needed however hold Questran. if the patient did not have any bowel movement for 24 hours Time with Patient: Less than 30
[2021-11-23] MEDS: SODIUM CHLORIDE 0.9% 1,000 ML IV SCH ×2 (04:28→22:39)
[2021-11-23] MEDS: LEVOTHYROXINE 125 MCG TAB PO SCH (05:00)
[2021-11-23] MEDS: ACETAMINOPHEN TAB 325 MG TAB PO PRN ×2 (05:55→18:47)
[2021-11-23 06:55] LABS: Glucose,Whole Blood 109 mg/dL (75-99)
[2021-11-23] MEDS: INSULIN ASPART (NovoLOG) 100 UNIT/ML VIAL SQ SCH ×4 (07:11→20:38)
[2021-11-23] MEDS: NAPROXEN 250 MG TAB PO PRN ×3 (07:24→18:46)
[2021-11-23 07:26] LABS: Anion Gap 9 mmol/L; Blood Urea Nitrogen 11 mg/dL (7-17); Carbon Dioxide 25 mmol/L (22-30); Chloride 89 mmol/L (98-107); Glucose 100 mg/dL (74-99); Potassium 3.4 mmol/L (3.5-5.1); Sodium 123 mmol/L (137-145)
[2021-11-23 07:27] LABS: African American GFR (CKD) 63 (>60 ml/min/1.73 sqM); Calcium 8.2 mg/dL (8.4-10.2); Non-African American GFR(CKD) 55 (>60 ml/min/1.73 sqM)
[2021-11-23] MEDS: atenoloL 50 MG TAB PO SCH (07:39)
[2021-11-23] MEDS: OXYBUTYNIN XL 5 MG TAB.ER.24 PO SCH (07:40)
[2021-11-23] MEDS: FAMOTIDINE 20 MG TAB PO SCH (07:40)
[2021-11-23] MEDS: cloNIDine HCL 0.1 MG TAB PO SCH ×2 (07:40→20:37)
[2021-11-23] MEDS: metFORMIN 500 MG TAB PO SCH ×2 (07:40→17:18)
[2021-11-23] MEDS: PREGABALIN 50 MG CAP PO SCH ×2 (07:41→20:37)
[2021-11-23] MEDS: ASPIRIN 81 MG PO SCH (07:41)
[2021-11-23] MEDS: hydrALAZINE HCL 25 MG TAB PO SCH ×2 (07:41→20:36)
[2021-11-23] MEDS: ATROPINE OPHTH SOLN 1% 5ML BTL LEFT EYE SCH ×2 (07:43→20:35)
[2021-11-23] MEDS: prednisoLONE ACETATE 1% OPHTH DROPS 5 ML BTL LEFT EYE SCH ×4 (07:43→20:35)
[2021-11-23] MEDS: DORZOLAMIDE-TIMOLOL 2.23%/0.68 10ML BTL LEFT EYE SCH ×2 (07:44→20:35)
[2021-11-23] MEDS: BRIMONIDINE TARTRATE 0.2% DROPS 5 ML BTL LEFT EYE SCH ×3 (07:44→20:35)
[2021-11-23] MEDS: OFLOXACIN 0.3% OPHTH DROPS 5 ML BOTTLE LEFT EYE SCH ×4 (07:45→20:34)
[2021-11-23] MEDS: CHOLESTYRAMINE (WITH SUGAR) 4 GM PACKET PO SCH ×3 (07:45→17:00)
[2021-11-23] MEDS: DILTIAZEM ORAL 60 MG TAB PO SCH ×3 (07:46→20:37)
[2021-11-23] MEDS: POTASSIUM CHLORIDE ER 20 MEQ TAB.ER PO SCH ×2 (09:25→10:12)
--- NOTE | 2021-11-23 10:11 | P.PN ---
Subjective This is a pleasant 81-year-old female patient who follows with Dr. Das in the office. Has a history of diabetes mellitus, hypertension, hyperlipidemia and paroxysmal atrial fibrillation (on Xarelto). 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 Presented to the emergency department here due to complaints of generalized weakness that's been going on for a couple days. She's had vision loss in her left eye. There is question of infection. Chest x-ray showed possible pneumonia. We were asked to see the patient in consultation for atrial fibrillation with rapid ventricular response. Echocardiogram revealed an EF of 5055%, moderate mitral regurgitation, mild tricuspid regurgitation, mild pulmonary hypertension 11/21/2021 Patient seen and examined at bedside. She is alert and oriented x 3. Left eye pain present. No chest pain or shortness of breath. Her BP has improved, but continues to be elevated. Antihypertensives have been adjusted. Clonidine has been added 11/20. Amlodipine was added this admission and moved to nightly on 11/20. Atenolol was increased to 100mg daily on 11/19, Her home HCTZ was discontinued and she is on chlorathalidone 25mg daily started 11/20. 11/22/2021 Overnight patient went into atrial fibrillation with RVR HR 100-120. She was stared on Cardizem 60mg TID. She was hypertensive as well over night with SBP 190s. Her amlodipine was increased to 10mg BID per primary (held due to start of cardizem). Her sodium was low, Nephrology consulted. Recommended discontinue Chlorathalidone. Hydralazine 25mg BID was also added per primary. Clonidine was increased to 0.1mg BID on 11/21/21. 11/23/2021 Patient seen and examined at bedside, her nausea and headache has improved. She is in sinus mechanism this morning. Her blood pressures have improved. BP 138/72. Sodium is improving. Sodium 123, potassium 3.4, BUN 11, serum creatinine 0.9, magnesium 2.0 She is currently on Cardizem 60mg TID, aspirin 81 mg daily, atenolol 100 mg daily, hydralazine 25mg BID, losartan 100 mg daily, Xarelto 20 mg nightly, clonidine 0.1mg BID PHYSICAL EXAMINATION: This is a 81-year-old female in no apparent distress at the time of my examination. HEENT: Neck is supple. There is no JVD CHEST EXAMINATION: Clear to auscultation bilaterally. No wheezes rales or rhonchi. Respirations even and nonlabored. HEART EXAMINATION: Heart Regular rate and rhythm, positive S1 and S2. No S3. No S4. Systolic ejection murmur at apex. EXTREMITIES: 2+ peripheral pulses with no evidence of peripheral edema and no calf tenderness noted. ASSESSMENT: Paroxysmal atrial fibrillation with rapid ventricular response, likely exacerbated by underlying infection. 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 We will follow the patient as needed. Please reconsult if needed. Patient to follow up outpatient with Dr. Das SEARCH ENGINE OPTIMIZATION CONSULTANT note has been reviewed, I agree with a documented findings and plan of care. Patient was seen and examined. Objective - Vital Signs Vital signs: Vital Signs Temp 98.0 F 11/23/21 07:52 Pulse 63 11/23/21 07:52 Resp 16 11/23/21 02:28 BP 138/72 11/23/21 07:52 Pulse Ox 96 11/23/21 07:52 Intake & Output 11/22/21 11/23/21 11/23/21 18:59 06:59 18:59 Output Total 1 Balance -1 Weight 90.718 kg Output: Urine 1 Other: # Voids 2 1 # Bowel Movements 1 - Labs CBC & Chem 7: 11/21/21 03:55 11/23/21 06:54 Labs: Abnormal Lab Results - Last 24 Hours (Table) 11/22/21 11/22/21 11/22/21 Range/Units 11:19 15:33 17:11 Sodium 119 L* (137-145) mmol/L Potassium 3.4 L (3.5-5.1) mmol/L Chloride (98-107) mmol/L Glucose (74-99) mg/dL POC Glucose (mg/dL) 153 H 149 H (75-99) mg/dL Calcium (8.4-10.2) mg/dL 11/22/21 11/22/21 11/23/21 Range/Units 20:15 20:28 06:53 Sodium 121 L (137-145) mmol/L Potassium (3.5-5.1) mmol/L Chloride (98-107) mmol/L Glucose (74-99) mg/dL POC Glucose (mg/dL) 104 H 109 H (75-99) mg/dL Calcium (8.4-10.2) mg/dL 11/23/21 Range/Units 06:54 Sodium 123 L (137-145) mmol/L Potassium 3.4 L (3.5-5.1) mmol/L Chloride 89 L (98-107) mmol/L Glucose 100 H (74-99) mg/dL POC Glucose (mg/dL) (75-99) mg/dL Calcium 8.2 L (8.4-10.2) mg/dL
[2021-11-23 11:33] LABS: Glucose,Whole Blood 113 mg/dL (75-99)
--- NOTE | 2021-11-23 15:36 | P.PN ---
Subjective Progress Note Date: 11/23/21 Principal diagnosis: Urinary tract infection Patient is 81-year-old female with multiple comorbidities and recent surgery for hemorrhagic retinal detachment resulting hospital with weakness and worsening left eye vision lost, patient did have an elevated white count pos itivity and concern for dehydration as well as UTI. On today's evaluation that is 11/23/2021, the patient is afebrile, patient is breathing comfortably on room air, patient denies having any chest pain or cough no abdominal pain the patient diarrhea has resolved and did have soft bowel movement this morning per the nurse aide Objective - Vital Signs Vital signs: Vital Signs Temp 98.0 F 11/23/21 07:52 Pulse 63 11/23/21 07:52 Resp 16 11/23/21 02:28 BP 138/72 11/23/21 07:52 Pulse Ox 96 11/23/21 07:52 Intake & Output 11/22/21 11/23/21 11/23/21 18:59 06:59 18:59 Output Total 1 Balance -1 Weight 90.718 kg Output: Urine 1 Other: # Voids 2 1 # Bowel Movements 1 1 - Exam GENERAL DESCRIPTION: An elderly female lying in bed in no distress RESPIRATORY SYSTEM: Unlabored breathing , decreased breath sounds at bases HEART: S1 S2 regular rate and rhythm , ABDOMEN: Soft , no tenderness EXTREMITIES: No edema feet - Labs CBC & Chem 7: 11/21/21 03:55 11/23/21 06:54 Labs: Abnormal Lab Results - Last 24 Hours (Table) 11/22/21 11/22/21 11/22/21 Range/Units 15:33 17:11 20:15 Sodium 119 L* 121 L (137-145) mmol/L Potassium 3.4 L (3.5-5.1) mmol/L Chloride (98-107) mmol/L Glucose (74-99) mg/dL POC Glucose (mg/dL) 149 H (75-99) mg/dL Calcium (8.4-10.2) mg/dL 11/22/21 11/23/21 11/23/21 Range/Units 20:28 06:53 06:54 Sodium 123 L (137-145) mmol/L Potassium 3.4 L (3.5-5.1) mmol/L Chloride 89 L (98-107) mmol/L Glucose 100 H (74-99) mg/dL POC Glucose (mg/dL) 104 H 109 H (75-99) mg/dL Calcium 8.2 L (8.4-10.2) mg/dL 11/23/21 Range/Units 11:32 Sodium (137-145) mmol/L Potassium (3.5-5.1) mmol/L Chloride (98-107) mmol/L Glucose (74-99) mg/dL POC Glucose (mg/dL) 113 H (75-99) mg/dL Calcium (8.4-10.2) mg/dL Assessment and Plan (1) SIRS (systemic inflammatory response syndrome) Current Visit: No Status: Acute Code(s): R65.10 - SIRS OF NON-INFECTIOUS ORIGIN W/O ACUTE ORGAN DYSFUNCTION SNOMED Code(s): 654470534 Plan: 1patient presented to hospital with generalized weakness no energy in this patient noticed to have elevated BUN/creatinine more likely related to dehydration and possible related to ophthalmologic medication that have been started after the patient did have surgery for hemorrhagic detachment of the retina patient did not have any fever did have elevated white count however no significant respiratory symptoms to be suspicious for pneumonia did have mild urinary symptom possible component of enteric gram-negative pneumonia not entirely excluded, patient did have some congestion to the left eyeball but no surrounding redness or any purulent drainage clinic suspicious for infection to the left eye on the low side. 2 the patient urine culture has been finalized enterococcus that is sensitive to penicillin for the patient received adequate antibiotic therapy for underlying UTI 3-patient diarrhea more likely antibiotic associated symptoms have improved with discontinuation of amoxicillin and patient will continue with the Questran as needed however hold Questran if the patient did not have any bowel movement for 24 hours No need to check stool for C. diff as the patient clinically not behaving C. diff colitis Time with Patient: Less than 30
[2021-11-23 16:41] LABS: Glucose,Whole Blood 112 mg/dL (75-99)
--- NOTE | 2021-11-23 16:50 | P.PN ---
Subjective Patient is seen for follow-up for hyponatremia. Yesterday patient was quite lethargic and sodium had dropped to 119. No symptoms of numbness tingling nausea or vomiting. Patient had not been eating much. Urine osmolality was 271 and random urine sodium 91. Patient was started on normal saline yesterday and her sodium improved slowly to 123. Overall patient states she is feeling much better today No nausea vomiting or diarrhea Objective - Vital Signs Vital signs: Vital Signs Temp 97.9 F 11/23/21 14:00 Pulse 51 L 11/23/21 14:00 Resp 16 11/23/21 02:28 BP 126/74 11/23/21 14:00 Pulse Ox 98 11/23/21 14:00 Intake & Output 11/22/21 11/23/21 11/23/21 18:59 06:59 18:59 Output Total 1 Balance -1 Weight 90.718 kg Output: Urine 1 Other: # Voids 2 1 # Bowel Movements 1 1 - Exam Awake, comfortable, not in any acute distress Examination of the heart S1 and S2 Examination of the lungs bilateral breath sounds are heard. 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 Patient is lethargic but improved from yesterday - Labs CBC & Chem 7: 11/21/21 03:55 11/23/21 16:17 Labs: Abnormal Lab Results - Last 24 Hours (Table) 11/22/21 11/22/21 11/22/21 Range/Units 17:11 20:15 20:28 Sodium 121 L (137-145) mmol/L Potassium (3.5-5.1) mmol/L Chloride (98-107) mmol/L Glucose (74-99) mg/dL POC Glucose (mg/dL) 149 H 104 H (75-99) mg/dL Calcium (8.4-10.2) mg/dL 11/23/21 11/23/21 11/23/21 Range/Units 06:53 06:54 11:32 Sodium 123 L (137-145) mmol/L Potassium 3.4 L (3.5-5.1) mmol/L Chloride 89 L (98-107) mmol/L Glucose 100 H (74-99) mg/dL POC Glucose (mg/dL) 109 H 113 H (75-99) mg/dL Calcium 8.2 L (8.4-10.2) mg/dL 11/23/21 11/23/21 Range/Units 16:17 16:40 Sodium 123 L (137-145) mmol/L Potassium (3.5-5.1) mmol/L Chloride (98-107) mmol/L Glucose (74-99) mg/dL POC Glucose (mg/dL) 112 H (75-99) mg/dL Calcium (8.4-10.2) mg/dL Assessment and Plan Assessment: 1. Hyponatremia, euvolemic. I will DC chlorthalidone. Urine sodium of 91 and urine osmolality 271. Patient received a dose of sodium chloride tab and Samsca with no improvement in serum sodium until normal saline was started yesterday. Blood pressure is not high now. I will add sodium chloride tabs as well 2. A. fib with RVR initially currently with controlled ventricular response 3. UTI with urine culture growing Enterococcus faecalis, status post antibiotics 4. Aneurysm left eye with rupture and hemorrhage with loss of vision. Plan: Continue normal saline Add sodium chloride tab Repeat labs in a.m.
[2021-11-23] MEDS ORDERED: SODIUM CHLORIDE TAB 1 GM TAB PO STA (16:51)
--- NOTE | 2021-11-23 16:55 | P.PN ---
Subjective This is a 81-year-old patient, follows with Dr. Napoleon Arellano. Chronic stable medical conditions include atrial fibrillation for which she is on xarelto, COPD, diabetes, GERD, hypertension, hyperlipidemia, osteoarthritis, hypothyroid, obstructive sleep apnea does not use CPAP, hiatal hernia, spinal stenosis. Last week on that is about a week ago, because of left eye pain patient had to go down to [facility] for eye surgery. As per the son at the bedside dose possibly an aneurysm the back of diet that was repaired. Is also retinal detachment with significant hemorrhage. Eyedrops were given. Patient was told that the patient will not return. Following that she did call back for a follow-up. Subsequently that she started having increasing nausea vomiting. Increasing headache. She is prescribed Diamox. Started having chills. She presented to our ER on November 11. Doxazosin patient had surgery with , corrections corporal at [facility]. She does ruptured aneurysm that they attempted repair. She she was blind in his left eye prior to surgery. She also had a urine infection prior to surgery. No complete the course of antibiotic. She had a CT of the head that did not show any abnormality. Had an elevated white count. They consulted Dr. Dias and he recommended increasing the dose Diamox. Right eye pressure was 14 and left eye pressure was 55. Patient was discharged home. Subsequently the son says patient became intermittently confused. Not really eating drinking. Denied any obvious respiratory symptoms. No urinary symptoms. Tired rundown. Patient admitted with acute kidney injury. Pneumonia. Hypotension. Possible infection around the globe. Started on IV fluids. IV daptomycin IV ceftriaxone. November 14: Laying in bed. Feels slightly better. Blood pressure started to,. On IV antibiotics. Eating some. November 15: Oral intake improving. Does sit up in a chair. No fever. Discussed with Dr. Polo from ID. Stop daptomycin. We'll continue ceftriaxone for UTI/po ssible pneumonia. Seen by Dr. Bunn from ophthalmology. Continue eyedrops. November 16: Eating about 50%. No fever. Patient went into A. fib with rapid ventricular rate. Cardiology consulted. Atenolol increased. Other medications to continue. Urine culture growing Enterococcus faecalis. Antibiotic changed to IV Unasyn November 17: Remains in atrial fibrillation. Heart rate above 100. Tenormin increased to 75 mg. Decreased appetite. No fever no chills. On IV Unasyn. November 18: Atrial fibrillation rate controlled. Blood pressure on the higher side. Cardiology added amlodipine 5 mg. Patient not feeling well. Sitting up in chair. Short of breath. Received 1 dose of Lasix. Tired November 19: Atrial fibrillation -rate controlled. Blood pressure controlled. Dose of Tenormin increased. Decreased appetite. Tired November 20: Patient is sinus rhythm. It is noted that patient's morning blood pressure is high in the daytime as better controlled. I will move her Cozaar and amlodipine tonight and continue Tenormin in the morning. Patient is complaining of small BMs every time she coughs or eats. Given that she's been antibiotics rule out C. diff. Subjective: Resuming the care of the patient today 11/21/2021 This is a pleasant 81 years old female who presents with UTI and possible pneumonia that she has finished her antibiotic therapy with ID team following her closely. Currently she developed diarrhea so antibiotics were held and cholestyramine was started. She was also on lactulose which is not given and Metamucil which received 2 doses yesterday and today. Both laxatives were discontinued today. 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 fib with RVR and currently rate controlled on clonidine and atenolol. Also she is on Xarelto 20 mg at home dose. Today patient is still complaining from pain on her left eye 6/10, with Tylenol To bring it down from 9/10. She does not feel well generally today. She is eating little about start picking up today as she states . Sodium was 129, repeat sodium is pending. Blood pressure 172/76 and clonidine was increased to twice daily today. Physical therapy recommended home health care, ordered 11/22/2021 Patient awake and alert with no dizziness but she is feeling some headache which she thinks is related to her left eye pain. Hemodynamically she does not feel well this morning starts her headache she is complaining of some exertional dyspnea and she still have diarrhea about 7 times yesterday, she had 1 loose bowel movement since morning today. Yesterday she was hypertensive and Norvasc was added as well as her usual blood pressure medication of clonidine, losartan and atenolol. This morning Norvasc was discontinued and started on Cardizem 60 mg 3 times a day. Blood pressure is better controlled. Sodium is still low at 121 and 120. Most likely secondary to chlorthalidone which was stopped yesterday. Nephrology team on the case and patient status post [facility] [place] We'll keep monitoring sodium closely. Lactulose and Metamucil were discontinued. Patient on Metamucil when necessary. All antibiotics were stopped bright femoral keep monitoring and patient is been afebrile. Patient also has been complaining of from nausea and controlled with Compazine. We are going to change it to Phenergan and Zofran x 1 which might help her with diarrhea 11/23/2021 All symptoms patient was complaining of yesterday are improving today. She is sitting in chair and trying to eat with better appetite. Her headache and left eye pain improved after starting her on Luebbering Her nausea has a stopped and no vomiting after starting her on new antiemetic medication. No diarrhea since yesterday and actually no bowel movement no abdominal pain. She was walking the hallway today back and forth and she denies any exertional dyspnea. She has some ecchymosis especially in her extremities which is improving. Hemodynamically she is stable. Blood pressure is better controlled after adding Cardizem yesterday. Sodium improved to 123 today. She is kept on normal saline 70 mL per hour. Continue to discontinue lactulose, Metamucil and chlorthalidone Objective - Vital Signs Vital signs: Vital Signs Temp 97.9 F 11/23/21 14:00 Pulse 51 L 11/23/21 14:00 Resp 16 11/23/21 02:28 BP 126/74 11/23/21 14:00 Pulse Ox 98 11/23/21 14:00 Intake & Output 11/22/21 11/23/21 11/23/21 18:59 06:59 18:59 Output Total 1 Balance -1 Weight 90.718 kg Output: Urine 1 Other: # Voids 2 1 # Bowel Movements 1 1 - Exam GENERAL: The patient is alert and oriented x3, not in any acute distress. Well developed, well nourished. HEENT: Pupils are round and equally reacting to light. EOMI. No scleral icterus. No conjunctival pallor. Normocephalic, atraumatic. No pharyngeal erythema. No thyromegaly. CARDIOVASCULAR: S1 and S2 present. No murmurs, rubs, or gallops. PULMONARY: Chest is clear to auscultation, no wheezing or crackles. ABDOMEN: Soft, nontender, nondistended, normoactive bowel sounds. No palpable organomegaly. MUSCULOSKELETAL: No joint swelling or deformity. EXTREMITIES: No cyanosis, clubbing, or pedal edema. NEUROLOGICAL: Gross neurological examination did not reveal any focal deficits. SKIN: No rashes. no petechiae. - Labs CBC & Chem 7: 11/21/21 03:55 11/23/21 16:17 Labs: Abnormal Lab Results - Last 24 Hours (Table) 11/22/21 11/22/21 11/22/21 Range/Units 15:33 17:11 20:15 Sodium 119 L* 121 L (137-145) mmol/L Potassium 3.4 L (3.5-5.1) mmol/L Chloride (98-107) mmol/L Glucose (74-99) mg/dL POC Glucose (mg/dL) 149 H (75-99) mg/dL Calcium (8.4-10.2) mg/dL 11/22/21 11/23/21 11/23/21 Range/Units 20:28 06:53 06:54 Sodium 123 L (137-145) mmol/L Potassium 3.4 L (3.5-5.1) mmol/L Chloride 89 L (98-107) mmol/L Glucose 100 H (74-99) mg/dL POC Glucose (mg/dL) 104 H 109 H (75-99) mg/dL Calcium 8.2 L (8.4-10.2) mg/dL 11/23/21 Range/Units 11:32 Sodium (137-145) mmol/L Potassium (3.5-5.1) mmol/L Chloride (98-107) mmol/L Glucose (74-99) mg/dL POC Glucose (mg/dL) 113 H (75-99) mg/dL Calcium (8.4-10.2) mg/dL Assessment and Plan Assessment: -Diarrhea, most likely secondary to laxative which are held. Continue with cholestyramine. Also gastroenteritis is a possibility No need to check for C. diff as stool is getting more formed. - Hyponatremia Keep on current sodium closely Consult nephrology service Patient status post samsca Continue with normal saline - Acute urinary tract infection with possible pneumonia on admission, both efficiently treated with antibiotic. Continue monitoring while off antibiotics -Paroxysmal atrial fibrillation with rate controlled xarelto. Tenormin 100 mg a day. Clonidine 0.1 twice a day. Cardizem 30 mg 3 times a day -Blind in the left eye, with repair of aneurysm or rupture 1 week ago This patient had surgery to the left eye for a ruptured aneurysm unsuccessfully repaired about a week ago. Discussed with ID. Local infection felt to be unlikely. Prior Authorization Nurse on the case -Acute delirium from infection with episodes of confusion at home.: Improved -COPD in a previous smoker. No acute exacerbation -Diabetes mellitus type 2, on oral hypoglycemic Metformin thousand milligrams by mouth twice a day. Follow Accu-Cheks -GERD Pepcid when necessary -Hyperlipidemia Lipitor 10 mg daily at bedtime -Essential hypertension: Uncontrolled Cozaar moved to p.m. dose. Tenormin 100 mg keep in the morning. Amlodipine 5 mg moved to p.m. dose -Primary osteoarthritis multiple joints Tylenol as needed -Obstructive sleep apnea does not use CPAP -Hypothyroid Levoxyl 125 g daily -Chronic spinal stenosis -Diabetic peripheral neuropathy Lyrica 50 mg twice a day -Acute kidney injury possibly ATN and prerenal. From decreased oral intake and sepsis: Better IV fluids.-Discontinue -Hyponatremia, hypovolemic from patient and vomiting and unable to eat: Improving -Hypokalemia: Replace Replace GI prophylaxis: Pepcid DVT prophylaxis: Xarelto
[2021-11-23 20:24] LABS: Glucose,Whole Blood 144 mg/dL (75-99)
[2021-11-23] MEDS: LATANOPROST 0.005% OPHTH DROPS 2.5 ML BTL LEFT EYE SCH (20:34)
[2021-11-23] MEDS: LOSARTAN 50 MG TAB PO SCH (20:36)
[2021-11-23] MEDS: CITALOPRAM HYDROBROMIDE 20 MG TAB PO SCH (20:36)
[2021-11-23] MEDS: SODIUM CHLORIDE TAB 1 GM TAB PO SCH (20:36)
[2021-11-23] MEDS: ATORVASTATIN 10 MG TAB PO SCH (20:37)
[2021-11-23] MEDS: LORazepam 0.5 MG TAB PO PRN (20:37)
[2021-11-23] MEDS: RIVAROXABAN 20 MG TAB PO SCH (22:39)
[2021-11-24] MEDS: LEVOTHYROXINE 125 MCG TAB PO SCH (05:08)
[2021-11-24] MEDS: NAPROXEN 250 MG TAB PO PRN ×2 (06:10→17:47)
[2021-11-24] MEDS: ACETAMINOPHEN TAB 325 MG TAB PO PRN ×2 (06:11→17:12)
[2021-11-24 06:49] LABS: Glucose,Whole Blood 121 mg/dL (75-99)
[2021-11-24] MEDS: INSULIN ASPART (NovoLOG) 100 UNIT/ML VIAL SQ SCH ×4 (07:18→20:30)
[2021-11-24] MEDS ORDERED: CHOLESTYRAMINE (WITH SUGAR) 4 GM PACKET PO PRN (07:35)
--- NOTE | 2021-11-24 09:05 | P.PN ---
Subjective Progress Note Date: 11/24/21 Principal diagnosis: This is a 81-year-old female who is being followed up for hyponatremia deemed to be from hypovolemia from chlorthalidone. Sodium has not improved a whole lot in spite of getting Samsca 1 dose 15 mg. She denies any cough but says she is short of breath on minimal exertion. Continues to have significant pain in that her right orbital area from her retinal disease. No nausea vomiting diarrhea abdominal pain good appetite. No dizziness Urine osmolality is 271 and urine sodium is 91 dated 11/21/2021 Currently on salt tablets 1 g twice a day. Sodium is 123 as of yesterday morning Objective - Vital Signs Vital signs: Vital Signs Temp 97.8 F 11/24/21 08:00 Pulse 57 L 11/24/21 08:00 Resp 16 11/24/21 01:51 BP 131/57 11/24/21 08:00 Pulse Ox 97 11/24/21 08:00 Intake & Output 11/23/21 11/24/21 11/24/21 18:59 06:59 18:59 Other: Voiding Method Bedside Commode # Voids 1 2 1 # Bowel Movements 1 1 1 Exam general awake alert oriented 3 No JVD noted neck is supple no facial asymmetry Lungs are significant for an occasional wine crackle at bases. Good air entry bilaterally Heart sounds unremarkable for any murmur rub gallop Abdomen soft nontender Extremity exam was no edema Neurologically awake alert oriented - Labs CBC & Chem 7: 11/21/21 03:55 11/23/21 16:17 Labs: Abnormal Lab Results - Last 24 Hours (Table) 11/23/21 11/23/21 11/23/21 Range/Units 11:32 16:17 16:40 Sodium 123 L (137-145) mmol/L POC Glucose (mg/dL) 113 H 112 H (75-99) mg/dL 11/23/21 11/24/21 Range/Units 20:22 06:47 Sodium (137-145) mmol/L POC Glucose (mg/dL) 144 H 121 H (75-99) mg/dL Assessment and Plan Assessment: Impression 1. Hyponatremia, assumed to be hypovolemic from chlorthalidone, rule out possible SIADH, as has not responded to normal saline adequately with sodium going up from 119-123. Rule out CHF 2. Atrial fibrillation with controlled ventricular response. 3. 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 We'll repeat her labs today and see if she has responded to saline tablets and IV saline and she has not been really hurting of this as SIADH although she has been given Samsca 15 mg without much benefit. 2. Start her on 1000 mL fluid restriction excluding the protein supplement
[2021-11-24 09:25] LABS: African American GFR (CKD) 62.1 (60.0-200.0); Anion Gap 10.3 mmol/L (10.00-18.00); Calcium 8.4 mg/dL (8.7-10.3); Carbon Dioxide 22.7 mmol/L (20.0-27.5); Magnesium 2.3 mg/dL (1.5-2.4); Non-African American GFR(CKD) 53.5 (60.0-200.0); Potassium 4.1 mmol/L (3.5-5.5)
[2021-11-24] MEDS: cloNIDine HCL 0.1 MG TAB PO SCH ×2 (09:37→20:30)
[2021-11-24] MEDS: DILTIAZEM ORAL 60 MG TAB PO SCH ×3 (09:37→20:59)
[2021-11-24] MEDS: SODIUM CHLORIDE TAB 1 GM TAB PO SCH ×2 (09:37→20:31)
[2021-11-24] MEDS: atenoloL 50 MG TAB PO SCH (09:38)
[2021-11-24] MEDS: hydrALAZINE HCL 25 MG TAB PO SCH ×2 (09:38→20:30)
[2021-11-24] MEDS: FAMOTIDINE 20 MG TAB PO SCH (09:38)
[2021-11-24] MEDS: OXYBUTYNIN XL 5 MG TAB.ER.24 PO SCH (09:38)
[2021-11-24] MEDS: ASPIRIN 81 MG PO SCH (09:38)
[2021-11-24] MEDS: metFORMIN 500 MG TAB PO SCH ×2 (09:38→17:13)
[2021-11-24] MEDS: PREGABALIN 50 MG CAP PO SCH ×2 (09:38→20:30)
[2021-11-24] MEDS: SODIUM CHLORIDE 0.9% 1,000 ML IV SCH (09:39)
[2021-11-24] MEDS: ATROPINE OPHTH SOLN 1% 5ML BTL LEFT EYE SCH ×2 (09:44→20:37)
[2021-11-24] MEDS: DORZOLAMIDE-TIMOLOL 2.23%/0.68 10ML BTL LEFT EYE SCH ×2 (09:45→20:32)
[2021-11-24] MEDS: BRIMONIDINE TARTRATE 0.2% DROPS 5 ML BTL LEFT EYE SCH ×3 (09:45→20:37)
[2021-11-24] MEDS: OFLOXACIN 0.3% OPHTH DROPS 5 ML BOTTLE LEFT EYE SCH ×4 (09:46→20:58)
[2021-11-24] MEDS: prednisoLONE ACETATE 1% OPHTH DROPS 5 ML BTL LEFT EYE SCH ×4 (09:46→20:58)
[2021-11-24 10:19] LABS: Basophils # (A) 0.04 X 10*3/uL (0.00-0.10); Basophils % (A) 0.4 %; Eosinophils # (A) 0.02 X 10*3/uL (0.04-0.35); Eosinophils % (A) 0.2 %; HCT 32.6 % (37.2-46.3); Immature Grans, Automated 2.9 %; Lymphocytes % (A) 13.7 %; MCH 29.1 pg (27.0-32.0); MCHC 33.7 g/dL (32.0-37.0); MCV 86.2 fL (80.0-97.0); Mean Platelet Volume 13.2 fL (9.5-12.2); Monocytes # (A) 1.93 X 10*3/uL (0.20-1.00); Monocytes % (A) 17.6 %; NRBC Per 100 WBC 0 /100 WBCS (0.0-0.0); Neutrophils # (A) 7.13 X 10*3/uL (1.80-7.70); Neutrophils % (A) 65.2 %; Platelet Count 199 X 10*3/uL (140-440); RBC 3.78 X 10*6/uL (4.10-5.20); RDW 14.8 % (11.5-14.5); WBC 10.94 X 10*3/uL (4.50-10.00)
[2021-11-24 10:20] LABS: RBC Morphology NORMAL
[2021-11-24 12:09] LABS: Glucose,Whole Blood 125 mg/dL (75-99)
[2021-11-24 16:34] LABS: Glucose,Whole Blood 135 mg/dL (75-99)
--- NOTE | 2021-11-24 19:27 | PN ---
PROGRESS NOTE DATE OF SERVICE: 11/24/2021 This 81-year-old woman who was admitted with multiple medical problems, including diarrhea, hyponatremia and UTI is being closely monitored. No chest pain. No palpitations. No fever. PHYSICAL EXAMINATION: Pulse is 57, blood pressure 130/70, respirations 16. HEENT: Conjunctivae normal. NECK: No jugular venous distention. CARDIOVASCULAR: S1, S2 muffled. RESPIRATION: Breath sounds diminished at the bases. ABDOMEN: Soft. LEGS: No edema. No swelling. NERVOUS SYSTEM: No focal deficit. LABS: Urine culture showed Enterococcus faecalis which is sensitive. ASSESSMENT: 1. Diarrhea. 2. Hyponatremia. 3. Enterococcal urinary tract infection, possibly. 4. Possible pneumonia. 5. Paroxysmal atrial fibrillation. RECOMMENDATIONS AND DISCUSSION: I recommend to continue current medications, continue with the monitoring, symptomatic treatment. Repeat UA and repeat labs. See orders for further details. Guarded prognosis. Further recommendations to follow. MMODL / IJN: [id number] /
[2021-11-24 20:18] LABS: Glucose,Whole Blood 99 mg/dL (75-99)
[2021-11-24] MEDS: CITALOPRAM HYDROBROMIDE 20 MG TAB PO SCH (20:29)
[2021-11-24] MEDS: LOSARTAN 50 MG TAB PO SCH (20:30)
[2021-11-24] MEDS: ATORVASTATIN 10 MG TAB PO SCH (20:30)
[2021-11-24] MEDS: RIVAROXABAN 20 MG TAB PO SCH (20:31)
[2021-11-24] MEDS: LATANOPROST 0.005% OPHTH DROPS 2.5 ML BTL LEFT EYE SCH (20:58)
[2021-11-24] MEDS: LORazepam 0.5 MG TAB PO PRN (21:09)
--- NOTE | 2021-11-24 21:27 | P.PN ---
Subjective Progress Note Date: 11/24/21 Principal diagnosis: Urinary tract infection Patient is 81-year-old female with multiple comorbidities and recent surgery for hemorrhagic retinal detachment resulting hospital with weakness and worsening left eye vision lost, patient did have an elevated white count pos itivity and concern for dehydration as well as UTI. On today's evaluation that is 11/24/2021, the patient remains to be afebrile, patient is breathing comfortably on room air, patient denies chest pain or cough no abdominal pain the patient diarrhea has resolved and overall feeling better Objective - Vital Signs Vital signs: Vital Signs Temp 98.3 F 11/24/21 14:00 Pulse 50 L 11/24/21 14:00 Resp 16 11/24/21 01:51 BP 115/66 11/24/21 14:00 Pulse Ox 97 11/24/21 14:00 Intake & Output 11/23/21 11/24/21 11/24/21 18:59 06:59 18:59 Other: Voiding Method Bedside Commode Bedside Commode # Voids 1 2 1 # Bowel Movements 1 1 1 - Exam GENERAL DESCRIPTION: An elderly female lying in bed in no distress RESPIRATORY SYSTEM: Unlabored breathing , decreased breath sounds at bases HEART: S1 S2 regular rate and rhythm , ABDOMEN: Soft , no tenderness EXTREMITIES: No edema feet - Labs CBC & Chem 7: 11/24/21 06:15 11/24/21 06:15 Labs: Abnormal Lab Results - Last 24 Hours (Table) 11/23/21 11/23/21 11/23/21 Range/Units 16:17 16:40 20:22 WBC (4.50-10.00) X 10*3/uL RBC (4.10-5.20) X 10*6/uL Hgb (12.0-15.0) g/dL Hct (37.2-46.3) % RDW (11.5-14.5) % MPV (9.5-12.2) fL Immature Gran # (0.00-0.04) X 10*3/uL Monocytes # (0.20-1.00) X 10*3/uL Eosinophils # (0.04-0.35) X 10*3/uL Sodium 123 L (137-145) mmol/L Est GFR (CKD-EPI)NonAf (60.0-200.0) BUN/Creatinine Ratio (12.00-20.00) Ratio Glucose (70-110) mg/dL POC Glucose (mg/dL) 112 H 144 H (75-99) mg/dL Calcium (8.7-10.3) mg/dL 11/24/21 11/24/21 11/24/21 Range/Units 06:15 06:15 06:47 WBC 10.94 H (4.50-10.00) X 10*3/uL RBC 3.78 L (4.10-5.20) X 10*6/uL Hgb 11.0 L (12.0-15.0) g/dL Hct 32.6 L (37.2-46.3) % RDW 14.8 H (11.5-14.5) % MPV 13.2 H (9.5-12.2) fL Immature Gran # 0.32 H (0.00-0.04) X 10*3/uL Monocytes # 1.93 H (0.20-1.00) X 10*3/uL Eosinophils # 0.02 L (0.04-0.35) X 10*3/uL Sodium 131 L (137-145) mmol/L Est GFR (CKD-EPI)NonAf 53.5 L (60.0-200.0) BUN/Creatinine Ratio 11.00 L (12.00-20.00) Ratio Glucose 116 H (70-110) mg/dL POC Glucose (mg/dL) 121 H (75-99) mg/dL Calcium 8.4 L (8.7-10.3) mg/dL 11/24/21 Range/Units 12:07 WBC (4.50-10.00) X 10*3/uL RBC (4.10-5.20) X 10*6/uL Hgb (12.0-15.0) g/dL Hct (37.2-46.3) % RDW (11.5-14.5) % MPV (9.5-12.2) fL Immature Gran # (0.00-0.04) X 10*3/uL Monocytes # (0.20-1.00) X 10*3/uL Eosinophils # (0.04-0.35) X 10*3/uL Sodium (137-145) mmol/L Est GFR (CKD-EPI)NonAf (60.0-200.0) BUN/Creatinine Ratio (12.00-20.00) Ratio Glucose (70-110) mg/dL POC Glucose (mg/dL) 125 H (75-99) mg/dL Calcium (8.7-10.3) mg/dL Assessment and Plan (1) SIRS (systemic inflammatory response syndrome) Current Visit: No Status: Acute Code(s): R65.10 - SIRS OF NON-INFECTIOUS ORIGIN W/O ACUTE ORGAN DYSFUNCTION SNOMED Code(s): 222870129 Plan: 1patient presented to hospital with generalized weakness no energy in this patient noticed to have elevated BUN/creatinine more likely related to dehydration and possible related to ophthalmologic medication that have been started after the patient did have surgery for hemorrhagic detachment of the retina patient did not have any fever did have elevated white count however no significant respiratory symptoms to be suspicious for pneumonia did have mild urinary symptom possible component of enteric gram-negative pneumonia not entirely excluded, patient did have some congestion to the left eyeball but no surrounding redness or any purulent drainage clinic suspicious for infection to the left eye on the low side. 2 the patient urine culture has been finalized enterococcus that is sensitive to penicillin for the patient received adequate antibiotic therapy for underlying UTI 3-patient diarrhea more likely antibiotic associated symptoms have improved with discontinuation of amoxicillin and patient will continue with the Questran as needed however hold Questran if the patient did not have any bowel movement for 24 hours We'll continue to monitor the patient closely off antibiotic therapy Time with Patient: Less than 30
[2021-11-24 21:49] LABS: Appearance,Urine Clear (Clear); Bilirubin,Urine Negative (Negative); Blood,Urine Negative (Negative); Color,Urine Light Yellow; Glucose,Urine (UA) Negative (Negative); Ketones,Urine Negative (Negative); Leukocyte Esterase,Urine Negative (Negative); Nitrite,Urine Negative (Negative); Protein,Urine Negative (Negative); Specific Gravity,Urine 1.006 (1.001-1.035); Urobilinogen,Urine <2.0 mg/dL (<2.0)
[2021-11-25] MEDS: ACETAMINOPHEN TAB 325 MG TAB PO PRN ×2 (05:44→14:31)
[2021-11-25] MEDS: LEVOTHYROXINE 125 MCG TAB PO SCH (05:44)
[2021-11-25] MEDS: NAPROXEN 250 MG TAB PO PRN ×2 (05:45→14:31)
[2021-11-25 06:54] LABS: Glucose,Whole Blood 125 mg/dL (75-99)
[2021-11-25] MEDS: INSULIN ASPART (NovoLOG) 100 UNIT/ML VIAL SQ SCH ×4 (07:10→20:22)
[2021-11-25] MEDS: metFORMIN 500 MG TAB PO SCH ×2 (08:37→17:05)
[2021-11-25] MEDS: PREGABALIN 50 MG CAP PO SCH ×2 (08:37→20:23)
[2021-11-25] MEDS: atenoloL 50 MG TAB PO SCH (08:37)
[2021-11-25] MEDS: DILTIAZEM ORAL 60 MG TAB PO SCH ×3 (08:37→22:20)
[2021-11-25] MEDS: OXYBUTYNIN XL 5 MG TAB.ER.24 PO SCH (08:37)
[2021-11-25] MEDS: SODIUM CHLORIDE TAB 1 GM TAB PO SCH (08:37)
[2021-11-25] MEDS: ASPIRIN 81 MG PO SCH (08:37)
[2021-11-25] MEDS: cloNIDine HCL 0.1 MG TAB PO SCH ×2 (08:37→20:23)
[2021-11-25] MEDS: hydrALAZINE HCL 25 MG TAB PO SCH ×2 (08:38→20:23)
[2021-11-25] MEDS: FAMOTIDINE 20 MG TAB PO SCH (08:38)
[2021-11-25] MEDS: ATROPINE OPHTH SOLN 1% 5ML BTL LEFT EYE SCH ×2 (08:39→22:21)
[2021-11-25] MEDS: prednisoLONE ACETATE 1% OPHTH DROPS 5 ML BTL LEFT EYE SCH ×4 (08:40→22:27)
[2021-11-25] MEDS: BRIMONIDINE TARTRATE 0.2% DROPS 5 ML BTL LEFT EYE SCH ×3 (08:40→22:27)
[2021-11-25] MEDS: OFLOXACIN 0.3% OPHTH DROPS 5 ML BOTTLE LEFT EYE SCH ×4 (08:40→22:27)
[2021-11-25] MEDS: DORZOLAMIDE-TIMOLOL 2.23%/0.68 10ML BTL LEFT EYE SCH ×2 (08:40→22:25)
[2021-11-25 09:20] LABS: African American GFR (CKD) 95.5 (60.0-200.0); Albumin 3.7 g/dL (3.8-4.9); Albumin/Globulin Ratio 2.06 (1.60-3.17); Anion Gap 8.8 mmol/L (10.00-18.00); BUN/Creat Ratio 15.43 Ratio (12.00-20.00); Blood Urea Nitrogen 10.8 mg/dL (9.0-27.0); Calcium 8.7 mg/dL (8.7-10.3); Carbon Dioxide 26.2 mmol/L (20.0-27.5); Globulin 1.8 g/dL (1.6-3.3); Non-African American GFR(CKD) 82.4 (60.0-200.0); Total Bilirubin 0.8 mg/dL (0.30-1.20); Total Protein 5.5 g/dL (6.2-8.2)
[2021-11-25 09:47] LABS: Basophils # (A) 0.02 X 10*3/uL (0.00-0.10); Basophils % (A) 0.2 %; Eosinophils # (A) 0.02 X 10*3/uL (0.04-0.35); Eosinophils % (A) 0.2 %; HCT 31.8 % (37.2-46.3); HGB 10.5 g/dL (12.0-15.0); Immature Grans, Automated 2.9 %; Lymphocytes # (A) 1.64 X 10*3/uL (0.90-5.00); Lymphocytes % (A) 20.1 %; MCV 87.8 fL (80.0-97.0); Mean Platelet Volume 13.3 fL (9.5-12.2); Monocytes # (A) 1.26 X 10*3/uL (0.20-1.00); Monocytes % (A) 15.5 %; NRBC Per 100 WBC 0 /100 WBCS (0.0-0.0); Neutrophils # (A) 4.96 X 10*3/uL (1.80-7.70); Neutrophils % (A) 61.1 %; Platelet Count 164 X 10*3/uL (140-440); RBC 3.62 X 10*6/uL (4.10-5.20); RDW 14.9 % (11.5-14.5); WBC 8.14 X 10*3/uL (4.50-10.00)
--- NOTE | 2021-11-25 09:47 | P.PN ---
Subjective Progress Note Date: 11/25/21 Principal diagnosis: This is a 81-year-old female who is being followed up for hyponatremia deemed to be from hypovolemia from chlorthalidone. Sodium has not improved a whole lot in spite of getting Samsca 1 dose 15 mg. She denies any cough but says she is short of breath on minimal exertion. Continues to have significant pain in that her right orbital area from her retinal disease. No nausea vomiting diarrhea abdominal pain good appetite. No dizziness Urine osmolality is 271 and urine sodium is 91 dated 11/21/2021 Currently on salt tablets 1 g twice a day. Sodium is 123 as of day before yesterday morning, Yesterday I put her on 1000 mL fluid restriction, her sodium but this morning is She complains of some new back pain in the low back. This has been going on for about 2-3 weeks. Objective - Vital Signs Vital signs: Vital Signs Temp 97.6 F 11/25/21 08:00 Pulse 88 11/25/21 08:00 Resp 15 11/25/21 01:44 BP 136/66 11/25/21 08:00 Pulse Ox 96 11/25/21 08:00 Intake & Output 11/24/21 11/25/21 11/25/21 18:59 06:59 18:59 Intake Total 515 Output Total 1600 Balance -1085 Weight 92.3 kg Intake: Intake, IV Titration 40 Amount Sodium Chloride 0.9% 1, 40 000 ml @ 20 mls/hr IV . Q24H [facility] Rx#:[id number] Oral 475 Output: Urine 1600 Other: Voiding Method Bedside Commode Bedside Commode # Voids 1 2 # Bowel Movements 1 On examination she is awake alert oriented comfortable No JVP Lungs are clear to auscultation good air entry bilaterally Heart sounds unremarkable Abdomen soft Extremity exam was no edema Neurologically awake alert oriented - Labs CBC & Chem 7: 11/24/21 06:15 11/25/21 06:27 Labs: Abnormal Lab Results - Last 24 Hours (Table) 11/24/21 11/24/21 11/24/21 Range/Units 06:15 12:07 16:32 WBC 10.94 H (4.50-10.00) X 10*3/uL RBC 3.78 L (4.10-5.20) X 10*6/uL Hgb 11.0 L (12.0-15.0) g/dL Hct 32.6 L (37.2-46.3) % RDW 14.8 H (11.5-14.5) % MPV 13.2 H (9.5-12.2) fL Immature Gran # 0.32 H (0.00-0.04) X 10*3/uL Monocytes # 1.93 H (0.20-1.00) X 10*3/uL Eosinophils # 0.02 L (0.04-0.35) X 10*3/uL Anion Gap (10.00-18.00) mmol/L Glucose (70-110) mg/dL POC Glucose (mg/dL) 125 H 135 H (75-99) mg/dL Total Protein (6.2-8.2) g/dL Albumin (3.8-4.9) g/dL 11/25/21 11/25/21 Range/Units 06:27 06:53 WBC (4.50-10.00) X 10*3/uL RBC (4.10-5.20) X 10*6/uL Hgb (12.0-15.0) g/dL Hct (37.2-46.3) % RDW (11.5-14.5) % MPV (9.5-12.2) fL Immature Gran # (0.00-0.04) X 10*3/uL Monocytes # (0.20-1.00) X 10*3/uL Eosinophils # (0.04-0.35) X 10*3/uL Anion Gap 8.80 L (10.00-18.00) mmol/L Glucose 113 H (70-110) mg/dL POC Glucose (mg/dL) 125 H (75-99) mg/dL Total Protein 5.5 L (6.2-8.2) g/dL Albumin 3.7 L (3.8-4.9) g/dL Assessment and Plan Assessment: Impression 1. Hyponatremia, assumed to be hypovolemic from chlorthalidone, sodium finally improved to 135 with fluid restriction and on salt tablets 2. Atrial fibrillation with controlled ventricular response. 3. 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 Urinary tract infection with enterococcus faecalis dated 11/13/2021 Recommendation 1. Discontinue salt tablets 2. Maintain fluid restriction 3. Will need to follow-up if discharge in about 2-3 days with repeat BMP and urine osmolality and sodium
[2021-11-25] MEDS: SODIUM CHLORIDE 0.9% 1,000 ML IV SCH (10:49)
[2021-11-25 11:36] LABS: Glucose,Whole Blood 145 mg/dL (75-99)
[2021-11-25 16:39] LABS: Glucose,Whole Blood 120 mg/dL (75-99)
--- NOTE | 2021-11-25 20:07 | PN ---
PROGRESS NOTE DATE OF SERVICE: 11/25/2021 This 81-year-old woman was admitted with diarrhea and hyponatremia is being closely monitored. No chest pain. No palpitations. No fever. PHYSICAL EXAMINATION: Pulse 57, blood pressure 110/73, respiration 20, temperature 97.7. HEENT: Conjunctivae normal. Neck: No JVD. Cardiovascular: S1, S2 muffled. Respiratory: Breath sounds diminished in the bases. No rhonchi. Abdomen: Soft, nontender. Nervous system: Diffusely weak. LABS: Hemoglobin 10.5. Other labs are noted. ASSESSMENT: 1. Diarrhea. 2. Hyponatremia. 3. Enterococcal urinary tract infection possibly. 4. Possible pneumonia. 5. Paroxysmal atrial fibrillation. RECOMMENDATIONS AND DISCUSSION: Recommend to continue current medications, management and symptomatic treatment. Otherwise at this time, we will continue with the current medications. Repeat UA was negative and further recommendations to follow. MMODL / IJN: [id number] /
[2021-11-25 20:16] LABS: Glucose,Whole Blood 140 mg/dL (75-99)
[2021-11-25] MEDS: LOSARTAN 50 MG TAB PO SCH (20:22)
[2021-11-25] MEDS: CITALOPRAM HYDROBROMIDE 20 MG TAB PO SCH (20:22)
[2021-11-25] MEDS: ATORVASTATIN 10 MG TAB PO SCH (20:23)
[2021-11-25] MEDS: RIVAROXABAN 20 MG TAB PO SCH (20:23)
[2021-11-25 20:31] VITALS: RESP 16
--- NOTE | 2021-11-25 21:46 | P.PN ---
Subjective Progress Note Date: 11/25/21 Principal diagnosis: Urinary tract infection Patient is 81-year-old female with multiple comorbidities and recent surgery for hemorrhagic retinal detachment resulting hospital with weakness and worsening left eye vision lost, patient did have an elevated white count pos itivity and concern for dehydration as well as UTI. On today's evaluation that is 11/25/2021, the patient denies any fever or rigors, patient is breathing comfortably on room air, patient denies chest pain or cough no abdominal pain the patient diarrhea has resolved and wants to go home Objective - Vital Signs Vital signs: Vital Signs Temp 97.6 F 11/25/21 08:00 Pulse 88 11/25/21 08:00 Resp 15 11/25/21 01:44 BP 136/66 11/25/21 08:00 Pulse Ox 96 11/25/21 08:00 Intake & Output 11/24/21 11/25/21 11/25/21 18:59 06:59 18:59 Intake Total 515 Output Total 1600 Balance -1085 Weight 92.3 kg Intake: Intake, IV Titration 40 Amount Sodium Chloride 0.9% 1, 40 000 ml @ 20 mls/hr IV . Q24H [facility] Rx#:[id number] Oral 475 Output: Urine 1600 Other: Voiding Method Bedside Commode Bedside Commode Toilet Bedside Commode # Voids 1 2 # Bowel Movements 1 - Exam GENERAL DESCRIPTION: An elderly female lying in bed in no distress RESPIRATORY SYSTEM: Unlabored breathing , decreased breath sounds at bases HEART: S1 S2 regular rate and rhythm , ABDOMEN: Soft , no tenderness EXTREMITIES: No edema feet - Labs CBC & Chem 7: 11/25/21 06:27 11/25/21 06:27 Labs: Abnormal Lab Results - Last 24 Hours (Table) 11/24/21 11/25/21 11/25/21 Range/Units 16:32 06:27 06:27 RBC 3.62 L (4.10-5.20) X 10*6/uL Hgb 10.5 L (12.0-15.0) g/dL Hct 31.8 L (37.2-46.3) % RDW 14.9 H (11.5-14.5) % MPV 13.3 H (9.5-12.2) fL Immature Gran # 0.24 H (0.00-0.04) X 10*3/uL Monocytes # 1.26 H (0.20-1.00) X 10*3/uL Eosinophils # 0.02 L (0.04-0.35) X 10*3/uL Anion Gap 8.80 L (10.00-18.00) mmol/L Glucose 113 H (70-110) mg/dL POC Glucose (mg/dL) 135 H (75-99) mg/dL Total Protein 5.5 L (6.2-8.2) g/dL Albumin 3.7 L (3.8-4.9) g/dL 11/25/21 11/25/21 Range/Units 06:53 11:34 RBC (4.10-5.20) X 10*6/uL Hgb (12.0-15.0) g/dL Hct (37.2-46.3) % RDW (11.5-14.5) % MPV (9.5-12.2) fL Immature Gran # (0.00-0.04) X 10*3/uL Monocytes # (0.20-1.00) X 10*3/uL Eosinophils # (0.04-0.35) X 10*3/uL Anion Gap (10.00-18.00) mmol/L Glucose (70-110) mg/dL POC Glucose (mg/dL) 125 H 145 H (75-99) mg/dL Total Protein (6.2-8.2) g/dL Albumin (3.8-4.9) g/dL Assessment and Plan (1) SIRS (systemic inflammatory response syndrome) Current Visit: No Status: Acute Code(s): R65.10 - SIRS OF NON-INFECTIOUS ORIGIN W/O ACUTE ORGAN DYSFUNCTION SNOMED Code(s): 194683996 Plan: 1patient presented to hospital with generalized weakness no energy in this patient noticed to have elevated BUN/creatinine more likely related to d ehydration and possible related to ophthalmologic medication that have been started after the patient did have surgery for hemorrhagic detachment of the retina patient did not have any fever did have elevated white count however no significant respiratory symptoms to be suspicious for pneumonia did have mild urinary symptom possible component of enteric gram-negative pneumonia not entirely excluded, patient did have some congestion to the left eyeball but no surrounding redness or any purulent drainage clinic suspicious for infection to the left eye on the low side. 2 the patient urine culture has been finalized enterococcus that is sensitive to penicillin for the patient received adequate antibiotic therapy for underlying UTI 3-patient diarrhea more likely antibiotic associated symptoms have improved with discontinuation of amoxicillin and Questran, with resolution of diarrhea we will discontinue Questran make sure the patient doesn't get constipated, no need for antibiotic Time with Patient: Less than 30
[2021-11-25] MEDS: LORazepam 0.5 MG TAB PO PRN (22:24)
[2021-11-25] MEDS: LATANOPROST 0.005% OPHTH DROPS 2.5 ML BTL LEFT EYE SCH (22:26)
[2021-11-26] MEDS: LEVOTHYROXINE 125 MCG TAB PO SCH (05:18)
[2021-11-26] MEDS: ACETAMINOPHEN TAB 325 MG TAB PO PRN (05:18)
[2021-11-26 10:48] LABS: Glucose,Whole Blood 150 mg/dL (75-99)
[2021-11-26 11:54] LABS: Glucose,Whole Blood 176 mg/dL (75-99)
[2021-11-26] MEDS: INSULIN ASPART (NovoLOG) 100 UNIT/ML VIAL SQ SCH ×2 (12:22→12:25)
--- NOTE | 2021-11-26 13:18 | P.PN ---
Subjective Patient is seen in follow-up for hyponatremia. Sodium level 135 yesterday. Denies chest pain or shortness of breath. On room air. Good urine output. Oral intake here. No vomiting or diarrhea. Blood sugar 113 this morning. Vital signs are stable. General: Awake and alert. No acute distress. HEENT: Head exam is unremarkable. LUNGS: Breath sounds decreased. HEART: Rate and Rhythm are regular. ABDOMEN: Soft, no distention. EXTREMITITES: No edema. Objective - Vital Signs Vital signs: Vital Signs Temp 97.7 F 11/26/21 03:52 Pulse 63 11/26/21 03:52 Resp 16 11/26/21 03:52 BP 151/64 11/26/21 03:52 Pulse Ox 96 11/26/21 03:52 Intake & Output 11/25/21 11/26/21 11/26/21 18:59 06:59 18:59 Output Total 400 Balance -400 Weight 94 kg Output: Urine 400 Other: Voiding Method Toilet Toilet Bedside Commode Bedside Commode # Voids 3 - Labs CBC & Chem 7: 11/25/21 06:27 11/25/21 06:27 Labs: Abnormal Lab Results - Last 24 Hours (Table) 11/25/21 11/25/21 11/26/21 Range/Units 16:37 20:14 07:00 POC Glucose (mg/dL) 120 H 140 H 150 H (75-99) mg/dL 11/26/21 Range/Units 11:51 POC Glucose (mg/dL) 176 H (75-99) mg/dL Assessment and Plan Plan: Assessment: 1. Hyponatremia. Initially hypovolemic and worsened with the use of thiazide diuretic. Also on citalopram and Naprosyn which can induce SIADH. Sodium level 135 today. Urine sodium 91 and urine osmolality 271. 2. Enterococcus UTI s/p antibiotics. 3. A. fib. 4. Benign hypertension. Plan: Maintain fluid restriction. Not on diuretics. Increase hydralazine to 50 mg 3 times daily. Check TSH and cortisol level. Blood sugar control. Continue to monitor. Avoid NSAIDs.
[2021-11-26] MEDS: metFORMIN 500 MG TAB PO SCH (13:49)
[2021-11-26] MEDS: ATROPINE OPHTH SOLN 1% 5ML BTL LEFT EYE SCH (13:49)
[2021-11-26] MEDS: BRIMONIDINE TARTRATE 0.2% DROPS 5 ML BTL LEFT EYE SCH (13:49)
[2021-11-26] MEDS: PREGABALIN 50 MG CAP PO SCH (13:50)
[2021-11-26] MEDS: atenoloL 50 MG TAB PO SCH (13:50)
[2021-11-26] MEDS: cloNIDine HCL 0.1 MG TAB PO SCH (13:50)
[2021-11-26] MEDS: DILTIAZEM ORAL 60 MG TAB PO SCH (13:50)
[2021-11-26] MEDS: DORZOLAMIDE-TIMOLOL 2.23%/0.68 10ML BTL LEFT EYE SCH (13:50)
[2021-11-26] MEDS: SODIUM CHLORIDE 0.9% 1,000 ML IV SCH (13:50)
[2021-11-26] MEDS: ASPIRIN 81 MG PO SCH (13:50)
[2021-11-26] MEDS: OFLOXACIN 0.3% OPHTH DROPS 5 ML BOTTLE LEFT EYE SCH (13:50)
[2021-11-26] MEDS: prednisoLONE ACETATE 1% OPHTH DROPS 5 ML BTL LEFT EYE SCH (13:50)
[2021-11-26] MEDS: FAMOTIDINE 20 MG TAB PO SCH (13:50)
[2021-11-26] MEDS: OXYBUTYNIN XL 5 MG TAB.ER.24 PO SCH (13:50)
[2021-11-26] MEDS: hydrALAZINE HCL 25 MG TAB PO SCH (13:52)
[2021-11-26 14:22] VITALS: BMI 37.9
[2021-11-26 14:44] VITALS: BP 120/73; PULSE 56; TEMP 98.1
[2021-11-26] MEDS ORDERED: hydrALAZINE HCL 50 MG TAB PO SCH (16:00)
--- NOTE | 2021-11-26 21:53 | P.DS ---
Providers Date of admission: 11/13/21 17:34 Expected date of discharge: 11/26/21 Attending physician: Tommy Caldwell Consults: 11/13/21 18:10 Consult Physician Urgent Consulting Provider: Raza Reno Consult Reason/Comments: infection, also eval eye Do you want consulting provider notified?: Yes 11/13/21 18:46 Consult Physician Routine Consulting Provider: Sepideh Dias Consult Reason/Comments: Post eye surgery pain Do you want consulting provider notified?: Yes 11/16/21 05:06 Consult Physician Urgent Consulting Provider: Declan Kay Consult Reason/Comments: Cadizem drip for possible A-Fib RVR Do you want consulting provider notified?: Yes 11/21/21 09:43 Consult Physician Urgent Consulting Provider: Surya Lopez Consult Reason/Comments: Hyponatremia Do you want consulting provider notified?: Yes Primary care physician: Napoleon L Adan [facility] Course: Chief Complaint: Not feeling well This is a 81-year-old patient, follows with Dr. Napoleon Arellano. Chronic stable medical conditions include atrial fibrillation for which she is on xarelto, COPD, diabetes, GERD, hypertension, hyperlipidemia, osteoarthritis, hypothyroid, obstructive sleep apnea does not use CPAP, hiatal hernia, spinal stenosis. Last week on that is about a week ago, because of left eye pain patient had to go down to [facility] for eye surgery. As per the son at the bedside dose possibly an aneurysm the back of diet that was repaired. Is also retinal detachment with significant hemorrhage. Eyedrops were given. Patient was told that the patient will not return. Following that she did call back for a follow-up. Subsequently that she started having increasing nausea vomiting. Increasing headache. She is prescribed Diamox. Started having chills. She presented to our ER on November 11. Doxazosin patient had surgery with , cosmetic chemist at [facility]. She does ruptured aneurysm that they attempted repair. She she was blind in his left eye prior to surgery. She also had a urine infection prior to surgery. No complete the course of antibiotic. She had a CT of the head that did not show any abnormality. Had an elevated white count. They consulted Dr. Dias and he recommended increasing the dose Diamox. Right eye pressure was 14 and left eye pressure was 55. Patient was discharged home. Subsequently the son says patient became intermittently confused. Not really eating drinking. Denied any obvious respiratory symptoms. No urinary symptoms. Tired rundown. Patient admitted with acute kidney injury. Pneumonia. Hypotension. Possible infection around the globe. Started on IV fluids. IV daptomycin IV ceftriaxone. Also had UTI from Enterococcus faecalis. Completed course of and hepatic. November 14: Laying in bed. Feels slightly better. Blood pressure started to,. On IV antibiotics. Eating some. November 15: Oral intake improving. Does sit up in a chair. No fever. Discussed with Dr. Polo from ID. Stop daptomycin. We'll continue ceftriaxone for UTI/possible pneumonia. Seen by Dr. Bunn from ophthalmology. Continue eyedrops. November 16: Eating about 50%. No fever. Patient went into A. fib with rapid ventricular rate. Cardiology consulted. Atenolol increased. Other medications to continue. Urine culture growing Enterococcus faecalis. Antibiotic changed to IV Unasyn November 17: Remains in atrial fibrillation. Heart rate above 100. Tenormin increased to 75 mg. Decreased appetite. No fever no chills. On IV Unasyn. November 18: Atrial fibrillation rate controlled. Blood pressure on the higher side. Cardiology added amlodipine 5 mg. Patient not feeling well. Sitting up in chair. Short of breath. Received 1 dose of Lasix. Tired November 19: Atrial fibrillation -rate controlled. Blood pressure controlled. Dose of Tenormin increased. Decreased appetite. Tired November 20: Patient is sinus rhythm. It is noted that patient's morning blood pre ssure is high in the daytime as better controlled. I will move her Cozaar and amlodipine tonight and continue Tenormin in the morning. Patient is complaining of small BMs every time she coughs or eats. Given that she's been antibiotics rule out C. diff. November 21 through November 25 patient was covered by [facility] hospitalists. November 26: Patient sitting up in a chair. Feeling well. No pain. No diarrhea. [place] to have antibiotic decision diarrhea. Antibiotics discontinued per ID. Care was discussed with the patient. Questions answered. Follow-up discussed. 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 Smoked for 30 years stopped in 1987. Smoked 3-4 packs a day. Stopped drinking in 1986. Occasional CBD ordered. Family history: Heart trouble and cancer Physical examination: VITAL SIGNS: 98.1, 56, 16, 120/73, 97% room air GENERAL: Sitting up in chair, comfortable EYES: Pupils equal. No vision out of the left eye HEENT: External appearance of nose and ears normal, oral cavity grossly normal. NECK: JVD not raised; masses not palpable. HEART: Irregular heart sounds; edema present LUNGS: Respiratory rate increased basal crackles ABDOMEN: Soft, nontender, liver spleen not palpable, no masses palpable. PSYCH: [Alert and oriented x3; mood and affect normal MUSCULOSKELETAL:No Clubbing/cyanosis;muscles-grossly intact. Evidence of OA Neurological: No vision of left eye INVESTIGATIONS, reviewed in the clinical context: November 25: White count 8.1 hemoglobin 10.5 platelets 164 potassium 4 creatinine 0.7 Urine culture: Enterococcus faecalis UA: Positive November 14: White count 11.8 hemoglobin 12.3 platelets 129 potassium 3.3 creatinine 0.89 pro-calcitonin 0.18 White count 22.1 hemoglobin 14.2 platelets 158 increased neutrophils sodium 127 potassium 3.1 BUN 28 creatinine 1.51 glucose 154 TSH 1.2 lactic acid 1.9 EKG tracing personally reviewed by me-sinus rhythm. ST segment depression Chest x-ray film personally reviewed by me-basilar infiltrate Previous labs on 11/11/2021: White count 16.9 hemoglobin 14.6 sodium 125 potassium 3.[address] a on November 11: Postsurgical changes to the left globe. -Assessment and plan: -This patient had surgery to the left eye for a ruptured aneurysm unsuccessfully repaired about a week ago. Discussed with ID. Local infection felt to be unlikely. Stop daptomycin -Acute delirium from infection with episodes of confusion at home.: Improved -Pneumonia on chest x-ray film as evidenced by infiltrate IV Unasyn: Completed -Acute UTI with cystitis, from Enterococcus faecalis IV Unasyn. Changed to amoxicillin-completed course -Paroxysmal atrial fibrillation with rate controlled xarelto. Tenormin 100 mg a day. -Blind in the left eye, with repair of aneurysm or rupture 1 week ago -COPD in a previous smoker -Diabetes mellitus type 2, on oral hypoglycemic Metformin thousand milligrams by mouth twice a day. Follow Accu-Cheks -GERD Pepcid when necessary -Hyperlipidemia Lipitor 10 mg daily at bedtime -Essential hypertension: Uncontrolled -Primary osteoarthritis multiple joints Tylenol as needed -Obstructive sleep apnea does not use CPAP -Hypothyroid Levoxyl 125 g daily -Chronic spinal stenosis -Diabetic peripheral neuropathy Lyrica 100 mg twice a day -Acute kidney injury possibly ATN and prerenal. From decreased oral intake and sepsis: Better IV fluids.-Discontinue -Hyponatremia, hypovolemic from patient and vomiting and unable to eat: Improved -Hypokalemia: Replace Replace - antibiotic associated diarrhea. Improved Disposition: Home Plan - Discharge Summary New Discharge Prescriptions: New Diltiazem Cd [Cardizem CD] 180 mg PO DAILY #30 cap hydrALAZINE HCL [Apresoline] 50 mg PO TID #90 tab cloNIDine HCL [Catapres] 0.1 mg PO BID #60 tab Continue Nitroglycerin Sl Tabs [Nitrostat] 0.4 mg SUBLINGUAL Q5M PRN #25 tab PRN Reason: Chest Pain metFORMIN HCL [Glucophage] 500 mg PO BID-W/MEALS Atorvastatin [Lipitor] 10 mg PO HS ALPRAZolam [Xanax] 0.25 mg PO DAILY PRN PRN Reason: Anxiety Levothyroxine Sodium [Levoxyl] 125 mcg PO DAILY Citalopram Hydrobromide [Citalopram HBr] 40 mg PO HS Irbesartan/Hydrochlorothiazide [Irbesartan-Hctz 300-12.5 mg Tb] 1 tab PO DAILY Rivaroxaban [Xarelto] 20 mg PO HS Pregabalin [Lyrica] 100 mg PO BID Ondansetron Odt [Zofran ODT] 4 mg PO Q8HR PRN #20 tab PRN Reason: Nausea And Vomiting Atropine Ophth Soln 1% 5Ml [Isopto Atropine 1% 5Ml] 1 drop LEFT EYE BID@0830,2200 Latanoprost/Pf [Latanoprost 0.005% Eye Drop] 1 drop LEFT EYE HS@2200 Ofloxacin 0.3% Ophth Soln [Ocuflox Ophth Soln] 1 drops LEFT EYE QID@0830,1330,18,22 Oxybutynin Xl [Ditropan XL] 5 mg PO DAILY Prednisolone Acetate/Pf [Prednisolone Acet 1% Eye Drop] 1 drop LEFT EYE QID@0830,1330,18,22 Acetaminophen Tab [Tylenol] 500 mg PO Q6HR PRN PRN Reason: Pain Or Fever > 100.5 Brimonidine Tartrate [Alphagan P 0.2% Ophth Soln] 1 drops LEFT EYE TID@0830,1530,2200 Dorzolamide/Timolol/Pf [Dorzolamide 2%-Timolol 0.5%] 1 drop LEFT EYE BID@0830,2200 Aspirin EC [Ecotrin Low Dose] 81 mg PO DAILY Changed atenoloL [Tenormin] 100 mg PO HS #0 Discharge Medication List Nitroglycerin Sl Tabs [Nitrostat] 0.4 mg SUBLINGUAL Q5M PRN #25 tab 11/30/14 [Rx] ALPRAZolam [Xanax] 0.25 mg PO DAILY PRN 04/26/15 [History] Atorvastatin [Lipitor] 10 mg PO HS 04/26/15 [History] Citalopram Hydrobromide [Citalopram HBr] 40 mg PO HS 04/26/15 [History] Irbesartan/Hydrochlorothiazide [Irbesartan-Hctz 300-12.5 mg Tb] 1 tab PO DAILY 04/26/15 [History] Levothyroxine Sodium [Levoxyl] 125 mcg PO DAILY 04/26/15 [History] metFORMIN HCL [Glucophage] 500 mg PO BID-W/MEALS 04/26/15 [History] Rivaroxaban [Xarelto] 20 mg PO HS 11/08/16 [History] Pregabalin [Lyrica] 100 mg PO BID 12/20/16 [History] Ondansetron Odt [Zofran ODT] 4 mg PO Q8HR PRN #20 tab 11/11/21 [Rx] Acetaminophen Tab [Tylenol] 500 mg PO Q6HR PRN 11/13/21 [History] Aspirin EC [Ecotrin Low Dose] 81 mg PO DAILY 11/13/21 [History] Atropine Ophth Soln 1% 5Ml [Isopto Atropine 1% 5Ml] 1 drop LEFT EYE BID@0830,2200 11/13/21 [History] Brimonidine Tartrate [Alphagan P 0.2% Ophth Soln] 1 drops LEFT EYE TID@0830,1530,2200 11/13/21 [History] Dorzolamide/Timolol/Pf [Dorzolamide 2%-Timolol 0.5%] 1 drop LEFT EYE BID@0830,2200 11/13/21 [History] Latanoprost/Pf [Latanoprost 0.005% Eye Drop] 1 drop LEFT EYE HS@2200 11/13/21 [History] Ofloxacin 0.3% Ophth Soln [Ocuflox Ophth Soln] 1 drops LEFT EYE QID@0830,1330,18,11/13/21 [History] Oxybutynin Xl [Ditropan XL] 5 mg PO DAILY 11/13/21 [History] Prednisolone Acetate/Pf [Prednisolone Acet 1% Eye Drop] 1 drop LEFT EYE QID@0830,1330,18,11/13/21 [History] Diltiazem Cd [Cardizem CD] 180 mg PO DAILY #30 cap 11/26/21 [Rx] atenoloL [Tenormin] 100 mg PO HS #0 11/26/21 [Rx] cloNIDine HCL [Catapres] 0.1 mg PO BID #60 tab 11/26/21 [Rx] hydrALAZINE HCL [Apresoline] 50 mg PO TID #90 tab 11/26/21 [Rx] Follow up Appointment(s)/Referral(s): Jared Das MD [STAFF PHYSICIAN] - 2 Weeks (Office closed at time of discharge - please call to arrange follow up appointment) [facility] [NON-STAFF] - (Supplied the walker) Napoleon Arellano MD [Primary Care Provider] - 1-2 days (Office closed at time of discharge - please call office to arrange follow up appointment) Dm Bunn MD [STAFF PHYSICIAN] - 3 Days (Office closed at time of discharge - please call to arrange follow up appointment) Toni Aldana [facility] [NON-STAFF] - ([facility] will call you to schedule your in home nursing and physical therapy visits. ) Patient Instructions/Handouts: Community Acquired Pneumonia (DC) Discharge Disposition: HOME WITH HOME HEALTH SERVICES
== END 2021-11-26 16:05 | disposition home health service (06) | DRG 871 ==
LOC: EC 15:43 → 4SSUR 17:34 → OBSVTOIN 17:34 → 4SSUR 22:14
PROVIDERS: ADMIT Hospitalist; ATTEND Hospitalist
DX: A41.81 Sepsis due to Enterococcus (principal); G93.41 Metabolic encephalopathy; J18.9 Pneumonia, unspecified organism; N17.0 Acute kidney failure with tubular necrosis; N30.00 Acute cystitis without hematuria; E87.1 Hypo-osmolality and hyponatremia; F05 Delirium due to known physiological condition; H33.22 Serous retinal detachment, left eye; J44.0 Chronic obstructive pulmonary disease with (acute) lower respiratory infection; K52.1 Toxic gastroenteritis and colitis; R65.20 Severe sepsis without septic shock; E03.9 Hypothyroidism, unspecified; E11.42 Type 2 diabetes mellitus with diabetic polyneuropathy; Z87.891 Personal history of nicotine dependence; F32.A Depression, unspecified; G47.33 Obstructive sleep apnea (adult) (pediatric); I10 Essential (primary) hypertension; Z20.822 Contact with and (suspected) exposure to COVID-19; I27.20 Pulmonary hypertension, unspecified; I48.0 Paroxysmal atrial fibrillation; K21.9 Gastro-esophageal reflux disease without esophagitis; K59.00 Constipation, unspecified; M48.00 Spinal stenosis, site unspecified; M17.0 Bilateral primary osteoarthritis of knee; E87.6 Hypokalemia; H54.62 Unqualified visual loss, left eye, normal vision right eye; R51.9 Headache, unspecified; E78.5 Hyperlipidemia, unspecified; I83.90 Asymptomatic varicose veins of unspecified lower extremity; M15.9 Polyosteoarthritis, unspecified; Z28.310 Unvaccinated for COVID-19; E86.1 Hypovolemia; E86.0 Dehydration; T36.95XA Adverse effect of unspecified systemic antibiotic, initial encounter; Z79.01 Long term (current) use of anticoagulants; G47.00 Insomnia, unspecified; F41.9 Anxiety disorder, unspecified; Z79.82 Long term (current) use of aspirin; Z79.84 Long term (current) use of oral hypoglycemic drugs; Z79.890 Hormone replacement therapy; Z79.899 Other long term (current) drug therapy; Z83.3 Family history of diabetes mellitus; Z90.710 Acquired absence of both cervix and uterus; Z90.49 Acquired absence of other specified parts of digestive tract; Z98.890 Other specified postprocedural states; Z88.5 Allergy status to narcotic agent; Z91.040 Latex allergy status; Z84.1 Family history of disorders of kidney and ureter; Z87.01 Personal history of pneumonia (recurrent); Z87.440 Personal history of urinary (tract) infections
CPT/HCPCS: 36415; 70450; 71045; 71046; 80048; 80053; 81001; 81003; 83605; 83735; 83930; 83935; 84132; 84145; 84295; 84300; 84439; 84443; 84481; 84484; 85025; 85027; 85610; 85730; 86140; 87040; 87077; 87086; 87186; 87635; 93005; 93306; 94640; 94760; 96361; 96365; 96366; 96368; 99285

== ENCOUNTER → 2024-03-29 | Outpatient (CLI) | payer MEDICARE ==
[2024-03-29 19:48] LABS: BUN/Creat Ratio 13.25 Ratio (12.00-20.00); Blood Urea Nitrogen 10.6 mg/dL (9.0-27.0); Calcium 9.1 mg/dL (8.7-10.3); Carbon Dioxide 24.1 mmol/L (21.6-31.8); Chloride 100 mmol/L (96-109); Glucose 191 mg/dL (70-110); Potassium 4.4 mmol/L (3.5-5.5); Sodium 136 mmol/L (135-145)
[2024-03-29 19:59] LABS: Basophils # (A) 0.02 X 10*3/uL (0.00-0.10); Basophils % (A) 0.2 %; Eosinophils # (A) 0.07 X 10*3/uL (0.04-0.35); Eosinophils % (A) 0.7 %; HCT 37.5 % (37.2-46.3); HGB 12.3 g/dL (12.0-15.0); Lymphocytes # (A) 2.23 X 10*3/uL (0.90-5.00); Lymphocytes % (A) 22.5 %; MCH 28.1 pg (27.0-32.0); MCHC 32.8 g/dL (32.0-37.0); MCV 85.6 FL (80.0-97.0); Mean Platelet Volume 13.9 FL (9.5-12.2); Monocytes # (A) 1.99 X 10*3/uL (0.20-1.00); Monocytes % (A) 20.1 %; NRBC Per 100 WBC 0 X 10*3/uL (0.00-0.01); Neutrophils # (A) 5.34 X 10*3/uL (1.80-7.70); Neutrophils % (A) 53.9 %; Platelet Count 142 X 10*3/uL (140-440); RBC 4.38 X 10*6/uL (4.10-5.20); RDW 14.5 % (11.5-14.5); WBC 9.91 X 10*3/uL (4.50-10.00)
== END | disposition home or self-care (01) ==
LOC: LABPAT 13:31
PROVIDERS: ATTEND Urology
DX: Z01.812 Encounter for preprocedural laboratory examination (principal)
CPT/HCPCS: 80048; 85025

== ENCOUNTER 2024-04-08 07:23 | Day surgery (SDC) | payer MEDICARE ==
--- NOTE | 2024-04-07 19:30 | P.GSHP ---
History of Present Illness H&P Date: 04/07/24 Chief Complaint: Hematuria The patient is an 83-year-old white female who recently developed gross hematuria. Urinalysis showed no evidence of infection, and urine cytology was negative. CT scan showed a right parapelvic renal cyst. Cystoscopy showed erythema at the bladder dome which was actively oozing. She now comes for cystoscopy with biopsies and fulguration. She has been cleared by Cardiology. - Cardiovascular Cardiovascular: Reports high blood pressure, Reports irregular heart beat - Genitourinary (Female) Genitourinary: Reports hematuria, Reports urinary frequency Past Medical History Past Medical History: Atrial Fibrillation, Chest Pain / Angina, COPD, Diabetes Mellitus, GERD/Reflux, Hyperlipidemia, Hypertension, Osteoarthritis (OA), Pneumonia, Sleep Apnea/CPAP/BIPAP, Thyroid Disorder Additional Past Medical History / Comment(s): NIDDM type II, DDD, SPINAL STENOSIS, HIATAL HERNIA, DIVERTICULITS, HAS C PAP MACHINE BUT DOESN'T USE, VARICOSE VEINS, FREQUENT DIARRHEA, BACK PAIN, ARTHRITIS IN KNEES, STATES INJECTION LEFT KNEE 04/20/19., Aneurism behind left eye 11/07/21-emergency surgery at [facility]-currently blind in left eye, cyst on kidney, spot in bladder with hematuria. 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 History of Any Multi-Drug Resistant Organisms: MRSA Date of last positivie culture/infection: 04/30/2015 MDRO Source:: back ( ? spider bite) Past Surgical History: Appendectomy, Bladder Surgery, Cholecystectomy, Heart Catheterization, Hysterectomy Additional Past Surgical History / Comment(s): Bladder suspension, EPIDURAL INJECTION/BACK, COLONOSCOPY, catarats, 11/07/21 emergency eye surgery on left eye Past Anesthesia/Blood Transfusion Reactions: Previous Problems w/ Anesthesia, Motion Sickness Additional Past Anesthesia/Blood Transfusion Reaction / Comment(s): HARD TIME WAKING UP AFTER Anesthesia. Smoking Status: Former smoker - Past Family History Brother(s) Family Medical History: Coronary Artery Disease (CAD) Additional Family Medical History / Comment(s): pm/defib Daughter(s) Family Medical History: Myocardial Infarction ([place]) Additional Family Medical History / Comment(s): defibrillator Father Family Medical History: Cancer Additional Family Medical History / Comment(s): HEART PROBLEMS Mother Family Medical History: Renal Disease Medications and Allergies Home Medications Medication Instructions Recorded Confirmed Type Nitroglycerin Sl Tabs [Nitrostat] 0.4 mg SUBLINGUAL Q5M PRN #25 tab 11/30/14 0 04/06/24 Rx Atorvastatin [Lipitor] 10 mg PO HS 04/26/15 04/06/24 History Citalopram Hydrobromide 40 mg PO HS 04/26/15 04/06/24 History [Citalopram HBr] Levothyroxine Sodium [Levoxyl] 125 mcg PO DAILY 04/26/15 04/06/24 History metFORMIN HCL [Glucophage] 500 mg PO BID-W/MEALS 04/26/15 04/06/24 History Rivaroxaban [Xarelto] 20 mg PO HS 11/08/16 04/06/24 History Pregabalin [Lyrica] 100 mg PO BID 12/20/16 04/06/24 History Acetaminophen Tab [Tylenol] 500 mg PO Q6HR PRN 11/13/21 04/06/24 History Aspirin EC [Ecotrin Low Dose] 81 mg PO DAILY 11/13/21 04/06/24 History Atropine Ophth Soln 1% 5Ml [Isopto 1 drop LEFT EYE BID@0830,2200 11/13/21 04/06/24 History Atropine 1% 5Ml] Brimonidine Tartrate [Alphagan P 1 drops LEFT EYE TID@0830,1530,2200 11/13/21 04/06/24 History 0.2% Ophth Soln] Prednisolone Acetate/Pf 1 drop LEFT EYE QID@0830,1330,18,22 11/13/21 04/06/24 History [Prednisolone Acet 1% Eye Drop] ALPRAZolam [Xanax] 0.25 mg PO DAILY PRN 04/06/24 04/06/24 History Cholecalciferol (Vitamin D3) 50 mcg PO DAILY 04/06/24 04/06/24 History [Vitamin D3 (50 Mcg = 2000 Iu)] Irbesartan 300 mg PO DAILY 04/06/24 04/06/24 History atenoloL [Tenormin] 50 mg PO HS 04/06/24 04/06/24 History Allergies Allergy/AdvReac Type Severity Reaction Status Date / Time codeine Allergy Severe Anaphylaxis Verified 04/06/24 10:10 adhesive tape Allergy Rash/Hives Verified 04/06/24 10:10 iodine Allergy Unknown Verified 04/06/24 10:10 Latex, Natural Rubber Allergy Rash/Hives Verified 04/06/24 10:10 Surgical - Exam - General well developed, well nourished, no distress - Respiratory normal respiratory effort - Abdomen Abdomen: soft, non tender, no guarding, no rigid, no rebound - Genitourinary normal external genitalia - Psychiatric oriented to time, oriented to person, oriented to place, speech is normal, memory intact Results - Imaging CT scan - abdomen: report reviewed Assessment and Plan (1) Neoplasm of unspecified behavior of bladder Status: Acute Code(s): D49.4 - NEOPLASM OF UNSPECIFIED BEHAVIOR OF BLADDER SNOMED Code(s): 016453376 Plan: Cystoscopy with bladder biopsy, fulguration of biopsy site. The procedure has been reviewed in detail with the patient and her daughter. They have been made aware of potential risks, which include anesthesia, bleeding, infection, and bladder perforation.
[~2024-04-08 07:23] MED LIST changes: -ALPRAZolam 0.25 MG TAB PO PRN; -ALPRAZolam 0.5 MG TAB PO PRN; -ASPIRIN 325 MG TAB PO STA; -ATORVASTATIN 80 MG TAB PO STA; -NITROGLYCERIN SL TABS 0.4 MG TAB SUBLINGUAL PRN; -SODIUM CHLORIDE 0.9% 1,000 ML in EMPTY BAG 1 BAG IV ONE; +fentaNYL (PF) 50 MCG/ML 2 ML AMP IV PRN
[2024-04-08 08:06] VITALS: TEMP 97.2
[2024-04-08 08:30] LABS: Glucose,Whole Blood 221 mg/dL (70-110)
[2024-04-08] MEDS: ONDANSETRON 4 MG/2 ML VIAL IVP ONE (08:31)
[2024-04-08] MEDS: DEXAMETHASONE SOD PHOSPHATE 4 MG/ML 1 ML VIAL IV ONE (08:32)
[2024-04-08] MEDS: atenoloL 50 MG TAB PO STA (08:32)
[2024-04-08] MEDS: LACTATED RINGERS 1,000 ML IV SCH (08:32)
[2024-04-08] MEDS: INSULIN ASPART (NovoLOG) 100 UNIT/ML VIAL SQ ONE (08:37)
[2024-04-08] MEDS: IV FLUID CONTINUATION 1,000 ML IV ONE (08:40)
[2024-04-08] MEDS ORDERED: LIDOCAINE 1% INJ 10MG/ML (20 ML MDV) ONE (08:57)
[2024-04-08] MEDS ORDERED: PROPOFOL 10 MG/ML 20 ML VIAL IV ONE (08:57)
[2024-04-08] MEDS ORDERED: PHENYLEPHRINE-0.9% NACL SYG 1,000 MCG/10 ML SYRINGE ONE (08:57)
[2024-04-08] MEDS ORDERED: fentaNYL (PF) 50 MCG/ML 2 ML AMP ONE (08:57)
--- NOTE | 2024-04-08 09:38 | P.OP ---
Date of Procedure: 04/08/24 Preoperative Diagnosis: Gross hematuria, bladder lesion Postoperative Diagnosis: Same Procedure(s) Performed: Cystoscopy with bladder biopsies, fulguration of biopsy sites Anesthesia: MAC Surgeon: Red Wheeler Estimated Blood Loss (ml): 10 IV fluids (ml): 350 Pathology: other (Right bladder dome biopsies) Condition: stable Disposition: PACU Indications for Procedure: The patient is an 83-year-old white female who recently developed gross hematuria. Urinalysis showed no evidence of infection, and urine cytology was negative. CT scan showed a right parapelvic renal cyst. Cystoscopy showed erythema at the bladder dome which was actively oozing. She now comes for cystoscopy with biopsies and fulguration. She has been cleared by Cardiology. Operative Findings: Erythema at right bladder dome with pinpoint oozing. Description of Procedure: The patient was taken to the operating room and placed in the dorsolithotomy position, with legs supported in Denilson stirrups. The external genitalia was prepped and draped sterilely. The 30 lens was used to introduce the 22-Macedonian Stortz cystoscopic sheath through the urethra and into the bladder under direct vision. The bladder was examined in its entirety. Both ureteral orifices were of normal anatomic location and configuration, and clear urine effluxed from both. An area of erythema measuring approximately 2 cm in size was seen at the right bladder dome. Within this was a pinpoint area of bruising. Using the cold cup biopsy forceps, 2 biopsies were obtained and sent to pathology. The Bugbee electrode was used to fulgurate the biopsy sites, as well as the adjacent erythematous mucosa. Excellent hemostasis was attained. The bladder was emptied and the cystoscope removed. The patient tolerated the procedure well and was taken to the recovery room in stable condition.
[2024-04-08 09:58] VITALS: RESP 18
[2024-04-08 10:06] VITALS: BP 159/70; PULSE 71
== END 2024-04-08 10:44 | disposition home or self-care (01) ==
LOC: OR 07:23
PROVIDERS: ATTEND Urology
DX: N30.91 Cystitis, unspecified with hematuria (principal); M19.90 Unspecified osteoarthritis, unspecified site; K21.9 Gastro-esophageal reflux disease without esophagitis; I48.91 Unspecified atrial fibrillation; E78.5 Hyperlipidemia, unspecified; I10 Essential (primary) hypertension; E07.9 Disorder of thyroid, unspecified; G47.33 Obstructive sleep apnea (adult) (pediatric); E11.9 Type 2 diabetes mellitus without complications; H54.62 Unqualified visual loss, left eye, normal vision right eye; J44.9 Chronic obstructive pulmonary disease, unspecified; Z87.891 Personal history of nicotine dependence; Z82.49 Family history of ischemic heart disease and other diseases of the circulatory system; Z90.49 Acquired absence of other specified parts of digestive tract; Z90.710 Acquired absence of both cervix and uterus; Z91.041 Radiographic dye allergy status; Z91.040 Latex allergy status; Z88.0 Allergy status to penicillin; Z88.8 Allergy status to other drugs, medicaments and biological substances; Z79.890 Hormone replacement therapy; Z79.84 Long term (current) use of oral hypoglycemic drugs; Z79.02 Long term (current) use of antithrombotics/antiplatelets; Z79.82 Long term (current) use of aspirin
CPT/HCPCS: 88305

== ENCOUNTER 2025-01-25 12:46 | Observation (INO) | payer MEDICARE ==
--- NOTE | 2025-01-25 15:19 | ED ---
Fall HPI - General Chief Complaint: Fall Stated Complaint: Syncope Time Seen by Provider: 01/25/25 15:15 Source: patient, family, EMS, RN notes reviewed Mode of arrival: EMS - History of Present Illness Initial Comments: 84-year-old female presenting via EMS for episode of syncope this morning. States she was walking in her home when she began to feel lightheaded. States she sat down in her chair and woke up on the ground. She is unsure if she hit her head. She is on blood thinners as she was recently diagnosed with atrial fibrillation several weeks ago. She has been having episodes of intermittent dizziness associated with atrial fibrillation. She is scheduled to see Dr. Browning to have further cardiac testing. Denies headache, vision changes, chest pain, shortness of breath, abdominal pain. - Related Data Home Medications Medication Instructions Recorded Confirmed Atorvastatin [Lipitor] 10 mg PO HS 04/26/15 01/25/25 metFORMIN HCL [Glucophage] 500 mg PO BID-W/MEALS 04/26/15 01/25/25 Rivaroxaban [Xarelto] 20 mg PO HS 11/08/16 01/25/25 Pregabalin [Lyrica] 100 mg PO BID 12/20/16 01/25/25 ALPRAZolam [Xanax] 0.25 mg PO DAILY PRN 04/06/24 01/25/25 Irbesartan 300 mg PO DAILY 04/06/24 01/25/25 Empagliflozin [Jardiance] 10 mg PO DAILY 01/25/25 01/25/25 Escitalopram [Lexapro] 5 mg PO DAILY 01/25/25 01/25/25 Levothyroxine Sodium [Synthroid] 137 mcg PO DAILY 01/25/25 01/25/25 Magnesium Oxide [Magox 400] 400 mg PO DAILY 01/25/25 01/25/25 Metoprolol Tartrate [Lopressor] 50 mg PO Q8H 01/25/25 01/25/25 dilTIAZem HCL 30 mg PO Q8H 01/25/25 01/25/25 Previous Rx's Medication Instructions Recorded Nitroglycerin Sl Tabs [Nitrostat] 0.4 mg SUBLINGUAL Q5M PRN #25 tab 11/30/14 Allergies Allergy/AdvReac Type Severity Reaction Status Date / Time codeine Allergy Severe Anaphylaxis Verified 01/25/25 14:46 adhesive tape Allergy Rash/Hives Verified 01/25/25 14:46 iodine Allergy Unknown Verified 01/25/25 14:46 Latex, Natural Rubber Allergy Rash/Hives Verified 01/25/25 14:46 Review of Systems ROS Statement: Those systems with pertinent positive or pertinent negative responses have been documented in the HPI. ROS Other: All systems not noted in ROS Statement are negative. 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 spider bite) Past Surgical History: Appendectomy, Bladder Surgery, Cholecystectomy, Heart Catheterization, Hysterectomy Additional Past Surgical History / Comment(s): Bladder suspension, EPIDURAL INJECTION/BACK, COLONOSCOPY, catarats, 11/07/21 emergency eye surgery on left eye Past Anesthesia/Blood Transfusion Reactions: Previous Problems w/ Anesthesia, Motion Sickness Additional Past Anesthesia/Blood Transfusion Reaction / Comment(s): HARD TIME WAKING UP AFTER Anesthesia. Past Psychological History: Anxiety, Depression Smoking Status: Former smoker - Past Family History Brother(s) Family Medical History: Coronary Artery Disease (CAD) Additional Family Medical History / Comment(s): pm/defib Daughter(s) Family Medical History: Myocardial Infarction (PR) Additional Family Medical History / Comment(s): defibrillator Father Family Medical History: Cancer Additional Family Medical History / Comment(s): HEART PROBLEMS Mother Family Medical History: Renal Disease General Exam Limitations: no limitations General appearance: alert, in no apparent distress Head exam: Present: atraumatic, normocephalic, normal inspection, other (No external signs of trauma) Eye exam: Present: normal appearance, PERRL, EOMI. Absent: scleral icterus, conjunctival injection, periorbital swelling ENT exam: Present: normal exam, mucous membranes moist Neck exam: Present: normal inspection. Absent: tenderness, meningismus, lymphadenopathy Respiratory exam: Present: normal lung sounds bilaterally. Absent: respiratory distress, wheezes, rales, rhonchi, stridor Cardiovascular Exam: Present: regular rate, irregular rhythm, normal heart sounds. Absent: systolic murmur, diastolic murmur, rubs, gallop, clicks GI/Abdominal exam: Present: soft, normal bowel sounds. Absent: distended, tenderness, guarding, rebound, rigid Neurological exam: Present: alert, oriented X3, CN II-XII intact Psychiatric exam: Present: normal affect, normal mood Skin exam: Present: warm, dry, intact, normal color. Absent: rash Course Vital Signs 01/25/25 01/25/25 12:48 15:06 Temperature 97.8 F Pulse Rate 77 81 Respiratory 18 18 Rate Blood Pressure 137/86 145/79 O2 Sat by Pulse 98 96 Oximetry Medical Decision Making - Medical Decision Making Was pt. sent in by a medical professional or institution (, PA, FOURTH GRADE TEACHER, urgent care, hospital, or [facility]...) When possible be specific @ -No Did you speak to anyone other than the patient for history (EMS, parent, family, police, friend...)? What history was obtained from this source @ -Daughter supplemented history Did you review nursing and triage notes (agree or disagree)? Why? @ -I reviewed and agree with nursing and triage notes Were old charts reviewed (outside hosp., previous admission, EMS record, old EKG, old radiological studies, urgent care reports/EKG's, [facility] records)? Report findings @ -No old charts were reviewed Differential Diagnosis (chest pain, altered mental status, abdominal pain women, abdominal pain men, vaginal bleeding, weakness, fever, dyspnea, syncope, headache, dizziness, GI bleed, back pain, seizure, CVA, palpatations, mental health, musculoskeletal)? @ -Differential Syncope: Valvular disease, hypertrophic cardiomyopathy, pulmonary embolism, tamponade, tachycardia, bradycardia, PR, hypovolemia, hemorrhage, dissection, anemia, intracranial hemorrhage, seizure, hypoglycemia, carbon monoxide poisoning, this is not meant to be an all-inclusive list. EKG interpreted by me (3pts min.). @ -As above X-rays interpreted by me (1pt min.). @ -Chest x-ray reveals no acute cardiopulmonary process CT interpreted by me (1pt min.). @ -CT brain and C-spine negative for acute abnormality U/S interpreted by me (1pt. min.). @ -None done What testing was considered but not performed or refused? (CT, X-rays, U/S, labs)? Why? @ -None What meds were considered but not given or refused? Why? @ -None Did you discuss the management of the patient with other professionals (professionals i.e. , PA, FOURTH GRADE TEACHER, lab, RT, psych nurse, geriatric social worker, denture finisher, teacher, juvenile correctional officer, case management associate)? Give summary @-I spoke with Garrick from [facility] who accepts admission for syncope Was smoking cessation discussed for >3mins.? @ -No Was critical care preformed (if so, how long)? @ -No Were there social determinants of health that impacted care today? How? (Homelessness, low income, unemployed, alcoholism, drug addiction, transportation, low edu. Level, literacy, decrease access to med. care, group home, rehab)? @ -No Was there de-escalation of care discussed even if they declined (Discuss DNR or withdrawal of care, Hospice)? DNR status @ -No What co-morbidities impacted this encounter? (DM, HTN, Smoking, COPD, CAD, Cancer, CVA, ARF, Chemo, Hep., AIDS, mental health diagnosis, sleep apnea, morbid obesity)? @ -Atrial fibrillation Was patient admitted / discharged? Hospital course, mention meds given and route, prescriptions, significant lab abnormalities, going to OR and other p ertinent info. @ -Admitted. 84-year-old female presenting for episode of syncope prior to arrival. Patient does have history of atrial fibrillation on Xarelto. Vital signs are within acceptable limits. Laboratory studies unremarkable. White blood cell count 8, urinalysis remarkable for 4+ glucose, moderate blood, 28 red blood cells, 7 white blood cells. Troponin undetectable. Patient is negative for COVID-19, influenza, and RSV. Chest x-ray revealed no acute cardiopulmonary process. CT brain and C-spine negative for acute abnormality. Patient and daughter updated on results. Patient will be admitted to medicine for syncope with cardiology consultation. Case was discussed with my ED attending Dr. Lu. Undiagnosed new problem with uncertain prognosis? @ -No Drug Therapy requiring intensive monitoring for toxicity (Heparin, Nitro, Insulin, Cardizem)? @ -No Were any procedures done? @ -No Diagnosis/symptom? @ -Syncope Acute, or Chronic, or Acute on Chronic? @ -Acute Uncomplicated (without systemic symptoms) or Complicated (systemic symptoms)? @ -Complicated Side effects of treatment? @ -No Exacerbation, Progression, or Severe Exacerbation? @ -No Poses a threat to life or bodily function? How? (Chest pain, USA, PR, pneumonia, PE, COPD, DKA, ARF, appy, cholecystitis, CVA, Diverticulitis, Homicidal, Suicidal, threat to staff... and all critical care pts) @ -Possibly - Lab Data Result diagrams: 01/25/25 15:15 01/25/25 15:15 Lab Results 01/25/25 01/25/25 01/25/25 Range/Units 15:15 15:15 15:15 WBC 8.82 (4.50-10.00) 10*3/uL RBC 4.02 L (4.10-5.20) 10*6/uL Hgb 11.3 L (12.0-15.0) g/dL Hct 34.1 L (37.2-46.3) % MCV 84.8 (80.0-97.0) fL MCH 28.1 (27.0-32.0) pg MCHC 33.1 (32.0-37.0) g/dL Plt Count 150 (140-440) 10*3/uL MPV 12.7 H (9.5-12.2) fL Immature Gran % (Auto) 3.5 % Neutrophils % 55.4 % Lymphocytes % 18.0 % Monocytes % 22.7 % Eosinophils % 0.1 % Basophils % 0.3 % Immature Gran # 0.31 H (0.00-0.04) 10*3/uL Neutrophils # 4.88 (1.80-7.70) 10*3/uL Lymphocytes # 1.59 (0.90-5.00) 10*3/uL Monocytes # 2.00 H (0.20-1.00) 10*3/uL Eosinophils # 0.01 L (0.04-0.35) 10*3/uL Basophils # 0.03 (0.00-0.10) 10*3/uL PT (10.0-12.5) sec INR (<1.2) APTT (22.0-30.0) sec D-Dimer (<0.60) mg/L FEU Sodium 142 (137-145) mmol/L Potassium 3.9 (3.5-5.1) mmol/L Chloride 109 H (98-107) mmol/L Carbon Dioxide 26 (22-30) mmol/L Anion Gap 7 mmol/L BUN 11 (7-17) mg/dL Creatinine 0.64 (0.52-1.04) mg/dL Est GFR (CKD-EPI)AfAm >90 (>60 ml/min/1.73 sqM) Est GFR (CKD-EPI)NonAf 83 (>60 ml/min/1.73 sqM) Glucose 145 H (74-99) mg/dL Calcium 8.8 (8.4-10.2) mg/dL Magnesium 2.2 (1.6-2.3) mg/dL Total Bilirubin 1.3 (0.2-1.3) mg/dL AST 13 L (14-36) U/L ALT 9 (4-34) U/L Alkaline Phosphatase 78 (38-126) U/L Troponin I (0.000-0.034) ng/mL Total Protein 5.9 L (6.3-8.2) g/dL Albumin 3.6 (3.5-5.0) g/dL Urine Color Urine Appearance (Clear) Urine pH (5.0-8.0) Ur Specific [place] (1.001-1.035) Urine Protein (Negative) Urine Glucose (UA) (Negative) Urine Ketones (Negative) Urine Blood (Negative) Urine Nitrite (Negative) Urine Bilirubin (Negative) Urine Urobilinogen (<2.0) mg/dL Ur Leukocyte Esterase (Negative) Urine RBC (0-5) /hpf Urine WBC (0-5) /hpf Urine Mucus (None) /hpf Influenza Type A (PCR) Not Detected (Not Detectd) Influenza Type B (PCR) Not Detected (Not Detectd) RSV (PCR) Not Detected (Not Detectd) SARS-CoV-2 (PCR) Not Detected (Not Detectd) 01/25/25 01/25/25 01/25/25 Range/Units 16:30 17:25 17:25 WBC (4.50-10.00) 10*3/uL RBC (4.10-5.20) 10*6/uL Hgb (12.0-15.0) g/dL Hct (37.2-46.3) % MCV (80.0-97.0) fL MCH (27.0-32.0) pg MCHC (32.0-37.0) g/dL Plt Count (140-440) 10*3/uL MPV (9.5-12.2) fL Immature Gran % (Auto) % Neutrophils % % Lymphocytes % % Monocytes % % Eosinophils % % Basophils % % Immature Gran # (0.00-0.04) 10*3/uL Neutrophils # (1.80-7.70) 10*3/uL Lymphocytes # (0.90-5.00) 10*3/uL Monocytes # (0.20-1.00) 10*3/uL Eosinophils # (0.04-0.35) 10*3/uL Basophils # (0.00-0.10) 10*3/uL PT 11.9 (10.0-12.5) sec INR 1.1 (<1.2) APTT 31.8 H (22.0-30.0) sec D-Dimer 0.31 (<0.60) mg/L FEU Sodium (137-145) mmol/L Potassium (3.5-5.1) mmol/L Chloride (98-107) mmol/L Carbon Dioxide (22-30) mmol/L Anion Gap mmol/L BUN (7-17) mg/dL Creatinine (0.52-1.04) mg/dL Est GFR (CKD-EPI)AfAm (>60 ml/min/1.73 sqM) Est GFR (CKD-EPI)NonAf (>60 ml/min/1.73 sqM) Glucose (74-99) mg/dL Calcium (8.4-10.2) mg/dL Magnesium (1.6-2.3) mg/dL Total Bilirubin (0.2-1.3) mg/dL AST (14-36) U/L ALT (4-34) U/L Alkaline Phosphatase (38-126) U/L Troponin I <0.012 (0.000-0.034) ng/mL Total Protein (6.3-8.2) g/dL Albumin (3.5-5.0) g/dL Urine Color Colorless Urine Appearance Clear (Clear) Urine pH 5.5 (5.0-8.0) Ur Specific [place] 1.034 (1.001-1.035) Urine Protein Negative (Negative) Urine Glucose (UA) 4+ H (Negative) Urine Ketones Negative (Negative) Urine Blood Moderate H (Negative) Urine Nitrite Negative (Negative) Urine Bilirubin Negative (Negative) Urine Urobilinogen <2.0 (<2.0) mg/dL Ur Leukocyte Esterase Negative (Negative) Urine RBC 28 H (0-5) /hpf Urine WBC 7 H (0-5) /hpf Urine Mucus Rare H (None) /hpf Influenza Type A (PCR) (Not Detectd) Influenza Type B (PCR) (Not Detectd) RSV (PCR) (Not Detectd) SARS-CoV-2 (PCR) (Not Detectd) - EKG Data -: EKG Interpreted by [place] EKG Comments: EKG reveals sinus tachycardia with sinus arrhythmia with minimal ST depressions in inferior and lateral leads however unchanged from EKG from 2021. Ventricular rate 105 bpm, AR interval not calculated, QT/QTc 343/404, QRS duration 87 Disposition Clinical Impression: Syncope Disposition: ADMITTED IP TO THIS HOSP Referrals: Nita Pham MD [Primary Care Provider] - 1-2 days Time of Disposition: 18:33
[2025-01-25 15:49] LABS: Basophils # (A) 0.03 10*3/uL (0.00-0.10); Basophils % (A) 0.3 %; Eosinophils # (A) 0.01 10*3/uL (0.04-0.35); Eosinophils % (A) 0.1 %; HCT 34.1 % (37.2-46.3); HGB 11.3 g/dL (12.0-15.0); Lymphocytes # (A) 1.59 10*3/uL (0.90-5.00); MCH 28.1 pg (27.0-32.0); MCHC 33.1 g/dL (32.0-37.0); MCV 84.8 fL (80.0-97.0); Mean Platelet Volume 12.7 fL (9.5-12.2); Monocytes % (A) 22.7 %; Neutrophils # (A) 4.88 10*3/uL (1.80-7.70); Neutrophils % (A) 55.4 %; Platelet Count 150 10*3/uL (140-440); RBC 4.02 10*6/uL (4.10-5.20); RDW 15.1 % (11.5-14.5); WBC 8.82 10*3/uL (4.50-10.00)
[2025-01-25 16:12] LABS: ALT 9 U/L (4-34); AST 13 U/L (14-36); African American GFR (CKD) >90 (>60 ml/min/1.73 sqM); Albumin 3.6 g/dL (3.5-5.0); Alkaline Phosphatase 78 U/L (38-126); Anion Gap 7 mmol/L; Blood Urea Nitrogen 11 mg/dL (7-17); Calcium 8.8 mg/dL (8.4-10.2); Carbon Dioxide 26 mmol/L (22-30); Chloride 109 mmol/L (98-107); Glucose 145 mg/dL (74-99); Magnesium 2.2 mg/dL (1.6-2.3); Non-African American GFR(CKD) 83 (>60 ml/min/1.73 sqM); Potassium 3.9 mmol/L (3.5-5.1); Sodium 142 mmol/L (137-145); Total Bilirubin 1.3 mg/dL (0.2-1.3); Total Protein 5.9 g/dL (6.3-8.2)
[2025-01-25 16:24] LABS: Influenza A Not Detected (Not Detectd); Influenza B Not Detected (Not Detectd); RSV Not Detected (Not Detectd)
--- NOTE | 2025-01-25 16:31 | CT ---
EXAMINATION TYPE: CT brain cspine wo con CT DLP: 1443.7 mGycm, Automated exposure control for dose reduction was used. DATE OF EXAM: 01/25/2025 4:24 PM COMPARISON: CT brain 11/13/2021, CT head 11/11/2021. CLINICAL INDICATION:Female, 84 years old with history of pain; syncope, dizziness, fall, pain TECHNIQUE: Brain: Multiple axial CT images of the brain were obtained without IV contrast. Cspine: Axial CT images from the skull base to the inferior aspect of T2 we obtained without intraven ous contrast. Coronal and sagittal reformatted images were also reviewed. FINDINGS: Brain: Extra-axial spaces: No abnormal extra-axial fluid collections. Ventricular system: Within normal limits Cerebral parenchyma: No acute intraparenchymal hemorrhage or mass effect. The paul-white junction is well differentiated. Confluent hypoattenuating areas are seen within the periventricular and subcort ical white matter. Cerebellum: Unremarkable. Mass effect: No evidence of midline shift. Intracranial vasculature: Atherosclerotic calcifications of the intracranial vessels. Soft tissues: Normal. Calvarium/osseous structures: No depressed skull fracture. Paranasal sinuses and mastoid air cells: Clear. Visualized orbits: Right aphakia. Left-sided phthisis bulbi. Cervical spine: Fracture: None. Osseous structures: Multilevel degenerative disc disease changes with endplate spurring and disc oste ophyte complex's. Multilevel facet arthropathy. Vertebral alignment: Within normal limits. Spinal canal/Neural Foramina: Disc osteophyte complexes at C5-C6 with at least mild spinal canal sten osis. Facet joint uncovertebral joint arthropathy scattered throughout the cervical spine with varyin g degrees of neural foraminal stenosis. Neck soft tissues: Prevertebral soft tissues are within normal limits. Other: The airway is patent. The lung apices are clear. Mild bilateral carotid bulb calcifications. IMPRESSION: 1. No acute intracranial process. 2. Nonspecific advanced white matter changes, likely secondary to chronic small vessel ischemic disea se. 3. No evidence of cervical spine fracture. 4. Mild multilevel degenerative disc disease. [facility], , 01/25/2025 4:29 PM
[2025-01-25 17:05] LABS: Appearance,Urine Clear (Clear); Bilirubin,Urine Negative (Negative); Blood,Urine Moderate (Negative); Color,Urine Colorless; Glucose,Urine (UA) 4+ (Negative); Ketones,Urine Negative (Negative); Leukocyte Esterase,Urine Negative (Negative); Mucus,Urine Rare /hpf; Nitrite,Urine Negative (Negative); PH, Urine 5.5 (5.0-8.0); Protein,Urine Negative (Negative); RBC,Urine 28 /hpf (0-5); Specific Gravity,Urine 1.034 (1.001-1.035); Urobilinogen,Urine <2.0 mg/dL (<2.0); WBC,Urine 7 /hpf (0-5)
--- NOTE | 2025-01-25 17:34 | XR ---
EXAMINATION TYPE: XR chest 2V DATE OF EXAM: 01/25/2025 5:28 PM COMPARISON: Chest radiograph 11/18/2021. CLINICAL INDICATION: Female, 84 years old with history of syncope; [facility] TECHNIQUE: XR chest 2V Frontal and lateral views of the chest. FINDINGS: Lungs/Pleura: There is no evidence of pleural effusion, focal consolidation, or pneumothorax. Pulmonary vascularity: Unremarkable. Heart/mediastinum: Cardiomediastinal silhouette is unremarkable. Musculoskeletal: No acute osseous pathology. Other findings: None IMPRESSION: No acute cardiopulmonary disease/process. [facility], , 01/25/2025 5:32 PM
[2025-01-25 18:05] LABS: INR 1.1 (<1.2); Partial Thromboplastin Time 31.8 sec (22.0-30.0); Prothrombin Time 11.9 sec (10.0-12.5)
[2025-01-25] MEDS ORDERED: NALOXONE 0.4 MG/ML 1 ML VIAL IV PRN (18:30)
[2025-01-25] MEDS ORDERED: DEXTROSE 50% SYRINGE 50 ML IVP PRN ×2 (19:59)
[2025-01-25 21:13] LABS: Glucose,Whole Blood 160 mg/dL (70-110)
[2025-01-25] MEDS: PREGABALIN 100 MG CAP PO SCH (21:36)
[2025-01-25] MEDS: INSULIN LISPRO (HumaLOG) 100 UNIT/ML 10 mL VL SQ SCH (21:36)
[2025-01-25] MEDS: RIVAROXABAN 20 MG TAB PO SCH (21:36)
[2025-01-25] MEDS: METOPROLOL TARTRATE 50 MG TAB PO SCH (21:36)
[2025-01-25] MEDS: DILTIAZEM ORAL 30 MG TAB PO SCH (21:36)
[2025-01-25] MEDS: ATORVASTATIN 10 MG TAB PO SCH (21:36)
[2025-01-26] MEDS: ACETAMINOPHEN TAB 325 MG TAB PO PRN (01:34)
[2025-01-26] MEDS: ALPRAZolam 0.25 MG TAB PO PRN (01:37)
[2025-01-26 05:58] LABS: Glucose,Whole Blood 217 mg/dL (70-110)
[2025-01-26] MEDS: LEVOTHYROXINE 137 MCG TAB PO SCH (06:03)
--- NOTE | 2025-01-26 10:34 | P.CRDCN ---
History of Present Illness History of present illness: HISTORY OF PRESENTING ILLNESS This is a pleasant 84-year-old female past medical history significant for atrial fibrillation on Xarelto, nonobstructive CAD, hypertension, dyslipid emia and diabetes mellitus. She previously follow in the office with Dr. Das but has not been seen since 2021. We have been asked to see in consultation for syncope. She states yesterday while at home in her kitchen she started feeling dizzy and lightheaded so she sat down on her walker chair and then woke up on the floor. She had a similar type event occur about 4 weeks ago and at that time she went to [facility]. She states she was admitted for 3 days but is unsure what type of testing was done. She thinks her medications were adjusted but is somewhat of a poor historian. EKG is atrial fibrillation heart rate of [address] changes. On telemetry it appears she has converted to sinus rhythm. Heart rate in the 70s. Chest x-ray is negative for any acute cardiopulmonary process. CT imaging of the head and spine were unremarkable. Laboratory data reviewed, cardiac enzymes negative x 3, D-dimer 0.31, hemoglobin 11.3, platelets 150, sodium 142, potassium 3.9, creatinine 0.64. Most recent echocardiogram obtained in 2021 revealed ejection fraction 52%, moderate MR, mild to moderate TR with RVSP of 42. Current daily cardiac medications include Lipitor 10 mg at bedtime, Xarelto 20 mg daily, irbesartan 300 mg daily, diltiazem 30 mg 3 times daily, metoprolol tartrate 50 mg 3 times daily and Jardiance 10 mg daily. REVIEW OF SYSTEMS At the time of my exam: CONSTITUTIONAL: Denies fever or chills. CARDIOVASCULAR: Denies chest pain, shortness of breath, orthopnea, PND or palpitations. RESPIRATORY: Denies cough. GASTROINTESTINAL: Denies abdominal pain, diarrhea, constipation, nausea or vomiting. MUSCULOSKELETAL: Denies myalgias. NEUROLOGIC: Denies numbness, tingling, headache or weakness. ENDOCRINE: Denies fatigue, weight change, polydipsia or polyurina. GENITOURINARY: Denies burning, hematuria or urgency with micturation. HEMATOLOGIC: Denies history of anemia or bleeding. PHYSICAL EXAMINATION Blood pressure 125/72 heart rate 72 afebrile and maintaining oxygen saturation on room air. CONSTITUTIONAL: No apparent distress. HEENT: Head is normocephalic. Pupils are equal, round. Sclerae anicteric. Mucous membranes of the mouth are moist. No JVD. No carotid bruit. CHEST EXAMINATION: Lungs are clear to auscultation. No chest wall tenderness is noted on palpation or with deep breathing. HEART EXAMINATION: Regular rate and rhythm. S1, S2 heard. Systolic ejection murmur at the base, no gallops or rub. ABDOMEN: Soft, nontender. EXTREMITIES: 2+ peripheral pulses, no lower extremity edema and no calf tenderness. NEUROLOGIC EXAMINATION: Patient is awake, alert and oriented x3. ASSESSMENT Syncope Paroxysmal atrial fibrillation on Xarelto Hypertension Dyslipidemia Diabetes mellitus Nonobstructive CAD Medical noncompliance PLAN An acute coronary event has been ruled out. Obtain records from [facility] for review. Decrease metoprolol and diltiazem to twice daily. Increase activity and ambulation in the halls while we continue to monitor her heart rate for another 24 hours. No need to repeat echo at this time she likely had one at [facility] which we will review. Upon discharge tomorrow we will apply a 7-day Holter and have her follow-up in [address] Browning. Thank you kindly for this consultation. Nurse Practitioner note has been reviewed, I agree with a documented findings and plan of care. Patient was seen and examined. 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 spider bite) Past Surgical History: Appendectomy, Bladder Surgery, Cholecystectomy, Heart Catheterization, Hysterectomy Additional Past Surgical History / Comment(s): Bladder suspension, EPIDURAL INJECTION/BACK, COLONOSCOPY, catarats, 11/07/21 emergency eye surgery on left eye Past Anesthesia/Blood Transfusion Reactions: Previous Problems w/ Anesthesia, Motion Sickness Additional Past Anesthesia/Blood Transfusion Reaction / Comment(s): HARD TIME WAKING UP AFTER Anesthesia. Past Psychological History: Anxiety, Depression Additional Psychological History / Comment(s): patient lives at home, states daughter lives in house with her Smoking Status: Former smoker Past Alcohol Use History: None Reported Additional Past Alcohol Use History / Comment(s): Pt started smoking in 1957 and quit in 1987. SMOKED 3-4 PPD.,She quit drinking in 1986. Past Drug Use History: None Reported Additional Drug Use History / Comment(s): OCCASIONAL CBD OIL- QUIT 2 WEEKS AGO. - Past Family History Brother(s) Family Medical History: Coronary Artery Disease (CAD) Additional Family Medical History / Comment(s): pm/defib Daughter(s) Family Medical History: Myocardial Infarction ([place]) Additional Family Medical History / Comment(s): defibrillator Father Family Medical History: Cancer Additional Family Medical History / Comment(s): HEART PROBLEMS Mother Family Medical History: Renal Disease Medications and Allergies Home Medications Medication Instructions Recorded Confirmed Type Nitroglycerin Sl Tabs [Nitrostat] 0.4 mg SUBLINGUAL Q5M PRN #25 tab 11/30/14 01/25/25 Rx Atorvastatin [Lipitor] 10 mg PO HS 04/26/15 01/25/25 History metFORMIN HCL [Glucophage] 500 mg PO BID-W/MEALS 04/26/15 01/25/25 History Rivaroxaban [Xarelto] 20 mg PO HS 11/08/16 01/25/25 History Pregabalin [Lyrica] 100 mg PO BID 12/20/16 01/25/25 History ALPRAZolam [Xanax] 0.25 mg PO DAILY PRN 04/06/24 01/25/25 History Irbesartan 300 mg PO DAILY 04/06/24 01/25/25 History Empagliflozin [Jardiance] 10 mg PO DAILY 01/25/25 01/25/25 History Escitalopram [Lexapro] 5 mg PO DAILY 01/25/25 01/25/25 History Levothyroxine Sodium [Synthroid] 137 mcg PO DAILY 01/25/25 01/25/25 History Magnesium Oxide [Magox 400] 400 mg PO DAILY 01/25/25 01/25/25 History Metoprolol Tartrate [Lopressor] 50 mg PO Q8H 01/25/25 01/25/25 History dilTIAZem HCL 30 mg PO Q8H 01/25/25 01/25/25 History Allergies Allergy/AdvReac Type Severity Reaction Status Date / Time codeine Allergy Severe Anaphylaxis Verified 01/25/25 14:46 adhesive tape Allergy Rash/Hives Verified 01/25/25 14:46 iodine Allergy Unknown Verified 01/25/25 14:46 Latex, Natural Rubber Allergy Rash/Hives Verified 01/25/25 14:46 Physical Exam Vitals: Vital Signs Temp Pulse Pulse Pulse Resp BP BP 01/26/25 07:00 98.7 F 72 17 125/72 01/26/25 01:56 98.8 F 77 17 141/73 01/25/25 21:46 87 20 01/25/25 20:04 107 H 20 133/83 01/25/25 19:19 98.0 F 79 20 138/78 01/25/25 18:50 111 H 18 159/90 01/25/25 15:06 81 18 145/79 01/25/25 12:48 97.8 F 77 18 137/86 Pulse Ox 01/26/25 07:00 98 01/26/25 01:56 97 01/25/25 21:46 01/25/25 20:04 100 01/25/25 19:19 97 01/25/25 18:50 97 01/25/25 15:06 96 01/25/25 12:48 98 Intake and Output 01/25/25 01/26/25 01/26/25 22:59 06:59 14:59 Output Total 0 Balance 0 Output: Urine 0 Other: # Voids 2 Weight 81.193 kg Results 01/25/25 15:15 01/25/25 15:15 Cardiac Enzymes 01/25/25 01/25/25 01/25/25 Range/Units 15:15 17:25 22:40 AST 13 L (14-36) U/L Troponin I <0.012 <0.012 (0.000-0.034) ng/mL 01/26/25 Range/Units 01:23 AST (14-36) U/L Troponin I <0.012 (0.000-0.034) ng/mL Coagulation 01/25/25 Range/Units 17:25 PT 11.9 (10.0-12.5) sec APTT 31.8 H (22.0-30.0) sec CBC 01/25/25 Range/Units 15:15 WBC 8.82 (4.50-10.00) 10*3/uL RBC 4.02 L (4.10-5.20) 10*6/uL Hgb 11.3 L (12.0-15.0) g/dL Hct 34.1 L (37.2-46.3) % Plt Count 150 (140-440) 10*3/uL Comprehensive Metabolic Panel 01/25/25 Range/Units 15:15 Sodium 142 (137-145) mmol/L Potassium 3.9 (3.5-5.1) mmol/L Chloride 109 H (98-107) mmol/L Carbon Dioxide 26 (22-30) mmol/L BUN 11 (7-17) mg/dL Creatinine 0.64 (0.52-1.04) mg/dL Glucose 145 H (74-99) mg/dL Calcium 8.8 (8.4-10.2) mg/dL AST 13 L (14-36) U/L ALT 9 (4-34) U/L Alkaline Phosphatase 78 (38-126) U/L Total Protein 5.9 L (6.3-8.2) g/dL Albumin 3.6 (3.5-5.0) g/dL Current Medications Generic Name Dose Route Start Last Admin Trade Name Freq PRN Reason Stop Dose Admin Acetaminophen 650 mg 01/25/25 18:30 01/26/25 01:34 Acetaminophen Tab 325 Mg Tab PO 650 mg Q6HR PRN Administration Mild Pain or Fever > 100.5 Alprazolam 0.25 mg 01/25/25 19:56 01/26/25 01:37 Alprazolam 0.25 Mg Tab PO 0.25 mg DAILY PRN Administration Anxiety Atorvastatin Calcium 10 mg 01/25/25 21:00 01/25/25 21:36 Atorvastatin 10 Mg Tab PO 10 mg HS JONATHAN Administration Dapagliflozin 5 mg 01/26/25 09:00 Dapagliflozin Propanediol 5 Mg Tablet PO DAILY [facility] Dextrose/Water 25 ml 01/25/25 19:59 Dextrose 50% Syringe 50 Ml IVP PER PROTOCOL PRN Hypoglycemia Protocol Dextrose/Water 50 ml 01/25/25 19:59 Dextrose 50% Syringe 50 Ml IVP PER PROTOCOL PRN Hypoglycemia Protocol Diltiazem HCl 30 mg 01/25/25 20:00 01/26/25 03:44 Diltiazem Oral 30 Mg Tab PO 30 mg Q8H JONATHAN Administration Escitalopram Oxalate 5 mg 01/26/25 09:00 Escitalopram 5 Mg Tab PO DAILY [facility] Insulin Human Lispro 0 unit 01/25/25 21:00 01/26/25 06:28 Insulin Lispro (Humalog) 100 Unit/Ml 10 Ml Vl SQ 4 unit ACHS JONATHAN Administration Protocol Levothyroxine Sodium 137 mcg 01/26/25 06:30 01/26/25 06:03 Levothyroxine 137 Mcg Tab PO 137 mcg DAILY@0630 JONATHAN Administration Losartan Potassium 100 mg 01/26/25 09:00 Losartan 50 Mg Tab PO DAILY [facility] Magnesium Oxide 400 mg 01/26/25 09:00 Magnesium Oxide 400 Mg Tab PO DAILY [facility] Metoprolol Tartrate 50 mg 01/25/25 20:00 01/26/25 03:43 Metoprolol Tartrate 50 Mg Tab PO 50 mg Q8H JONATHAN Administration Naloxone HCl 0.2 mg 01/25/25 18:30 Naloxone 0.4 Mg/Ml 1 Ml Vial IV Q2M PRN Opioid Reversal Pregabalin 100 mg 01/25/25 21:00 01/25/25 21:36 Pregabalin 100 Mg Cap PO 100 mg BID JONATHAN Administration Rivaroxaban 20 mg 01/25/25 21:00 01/25/25 21:36 Rivaroxaban 20 Mg Tab PO 20 mg HS JONATHAN Administration Protocol Intake and Output 01/25/25 01/26/25 01/26/25 22:59 06:59 14:59 Output Total 0 Balance 0 Output: Urine 0 Other: # Voids 2 Weight 81.193 kg 01/25/25 15:15 01/25/25 15:15
[2025-01-26] MEDS: LOSARTAN 50 MG TAB PO SCH (10:35)
[2025-01-26] MEDS: ESCITALOPRAM 5 MG TAB PO SCH (10:35)
[2025-01-26] MEDS: DAPAGLIFLOZIN PROPANEDIOL 5 MG TABLET PO SCH (10:35)
[2025-01-26] MEDS: MAGNESIUM OXIDE 400 MG TAB PO SCH (10:35)
[2025-01-26 11:27] LABS: Glucose,Whole Blood 273 mg/dL (70-110)
--- NOTE | 2025-01-26 13:23 | P.HPIM ---
History of Present Illness H&P Date: 01/26/25 This is an 84-year-old female with medical history significant for atrial fibrillation, heart failure, COPD, diabetes mellitus, gastroesophageal reflux disease, hypertension, hyperlipidemia, cardiac catheterization. Patient presents to the hospital yesterday afternoon secondary to a syncopal episode. Patient was walking when she felt lightheaded she states that she initially sat down in her wheelchair in the kitchen however she woke up on the ground she is unsure if she hit her head or not. Patient does live with her daughter, however her dtr wasnt home at the time of the incident. She has been having intermittent episodes of dizziness that was felt to be associated with atrial f ibrillation. Was recently evaluated at [facility] for the same syncopal type event. Patient states she had an extensive work up over there. Was in to see Dr Pham in the office recently for the dizziness however states they are unable to accept her as a regular patient. On admission EKG on admission reveals atrial fibrillation with RVR/atrial flutter with heart rate of [address] or T wave changes. Her chest x-ray reveals no acute cardiopulmonary process. Head cervical spine CT was completed which reveals no acute intracranial process with nonspecific advancement matter changes likely secondary to chronic small vessel ischemic disease. No evidence of cervical spine fracture. With mild multilevel degenerative disc disease. Her initial blood work reveals a white blood cell count of 8.2 hemoglobin 11.3 D-dimer of 0.31. Her BUN is 11 creatinine 0.64. Troponin level has been negative x 3. Urinalysis is not suggestive of infection. Viral panel is negative for influenza RSV and COVID. Patient has been on oral Cardizem 30 mg every 8 hours and oral metoprolol 50 mg every 8 hours. These have been decreased to twice daily. Most recent echocardiogram in the system is from 2021 which reveals an ejection fraction of 50 to 55% with mild aortic valve sclerosis, mild mitral annular calcification, moderate mitral digitation, mild to moderate tricuspid regurgitation, mild pulmonary. She has been afebrile heart rate is not 72 blood pressure is 125/72. Patient is currently admitted to the hospital in observation with a consult placed to cardiology. REVIEW OF SYSTEMS: CONSTITUTIONAL: No fever, no malaise, no fatigue. HEENT: No recent visual problems or hearing problems. Denied any sore throat. CARDIOVASCULAR: No chest pain, orthopnea, PND, no palpitations, no syncope. PULMONARY: No shortness of breath, no cough, no hemoptysis. GASTROINTESTINAL: No diarrhea, no nausea, no vomiting, no abdominal pain. NEUROLOGICAL: No headaches, no weakness, no numbness. HEMATOLOGICAL: Denies any bleeding or petechiae. GENITOURINARY: Denies any burning micturition, frequency, or urgency. MUSCULOSKELETAL/RHEUMATOLOGICAL: Denies any joint pain, swelling, or any muscle pain. ENDOCRINE: Denies any polyuria or polydipsia. The rest of the 14-point review of systems is negative. PHYSICAL EXAMINATION: GENERAL: The patient is alert and oriented x3, not in any acute distress. Well developed, well nourished. HEENT: Pupils are round and equally reacting to light. EOMI. No scleral icterus. No conjunctival pallor. Normocephalic, atraumatic. No pharyngeal erythema. No thyromegaly. CARDIOVASCULAR: S1 and S2 present. No murmurs, rubs, or gallops. PULMONARY: Chest is clear to auscultation, no wheezing or crackles. ABDOMEN: Soft, nontender, nondistended, normoactive bowel sounds. No palpable organomegaly. MUSCULOSKELETAL: No joint swelling or deformity. EXTREMITIES: No cyanosis, clubbing, or pedal edema. NEUROLOGICAL: Gross neurological examination did not reveal any focal deficits. SKIN: No rashes. Assessment Syncope Atrial fibrillation anticoagulated with Xarelto Hypertension Hyperlipidemia Chronic diastolic heart failure with no acute exacerbation COPD Diabetes mellitus type 2 Gastroesophageal reflux disease Sleep apnea noncompliant with CPAP History of spinal stenosis and degenerative disc disease Former smoker Anxiety/depression GI Prophylaxis DVT prophylaxis has been resumed on Xarelto Full Code Plan Resume appropriate home medications Cardizem and metoprolol have been decreased to twice daily Check orthostatics Cardiology consultation recommending 2 week event monitor on discharge Obtain reports from [facility] PT OT consultation Recommend to hold metformin continue Accu-Cheks ACHS with sliding scale insulin D/C home in the next 24 hours possible D/C home later today if reports are reviewed from [facility] The impression and plan of care has been dictated by Abbi Riggins, Nurse Practitioner as directed. Dr. Valdo MD I have performed a history and physical examination and medical decision making of this patient, discussed the same with the dictator, and agree with the dictators assessment and plan as written, documented as a scribe. Based on total visit time, I have performed more than 50% of this visit. 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 spider bite) Past Surgical History: Appendectomy, Bladder Surgery, Cholecystectomy, Heart Catheterization, Hysterectomy Additional Past Surgical History / Comment(s): Bladder suspension, EPIDURAL INJECTION/BACK, COLONOSCOPY, catarats, 11/07/21 emergency eye surgery on left eye Past Anesthesia/Blood Transfusion Reactions: Previous Problems w/ Anesthesia, Motion Sickness Additional Past Anesthesia/Blood Transfusion Reaction / Comment(s): HARD TIME WAKING UP AFTER Anesthesia. Past Psychological History: Anxiety, Depression Additional Psychological History / Comment(s): patient lives at home, states daughter lives in house with her Smoking Status: Former smoker Past Alcohol Use History: None Reported Additional Past Alcohol Use History / Comment(s): Pt started smoking in 1958 and quit in 1987. SMOKED 3-4 PPD.,She quit drinking in 1986. Past Drug Use History: None Reported Additional Drug Use History / Comment(s): OCCASIONAL CBD OIL- QUIT 2 WEEKS AGO. - Past Family History Brother(s) Family Medical History: Coronary Artery Disease (CAD) Additional Family Medical History / Comment(s): pm/defib Daughter(s) Family Medical History: Myocardial Infarction ([place]) Additional Family Medical History / Comment(s): defibrillator Father Family Medical History: Cancer Additional Family Medical History / Comment(s): HEART PROBLEMS Mother Family Medical History: Renal Disease Medications and Allergies Home Medications Medication Instructions Recorded Confirmed Type Nitroglycerin Sl Tabs [Nitrostat] 0.4 mg SUBLINGUAL Q5M PRN #25 tab 11/30/14 01/25/25 Rx Atorvastatin [Lipitor] 10 mg PO HS 04/26/15 01/25/25 History metFORMIN HCL [Glucophage] 500 mg PO BID-W/MEALS 04/26/15 01/25/25 History Rivaroxaban [Xarelto] 20 mg PO HS 11/08/16 01/25/25 History Pregabalin [Lyrica] 100 mg PO BID 12/20/16 01/25/25 History ALPRAZolam [Xanax] 0.25 mg PO DAILY PRN 04/06/24 01/25/25 History Irbesartan 300 mg PO DAILY 04/06/24 01/25/25 History Empagliflozin [Jardiance] 10 mg PO DAILY 01/25/25 01/25/25 History Escitalopram [Lexapro] 5 mg PO DAILY 01/25/25 01/25/25 History Levothyroxine Sodium [Synthroid] 137 mcg PO DAILY 01/25/25 01/25/25 History Magnesium Oxide [Magox 400] 400 mg PO DAILY 01/25/25 01/25/25 History Metoprolol Tartrate [Lopressor] 50 mg PO Q8H 01/25/25 01/25/25 History dilTIAZem HCL 30 mg PO Q8H 01/25/25 01/25/25 History Allergies Allergy/AdvReac Type Severity Reaction Status Date / Time codeine Allergy Severe Anaphylaxis Verified 01/25/25 14:46 adhesive tape Allergy Rash/Hives Verified 01/25/25 14:46 iodine Allergy Unknown Verified 01/25/25 14:46 Latex, Natural Rubber Allergy Rash/Hives Verified 01/25/25 14:46 Physical Exam Vitals: Vital Signs Temp Pulse Pulse Pulse Resp BP BP 01/26/25 07:00 98.7 F 72 17 125/72 01/26/25 01:56 98.8 F 77 17 141/73 01/25/25 21:46 87 20 01/25/25 20:04 107 H 20 133/83 01/25/25 19:19 98.0 F 79 20 138/78 01/25/25 18:50 111 H 18 159/90 01/25/25 15:06 81 18 145/79 01/25/25 12:48 97.8 F 77 18 137/86 Pulse Ox 01/26/25 07:00 98 01/26/25 01:56 97 01/25/25 21:46 01/25/25 20:04 100 01/25/25 19:19 97 01/25/25 18:50 97 01/25/25 15:06 96 01/25/25 12:48 98 Intake and Output 01/25/25 01/26/25 01/26/25 22:59 06:59 14:59 Intake Total 175 Output Total 0 Balance 0 175 Intake: Oral 175 Output: Urine 0 Other: # Voids 2 Weight 81.193 kg Results CBC & Chem 7: 01/25/25 15:15 01/25/25 15:15 Labs: Abnormal Lab Results - Last 24 Hours (Table) 01/25/25 01/25/25 01/25/25 Range/Units 15:15 15:15 16:30 RBC 4.02 L (4.10-5.20) 10*6/uL Hgb 11.3 L (12.0-15.0) g/dL Hct 34.1 L (37.2-46.3) % MPV 12.7 H (9.5-12.2) fL Immature Gran # 0.31 H (0.00-0.04) 10*3/uL Monocytes # 2.00 H (0.20-1.00) 10*3/uL Eosinophils # 0.01 L (0.04-0.35) 10*3/uL APTT (22.0-30.0) sec Chloride 109 H (98-107) mmol/L Glucose 145 H (74-99) mg/dL POC Glucose (mg/dL) (70-110) mg/dL AST 13 L (14-36) U/L Total Protein 5.9 L (6.3-8.2) g/dL Urine Glucose (UA) 4+ H (Negative) Urine Blood Moderate H (Negative) Urine RBC 28 H (0-5) /hpf Urine WBC 7 H (0-5) /hpf Urine Mucus Rare H (None) /hpf 01/25/25 01/25/25 01/26/25 Range/Units 17:25 21:11 05:57 RBC (4.10-5.20) 10*6/uL Hgb (12.0-15.0) g/dL Hct (37.2-46.3) % MPV (9.5-12.2) fL Immature Gran # (0.00-0.04) 10*3/uL Monocytes # (0.20-1.00) 10*3/uL Eosinophils # (0.04-0.35) 10*3/uL APTT 31.8 H (22.0-30.0) sec Chloride (98-107) mmol/L Glucose (74-99) mg/dL POC Glucose (mg/dL) 160 H 217 H (70-110) mg/dL AST (14-36) U/L Total Protein (6.3-8.2) g/dL Urine Glucose (UA) (Negative) Urine Blood (Negative) Urine RBC (0-5) /hpf Urine WBC (0-5) /hpf Urine Mucus (None) /hpf Assessment and Plan Time with Patient: Less than 30
[2025-01-26 16:17] LABS: Glucose,Whole Blood 242 mg/dL (70-110)
[2025-01-26 20:36] LABS: Glucose,Whole Blood 175 mg/dL (70-110)
[2025-01-26] MEDS: METOPROLOL TARTRATE 50 MG TAB PO SCH (20:57)
[2025-01-26] MEDS: DILTIAZEM ORAL 30 MG TAB PO SCH (20:58)
[2025-01-27 06:17] LABS: Glucose,Whole Blood 160 mg/dL (70-110)
[2025-01-27 09:36] VITALS: BP 137/84; PULSE 77; RESP 17; TEMP 97.8
[2025-01-27 11:53] LABS: Glucose,Whole Blood 176 mg/dL (70-110)
--- NOTE | 2025-01-27 17:04 | P.PN ---
Subjective Progress Note Date: 01/27/25 HISTORY OF PRESENTING ILLNESS This is a pleasant 84-year-old female past medical history significant for atrial fibrillation on Xarelto, nonobstructive CAD, hypertension, dyslipidemia and diabetes mellitus. She previously follow in the office with Dr. Das but has not been seen since 2021. We have been asked to see in consultation for syncope. She states yesterday while at home in her kitchen she started feeling dizzy and lightheaded so she sat down on her walker chair and then woke up on the floor. She had a similar type event occur about 4 weeks ago and at that time she went to [facility]. She states she was admitted for 3 days but is unsure what type of testing was done. She thinks her medications were adjusted but is somewhat of a poor historian. EKG is atrial fibrillation heart rate of [address] changes. On telemetry it appears she has converted to sinus rhythm. Heart rate in the 70s. Chest x-ray is negative for any acute cardiopulmonary process. CT imaging of the head and spine were unremarkable. Laboratory data reviewed, cardiac enzymes negative x 3, D-dimer 0.31, hemoglobin 11.3, platelets 150, sodium 142, potassium 3.9, creatinine 0.64. Most recent echocardiogram obtained in 2021 revealed ejection fraction 52%, moderate MR, mild to moderate TR with RVSP of 42. Current daily cardiac medications include Lipitor 10 mg at bedtime, Xarelto 20 mg daily, irbesartan 300 mg daily, diltiazem 30 mg 3 times daily, metoprolol tartrate 50 mg 3 times daily and Jardiance 10 mg daily. Progress note 01/27/2025 Seen and examined at bedside this a.m., feeling better, denies any lightheadedness or dizziness Ambulating in the unit with a walker Reviewed records from [facility] where she was admitted for severe sepsis and A-fib. There her Cardizem and metoprolol was increased which might be contributing to her low blood pressure and orthostatic symptoms. PHYSICAL EXAMINATION Blood pressure 125/72 heart rate 72 afebrile and maintaining oxygen saturation on room air. CONSTITUTIONAL: No apparent distress. HEENT: Head is normocephalic. Pupils are equal, round. Sclerae anicteric. Mucous membranes of the mouth are moist. No JVD. No carotid bruit. CHEST EXAMINATION: Lungs are clear to auscultation. No chest wall tenderness is noted on palpation or with deep breathing. HEART EXAMINATION: Regular rate and rhythm. S1, S2 heard. Systolic ejection murmur at the base, no gallops or rub. ABDOMEN: Soft, nontender. EXTREMITIES: 2+ peripheral pulses, no lower extremity edema and no calf tenderness. NEUROLOGIC EXAMINATION: Patient is awake, alert and oriented x3. ASSESSMENT Syncope Paroxysmal atrial fibrillation on Xarelto Hypertension Dyslipidemia Diabetes mellitus Nonobstructive CAD Medical noncompliance PLAN continue decreased metoprolol and diltiazem to twice daily. Cardiology team will sign off. Follow-up outpatient Dr. Browning Recommend outpatient neurological evaluation as well Holter monitor at the time of discharge Objective - Vital Signs Vital signs: Vital Signs Temp 97.8 F 01/27/25 07:00 Pulse 77 01/27/25 07:00 Resp 17 01/27/25 07:00 BP 137/84 01/27/25 07:00 Pulse Ox 99 01/27/25 07:00 FiO2 Intake & Output 01/26/25 01/27/25 01/27/25 18:59 06:59 18:59 Intake Total 500 150 Balance 500 150 Intake: Oral 500 150 Other: # Voids 1 1 # Bowel Movements 1 - Labs CBC & Chem 7: 01/25/25 15:15 01/25/25 15:15 Labs: Abnormal Lab Results - Last 24 Hours (Table) 01/26/25 01/27/25 01/27/25 Range/Units 20:35 06:16 11:52 POC Glucose (mg/dL) 175 H 160 H 176 H (70-110) mg/dL
--- NOTE | 2025-02-02 23:24 | P.DS ---
Providers Date of admission: 01/25/25 18:15 Expected date of discharge: 01/27/25 Attending physician: Regla Choudhury Consults: 01/25/25 18:30 Consult Physician Urgent Consulting Provider: [facility] Consult Reason/Comments: Syncope, hx of atrial fibrillation Do you want consulting provider notified?: Yes Primary care physician: Nita Pham Hospital Course: Final diagnosis Syncope Atrial fibrillation anticoagulated with Xarelto Hypertension Hyperlipidemia Chronic diastolic heart failure with no acute exacerbation COPD Diabetes mellitus type 2 Gastroesophageal reflux disease Sleep apnea noncompliant with CPAP History of spinal stenosis and degenerative disc disease Generalized weakness with gait dysfunction Former smoker Anxiety/depression GI Prophylaxis DVT prophylaxis has been resumed on Xarelto Full Code Discharge disposition Patient is being discharged in a stable condition with guarded prognosis to home. Patient will follow-up with Dr. Nita Pham in the outpatient setting upon discharge. Patient is to continue with current medications and outpatient follow-up with cardiology as scheduled. Total time taken is greater than 35 minutes. Hospital course This is an 84-year-old female with medical history significant for atrial fibrillation, heart failure, COPD, diabetes mellitus, gastroesophageal reflux disease, hypertension, hyperlipidemia, cardiac catheterization. Patient presents to the hospital yesterday afternoon secondary to a syncopal episode. Patient was walking when she felt lightheaded she states that she initially sat down in her wheelchair in the kitchen however she woke up on the ground she is unsure if she hit her head or not. Patient does live with her daughter, however her dtr wasnt home at the time of the incident. She has been having intermittent episodes of dizziness that was felt to be associated with atrial fibrillation. Was recently evaluated at [facility] for the same syncopal type event. Patient states she had an extensive work up over there. Was in to see Dr Pham in the office recently for the dizziness however states they are unable to accept her as a regular patient. On admission EKG on admission reveals atrial fibrillation with RVR/atrial flutter with heart rate of [address] or T wave changes. Her chest x-ray reveals no acute cardiopulmonary process. Head cervical spine CT was completed which reveals no acute intracranial process with nonspecific advancement matter changes likely secondary to chronic small vessel ischemic disease. No evidence of cervical spine fracture. With mild multilevel degenerative disc disease. Her initial blood work reveals a white blood cell count of 8.2 hemoglobin 11.3 D-dimer of 0.31. Her BUN is 11 creatinine 0.64. Troponin level has been negative x 3. Urinalysis is not suggestive of infection. Viral panel is negative for influenza RSV and COVID. Patient has been on oral Cardizem 30 mg every 8 hours and oral metoprolol 50 mg every 8 hours. These have been decreased to twice daily. Most recent echocardiogram in the system is from 2021 which reveals an ejection fraction of 50 to 55% with mild aortic valve sclerosis, mild mitral annular calcification, moderate mitral digitation, mild to moderate tricuspid regurgitation, mild pulmonary. She has been afebrile heart rate is not 72 blood pressure is 125/72. Patient is currently admitted to the hospital in observation with a consult placed to cardiology. Patient was evaluated by cardiology making adjustments to medications and recommending a 2-week event monitor on discharge. Reports from [facility] were obtained and evaluated and cardiology is clearing the patient recommending outpatient follow-up. Patient has been evaluated by physical therapy and will be going home with daughter. Patient is extremely anxious to discharge home. Please refer to cardiology consultation notes for further HPI. Patient denies any chest pain or shortness of breath. Patient tolerating diet with no reported nausea and vomiting. Patient remains afebrile. PHYSICAL EXAMINATION: GENERAL: The patient is alert and oriented x3, not in any acute distress. Well developed, well nourished. HEENT: Pupils are round and equally reacting to light. EOMI. No scleral icterus. No conjunctival pallor. Normocephalic, atraumatic. No pharyngeal erythema. No thyromegaly. CARDIOVASCULAR: S1 and S2 present. No murmurs, rubs, or gallops. PULMONARY: Chest is clear to auscultation, no wheezing or crackles. ABDOMEN: Soft, nontender, nondistended, normoactive bowel sounds. No palpable organomegaly. MUSCULOSKELETAL: No joint swelling or deformity. EXTREMITIES: No cyanosis, clubbing, or pedal edema. NEUROLOGICAL: Gross neurological examination did not reveal any focal deficits. SKIN: No rashes. Please refer to medication reconciliation sheet for a list of medications. The impression and plan of care has been dictated by Bobbi Rizvi, Nurse Practitioner as directed. Dr. Valdo MD I have performed a history and examination and MDM of this patient, discussed the same with the dictator, and agree with the dictator's assessment and plan as written ,documented as a scribe. Based on total visit time, I have performed more than 50% of the visit. Patient Condition at Discharge: Fair Plan - Discharge Summary New Discharge Prescriptions: New Losartan [Cozaar] 100 mg PO DAILY #60 tab Acetaminophen Tab [Tylenol] 650 mg PO Q6HR PRN tab PRN Reason: Mild Pain Or Fever > 100.5 Diltiazem Oral [Cardizem*] 30 mg PO BID #60 tab Continue Nitroglycerin Sl Tabs [Nitrostat] 0.4 mg SUBLINGUAL Q5M PRN #25 tab PRN Reason: Chest Pain metFORMIN HCL [Glucophage] 500 mg PO BID-W/MEALS Atorvastatin [Lipitor] 10 mg PO HS Rivaroxaban [Xarelto] 20 mg PO HS Pregabalin [Lyrica] 100 mg PO BID ALPRAZolam [Xanax] 0.25 mg PO DAILY PRN PRN Reason: Anxiety Magnesium Oxide [Magox 400] 400 mg PO DAILY Empagliflozin [Jardiance] 10 mg PO DAILY Escitalopram [Lexapro] 5 mg PO DAILY Metoprolol Tartrate [Lopressor] 50 mg PO Q8H Levothyroxine Sodium [Synthroid] 137 mcg PO DAILY Discontinued dilTIAZem HCL 30 mg PO Q8H Irbesartan 300 mg PO DAILY Discharge Medication List Nitroglycerin Sl Tabs [Nitrostat] 0.4 mg SUBLINGUAL Q5M PRN #25 tab 11/30/14 [Rx] Atorvastatin [Lipitor] 10 mg PO HS 04/26/15 [History] metFORMIN HCL [Glucophage] 500 mg PO BID-W/MEALS 04/26/15 [History] Rivaroxaban [Xarelto] 20 mg PO HS 11/08/16 [History] Pregabalin [Lyrica] 100 mg PO BID 12/20/16 [History] ALPRAZolam [Xanax] 0.25 mg PO DAILY PRN 04/06/24 [History] Empagliflozin [Jardiance] 10 mg PO DAILY 01/25/25 [History] Escitalopram [Lexapro] 5 mg PO DAILY 01/25/25 [History] Levothyroxine Sodium [Synthroid] 137 mcg PO DAILY 01/25/25 [History] Magnesium Oxide [Magox 400] 400 mg PO DAILY 01/25/25 [History] Metoprolol Tartrate [Lopressor] 50 mg PO Q8H 01/25/25 [History] Acetaminophen Tab [Tylenol] 650 mg PO Q6HR PRN tab 01/27/25 [Rx] Diltiazem Oral [Cardizem*] 30 mg PO BID #60 tab 01/27/25 [Rx] Losartan [Cozaar] 100 mg PO DAILY #60 tab 01/27/25 [Rx] Follow up Appointment(s)/Referral(s): Aries Browning DO [STAFF PHYSICIAN] - 1 Week Nita Pham MD [Primary Care Provider] - 1-2 days Activity/Diet/Wound Care/Special Instructions: activity limited until follow-up Follow-up with primary care provider on discharge Follow-up with cardiology outpatient Continue with Holter monitor and will follow-up with cardiology regarding results Continue taking medications as prescribed Discharge Disposition: HOME SELF-CARE Plan of Treatment: Refer to neurology Dr. Carlson
== END 2025-01-27 14:12 | disposition home or self-care (01) ==
LOC: EC 12:46 → 1SOBS 18:15
PROVIDERS: ADMIT Hospitalist; ATTEND Hospitalist
DX: R55 Syncope and collapse (principal); I48.0 Paroxysmal atrial fibrillation; I48.92 Unspecified atrial flutter; E11.9 Type 2 diabetes mellitus without complications; I11.0 Hypertensive heart disease with heart failure; I50.32 Chronic diastolic (congestive) heart failure; J44.9 Chronic obstructive pulmonary disease, unspecified; W07.XXXA Fall from chair, initial encounter; Y92.000 Kitchen of unspecified non-institutional (private) residence as the place of occurrence of the external cause; E78.5 Hyperlipidemia, unspecified; I07.1 Rheumatic tricuspid insufficiency; I35.8 Other nonrheumatic aortic valve disorders; I34.81 Nonrheumatic mitral (valve) annulus calcification; I25.10 Atherosclerotic heart disease of native coronary artery without angina pectoris; G47.30 Sleep apnea, unspecified; K21.9 Gastro-esophageal reflux disease without esophagitis; F32.A Depression, unspecified; F41.9 Anxiety disorder, unspecified; M48.00 Spinal stenosis, site unspecified; Z91.199 Patient's noncompliance with other medical treatment and regimen due to unspecified reason; Z79.84 Long term (current) use of oral hypoglycemic drugs; Z79.01 Long term (current) use of anticoagulants; Z79.899 Other long term (current) drug therapy; Z79.890 Hormone replacement therapy; Z87.891 Personal history of nicotine dependence; Z88.5 Allergy status to narcotic agent; Z88.8 Allergy status to other drugs, medicaments and biological substances; Z91.040 Latex allergy status; Z91.048 Other nonmedicinal substance allergy status; Z20.822 Contact with and (suspected) exposure to COVID-19
CPT/HCPCS: 99285; 36415; 93005; 93225; 97162; 85379; 80053; 84443; 83735; 84484 ×2; 85025; 85610; 85730; 81001; 87636; 71046; 72125; 70450; G0378 ×3